=== PATIENT | male | born 1995 | race Caucasian/White ===

== ENCOUNTER → 2018-05-17 11:03 | Outpatient (CLI) | payer OTHER, MEDICAID, SELFPAY ==
--- NOTE | 2018-05-17 11:10 | RAD_ITS ---
STUDY: X-RAY CHEST REASON FOR EXAM: Male, 22 years old. Fever and cough. TECHNIQUE: PA and lateral COMPARISON: 07/25/2014 FINDINGS: Mild peribronchial cuffing. No infiltrate. The lungs are symmetrically and normally inflated. Normal cardiomediastinal silhouette. Scoliosis. RAD/Chest PA and Lateral IMPRESSION: Mild peribronchial cuffing suggesting the presence of viral syndrome/bronchiolitis without focal infiltrate. Electronically Signed: Beck Bahena, at 17:55 EDT Tel , Service support ,
== END ==
PROVIDERS: Family Provider Family Medicine; PCP Family Medicine; Referring Provider Otolaryngology Otolaryngology/Facial Plastic Surgery; Visit Provider Otolaryngology Otolaryngology/Facial Plastic Surgery
DX: R50.9 Fever, unspecified (principal); R05 Cough
CPT/HCPCS: 71046; 87070; 87077; 87186

== ENCOUNTER 2018-05-19 16:13 | Inpatient (IN) | payer OTHER, MEDICAID, SELFPAY ==
[2018-05-19 16:14] VITALS: BP 114/57; PULSE 131; RESP 16; TEMP 36.6; O2SAT 94; BMI 25.0
--- NOTE | 2018-05-19 17:34 | EKG12_ITS ---
Test Reason : FEVER Blood Pressure : / mmHG Vent. Rate : 107 BPM Atrial Rate : 107 BPM P-R Int : 130 ms QRS Dur : 076 ms QT Int : 328 ms P-R-T Axes : 045 076 020 degrees QTc Int : 437 ms Sinus tachycardia Otherwise normal ECG Confirmed by CHRISTEN OLIVIER, TAM ([id number]), desk editor EMILIANO MCHUGH ([id number] on 05/24/2018 3:41:02 PM Referred By: Antonino Maria Confirmed By:TAM VELÁSQUEZ MD
--- NOTE | 2018-05-19 17:36 | ED.VISSUMM ---
- ER Visit Summary Date of Service: 05/19/18 Chief Complaint: Fever History of Present Illness: The patient is a 22 M who presents for 1 week of fever. Patient lives in a senior care, and he has been running a fever of 103 daily, with improvement with Tylenol. Patient has had associated cough and decreased oral intake. He has Down syndrome and is nonverbal thus cannot specify any complaints. History is provided by mother. He has had no vomiting, diarrhea, change in his urination. He does have a rash to his forehead that is new. He is also had a high heart rate for 2 months and is on metoprolol now by his primary care doctor. Patient was seen by Dr. Maria 2 days ago for a routine appointment, and at that time a throat culture was performed to evaluate for any possible strep, since patient cannot indicate if he is having sore throat. It came back today positive for E. coli. Patient had a negative chest x-ray for pneumonia at that time as well. Dr. Maria was concerned since patient is allergic to most oral antibiotics and may need admission for IV antibiotics. Physical Examination: Vital signs: afebrile, normotensive, tachycardic at 131, no hypoxia on room air General: well nourished, Down syndrome facies, in no distress Skin: warm, dry, excoriated papules on the forehead, erythema along the hairline, no vesicles, petechiae or purpura noted on the skin, no pallor HEENT: normocephalic and atraumatic; PERRL, EOMI, dry mucous membranes, moist cough Cardiovascular: Tachycardic rate and rhythm without murmurs, no peripheral edema, 2+ pulses all distal extremities Respiratory: No increased work of breathing, lungs are clear to auscultation bilaterally, no rales, rhonchi or wheezing, exam is limited secondary to patient movement and ability to cooperate Abdominal: Abdomen is soft, nontender with normoactive bowel sounds, no guarding or rebound, no masses, Patrick button in place with no surrounding erythema or exudate, no tenderness MSK: Moves all extremities, no deformities, normal strength Neuro: Awake and alert, at baseline. No facial droop, sensation and motor function intact and symmetric Test Results: Abnormal Lab Results 05/19/18 05/19/18 05/19/18 18:00 18:00 18:00 WBC 4.6 RBC 5.03 Hgb 15.9 Hct 46.0 MCV 91.5 MCH 31.6 MCHC 34.6 RDW 13.5 RDW Differential 44.7 H Plt Count 304 MPV 9.7 Immature Gran % (Auto) 0.400 Neut % (Auto) 58.1 Lymph % (Auto) 25.3 [place] % (Auto) 14.7 H Eos % (Auto) 0.9 Baso % (Auto) 0.6 Absolute Neuts (auto) 2.7 Absolute Lymphs (auto) 1.17 Total Counted Not Reportable PT 14.1 INR 1.1 APTT 31.5 Sodium 141 Potassium 4.2 Chloride 108 H Carbon Dioxide 26.0 Anion Gap 7 BUN 13 Creatinine 0.79 Estim Creat Clear Calc 112.92 Est GFR (MDRD) Af Amer 156 Est GFR (MDRD) Non-Af 129 BUN/Creatinine Ratio 16.4 Glucose 93 Lactic Acid Calcium 8.7 Total Bilirubin 0.30 AST 24 ALT 37 Alkaline Phosphatase 128 H Troponin I < 0.015 Total Protein 8.6 H Albumin 3.3 Globulin 5.3 H Albumin/Globulin Ratio 0.6 L Urine Color Urine Clarity Urine pH Ur Specific [place] Urine Protein Urine Glucose (UA) Urine Ketones Urine Occult Blood Urine Nitrite Urine Bilirubin Urine Urobilinogen Ur Leukocyte Esterase Urine RBC Urine WBC Ur Squamous Epith Cells Urine Bacteria Urine Mucus 05/19/18 05/19/18 18:00 18:40 WBC RBC Hgb Hct MCV MCH MCHC RDW RDW Differential Plt Count MPV Immature Gran % (Auto) Neut % (Auto) Lymph % (Auto) [place] % (Auto) Eos % (Auto) Baso % (Auto) Absolute Neuts (auto) Absolute Lymphs (auto) Total Counted PT INR APTT Sodium Potassium Chloride Carbon Dioxide Anion Gap BUN Creatinine Estim Creat Clear Calc Est GFR (MDRD) Af Amer Est GFR (MDRD) Non-Af BUN/Creatinine Ratio Glucose Lactic Acid 1.0 Calcium Total Bilirubin AST ALT Alkaline Phosphatase Troponin I Total Protein Albumin Globulin Albumin/Globulin Ratio Urine Color Yellow Urine Clarity Clear Urine pH 8.0 Ur Specific [place] 1.010 Urine Protein Negative Urine Glucose (UA) Normal Urine Ketones Negative Urine Occult Blood 10 H Urine Nitrite Negative Urine Bilirubin Negative Urine Urobilinogen Normal Ur Leukocyte Esterase Negative Urine RBC 0-5 SEEN Urine WBC 0-5 SEEN Ur Squamous Epith Cells 0 SEEN Urine Bacteria RARE Urine Mucus 0 SEEN Clinical Impression(s) from Imaging Studies Chest X-Ray 05/19/18 18:20 IMPRESSION: Findings which may be consistent with viral pneumonia or other nonspecific upper airway disease Electronically Signed: Juan Galvan MD at 19:03 EDT , Service support , Medications Given Acetaminophen (Tylenol) 650 mg PO Q6H PRN PRN PRN Reason: ELEVATED TEMP Last Admin: 05/19/18 23:18 Dose: 650 mg Bisacodyl (Dulcolax) 10 mg RECTAL UD [facility] Last Admin: 05/19/18 23:09 Dose: Not Given Enoxaparin Sodium (Lovenox) 40 mg SC DAILY@1000 JOSE LUIS Enteral Nutritional Formula (Jevity 1.5) 237 ml PO BID [facility] Guaifenesin (Mucinex) 600 mg PO BID [facility] Sodium Chloride () 1,000 mls @ 250 mls/hr IV .Q4H [facility] Last Admin: 05/19/18 18:06 Dose: 250 mls/hr Lactobacillus Acidophilus (Acidophilus) 1 tablet GT DAILY [facility] Magnesium Hydroxide (Milk Of Magnesia) 30 ml PO DAILY PRN PRN PRN Reason: Constipation Metoprolol Tartrate (Lopressor (Beta Jose)) 25 mg GT BID [facility] Last Admin: 05/19/18 23:07 Dose: 25 mg Non-Formulary Medication (Lansoprazole) 30 mg GT DAILY [facility] Polyethylene Glycol (Miralax) 8.5 gm GT DAILY [facility] Simethicone (Mylicon) 80 mg GT 4X/DAY PRN PRN PRN Reason: gas pains Sodium Chloride ([place] Nasal [place]) 3 spray NASAL BID [facility] Last Admin: 05/19/18 23:08 Dose: 3 spray Sodium Chloride () 5 - 30 ml IV UD PRN PRN Reason: SALINE FLUSH Trazodone HCl (Desyrel) 150 mg GT QHS [facility] Last Admin: 05/19/18 23:10 Dose: 150 mg Discontinued Medications Meropenem 1 gm/ Sodium (Chloride) 120 mls @ 33 mls/hr IV X1 ONE Stop: 05/20/18 00:23 Last Admin: 05/19/18 21:13 Dose: 33 mls/hr Trazodone HCl (Desyrel) 150 mg GT QHS [facility] Emergency Department Course and Treatment: Patient presents with fevers for the last week, positive throat culture for E. coli and concern for pneumonia. Repeat chest x-ray showed findings concerning for viral pneumonia but no infiltrates concerning for bacterial pneumonia. Patient had no leukocytosis. Labs were unremarkable. Lactate was normal at 1. EKG showed a sinus rhythm without ischemia or ectopy but was tachycardic. Troponin negative. Patient was given IV fluids. Because of the fevers and the history of E. coli in the throat culture and allergies to the appropriate oral medications, patient was started on IV meropenem and will be admitted for further evaluation and management of his E. coli infection of the throat. Patient discussed with Dr. Rocha for admission. Treatment Plan: [] Disposition: [] Impression: Febrile illness, positive E. coli throat culture, viral pneumonia This note was generated with [employer] dictation software. It may contain incorrect words, spelling, and punctuation that were not noted in review of the chart prior to signing ED Disposition - Plan for ED Patient: Disposition: Acute Care Hospital [facility] Chief Complaint: Fever
--- NOTE | 2018-05-19 17:39 | ED.DCSUM_ITS ---
- ER Visit Summary Date of Service: 05/19/18 Chief Complaint: Fever History of Present Illness: The patient is a 22 M who presents for 1 week of fever. Patient lives in a senior care, and he has been running a fever of 103 daily, with improvement with Tylenol. Patient has had associated cough and decreased oral intake. He has Down syndrome and is nonverbal thus cannot specify any complaints. History is provided by mother. He has had no vomiting, diarrhea, change in his urination. He does have a rash to his forehead that is new. He is also had a high heart rate for 2 months and is on metoprolol now by his primary care doctor. Patient was seen by Dr. Maria 2 days ago for a routine appointment, and at that time a throat culture was performed to evaluate for any possible strep, since patient cannot indicate if he is having sore throat. It came back today positive for E. coli. Patient had a negative chest x-ray for pneumonia at that time as well. Dr. Maria was concerned since patient is allergic to most oral antibiotics and may need admission for IV antibiotics. Physical Examination: Vital signs: afebrile, normotensive, tachycardic at 131, no hypoxia on room air General: well nourished, Down syndrome facies, in no distress Skin: warm, dry, excoriated papules on the forehead, erythema along the hairline, no vesicles, petechiae or purpura noted on the skin, no pallor HEENT: normocephalic and atraumatic; PERRL, EOMI, dry mucous membranes, moist cough Cardiovascular: Tachycardic rate and rhythm without murmurs, no peripheral edema, 2+ pulses all distal extremities Respiratory: No increased work of breathing, lungs are clear to auscultation bilaterally, no rales, rhonchi or wheezing, exam is limited secondary to patient movement and ability to cooperate Abdominal: Abdomen is soft, nontender with normoactive bowel sounds, no guarding or rebound, no masses, Patrick button in place with no surrounding erythema or exudate, no tenderness MSK: Moves all extremities, no deformities, normal strength Neuro: Awake and alert, at baseline. No facial droop, sensation and motor function intact and symmetric Test Results: Abnormal Lab Results 05/19/18 05/19/18 05/19/18 18:00 18:00 18:00 WBC 4.6 RBC 5.03 Hgb 15.9 Hct 46.0 MCV 91.5 MCH 31.6 MCHC 34.6 RDW 13.5 RDW Differential 44.7 H Plt Count 304 MPV 9.7 Immature Gran % (Auto) 0.400 Neut % (Auto) 58.1 Lymph % (Auto) 25.3 [place] % (Auto) 14.7 H Eos % (Auto) 0.9 Baso % (Auto) 0.6 Absolute Neuts (auto) 2.7 Absolute Lymphs (auto) 1.17 Total Counted Not Reportable PT 14.1 INR 1.1 APTT 31.5 Sodium 141 Potassium 4.2 Chloride 108 H Carbon Dioxide 26.0 Anion Gap 7 BUN 13 Creatinine 0.79 Estim Creat Clear Calc 112.92 Est GFR (MDRD) Af Amer 156 Est GFR (MDRD) Non-Af 129 BUN/Creatinine Ratio 16.4 Glucose 93 Lactic Acid Calcium 8.7 Total Bilirubin 0.30 AST 24 ALT 37 Alkaline Phosphatase 128 H Troponin I < 0.015 Total Protein 8.6 H Albumin 3.3 Globulin 5.3 H Albumin/Globulin Ratio 0.6 L Urine Color Urine Clarity Urine pH Ur Specific [place] Urine Protein Urine Glucose (UA) Urine Ketones Urine Occult Blood Urine Nitrite Urine Bilirubin Urine Urobilinogen Ur Leukocyte Esterase Urine RBC Urine WBC Ur Squamous Epith Cells Urine Bacteria Urine Mucus 05/19/18 05/19/18 18:00 18:40 WBC RBC Hgb Hct MCV MCH MCHC RDW RDW Differential Plt Count MPV Immature Gran % (Auto) Neut % (Auto) Lymph % (Auto) [place] % (Auto) Eos % (Auto) Baso % (Auto) Absolute Neuts (auto) Absolute Lymphs (auto) Total Counted PT INR APTT Sodium Potassium Chloride Carbon Dioxide Anion Gap BUN Creatinine Estim Creat Clear Calc Est GFR (MDRD) Af Amer Est GFR (MDRD) Non-Af BUN/Creatinine Ratio Glucose Lactic Acid 1.0 Calcium Total Bilirubin AST ALT Alkaline Phosphatase Troponin I Total Protein Albumin Globulin Albumin/Globulin Ratio Urine Color Yellow Urine Clarity Clear Urine pH 8.0 Ur Specific [place] 1.010 Urine Protein Negative Urine Glucose (UA) Normal Urine Ketones Negative Urine Occult Blood 10 H Urine Nitrite Negative Urine Bilirubin Negative Urine Urobilinogen Normal Ur Leukocyte Esterase Negative Urine RBC 0-5 SEEN Urine WBC 0-5 SEEN Ur Squamous Epith Cells 0 SEEN Urine Bacteria RARE Urine Mucus 0 SEEN Clinical Impression(s) from Imaging Studies Chest X-Ray 05/19/18 18:20 IMPRESSION: Findings which may be consistent with viral pneumonia or other nonspecific upper airway disease Electronically Signed: Juan Galvan MD at 19:03 EDT , Service support , Medications Given Acetaminophen (Tylenol) 650 mg PO Q6H PRN PRN PRN Reason: ELEVATED TEMP Last Admin: 05/19/18 23:18 Dose: 650 mg Bisacodyl (Dulcolax) 10 mg RECTAL UD [facility] Last Admin: 05/19/18 23:09 Dose: Not Given Enoxaparin Sodium (Lovenox) 40 mg SC DAILY@1000 JOSE LUIS Enteral Nutritional Formula (Jevity 1.5) 237 ml PO BID [facility] Guaifenesin (Mucinex) 600 mg PO BID [facility] Sodium Chloride () 1,000 mls @ 250 mls/hr IV .Q4H [facility] Last Admin: 05/19/18 18:06 Dose: 250 mls/hr Lactobacillus Acidophilus (Acidophilus) 1 tablet GT DAILY [facility] Magnesium Hydroxide (Milk Of Magnesia) 30 ml PO DAILY PRN PRN PRN Reason: Constipation Metoprolol Tartrate (Lopressor (Beta Jose)) 25 mg GT BID [facility] Last Admin: 05/19/18 23:07 Dose: 25 mg Non-Formulary Medication (Lansoprazole) 30 mg GT DAILY [facility] Polyethylene Glycol (Miralax) 8.5 gm GT DAILY [facility] Simethicone (Mylicon) 80 mg GT 4X/DAY PRN PRN PRN Reason: gas pains Sodium Chloride ([place] Nasal [place]) 3 spray NASAL BID [facility] Last Admin: 05/19/18 23:08 Dose: 3 spray Sodium Chloride () 5 - 30 ml IV UD PRN PRN Reason: SALINE FLUSH Trazodone HCl (Desyrel) 150 mg GT QHS [facility] Last Admin: 05/19/18 23:10 Dose: 150 mg Discontinued Medications Meropenem 1 gm/ Sodium (Chloride) 120 mls @ 33 mls/hr IV X1 ONE Stop: 05/20/18 00:23 Last Admin: 05/19/18 21:13 Dose: 33 mls/hr Trazodone HCl (Desyrel) 150 mg GT QHS [facility] Emergency Department Course and Treatment: Patient presents with fevers for the last week, positive throat culture for E. coli and concern for pneumonia. Repeat chest x-ray showed findings concerning for viral pneumonia but no infiltrates concerning for bacterial pneumonia. Patient had no leukocytosis. Labs were unremarkable. Lactate was normal at 1. EKG showed a sinus rhythm without ischemia or ectopy but was tachycardic. Troponin negative. Patient was given IV fluids. Because of the fevers and the history of E. coli in the throat culture and allergies to the appropriate oral medications, patient was started on IV meropenem and will be admitted for further evaluation and management of his E. coli infection of the throat. Patient discussed with Dr. Rocha for admission. Treatment Plan: [] Disposition: [] Impression: Febrile illness, positive E. coli throat culture, viral pneumonia This note was generated with [employer] dictation software. It may contain incorrect words, spelling, and punctuation that were not noted in review of the chart prior to signing ED Disposition - Plan for ED Patient: Disposition: Acute Care Hospital [facility] Chief Complaint: Fever
[2018-05-19] MEDS: 0.9% Normal Saline 1,000 ML 250 ML IV (18:06)
--- NOTE | 2018-05-19 18:20 | RAD_ITS ---
STUDY: X-RAY CHEST REASON FOR EXAM: Male, 22 years old. Fever TECHNIQUE: PA and lateral COMPARISON: May 17, 2018 FINDINGS: Bilateral hilar interstitial thickening is seen more severe on the left which may be consistent with viral pneumonia. There is no demonstrated pleural abnormality. Normal size heart. Normal mediastinum and edgardo. Normal visualized pulmonary arteries. Normal visualized aortic arch and descending thoracic aorta. Dorsal spine demonstrates mild levoscoliosis. Normal visualized ribs, clavicles, and shoulders. There is no demonstrated abnormality of the visualized soft tissue structures of the upper abdomen. RAD/Chest PA and Lateral IMPRESSION: Findings which may be consistent with viral pneumonia or other nonspecific upper airway disease Electronically Signed: Juan Galvan MD at 19:03 EDT , Service support ,
[2018-05-19 18:23] LABS: Absolute Lymphocyte Count 1.17 X10^3/ul (0.83-4.51); Absolute Neutrophil Count 2.7 X10^3/uL (2.0-7.7); Basophil# 0.03 X10^3/uL; Basophil% 0.6 % (0-1); Eosinophil# 0.04 X10^3/uL; Eosinophils% 0.9 % (0-5); Hemoglobin 15.9 g/dl (13.0-16.5); Lymphocyte # 1.17 X10^3/ul (4.0); Lymphocyte % 25.3 % (19-41); Mean Corp Hgb Conc 34.6 g/gl (32-36); Mean Corpuscular Hgb 31.6 pg (27.0-32.0); Mean Corpuscular Volume 91.5 fL (80-94); Mean Platelet Vol. 9.7 fl (6.2-12.0); Monocyte# 0.68 X10^3/uL; Monocyte% 14.7 % (0-10); Neutrophil # 2.69 X10^3/uL (2.7-7.7); Neutrophil % 58.1 % (47-70); Platelet Count 304 K/mm3 (150-450); RBC Distribution Width CV 13.5 % (11.6-14.6); RBC Distribution Width SD 44.7 fl (35.1-43.9); Red Blood Count 5.03 M/mm3 (4.6-6.2); White Blood Count 4.6 K/mm3 (4.4-11.0)
[2018-05-19 18:32] LABS: POSITIVE COUNT NO; POSITIVE DIFFERENTIAL NO; POSITIVE MORPHOLOGY NO
[2018-05-19 18:34] VITALS: PULSE 120; RESP 20
[2018-05-19 18:39] LABS: ALB/GLOB Ratio 0.6 RATIO (0.9-2.4); AST(SGOT) 24 U/L (15-37); Alanine Aminotransfer ALT/SGPT 37 U/L (16-61); Albumin, Serum 3.3 g/dL (3.2-5.0); Alkaline Phosphatase 128 U/L (45-117); Anion Gap 7 (5-15); BUN 13 mg/dL (7-18); BUN/Creat Ratio 16.4 RATIO (10-20); Calcium,Total 8.7 mg/dL (8.5-10.1); Chloride 108 mmol/L (98-107); Creatinine, Serum 0.79 mg/dL (0.70-1.30); EST Glomerular Filtration Rate 129 mL/min (>60); Est Glom Filt Rate - Afr Amer 156 mL/min (>60); Estimated Creatinine Clearance 112.92 ml/min; Globulin 5.3 g/dL (2.2-4.2); Glucose 93 mg/dL (74-106); Potassium 4.2 mmol/L (3.5-5.1); Protein, Total 8.6 g/dL (6.4-8.2); Sodium Level 141 mmol/L (136-145)
[2018-05-19 18:45] LABS: International Normalized Ratio 1.1; Prothrombin Time (Protime)PT. 14.1 SECONDS (11.7-14.9)
[2018-05-19 18:46] LABS: Partial Thromboplast Time 31.5 Seconds (24.1-36.2)
[2018-05-19 18:46] LABS: Mucous, Urine 0 SEEN /hpf (<or=2+); Squamous Epithelial Cells - UA 0 SEEN /hpf (0-5)
[2018-05-19 19:03] LABS: Color, Urine Yellow (Yellow); Glucose, Dipstick Normal (Normal); Ketone-Dipstick Negative (Negative); Leukocyte Esterase-Dipstick Negative /ul (Negative); Nitrite-Dipstick Negative (Negative); Occult Blood-Urine 10 /ul (Negative); Protein-Dipstick Negative (Negative); Urine Bilirubin Dipstick Negative (Negative); Urine Clarity Clear (Clear); Urine Urobilinogen Normal (Normal)
[2018-05-19 19:17] LABS: Bacteria RARE /hpf (None Seen); Red Blood Cells-Urine 0-5 SEEN /hpf (0-5); White Blood Cells 0-5 SEEN /hpf (0-5)
[2018-05-19 21:17] VITALS: BP 140/99; PULSE 122; RESP 20
--- NOTE | 2018-05-19 21:24 | PCM.HP.STD ---
Problem List (1) Fever Status: Acute (2) Cough Status: Acute History of Present Illness Date of Admission: 05/19/18 Chief Complaint: Fever, cough The patient is a 22 year old M with a history of Down syndrome, and resident in a assisted. He was admitted with a complaint of fever for 1 week. Patient was seen by his ENT doctor Dr. Hooker, who did a throat swab which grew E. coli. Patient's fever had peaked at about 103 Fahrenheit last week. He also had a cough which was nonproductive. He was brought into the ED today by his mother after being referred by Dr. Hooker on account of throat swelling grew E. coli and patient being allergic to penicillins and ceftriaxone. According to mother, he was febrile yesterday with temperature peaking around 101 Fahrenheit but has not been febrile today. He still has a cough which is nonproductive and denies any anorexia, any chills, any abdominal pain, any diarrhea vomiting. Patient is nonverbal and so could not give much of her history. Review of systems is otherwise negative. In the ED, vitals were significant for pulse rate of 122, respiratory rate of 20 and temperature of 97.9. CBC showed no leukocytosis and CMP was remarkable only for elevated total protein of 8.6 and ALP of 128. Chest x-ray showed bilateral hilar interstitial thickening more severe on the left which may be consistent with viral pneumonia. He has been admitted to be managed for pneumonia. [] Past Medical History Past Medical History (Chronic Problems): Chronic Problems Autism (Chronic) Dysphagia (Chronic) Down syndrome (Chronic) nonverbal incontinent Allergies ceftriaxone sodium [From Rocephin] Allergy (Verified 05/19/18 17:17) Rash sulfamethoxazole [From Bactrim] Allergy (Verified 05/19/18 17:17) Rash trimethoprim [From Bactrim] Allergy (Verified 05/19/18 17:17) Rash cinnamon [Cinnamon] Adverse Reaction (Verified 05/19/18 17:17) Diarrhea Home Medications: Ambulatory Orders Medication Instructions Recorded L.acidoph,Paracasei, B.lactis 1 pack GT DAILY 07/19/15 [Probiotic] Lansoprazole [Prevacid] 30 mg GT DAILY 07/19/15 Simethicone 40MG/0.6ML [Mylicon] 80 mg GT Q8H PRN PRN 07/19/15 Polyethylene Glycol 3350 [Miralax] 8.5 gm GT DAILY 06/11/17 Sodium Chloride [Saline Nasal Mist] 3 spray NASAL BID 06/11/17 Bisacodyl 10 mg RC UD PRN 05/19/18 Lactose-Reduced Food/Fiber [Jevity 12 oz GT BID 05/19/18 1.5 Jamarcus Liquid] Metoprolol Tartrate 25 mg GT BID 05/19/18 traZODone [Desyrel] 150 mg GT QHS 05/19/18 Lives: - - In assisted Smoking Status: Never smoker Alcohol: None Drugs: None - *Family History Maternal History Items: No pertinent history Review of Systems Constitutional: Reports: Fever. Denies: Weakness, Fatigue Respiratory: Reports: Cough. Denies: Shortness of Breath, Shortness of breath at rest, Wheezing Gastrointestinal: Denies: Abdominal Pain, Diarrhea, Vomiting Unable to obtain accurate/complete ROS d/t: patient being nonverbal; ROS taken from mother, who doesnt live with him VTE Information - Inpt Only VTE Present on Admission: No VTE Mechan Device Prophylaxis: None VTE Pharm Prophylaxis ordered?: Yes Patient Problems: Active and Suspected Problems Fever (Acute) Cough (Acute) - Physical Exam General: Alert, Cooperative, No apparent distress, - - patient nonverbal and so unable to communicate well HEENT: Atraumatic, PERRLA, EOMI, Normocephalic Oral: Moist Mucosa Neck: Supple, No JVD, Negative Carotid Bruits Lungs: - - diminished breath sounds bibasally, with coarse crackles in both lower lung mondragon. Abdomen: Bowel Sounds Present, Soft, Non Tender, Non-Distended, No Hepato-splenomegaly, - - feeding tube in place Extremities: No clubbing, No cyanosis, No edema, Capillary Refill Less than 3 Seconds Skin: No rashes, No breakdown Musculoskeletal: No Tenderness to Palpation of Joints or Extremities Lymphatic: No Cervical, Supraclavicular, or Inguinal Adenopathy Neurological: Cranial nerves II-XII grossly intact, Motor Exam 5/5 strength throughout, - - macroglossia Psych/Mental Status: Restless Vital Signs Temp Pulse Resp BP Pulse Ox 97.9 F 122 H 20 H 140/99 H 94 05/19/18 16:14 05/19/18 21:17 05/19/18 21:17 05/19/18 21:17 05/19/18 16:14 Oxygen Delivery Method Room Air Weight: 120 lb Body Mass Index (BMI) 25.0 Laboratory Tests Past 24 Hrs 05/19/18 05/19/18 05/19/18 18:00 18:00 18:00 WBC 4.6 RBC 5.03 Hgb 15.9 Hct 46.0 MCV 91.5 MCH 31.6 MCHC 34.6 RDW 13.5 RDW Differential 44.7 H Plt Count 304 MPV 9.7 Immature Gran % (Auto) 0.400 Neut % (Auto) 58.1 Lymph % (Auto) 25.3 [place] % (Auto) 14.7 H Eos % (Auto) 0.9 Baso % (Auto) 0.6 Absolute Neuts (auto) 2.7 Absolute Lymphs (auto) 1.17 Total Counted Not Reportable PT 14.1 INR 1.1 APTT 31.5 Sodium 141 Potassium 4.2 Chloride 108 H Carbon Dioxide 26.0 Anion Gap 7 BUN 13 Creatinine 0.79 Estim Creat Clear Calc 112.92 Est GFR (MDRD) Af Amer 156 Est GFR (MDRD) Non-Af 129 BUN/Creatinine Ratio 16.4 Glucose 93 Lactic Acid Calcium 8.7 Total Bilirubin 0.30 AST 24 ALT 37 Alkaline Phosphatase 128 H Troponin I < 0.015 Total Protein 8.6 H Albumin 3.3 Globulin 5.3 H Albumin/Globulin Ratio 0.6 L Urine Color Urine Clarity Urine pH Ur Specific [place] Urine Protein Urine Glucose (UA) Urine Ketones Urine Occult Blood Urine Nitrite Urine Bilirubin Urine Urobilinogen Ur Leukocyte Esterase Urine RBC Urine WBC Ur Squamous Epith Cells Urine Bacteria Urine Mucus 05/19/18 05/19/18 18:00 18:40 WBC RBC Hgb Hct MCV MCH MCHC RDW RDW Differential Plt Count MPV Immature Gran % (Auto) Neut % (Auto) Lymph % (Auto) [place] % (Auto) Eos % (Auto) Baso % (Auto) Absolute Neuts (auto) Absolute Lymphs (auto) Total Counted PT INR APTT Sodium Potassium Chloride Carbon Dioxide Anion Gap BUN Creatinine Estim Creat Clear Calc Est GFR (MDRD) Af Amer Est GFR (MDRD) Non-Af BUN/Creatinine Ratio Glucose Lactic Acid 1.0 Calcium Total Bilirubin AST ALT Alkaline Phosphatase Troponin I Total Protein Albumin Globulin Albumin/Globulin Ratio Urine Color Yellow Urine Clarity Clear Urine pH 8.0 Ur Specific [place] 1.010 Urine Protein Negative Urine Glucose (UA) Normal Urine Ketones Negative Urine Occult Blood 10 H Urine Nitrite Negative Urine Bilirubin Negative Urine Urobilinogen Normal Ur Leukocyte Esterase Negative Urine RBC 0-5 SEEN Urine WBC 0-5 SEEN Ur Squamous Epith Cells 0 SEEN Urine Bacteria RARE Urine Mucus 0 SEEN Diagnostic Data Chest X-Ray 05/19/18 18:20 IMPRESSION: Findings which may be consistent with viral pneumonia or other nonspecific upper airway disease Electronically Signed: Juan Galvan MD at 19:03 EDT , Service support , Assessment/Plan All Active Problems Fever (Acute) Cough (Acute) Facial cellulitis (Acute) 22 y/o patient with Down's syndrome presenting with a complaint of cough, fever and a throat swab that cultured E. coli 1. Sepsis due to pneumonia SIRS criteria is 2/4 (tachypnea and tachycardia) had fever for one week; peaked at 101F yesterday, but no fever today; patient looks quite stable, and per my review of CXR, there is no clear evidence of pneumonia Nonproductive cough though cough sounded chesty during my review. He is on metoprolol, so the tachycardia is likely due to sinus tachycardia which is longstanding. Chest x-ray shows possible viral pneumonia Admit to [facility] with telemetry Blood cultures and urine culture obtained in the ED respiratory Viral panel throat culture grew E. coli (1+); has allergy to ceftriaxone and penicillins, according to his mother (gets hives) E. coli in culture was resistant to numerous antibiotics received one dose of IV meropenem in ED start IV meropenem, and de-escalate pending culture results IVF NS ~ 100cc/hr x 1 bag tylenol for fever aspiration precautions robitussin cough syrup consider ID consult if patient doesnt improve 2. Down's syndrome: stable. Has PEG tube in place for supplementary feeding. Has Jevity 12oz bid for nutrition supplementation. 3. Hypertension: on metoprolol GT 25mg bid 4. DVT prophylaxis: heparin 5. GI prophylaxis: lansoprazole Code status: full code Code Visit Inpatient E&M: 02897 Init Hosp L3
--- NOTE | 2018-05-19 21:28 | HP.PCM_ITS ---
Problem List (1) Fever Status: Acute (2) Cough Status: Acute History of Present Illness Date of Admission: 05/19/18 Chief Complaint: Fever, cough The patient is a 22 year old M with a history of Down syndrome, and resident in a shelter. He was admitted with a complaint of fever for 1 week. Patient was seen by his ENT doctor Dr. Hooker, who did a throat swab which grew E. coli. Patient's fever had peaked at about 103 Fahrenheit last week. He also had a cough which was nonproductive. He was brought into the ED today by his mother after being referred by Dr. Hooker on account of throat swelling grew E. coli and patient being allergic to penicillins and ceftriaxone. According to mother, he was febrile yesterday with temperature peaking around 101 Fahrenheit but has not been febrile today. He still has a cough which is nonproductive and denies any anorexia, any chills, any abdominal pain, any diarrhea vomiting. Patient is nonverbal and so could not give much of her history. Review of [facility] is otherwise negative. In the ED, vitals were significant for pulse rate of 122, respiratory rate of 20 and temperature of 97.9. CBC showed no leukocytosis and CMP was remarkable only for elevated total protein of 8.6 and ALP of 128. Chest x-ray showed bilateral hilar interstitial thickening more severe on the left which may be consistent with viral pneumonia. He has been admitted to be managed for pneumonia. [] Past Medical History Past Medical History (Chronic Problems): Chronic Problems Autism (Chronic) Dysphagia (Chronic) Down syndrome (Chronic) nonverbal incontinent Allergies ceftriaxone sodium [From Rocephin] Allergy (Verified 05/19/18 17:17) Rash sulfamethoxazole [From Bactrim] Allergy (Verified 05/19/18 17:17) Rash trimethoprim [From Bactrim] Allergy (Verified 05/19/18 17:17) Rash cinnamon [Cinnamon] Adverse Reaction (Verified 05/19/18 17:17) Diarrhea Home Medications: Ambulatory Orders Medication Instructions Recorded L.acidoph,Paracasei, B.lactis 1 pack GT DAILY 07/19/15 [Probiotic] Lansoprazole [Prevacid] 30 mg GT DAILY 07/19/15 Simethicone 40MG/0.6ML [Mylicon] 80 mg GT Q8H PRN PRN 07/19/15 Polyethylene Glycol 3350 [Miralax] 8.5 gm GT DAILY 06/11/17 Sodium Chloride [Saline Nasal Mist] 3 spray NASAL BID 06/11/17 Bisacodyl 10 mg RC UD PRN 05/19/18 Lactose-Reduced Food/Fiber [Jevity 12 oz GT BID 05/19/18 1.5 Jamarcus Liquid] Metoprolol Tartrate 25 mg GT BID 05/19/18 traZODone [Desyrel] 150 mg GT QHS 05/19/18 Lives: - - In shelter Smoking Status: Never smoker Alcohol: None Drugs: None - *Family History Maternal History Items: No pertinent history Review of Systems Constitutional: Reports: Fever. Denies: Weakness, Fatigue Respiratory: Reports: Cough. Denies: Shortness of Breath, Shortness of breath at rest, Wheezing Gastrointestinal: Denies: Abdominal Pain, Diarrhea, Vomiting Unable to obtain accurate/complete ROS d/t: patient being nonverbal; ROS taken from mother, who doesnt live with him VTE Information - Inpt Only VTE Present on Admission: No VTE Mechan Device Prophylaxis: None VTE Pharm Prophylaxis ordered?: Yes Patient Problems: Active and Suspected Problems Fever (Acute) Cough (Acute) - Physical Exam General: Alert, Cooperative, No apparent distress, - - patient nonverbal and so unable to communicate well HEENT: Atraumatic, PERRLA, EOMI, Normocephalic Oral: Moist Mucosa Neck: Supple, No JVD, Negative Carotid Bruits Lungs: - - diminished breath sounds bibasally, with coarse crackles in both lower lung mondragon. Abdomen: Bowel Sounds Present, Soft, Non Tender, Non-Distended, No Hepato- splenomegaly, - - feeding tube in place Extremities: No clubbing, No cyanosis, No edema, Capillary Refill Less than 3 Seconds Skin: No rashes, No breakdown Musculoskeletal: No Tenderness to Palpation of Joints or Extremities Lymphatic: No Cervical, Supraclavicular, or Inguinal Adenopathy Neurological: Cranial nerves II-XII grossly intact, Motor Exam 5/5 strength throughout, - - macroglossia Psych/Mental Status: Restless Vital Signs Temp Pulse Resp BP Pulse Ox 97.9 F 122 H 20 H 140/99 H 94 05/19/18 16:14 05/19/18 21:17 05/19/18 21:17 05/19/18 21:17 05/19/18 16:14 Oxygen Delivery Method Room Air Weight: 120 lb Body Mass Index (BMI) 25.0 Laboratory Tests Past 24 Hrs 05/19/18 05/19/18 05/19/18 18:00 18:00 18:00 WBC 4.6 RBC 5.03 Hgb 15.9 Hct 46.0 MCV 91.5 MCH 31.6 MCHC 34.6 RDW 13.5 RDW Differential 44.7 H Plt Count 304 MPV 9.7 Immature Gran % (Auto) 0.400 Neut % (Auto) 58.1 Lymph % (Auto) 25.3 [place] % (Auto) 14.7 H Eos % (Auto) 0.9 Baso % (Auto) 0.6 Absolute Neuts (auto) 2.7 Absolute Lymphs (auto) 1.17 Total Counted Not Reportable PT 14.1 INR 1.1 APTT 31.5 Sodium 141 Potassium 4.2 Chloride 108 H Carbon Dioxide 26.0 Anion Gap 7 BUN 13 Creatinine 0.79 Estim Creat Clear Calc 112.92 Est GFR (MDRD) Af Amer 156 Est GFR (MDRD) Non-Af 129 BUN/Creatinine Ratio 16.4 Glucose 93 Lactic Acid Calcium 8.7 Total Bilirubin 0.30 AST 24 ALT 37 Alkaline Phosphatase 128 H Troponin I < 0.015 Total Protein 8.6 H Albumin 3.3 Globulin 5.3 H Albumin/Globulin Ratio 0.6 L Urine Color Urine Clarity Urine pH Ur Specific [place] Urine Protein Urine Glucose (UA) Urine Ketones Urine Occult Blood Urine Nitrite Urine Bilirubin Urine Urobilinogen Ur Leukocyte Esterase Urine RBC Urine WBC Ur Squamous Epith Cells Urine Bacteria Urine Mucus 05/19/18 05/19/18 18:00 18:40 WBC RBC Hgb Hct MCV MCH MCHC RDW RDW Differential Plt Count MPV Immature Gran % (Auto) Neut % (Auto) Lymph % (Auto) [place] % (Auto) Eos % (Auto) Baso % (Auto) Absolute Neuts (auto) Absolute Lymphs (auto) Total Counted PT INR APTT Sodium Potassium Chloride Carbon Dioxide Anion Gap BUN Creatinine Estim Creat Clear Calc Est GFR (MDRD) Af Amer Est GFR (MDRD) Non-Af BUN/Creatinine Ratio Glucose Lactic Acid 1.0 Calcium Total Bilirubin AST ALT Alkaline Phosphatase Troponin I Total Protein Albumin Globulin Albumin/Globulin Ratio Urine Color Yellow Urine Clarity Clear Urine pH 8.0 Ur Specific [place] 1.010 Urine Protein Negative Urine Glucose (UA) Normal Urine Ketones Negative Urine Occult Blood 10 H Urine Nitrite Negative Urine Bilirubin Negative Urine Urobilinogen Normal Ur Leukocyte Esterase Negative Urine RBC 0-5 SEEN Urine WBC 0-5 SEEN Ur Squamous Epith Cells 0 SEEN Urine Bacteria RARE Urine Mucus 0 SEEN Diagnostic Data Chest X-Ray 05/19/18 18:20 IMPRESSION: Findings which may be consistent with viral pneumonia or other nonspecific upper airway disease Electronically Signed: Juan Galvan MD at 19:03 EDT , Service support , Assessment/Plan All Active Problems Fever (Acute) Cough (Acute) Facial cellulitis (Acute) 22 y/o patient with Down's syndrome presenting with a complaint of cough, fever and a throat swab that cultured E. coli 1. Sepsis due to pneumonia * SIRS criteria is 2/4 (tachypnea and tachycardia) * had fever for one week; peaked at 101F yesterday, but no fever today; patient looks quite stable, and per my review of CXR, there is no clear evidence of pneumonia * Nonproductive cough though cough sounded chesty during my review. He is on metoprolol, so the tachycardia is likely due to sinus tachycardia which is longstanding. * Chest x-ray shows possible viral pneumonia * Admit to [facility] with telemetry * Blood cultures and urine culture obtained in the ED * respiratory Viral panel * throat culture grew E. coli (1+); has allergy to ceftriaxone and penicillins, according to his mother (gets hives) * E. coli in culture was resistant to numerous antibiotics * received one dose of IV meropenem in ED * start IV meropenem, and de-escalate pending culture results * IVF NS ~ 100cc/hr x 1 bag * tylenol for fever * aspiration precautions * robitussin cough syrup * consider ID consult if patient doesnt improve * 2. Down's syndrome: stable. Has PEG tube in place for supplementary feeding. Has Jevity 12oz bid for nutrition supplementation. 3. Hypertension: on metoprolol GT 25mg bid 4. DVT prophylaxis: heparin 5. GI prophylaxis: lansoprazole Code status: full code Code Visit Inpatient E&M: 65242 Init Hosp L3
[2018-05-19 21:47] VITALS: BMI 24.0; BMI 24.1
[2018-05-19 23:00] VITALS: BP 127/73; PULSE 120; RESP 24; RESP 30; TEMP 38; O2SAT 97
[2018-05-19 23:07] VITALS: BP 127/73; PULSE 120
[2018-05-19] MEDS: Metoprolol Tartrate 25 MG Tablet GT (23:07)
[2018-05-19] MEDS: Sodium Chloride 0.65% 1 SPRAY SPRAY.BTL 3 SPRAY NASAL (23:08)
[2018-05-19] MEDS: Jevity 1.5. 1,000 ML Bottle 237 ML PO (23:10)
[2018-05-19] MEDS: traZODone 50 MG Tablet 150 MG GT (23:10)
[2018-05-19] MEDS: Acetaminophen 325 MG Tablet 650 MG PO (23:18)
[2018-05-20] VITALS (18 sets, daily range): BP systolic 107–142; BP diastolic 56–76; PULSE 79–135; RESP 18–24; TEMP 36.7–38; O2SAT 6–95
[2018-05-20] MEDS: 0.9% Normal Saline 1,000 ML 250 ML IV ×4 (01:14→09:05)
--- NOTE | 2018-05-20 03:23 | NURSING ---
ta temp 97.9
[2018-05-20] MEDS: guaiFENesin 10 ML UDC (200MG/10ML) NG ×4 (05:28→22:57)
--- NOTE | 2018-05-20 05:42 | NURSING ---
pt inc of urine, bath and dewayne care given, oral care done. linens changed. pt still has a harsh nonproductive moist cough, cough med given via peg tube. mom at the bedside.
[2018-05-20 05:44] LABS: Absolute Lymphocyte Count 1.45 X10^3/ul (0.83-4.51); Absolute Neutrophil Count 1.8 X10^3/uL (2.0-7.7); Basophil# 0.02 X10^3/uL; Basophil% 0.5 % (0-1); Eosinophil# 0.06 X10^3/uL; Eosinophils% 1.5 % (0-5); Hematocrit 43.4 % (40-54); Hemoglobin 14.6 g/dl (13.0-16.5); Lymphocyte # 1.45 X10^3/ul (4.0); Lymphocyte % 36.7 % (19-41); Mean Corp Hgb Conc 33.6 g/gl (32-36); Mean Corpuscular Hgb 31.7 pg (27.0-32.0); Mean Corpuscular Volume 94.1 fL (80-94); Mean Platelet Vol. 9.5 fl (6.2-12.0); Monocyte% 15.2 % (0-10); Neutrophil % 45.6 % (47-70); Platelet Count 261 K/mm3 (150-450); RBC Distribution Width CV 13.7 % (11.6-14.6); RBC Distribution Width SD 45.6 fl (35.1-43.9); Red Blood Count 4.61 M/mm3 (4.6-6.2)
[2018-05-20 05:53] LABS: POSITIVE COUNT NO; POSITIVE DIFFERENTIAL NO; POSITIVE MORPHOLOGY NO
[2018-05-20 05:59] LABS: Anion Gap 7 (5-15); BUN 12 mg/dL (7-18); BUN/Creat Ratio 15.9 RATIO (10-20); Calcium,Total 7.8 mg/dL (8.5-10.1); Chloride 113 mmol/L (98-107); Creatinine, Serum 0.75 mg/dL (0.70-1.30); EST Glomerular Filtration Rate 137 mL/min (>60); Est Glom Filt Rate - Afr Amer 165 mL/min (>60); Estimated Creatinine Clearance 114.07 ml/min; Glucose 84 mg/dL (74-106); Potassium 4.1 mmol/L (3.5-5.1); Sodium Level 143 mmol/L (136-145)
--- NOTE | 2018-05-20 07:53 | PCM.PN.HOSP ---
Patient Problems: Active and Suspected Problems Fever (Acute) Cough (Acute) Subjective: Patient is a 22-year-old gentleman with history of Down syndrome currently residing at a skilled nursing brought in with fever and shortness of breath. Chest x-ray obtained on admission demonstrated Findings which may be consistent with viral pneumonia or other nonspecific upper airway disease. Admitted to regular nursing floor for subsequent management Objective: GENERAL: Resting HEENT: Large protruding tongue EYES; Anicteric, Normal Conjunctiva NECK; supple, normal thyroid, no distended JVD. RESPIRATORY: Diminished to auscultation bilaterally, CARDIOVASCULAR: Regular S1 S2, no audible murmurs GI: soft, non-tender, normoactive bowel sounds, : No Renal angle tenderness; EXTREMITIES: No edema, no clubbing, no cyanosis. MUSCULOSKELETAL: No Joint Tenderness; NEURO: Awake; no lateralizing signs. SKIN: No Rash PSYCH; Normal affect Vitals/I&O's: Vital Signs Temp Pulse Resp BP Pulse Ox 98.1 F 106 H 20 H 107/56 L 93 05/20/18 05:00 05/20/18 06:00 05/20/18 05:47 05/20/18 05:00 05/20/18 05:00 Oxygen Delivery Method Room Air Weight: 52.2 kg Body Mass Index (BMI) 24.0 Intake and Output for Last 24 Hours 05/18/18 05/19/18 05/20/18 23:59 23:59 23:59 Intake Total 287 / 287 2843 / 2843 Balance 287 / 287 2843 / 2843 Laboratory Results 05/19/18 18:00: WBC 4.6, RBC 5.03, Hgb 15.9, Hct 46.0, MCV 91.5, MCH 31.6, MCHC 34.6, RDW 13.5, RDW Differential 44.7 H, Plt Count 304, MPV 9.7, Immature Gran % (Auto) 0.400, Neut % (Auto) 58.1, Lymph % (Auto) 25.3, [place] % (Auto) 14.7 H, Eos % (Auto) 0.9, Baso % (Auto) 0.6, Absolute Neuts (auto) 2.7, Absolute Lymphs (auto) 1.17, Total Counted Not Reportable 05/19/18 18:00: PT 14.1, INR 1.1, APTT 31.5 05/19/18 18:00: Sodium 141, Potassium 4.2, Chloride 108 H, Carbon Dioxide 26.0, Anion Gap 7, BUN 13, Creatinine 0.79, Estim Creat Clear Calc 112.92, Est GFR (MDRD) Af Amer 156, Est GFR (MDRD) Non-Af 129, BUN/Creatinine Ratio 16.4, Glucose 93, Calcium 8.7, Total Bilirubin 0.30, AST 24, ALT 37, Alkaline Phosphatase 128 H, Troponin I < 0.015, Total Protein 8.6 H, Albumin 3.3, Globulin 5.3 H, Albumin/Globulin Ratio 0.6 L 05/19/18 18:00: Lactic Acid 1.0 05/19/18 18:40: Urine Color Yellow, Urine Clarity Clear, Urine pH 8.0, Ur Specific [place] 1.010, Urine Protein Negative, Urine Glucose (UA) Normal, Urine Ketones Negative, Urine Occult Blood 10 H, Urine Nitrite Negative, Urine Bilirubin Negative, Urine Urobilinogen Normal, Ur Leukocyte Esterase Negative, Urine RBC 0-5 SEEN, Urine WBC 0-5 SEEN, Ur Squamous Epith Cells 0 SEEN, Urine Bacteria RARE, Urine Mucus 0 SEEN 05/20/18 05:18: WBC 4.0 L, RBC 4.61, Hgb 14.6, Hct 43.4, MCV 94.1 H, MCH 31.7, MCHC 33.6, RDW 13.7, RDW Differential 45.6 H, Plt Count 261, MPV 9.5, Immature Gran % (Auto) 0.500, Neut % (Auto) 45.6 L, Lymph % (Auto) 36.7, [place] % (Auto) 15.2 H, Eos % (Auto) 1.5, Baso % (Auto) 0.5, Absolute Neuts (auto) 1.8 L, Absolute Lymphs (auto) 1.45, Total Counted Not Reportable 05/20/18 05:18: Sodium 143, Potassium 4.1, Chloride 113 H, Carbon Dioxide 23.0, Anion Gap 7, BUN 12, Creatinine 0.75, Estim Creat Clear Calc 114.07, Est GFR (MDRD) Af Amer 165, Est GFR (MDRD) Non-Af 137, BUN/Creatinine Ratio 15.9, Glucose 84, Calcium 7.8 L Current Medications Acetaminophen (Tylenol) 650 mg PO Q6H PRN PRN PRN Reason: ELEVATED TEMP Bisacodyl (Dulcolax) 10 mg RECTAL UD [facility] Last Admin: 05/20/18 06:41 Dose: Not Given Enoxaparin Sodium (Lovenox) 40 mg SC DAILY@1000 [facility] Enteral Nutritional Formula (Jevity 1.5) 237 ml PO BID [facility] Guaifenesin (Mucinex) 600 mg PO BID [facility] Guaifenesin (Robitussin) 10 ml NG Q6H PRN PRN PRN Reason: COUGH Last Admin: 05/20/18 05:28 Dose: 10 ml Sodium Chloride () 1,000 mls @ 250 mls/hr IV .Q4H [facility] Last Admin: 05/20/18 04:45 Dose: 250 mls/hr Meropenem 500 mg/ Sodium (Chloride) 60 mls @ 100 mls/hr IV Q12 [facility] Lactobacillus Acidophilus (Acidophilus) 1 tablet GT DAILY [facility] Lansoprazole (Prevacid) 30 mg GT DAILY [facility] Magnesium Hydroxide (Milk Of Magnesia) 30 ml PO DAILY PRN PRN PRN Reason: Constipation Metoprolol Tartrate (Lopressor (Beta Jose)) 25 mg GT BID [facility] Polyethylene Glycol (Miralax) 8.5 gm GT DAILY [facility] Simethicone (Mylicon) 80 mg GT 4X/DAY PRN PRN PRN Reason: gas pains Sodium Chloride () 5 - 30 ml IV UD PRN PRN Reason: SALINE FLUSH Sodium Chloride ([place] Nasal Crane) 3 spray NASAL BID [facility] Trazodone HCl (Desyrel) 150 mg GT QHS [facility] Medical Necessity - Tobacco Use Smoking Status: Never smoker Assessment/Plan All Active Problems Fever (Acute) Cough (Acute) Facial cellulitis (Acute) Patient is a 22-year-old gentleman with history of Down syndrome currently residing at a skilled nursing brought in with fever and shortness of breath. Chest x-ray obtained on admission demonstrated Findings which may be consistent with viral pneumonia or other nonspecific upper airway disease. Admitted to regular nursing floor for subsequent management 1. Sepsis secondary to pneumonia which is suspected to be viral however with patient presented with high-grade fever he was empirically started on meropenem admitted to regular nursing floor. He was also placed on aerosol treatment, in addition to supplemental oxygen 2. Down syndrome with significant debility 3. History of recurrent aspiration pneumonia patient had a PEG tube placed 4. Hypertension-blood pressure controlled, home medications continued with dose adjustment as needed 5. DVT prophylaxis SC Enoxaparin Code status: full code Active Medications Acetaminophen (Tylenol) 650 mg PO Q6H PRN PRN PRN Reason: ELEVATED TEMP Bisacodyl (Dulcolax) 10 mg RECTAL UD [facility] Last Admin: 05/20/18 06:41 Dose: Not Given Enoxaparin Sodium (Lovenox) 40 mg SC DAILY@1000 [facility] Enteral Nutritional Formula (Jevity 1.5) 237 ml PO BID [facility] Guaifenesin (Mucinex) 600 mg PO BID [facility] Guaifenesin (Robitussin) 10 ml NG Q6H PRN PRN PRN Reason: COUGH Last Admin: 05/20/18 05:28 Dose: 10 ml Sodium Chloride () 1,000 mls @ 250 mls/hr IV .Q4H [facility] Last Admin: 05/20/18 04:45 Dose: 250 mls/hr Meropenem 500 mg/ Sodium (Chloride) 60 mls @ 100 mls/hr IV Q6 [facility] Lactobacillus Acidophilus (Acidophilus) 1 tablet GT DAILY [facility] Lansoprazole (Prevacid) 30 mg GT DAILY [facility] Magnesium Hydroxide (Milk Of Magnesia) 30 ml PO DAILY PRN PRN PRN Reason: Constipation Metoprolol Tartrate (Lopressor (Beta Jose)) 25 mg GT BID [facility] Polyethylene Glycol (Miralax) 8.5 gm GT DAILY [facility] Simethicone (Mylicon) 80 mg GT 4X/DAY PRN PRN PRN Reason: gas pains Sodium Chloride () 5 - 30 ml IV UD PRN PRN Reason: SALINE FLUSH Sodium Chloride ([place] Nasal Crane) 3 spray NASAL BID [facility] Trazodone HCl (Desyrel) 150 mg GT QHS [facility] Clinical Impression(s) from Imaging Studies Chest X-Ray 05/19/18 18:20 IMPRESSION: Findings which may be consistent with viral pneumonia or other nonspecific upper airway disease Electronically Signed: Juan Galvan MD at 19:03 EDT , Service support , Code Visit Inpatient E&M: 73264 [facility] Hosp L3
[2018-05-20] MEDS: Metoprolol Tartrate 25 MG Tablet GT ×2 (09:03→22:54)
[2018-05-20] MEDS: Enoxaparin 40 MG/0.4 ML Syringe SC (09:04)
[2018-05-20] MEDS: Jevity 1.5. 1,000 ML Bottle 237 ML PO ×2 (09:06→22:56)
[2018-05-20] MEDS: Sodium Chloride 0.65% 1 SPRAY SPRAY.BTL 3 SPRAY NASAL ×2 (09:08→22:54)
--- NOTE | 2018-05-20 11:58 | CASEMGMT ---
Social Work Note SW in to speak with pt and pt's family to confirm discharge plans. Pt's mom and pt's nurse at the [facility] present in room. Pt[facility] for [facility] to return there at discharge. Pt's mother Jo states that she will be able to transport pt back to nursing home when medically cleared. Green sheet on chart. Plan: [place] [facility] Aicha Ramirez RADIO MAINTAINER, HOSPICE HOME HEALTH AIDE
[2018-05-20] MEDS: Albuterol 2.5 MG/3 ML VIAL.NEB. INHALATION ×2 (13:16→16:17)
--- NOTE | 2018-05-20 13:29 | CPS ---
Vest therapy not started. Patient just finished with lunch.
--- NOTE | 2018-05-20 13:30 | CPS ---
Patient not tolerating nasal cannula. Blow-by oxygen at 7 lpm provided.
[2018-05-20] MEDS: traZODone 50 MG Tablet 150 MG GT (22:55)
[2018-05-20] MEDS: Acetaminophen 325 MG Tablet 650 MG PO (23:00)
[2018-05-21] VITALS (15 sets, daily range): BP systolic 95–133; BP diastolic 60–86; PULSE 86–127; RESP 16–18; TEMP 36.6–37.9; O2SAT 90–96
[2018-05-21 06:42] LABS: Hematocrit 42.5 % (40-54); Hemoglobin 14.5 g/dl (13.0-16.5); Mean Corp Hgb Conc 34.1 g/gl (32-36); Mean Corpuscular Hgb 31.8 pg (27.0-32.0); Mean Corpuscular Volume 93.2 fL (80-94); Mean Platelet Vol. 9.9 fl (6.2-12.0); Platelet Count 328 K/mm3 (150-450); RBC Distribution Width CV 13.5 % (11.6-14.6); Red Blood Count 4.56 M/mm3 (4.6-6.2); Scan Indicated on CBC? Y/N NO; White Blood Count 5.5 K/mm3 (4.4-11.0)
[2018-05-21 06:54] LABS: Anion Gap 6 (5-15); BUN 13 mg/dL (7-18); BUN/Creat Ratio 16.1 RATIO (10-20); Calcium,Total 8.2 mg/dL (8.5-10.1); Chloride 107 mmol/L (98-107); EST Glomerular Filtration Rate 127 mL/min (>60); Est Glom Filt Rate - Afr Amer 153 mL/min (>60); Estimated Creatinine Clearance 106.94 ml/min; Glucose 77 mg/dL (74-106); Magnesium 2.3 mg/dL (1.6-2.6); Potassium 3.8 mmol/L (3.5-5.1); Sodium Level 141 mmol/L (136-145)
--- NOTE | 2018-05-21 10:40 | PN_ITS ---
Patient Problems: Active and Suspected Problems Fever (Acute) Cough (Acute) Subjective: Patient seen appears comfortable at rest. Had a low-grade fever during the night. Cultures have remained negative to date. Had a discussion with patient's mother who requested for infectious disease consultation due to the fact that patient progress is rather been slow per her assessment Objective: GENERAL: Resting HEENT: Large protruding tongue EYES; Anicteric, Normal Conjunctiva NECK; supple, normal thyroid, no distended JVD. RESPIRATORY: Diminished to auscultation bilaterally, CARDIOVASCULAR: Regular S1 S2, no audible murmurs GI: soft, non-tender, normoactive bowel sounds, : No Renal angle tenderness; EXTREMITIES: No edema, no clubbing, no cyanosis. MUSCULOSKELETAL: No Joint Tenderness; NEURO: Awake; no lateralizing signs. SKIN: No Rash PSYCH; Normal affect Vitals/I&O's: Vital Signs Temp Pulse Resp BP Pulse Ox 98.2 F 103 H 16 133/76 H 93 05/21/18 07:43 05/21/18 06:00 05/21/18 06:00 05/21/18 06:00 05/21/18 06:00 Oxygen Flow Rate (L/min) 6 Oxygen Delivery Method Blow-by Weight: 52.2 kg Body Mass Index (BMI) 24.0 Intake and Output for Last 24 Hours 05/19/18 05/20/18 05/21/18 23:59 23:59 23:59 Intake Total 287 / 287 5402 / 5402 172 / 172 Balance 287 / 287 5402 / 5402 172 / 172 Microbiology Past 72 Hours 05/19/18 18:40 Urine, Clean Catch Urine Culture - Preliminary Culture exhibits no growth. 05/20/18 11:00 Mucosa - Nasopharyngeal Respiratory Panel (PCR) - Final 05/20/18 11:00 Mucosa - Nasopharyngeal Influenza Types A,B Direct FA (LOLY) - Final Laboratory Results 05/21/18 05:15: WBC 5.5, RBC 4.56 L, Hgb 14.5, Hct 42.5, MCV 93.2, MCH 31.8, MCHC 34.1, RDW 13.5, RDW Differential 45.0 H, Plt Count 328, MPV 9.9 05/21/18 05:15: Sodium 141, Potassium 3.8, Chloride 107, Carbon Dioxide 28.0, Anion Gap 6, BUN 13, Creatinine 0.80, Estim Creat Clear Calc 106.94, Est GFR (MDRD) Af Amer 153, Est GFR (MDRD) Non-Af 127, BUN/Creatinine Ratio 16.1, Glucose 77, Calcium 8.2 L, Magnesium 2.3 Current Medications Acetaminophen (Tylenol) 650 mg PO Q6H PRN PRN PRN Reason: ELEVATED TEMP Last Admin: 05/20/18 23:00 Dose: 650 mg Albuterol Sulfate (Ventolin Aerosols) 2.5 mg INHALATION Q2H PRN PRN PRN Reason: SHORTNESS OF BREATH Last Admin: 05/20/18 16:17 Dose: 2.5 mg Bisacodyl (Dulcolax) 10 mg RECTAL UD [facility] Last Admin: 05/21/18 06:30 Dose: Not Given Enoxaparin Sodium (Lovenox) 40 mg SC DAILY@1000 JOSE LUIS Last Admin: 05/20/18 09:04 Dose: 40 mg Enteral Nutritional Formula (Jevity 1.5) 237 ml PO BID [facility] Last Admin: 05/20/18 22:56 Dose: 237 ml Guaifenesin (Robitussin) 10 ml NG Q4H [facility] Last Admin: 05/21/18 06:31 Dose: Not Given Meropenem 500 mg/ Sodium (Chloride) 60 mls @ 100 mls/hr IV Q6 [facility] Last Admin: 05/21/18 06:22 Dose: 100 mls/hr Lactobacillus Acidophilus (Acidophilus) 1 tablet GT DAILY [facility] Last Admin: 05/20/18 09:16 Dose: 1 tablet Lansoprazole (Prevacid) 30 mg GT DAILY [facility] Last Admin: 05/20/18 09:16 Dose: 30 mg Magnesium Hydroxide (Milk Of Magnesia) 30 ml PO DAILY PRN PRN PRN Reason: Constipation Metoprolol Tartrate (Lopressor (Beta Jose)) 25 mg GT BID [facility] Last Admin: 05/20/18 22:54 Dose: 25 mg Polyethylene Glycol (Miralax) 8.5 gm GT DAILY [facility] Last Admin: 05/20/18 09:05 Dose: Not Given Simethicone (Mylicon) 80 mg GT 4X/DAY PRN PRN PRN Reason: gas pains Sodium Chloride () 5 - 30 ml IV UD PRN PRN Reason: SALINE FLUSH Sodium Chloride ([place] Nasal [place]) 3 spray NASAL BID [facility] Last Admin: 05/20/18 22:54 Dose: 3 spray Trazodone HCl (Desyrel) 150 mg GT QHS [facility] Last Admin: 05/20/18 22:55 Dose: 150 mg Medical Necessity - Tobacco Use Smoking Status: Never smoker Assessment/Plan All Active Problems Fever (Acute) Cough (Acute) Facial cellulitis (Acute) Patient is a 22-year-old gentleman with history of Down syndrome currently residing at a residential brought in with fever and shortness of breath. Chest x-ray obtained on admission demonstrated Findings which may be consistent with viral pneumonia or other nonspecific upper airway disease. Admitted to regular nursing floor for subsequent management 1. Sepsis secondary to pneumonia which is suspected to be viral however with patient presented with high-grade fever he was empirically started on meropenem admitted to regular nursing floor. He was also placed on aerosol treatment, in addition to supplemental oxygen consultation was placed infectious disease per family request 2. Down syndrome with significant debility 3. History of recurrent aspiration pneumonia patient had a PEG tube placed 4. Hypertension-blood pressure controlled, home medications continued with dose adjustment as needed 5. DVT prophylaxis SC Enoxaparin Code status: full code Active Medications Acetaminophen (Tylenol) 650 mg PO Q6H PRN PRN PRN Reason: ELEVATED TEMP Last Admin: 05/20/18 23:00 Dose: 650 mg Albuterol Sulfate (Ventolin Aerosols) 2.5 mg INHALATION Q2H PRN PRN PRN Reason: SHORTNESS OF BREATH Last Admin: 05/20/18 16:17 Dose: 2.5 mg Bisacodyl (Dulcolax) 10 mg RECTAL UD [facility] Last Admin: 05/21/18 06:30 Dose: Not Given Enoxaparin Sodium (Lovenox) 40 mg SC DAILY@1000 [facility] Last Admin: 05/20/18 09:04 Dose: 40 mg Enteral Nutritional Formula (Jevity 1.5) 237 ml PO BID [facility] Last Admin: 05/20/18 22:56 Dose: 237 ml Guaifenesin (Robitussin) 10 ml NG Q4H [facility] Last Admin: 05/21/18 06:31 Dose: Not Given Meropenem 500 mg/ Sodium (Chloride) 60 mls @ 100 mls/hr IV Q6 [facility] Last Admin: 05/21/18 06:22 Dose: 100 mls/hr Lactobacillus Acidophilus (Acidophilus) 1 tablet GT DAILY [facility] Last Admin: 05/20/18 09:16 Dose: 1 tablet Lansoprazole (Prevacid) 30 mg GT DAILY [facility] Last Admin: 05/20/18 09:16 Dose: 30 mg Magnesium Hydroxide (Milk Of Magnesia) 30 ml PO DAILY PRN PRN PRN Reason: Constipation Metoprolol Tartrate (Lopressor (Beta Jose)) 25 mg GT BID [facility] Last Admin: 05/20/18 22:54 Dose: 25 mg Polyethylene Glycol (Miralax) 8.5 gm GT DAILY [facility] Last Admin: 05/20/18 09:05 Dose: Not Given Simethicone (Mylicon) 80 mg GT 4X/DAY PRN PRN PRN Reason: gas pains Sodium Chloride () 5 - 30 ml IV UD PRN PRN Reason: SALINE FLUSH Sodium Chloride ([place] Nasal [place]) 3 spray NASAL BID [facility] Last Admin: 05/20/18 22:54 Dose: 3 spray Trazodone HCl (Desyrel) 150 mg GT QHS [facility] Last Admin: 05/20/18 22:55 Dose: 150 mg Code Visit Inpatient E&M: 25046 Subs Hosp L2
[2018-05-21] MEDS: Enoxaparin 40 MG/0.4 ML Syringe SC (11:20)
[2018-05-21] MEDS: Metoprolol Tartrate 25 MG Tablet GT ×2 (11:20→22:18)
[2018-05-21] MEDS: Polyethylene Glycol 3350 17 GM PACKET 8.5 GM GT (11:21)
[2018-05-21] MEDS: guaiFENesin 10 ML UDC (200MG/10ML) NG ×3 (11:21→22:19)
[2018-05-21] MEDS: Jevity 1.5. 1,000 ML Bottle 237 ML PO ×2 (11:21→22:20)
[2018-05-21] MEDS: Sodium Chloride 0.65% 1 SPRAY SPRAY.BTL 3 SPRAY NASAL ×2 (11:22→22:19)
[2018-05-21] MEDS: Acetaminophen 325 MG Tablet 650 MG PO ×2 (11:36→19:16)
--- NOTE | 2018-05-21 14:03 | CON.PCM_ITS ---
Problem List (1) Fever Status: Acute Reason for Consult: fever Consulted by: Dr. Rocha History of Present Illness: The patient is a 22 year old M with Down Syndrome, presented from [facility] with a week of fever, not feeling well, some cough with sputum. He had throat cx sent 05/16 which showed ecoli. Per mother, more tearful and upset. She reports he has taken amox, PCN, and keflex with no issue in the past; developed rash/itching while on bactrim and ceftriaxone in the past. Admitted here, cxs sent, meropenem started. ROS unobtainable due to mental status - Medical History Past Medical History (Chronic Problems): Chronic Problems Autism (Chronic) Dysphagia (Chronic) Down syndrome (Chronic) nonverbal incontinent Allergies/Adverse Reactions: Allergies ceftriaxone sodium [From Rocephin] Allergy (Verified 05/19/18 17:17) Rash sulfamethoxazole [From Bactrim] Allergy (Verified 05/19/18 17:17) Rash trimethoprim [From Bactrim] Allergy (Verified 05/19/18 17:17) Rash cinnamon [Cinnamon] Adverse Reaction (Verified 05/19/18 17:17) Diarrhea tape/bandaids Adverse Reaction (Uncoded 05/19/18 21:53) Rash Home Medications: Ambulatory Orders Medication Instructions Recorded L.acidoph,Paracasei, B.lactis 1 pack GT DAILY 07/19/15 [Probiotic] Lansoprazole [Prevacid] 30 mg GT DAILY 07/19/15 Simethicone 40MG/0.6ML [Mylicon] 80 mg GT Q8H PRN PRN 07/19/15 Polyethylene Glycol 3350 [Miralax] 8.5 gm GT DAILY 06/11/17 Sodium Chloride [Saline Nasal Mist] 3 spray NASAL BID 06/11/17 Bisacodyl 10 mg RC UD PRN 05/19/18 Lactose-Reduced Food/Fiber [Jevity 12 oz GT BID 05/19/18 1.5 Jamarcus Liquid] Metoprolol Tartrate 25 mg GT BID 05/19/18 traZODone [Desyrel] 150 mg GT QHS 05/19/18 Vital Signs Temp Pulse Resp BP Pulse Ox 97.9 F 113 H 18 107/62 90 05/21/18 11:16 05/21/18 11:20 05/21/18 11:16 05/21/18 11:16 05/21/18 13:15 Oxygen Flow Rate (L/min) 5 Oxygen Delivery Method Blow-by Weight: 52.2 kg Body Mass Index (BMI) 24.0 Microbiology Past 72 Hours 05/19/18 18:40 Urine Culture - Preliminary Urine, Clean Catch Culture exhibits no growth. 05/20/18 11:00 Respiratory Panel (PCR) - Final Mucosa - Nasopharyngeal 05/20/18 11:00 Influenza Types A,B Direct FA (LOLY) - Final Mucosa - Nasopharyngeal Laboratory Tests Past 24 Hrs 05/21/18 05/21/18 05:15 05:15 WBC 5.5 RBC 4.56 L Hgb 14.5 Hct 42.5 MCV 93.2 MCH 31.8 MCHC 34.1 RDW 13.5 RDW Differential 45.0 H Plt Count 328 MPV 9.9 Sodium 141 Potassium 3.8 Chloride 107 Carbon Dioxide 28.0 Anion Gap 6 BUN 13 Creatinine 0.80 Estim Creat Clear Calc 106.94 Est GFR (MDRD) Af Amer 153 Est GFR (MDRD) Non-Af 127 BUN/Creatinine Ratio 16.1 Glucose 77 Calcium 8.2 L Magnesium 2.3 - Other Studies Radiology: [] reviewed Other Studies: [] Route of nutrition/ use of supplements: [] Nutritional Intake: [] IV Site: [] Diaz Catheter: [] - Physical Exam General: No apparent distress HEENT: Atraumatic, PERRLA, EOMI Neck: Supple, No Nodes Lungs: Diminished - some basilar rhonchi, L more than R Cardiovascular: Regular rate, Regular Rhythm Abdomen: Soft, Non Tender, Non-Distended Extremities: No edema Skin: No rashes IV Site: Peripheral, without redness Musculoskeletal: No Tenderness to Palpation of Joints or Extremities Neurological: - - Down Syndrome - Assessment/Plan Antibiotics: [] Assessment/Plan: [] Active and Suspected Problems Fever (Acute) Cough (Acute) Fever - due to suspected CAP. Resp viral pcrs neg, ok to stop droplet isolation. Had throat cx with ecoli of unclear significance. His mother reports he has tolerated PCN, amox, and keflex in the past. Had rash/itching while on bactrim and ceftriaxone previously. Will stop meropenem. Start ceftriaxone and monitor closely for reaction. If he shows improvement and tolerates the ceftriaxone, plan will be for him to go back to his home with dario collins. Will follow, thank you, d/w nursing.
[2018-05-21] MEDS: Ceftriaxone 1 GM/50 ML BAG IV (15:29)
--- NOTE | 2018-05-21 17:05 | NURSING ---
Pt received dose of Rocephin. Pt has no signs of reaction- no rash noted. Pt's behavior per his usual.
[2018-05-21] MEDS: traZODone 50 MG Tablet 150 MG GT (22:18)
[2018-05-22] MEDS: guaiFENesin 10 ML UDC (200MG/10ML) NG ×3 (02:30→13:33)
[2018-05-22 02:40] VITALS: BP 128/70; PULSE 103; RESP 18; TEMP 37.2; O2SAT 94
[2018-05-22 03:00] VITALS: PULSE 98
[2018-05-22 06:42] VITALS: TEMP 37.1
[2018-05-22 07:08] LABS: Hematocrit 47.2 % (40-54); Hemoglobin 15.8 g/dl (13.0-16.5); Mean Corp Hgb Conc 33.5 g/gl (32-36); Mean Corpuscular Volume 95.5 fL (80-94); Mean Platelet Vol. 10.4 fl (6.2-12.0); Platelet Count 305 K/mm3 (150-450); RBC Distribution Width CV 13.8 % (11.6-14.6); RBC Distribution Width SD 48.1 fl (35.1-43.9); Red Blood Count 4.94 M/mm3 (4.6-6.2); White Blood Count 8.5 K/mm3 (4.4-11.0)
[2018-05-22 07:12] LABS: Scan Indicated on CBC? Y/N NO
[2018-05-22 07:45] LABS: Anion Gap 7 (5-15); BUN 13 mg/dL (7-18); BUN/Creat Ratio 17.6 RATIO (10-20); Calcium,Total 8.1 mg/dL (8.5-10.1); Chloride 107 mmol/L (98-107); Creatinine, Serum 0.74 mg/dL (0.70-1.30); EST Glomerular Filtration Rate 140 mL/min (>60); Est Glom Filt Rate - Afr Amer 169 mL/min (>60); Estimated Creatinine Clearance 115.61 ml/min; Glucose 97 mg/dL (74-106); Potassium 4.7 mmol/L (3.5-5.1); Sodium Level 134 mmol/L (136-145)
--- NOTE | 2018-05-22 09:43 | DCINST_ITS ---
- Discharge Diagnoses Current Active Problems: Current Active and Chronic Problems Fever (Acute) Cough (Acute) You will use the following diet at home:: Other - via Tube feed Allergies/Adverse Reactions: Allergies ceftriaxone sodium [From Rocephin] Allergy (Verified 05/19/18 17:17) Rash sulfamethoxazole [From Bactrim] Allergy (Verified 05/19/18 17:17) Rash trimethoprim [From Bactrim] Allergy (Verified 05/19/18 17:17) Rash cinnamon [Cinnamon] Adverse Reaction (Verified 05/19/18 17:17) Diarrhea tape/bandaids Adverse Reaction (Uncoded 05/19/18 21:53) Rash Medications to take at Discharge L.acidoph,Paracasei, B.lactis [Probiotic] 1 pack GT DAILY 07/19/15 Lansoprazole [Prevacid] 30 mg GT DAILY 07/19/15 Simethicone 40MG/0.6ML [Mylicon] 80 mg GT Q8H PRN PRN 07/19/15 Polyethylene Glycol 3350 [Miralax] 8.5 gm GT DAILY 06/11/17 Sodium Chloride [Saline Nasal Mist] 3 spray NASAL BID 06/11/17 Bisacodyl 10 mg RC UD PRN 05/19/18 Lactose-Reduced Food/Fiber [Jevity 1.5 Jamarcus Liquid] 12 oz GT BID 05/19/18 Metoprolol Tartrate 25 mg GT BID 05/19/18 traZODone [Desyrel] 150 mg GT QHS 05/19/18 Cefdinir [Omnicef] 250 mg PO Q12H 7 Days #70 ml 05/22/18 The following prescriptions were given: Cefdinir [Omnicef] 250 mg PO Q12H 7 Days #70 ml Primary Care Physician: Adriel Wallis DO [Primary Care Provider] - Please follow up with your Primary Care Physician in: in 5- 7 days Test Results: Test results from this visit will be discussed in further detail at your follow- up appointment, if applicable. Proposed Discharge Date: 05/22/18
--- NOTE | 2018-05-22 09:45 | DS.PCM_ITS ---
Discharge Date and Diagnosis - Problem List Patient Problems: Active and Suspected Problems Aspiration pneumonia (Acute) Fever (Acute) Cough (Acute) Date of Admission: 05/19/18 Date of Discharge: 05/22/18 - Primary Discharge Diagnosis Active and Suspected Problems Aspiration pneumonia (Acute) Fever (Acute) Cough (Acute) - Secondary Discharge Diagnosis Chronic Problems Autism (Chronic) Dysphagia (Chronic) Down syndrome (Chronic) nonverbal incontinent Hospital Course and Treatment Imaging Results: Clinical Impression(s) from Imaging Studies Chest X-Ray 05/19/18 18:20 IMPRESSION: Findings which may be consistent with viral pneumonia or other nonspecific upper airway disease Electronically Signed: Juan Galvan MD at 19:03 EDT , Service support , Operations: None Summary of Care Provided: Patient is a 22-year-old gentleman with history of Down syndrome currently residing at a half-way brought in with fever and shortness of breath. Chest x-ray obtained on admission demonstrated Findings which may be consistent with viral pneumonia or other nonspecific upper airway disease. Admitted to regular nursing floor for subsequent management 1. Sepsis secondary to pneumonia which is suspected to be viral however with patient presented with high-grade fever he was empirically started on meropenem admitted to regular nursing floor. He was also placed on aerosol treatment, in addition to supplemental oxygen consultation was placed infectious disease per family request patient was seen by Dr. Cabrera who recommended starting patient on Rocephin and for patient to be discharged on Omnicef. Prescription was written for Omnicef on discharge. Did discuss patient treatment plan with mom prior to patient being discharged 2. Down syndrome with significant debility 3. History of recurrent aspiration pneumonia patient had a PEG tube placed 4. Hypertension-blood pressure controlled, home medications continued with dose adjustment as needed 5. DVT prophylaxis SC Enoxaparin Code status: full code Patient Problems: Active and Suspected Problems Aspiration pneumonia (Acute) Fever (Acute) Cough (Acute) Objective: GENERAL: Resting HEENT: Large protruding tongue EYES; Anicteric, Normal Conjunctiva NECK; supple, normal thyroid, no distended JVD. RESPIRATORY: Diminished to auscultation bilaterally, CARDIOVASCULAR: Regular S1 S2, no audible murmurs GI: soft, non-tender, normoactive bowel sounds, : No Renal angle tenderness; EXTREMITIES: No edema, no clubbing, no cyanosis. SKIN: No Rash - Physical Exam Vital Signs Temp Pulse Resp BP Pulse Ox 98.8 F 98 18 128/70 H 94 05/22/18 06:42 05/22/18 03:00 05/22/18 02:40 05/22/18 02:40 05/22/18 02:40 Oxygen Flow Rate (L/min) 6 Oxygen Delivery Method Blow-by Weight: 52.2 kg Body Mass Index (BMI) 24.0 Intake and Output for Last 24 Hours 05/20/18 05/21/18 05/22/18 23:59 23:59 23:59 Intake Total 5402 / 5402 1882 / 1882 1540 / 1540 Balance 5402 / 5402 1882 / 1882 1540 / 1540 Microbiology Past 72 Hours 05/19/18 18:40 Urine Culture - Final Urine, Clean Catch Culture exhibits no growth. 05/19/18 17:50 Blood Culture - Preliminary Blood Culture (Wb) - Left Hand No growth in 48 hours. 05/19/18 18:00 Blood Culture - Preliminary Blood Culture (Wb) - Anticubital Left No growth in 48 hours. 05/20/18 11:00 Respiratory Panel (PCR) - Final Mucosa - Nasopharyngeal 05/20/18 11:00 Influenza Types A,B Direct FA (LOLY) - Final Mucosa - Nasopharyngeal Laboratory Tests Past 24 Hrs 05/22/18 05/22/18 06:38 06:38 WBC 8.5 RBC 4.94 Hgb 15.8 Hct 47.2 MCV 95.5 H MCH 32.0 MCHC 33.5 RDW 13.8 RDW Differential 48.1 H Plt Count 305 MPV 10.4 Sodium 134 L Potassium 4.7 Chloride 107 Carbon Dioxide 20.0 L Anion Gap 7 BUN 13 Creatinine 0.74 Estim Creat Clear Calc 115.61 Est GFR (MDRD) Af Amer 169 Est GFR (MDRD) Non-Af 140 BUN/Creatinine Ratio 17.6 Glucose 97 Calcium 8.1 L Discharge Diet: - - VIA TUBE FEED Home Medications: Medications to take at Discharge L.acidoph,Paracasei, B.lactis [Probiotic] 1 pack GT DAILY 07/19/15 Lansoprazole [Prevacid] 30 mg GT DAILY 07/19/15 Simethicone 40MG/0.6ML [Mylicon] 80 mg GT Q8H PRN PRN 07/19/15 Polyethylene Glycol 3350 [Miralax] 8.5 gm GT DAILY 06/11/17 Sodium Chloride [Saline Nasal Mist] 3 spray NASAL BID 06/11/17 Bisacodyl 10 mg RC UD PRN 05/19/18 Lactose-Reduced Food/Fiber [Jevity 1.5 Jamarcus Liquid] 12 oz GT BID 05/19/18 Metoprolol Tartrate 25 mg GT BID 05/19/18 traZODone [Desyrel] 150 mg GT QHS 05/19/18 Cefdinir [Omnicef] 250 mg PO Q12H 7 Days #70 ml 05/22/18 Following Prescrptions Were Given to Patient: Cefdinir [Omnicef] 250 mg PO Q12H 7 Days #70 ml Primary Care Physician: Adriel Wallis DO [Primary Care Provider] - Please follow up with your Primary Care Physician in: in 5- 7 days Disposition: Home Minutes spent on discharge:: 40 Patient Condition:: Stable Medical Necessity - Tobacco Use Smoking Status: Never smoker Meaningful Use Info Meaningful Use Diagnoses (Choose all that apply): None applicable Code Visit Inpatient E&M: 48619 Disch Hosp
[2018-05-22] MEDS: Ceftriaxone 1 GM/50 ML BAG IV (10:37)
--- NOTE | 2018-05-22 10:42 | NURSING ---
This nurse went in to pass meds, pt resting quietly with eyes closed. Mom at bedside commented she was glad he was finally resting good. Per moms request, pts scheduled meds were not given at this time other then his iv atb so pt could continue to rest.
--- NOTE | 2018-05-22 11:03 | NURSING ---
Attempted to call [facility] where pt has a bed reserved to notify them of discharge after lunch, mom will be transporting but the number was a fax number.
[2018-05-22 13:30] VITALS: BP 97/54; PULSE 138; RESP 18; TEMP 37.3; O2SAT 93
[2018-05-22 13:34] VITALS: PULSE 138
[2018-05-22] MEDS: Jevity 1.5. 1,000 ML Bottle 237 ML PO (13:34)
[2018-05-22] MEDS: Metoprolol Tartrate 25 MG Tablet GT (13:34)
[2018-05-22] MEDS: Acetaminophen 325 MG Tablet 650 MG PO (14:25)
--- NOTE | 2018-05-22 14:34 | CPS ---
did not do vest, mom in room, states he has been sleeping peacefully, please do not disturb.
== END 2018-05-22 14:40 | disposition home or self-care (01) | DRG 871 ==
LOC: MS3 05-20 09:31 → ED 05-20 11:07
PROVIDERS: Admitting Provider Student in an Organized Health Care Education/Training Program; Emergency Provider Emergency Medicine; Family Provider Family Medicine; PCP Family Medicine; Visit Provider Internal Medicine
DX: A41.9 Sepsis, unspecified organism (principal); J18.9 Pneumonia, unspecified organism; F84.0 Autistic disorder; Q90.9 Down syndrome, unspecified; Z93.1 Gastrostomy status; I10 Essential (primary) hypertension; R13.10 Dysphagia, unspecified
CPT/HCPCS: 36415; 71046; 80048; 80053; 81001; 83605; 83735; 84484; 85025; 85027; 85610; 85730; 87040; 87086; 87633; 87804; 93005; 94640; 94667; 94668; 97162; 97165; 97802; 97803; 99282; J2185; J7030

== ENCOUNTER → 2018-06-21 12:57 | Outpatient (CLI) | payer OTHER, MEDICAID, SELFPAY ==
--- NOTE | 2018-06-21 13:00 | SP.MBSS_ITS ---
PRIMARY / SECONDARY DIAGNOSIS: dysphagia (R13.10) REFERRING PHYSICIAN: Dr. Adriel Wallis MD CURRENT DIET: mechanical soft textures, nectar thickened liquids; G-tube (Jevity 1.2cal twice daily). DENTITION: natural upper / lower dentition MENTAL STATUS: impaired, non-verbal RESPIRATORY STATUS: O2 via room air PREVIOUS MODIFIED BARIUM SWALLOW STUDY: 05/27/2016 MBS revealed mild to moderate oropharyngeal dysphagia (R13.12) without penetration or aspiration 09/24/2015 MBS revealed mild to moderate oropharyngeal dysphagia (R13.12) without penetration or aspiration 07/25/2014 MBS revealed severe oropharyngeal dysphagia (R13.12) with SILENT aspiration of thin liquids and pudding textures 07/13/2013 MBS ([facility]) revealed moderate oral dysphagia; no further details REASON FOR REFERRAL: Patient is a 22 year old male who resides at a alf referred for a repeat modified barium swallow (MBS) study to objectively re-assess the Patients oropharyngeal swallow function under fluoroscopy secondary to a prolonged history of silent aspiration verified under fluoroscopy requiring alternative means of nutrition via gastrostomy (G-tube) tube (Jevity 1.2cal twice daily). The Patient was accompanied by his mother and sister, report intermittent throat clearing / coughing occurring approximately 10-15 minutes following meal onset with occasional rhinorrhea; report recent admission (05/19/2018) to [facility] due to persistent fever for upwards of 1 week with workup revealing community acquired pneumonia. ADDITIONAL OBJECTIVE ASSESSMENT RESULTS: 05/19/2018 CXR revealed bilateral hilar interstitial thickening is seen more severe on the left which may be consistent with viral pneumonia or other nonspecific upper airway disease 05/17/2018 CXR revealed mild peribronchial cuffing suggesting the presence of viral syndrome / bronchiolitis without focal infiltrate. MEDICAL HISTORY: Autism and Down?s syndrome with associated profound intellectual disability and nonverbal status / incontinence; chronic dysphagia with gastrostomy tube (G-tube) in place, history of pneumonia (last 05/2018), gastroesophageal reflux disease, seasonal allergies, STUDY FINDINGS: Patient participated in a Modified Barium Swallow (MBS) study on 06/21/2018. Dr. Gutierrez was the radiologist present for this evaluation. This study was recorded in the lateral view and images were sent to PACs for storage. The following consistencies were presented to this patient for analysis of oropharyngeal swallow function: thin liquids, nectar thickened liquids, pudding, and a regular textured, Sera [place] cookie. Results of the MBS are as follows: PENETRATION / ASPIRATION SCALE (DOLAN): 1 = does not enter airway 2 = enters airway/above vocal folds/ejected 3 = enters airway/above vocal folds/not ejected 4 = enters airway/contacts vocal folds/ejected 5 = enters airway/contacts vocal folds/not ejected 6 = enters airway/below vocal folds/ejected 7 = enters airway/below vocal folds/not ejected despite effort 8 = enters airway/below vocal folds/no effort VIDEOFLOROSCOPIC SCALE SCORE (DOLAN): Grade I = aspiration of material that has penetrated into the laryngeal vestibule, intact cough reflex Grade II = aspiration < 10 % of the bolus, intact cough reflex Grade III = aspiration of < 10 % of the bolus, reduced cough reflex or aspiration of > 10 % of the bolus, intact cough reflex Grade IV = aspiration of > 10 % of the bolus, reduced cough reflex PENETRATION / ASPIRATION SCALE (SCORE) WITH VIDEOFLOROSCOPIC SCALE SCORE: Thin liquids via restrictive flow cup (sequential swallows): 8 - Grade III Thin liquids via restrictive flow cup (single sip): 1 Thin liquids via restrictive flow cup (single sip): 1 Thin liquids via restrictive flow cup (single sip): 1 [place] thickened liquids via restrictive flow cup (single sip): 1 [place] thickened liquids via restrictive flow cup (single sip): 1 [place] thickened liquids via restrictive flow cup (single sip): 1 Pudding via spoon: 1, 3* Pudding via spoon: 1, 1* Regular textured cookie: 1 [place] thickened liquids via restrictive flow cup (single sip): 1 * denotes piecemeal deglutition IMPRESSION: DIAGNOSIS: moderate oropharyngeal dysphagia (R13.12) ORAL PHASE CHARACTERIZED BY: LABIAL SEAL: escape progressing to mid-chin TONGUE CONTROL DURING BOLUS MANIPULATION: posterior escape of greater than half of bolus BOLUS PREPARATION / MASTICATION: disorganized chewing/mashing with solid pieces of bolus unchewed BOLUS TRANSPORT / LINGUAL MOTION: repetitive/disorganized tongue motion ORAL RESIDUE: residue collection on oral structures PHARYNGEAL PHASE CHARACTERIZED BY: INITIATION OF PHARYNGEAL SWALLOW: bolus head in pyriforms at first hyoid excursion SOFT PALATE ELEVATION: no bolus between soft palate and pharyngeal wall LARYNGEAL ELEVATION: complete superior movement of thyroid cartilage with complete approximation of arytenoids cartilage to epiglottic petiole ANTERIOR HYOID EXCURSION: partial anterior movement EPIGLOTTIC MOVEMENT: complete epiglottic inversion LARYNGEAL VESTIBULE CLOSURE AT HEIGHT OF SWALLOW: incomplete laryngeal vestibule closure with narrow column of air/contrast in laryngeal vestibule PHARYNGEAL STRIPPING WAVE: pharyngeal stripping wave present / diminished PHARYNGOESOPHAGEAL SEGMENT OPENING: partial distension and partial duration; partial obstruction of flow TONGUE BASE RETRACTION: trace column of contrast between tongue base and posterior pharyngeal wall PHARYNGEAL RESIDUE: collection of residue within or on pharyngeal structures ESOPHAGEAL PHASE CHARACTERIZED BY: ESOPHAGEAL BOLUS CLEARANCE IN THE UPRIGHT POSITION: could not view EFFECTS OF TREATMENT STRATEGIES ATTEMPTED: Liquid chaser = moderately effective Reduced bolus size = moderately effective DIET TEXTURE RECOMMENDATIONS: Will recommend a mechanical soft textured, nectar thickened liquid diet with supplementation via G-tube as needed. COMPENSATORY STRATEGIES RECOMMENDED: Supervision with assistance as needed, all liquids via restrictive flow cup, reduced bolus volumes, reduced rate of ingestion, alternate solids and liquids, seated upright at 90 degrees during PO intake, remain upright for 30-60 minutes post meal (GERD precaution) INTERPRETATION OF RESULTS: Patient presents with moderate oropharyngeal dysphagia (R13.12) secondary to the diagnosis of autism and Down?s syndrome. Oral preparatory phase marked by mastication insufficiency, with disorganized breakdown. Oral transitional phase marked by poor lingual manipulation associated with macroglossia and intermittent anterior lingual movement (tongue thrust); posterior spillage at times consisting of 50% of the bolus prior to swallow onset; noted piecemeal deglutition. Pharyngeal phase primarily marked by pharyngeal swallow dyssynchrony resulting in pre-prandial / prandial penetration and subsequent grade III SILENT aspiration of thin liquids without any response to aspiration (atussia). Patient unable to execute treatment strategies; all deficits ameliorated with bolus volume and viscosity adjustments. Patient noted to SILENTLY aspirate with thin liquids, with clinical assessment at bedside relying on identification of classic overt signs and symptoms of aspiration unreliable. RECOMMENDATIONS: Would consider the current results to be indicative of the Patients baseline abilities, as no indicators are present to suggest that the current results would be exacerbated from baseline; would consider the Patient to be at higher risk of aspiration related pulmonary complications moving forward, and particularly as the Patient advances in age. Would strongly discourage advancement past nectar thickened liquids without completion of a repeat modified barium swallow study due to the extent of aspirate identified that was SILENT in nature. Would consider annual vs. semi-annual repeat modified barium swallow study completion to further assess the Patients oropharyngeal swallow function objectively. Would consider implementation of the [place] Free Water Protocol (FFWP) following Patient family and staff education. Recommend frequent oral care following all meals, along with routine dental visits consisting of at least 2 cleanings with a registered dental hygienist to reduce the risk of aspiration related pulmonary complications. Would consider this Patient to be at higher risk for reduced caloric intake and dehydration due to the recommended diet texture restrictions, as increased liquid viscosities may lead to reduced liquid intake and quicker satiety during meals; though this will likely be mitigated by use of the Patients gastrostomy tube. It is important to note that use of alternative means of nutrition will not reduce the Patients risk of aspiration related pulmonary complications. Patient would benefit from continued skilled speech-language intervention targeting continued diet texture management; staff training and implementation of recommended compensatory strategies; staff and family training, implementation, and education regarding implementation of the FFWP (if desired by family); and caregiver training targeting meal preparation / thickened liquid preparation ADDITIONAL COMMENTS/RECOMMENDATIONS: Results and recommendations were discussed with the Patient immediately following MBS completion, with the Patient verbalizing understanding and agreement with all recommendations and education provided. IMAGE COUNT: [id number] G-CODES: SWALLOWING G8996 Current Status: CJ SWALLOWING G8997 Goal Status: CJ SWALLOWING G8998 Discharge Status: ISAMAR Weinberg M.A., [facility] CEO [facility] Speech-Language Pathology Department [email or web address]
--- NOTE | 2018-06-21 13:05 | RAD_ITS ---
STUDY: SWALLOWING STUDY REASON FOR EXAM: Male, 23 years old. Dysphagia. TECHNIQUE: The examination was performed with Speech Pathology in attendance. Under fluoroscopic observation, the patient ingested thin barium, thick barium, barium pudding, and barium coated cracker. FLUOROSCOPY TIME: 1:32 minutes/seconds. 1443 spot images were obtained. RADIOLOGIST INVOLVEMENT: Radiologist was present and providing direct supervision. COMPARISON: None. FINDINGS: The following was observed during swallowing of the various mixtures of barium: Thin Barium: Silent aspiration with ingestion of thin liquids. Thick Barium: There was no evidence of aspiration or laryngeal penetration. Barium Pudding: There was no evidence of aspiration or laryngeal penetration. Barium Coated Cracker: There was no evidence of aspiration or laryngeal penetration. RAD/Swallowing Function w/Video IMPRESSION: Silent aspiration with ingestion of thin liquids. The swallow study findings were discussed with the patient by the speech pathologist at the conclusion of the examination. Please see speech pathology report for more information and recommendations. Electronically Signed: Diallo Gutierrez MD at 13:56 EST Tel [phone], Service support ,
== END ==
PROVIDERS: Family Provider Family Medicine; PCP Family Medicine; Referring Provider Family Medicine; Visit Provider Family Medicine
DX: R13.10 Dysphagia, unspecified (principal)
CPT/HCPCS: 74230; 92611

== ENCOUNTER 2018-08-11 13:52 | Inpatient (IN) | payer OTHER, MEDICAID, SELFPAY ==
[2018-05-19 21:47] VITALS: BMI 24.0
[2018-08-11] VITALS (7 sets, daily range): BP systolic 106–110; BP diastolic 66–68; PULSE 107–140; RESP 18; TEMP 37.1–37.3; O2SAT 98–100; BMI 24.7; BMI 24.8
--- NOTE | 2018-08-11 15:34 | MRI_ITS ---
STUDY: MRI BRAIN WITH AND WITHOUT CONTRAST REASON FOR EXAM: Male, 23 years old. New onset seizure. Down syndrome, autism. TECHNIQUE: Standardized multiplanar fat and water weighted pulse sequences were obtained. 5 ml of Gadavist contrast material was administered intravenously for the contrast portion of the examination. COMPARISON: None. FINDINGS: This study is somewhat limited due to patient motion on all pulse sequences. Normal size of the ventricles and extra-axial spaces for the patient's age. Normal white matter tracts of the supratentorial brain. Normal bilateral basal ganglia. Normal thalami. There is no extra-axial fluid accumulation. Normal flow voids within the major intracranial circulation suggesting patency by spin echo criteria. No enhancing lesion is demonstrated. Normal sella turcica, pituitary gland, infundibular stalk, optic chiasm and hypothalamus. Normal tectal plate and pineal gland. Normal midbrain, patricia and medulla. Normal cerebellum. Normal basal cisterns. Signal abnormality is noted in the mastoid sinuses, greater on the right, consistent with inflammation, likely chronic. Normal bilateral internal auditory canals. No demonstrated orbital abnormality, within the constraints of a routine brain study. Normal visualized paranasal sinuses. Normal calvarium and skull base. Normal visualized soft tissue structures. Normal visualized upper cervical spine. MRI/Brain W/WO Contrast IMPRESSION: Limited by patient motion. Mastoid sinus inflammation, greater on the right. No demonstrated acute abnormality. Electronically Signed: Roxanna Hartmann MD at 21:17 EST Tel , Service support ,
--- NOTE | 2018-08-11 17:43 | HP.PCM_ITS ---
Problem List (1) Seizure Status: Acute (2) HTN (hypertension) Status: Chronic Qualifiers: Hypertension type: essential hypertension Qualified Code(s): I10 - Essential (primary) hypertension (3) Malnutrition Status: Chronic Qualifiers: Malnutrition type: protein-calorie malnutrition Protein-calorie malnutrition severity: moderate Qualified Code(s): E44.0 - Moderate protein- calorie malnutrition (4) Autism Status: Chronic (5) Down syndrome Status: Chronic Comment: nonverbal incontinent (6) Dysphagia Status: Chronic Qualifiers: Dysphagia type: unspecified Qualified Code(s): R13.10 - Dysphagia, unspecified History of Present Illness Date of Admission: 08/11/18 Chief Complaint: Seizure activity, new onset The patient is a 23 y/o M w/ PMHx: Chronic Sinusitis, MRDD w/ Down Syndrome, Autism noted to be nonverbal and incontinent baseline, GERD, Chronic Constipation, Chronic Oropharyngeal Dysphagia with PEG for supplemental feeds initially but transitioned to NPO status ~ 2 weeks prior to current presentation per [facility] physician following aspiration concerns ongoing, HTN who presents to the [facility] on 08/11/18 as direct admission from OSH ED ([facility]) with history of onset tonic clonic seizure at approximately 9-9:15 am at his Assisted lasting maximum 1-2 minutes with noted loss of bowel and bladder as well as tongue edema suggestive of biting his tongue with mother upon her evaluation noting him to not be himself but noted upon ED presentation to be awake and alert. He was noted to arrive at the OSH ED at 9:27 am shortly after the seizure occurred. Patient has had no fever at SNF and was doing well until onset. Work- up in the OSH ED included: VS: T 98.2, HR 115, BP 105/68, RR 18, 98% on RA, CBC: WBC 19, Hgb 15.8, Plts 236 without shift, CMP: Na 137, K 4.4, Chl 100, CO2 27.3, BUN/Cr 14/0.9, glucose 130, GFR > 60, Ca 9.2, unremarkable liver profile, UA: Protein 30, 10 RBC, 100 Leuk, 1-5 WBC, 1+ bacteria (straight cath) w/ pending UCx, Lactic acid: 12.8 (4.5-18 normal), Bld Cx x 2, EKG: Limited secondary to artifact, no acute, CXR: No acute process, CT head without constrast: No evidence acute intracranial abnormalitiy, opacification mastoid air cells. Past Medical History Past Medical History (Chronic Problems): Chronic Problems HTN (hypertension) (Chronic) Malnutrition (Chronic) Autism (Chronic) Dysphagia (Chronic) Down syndrome (Chronic) nonverbal incontinent Allergies ceftriaxone sodium [From Rocephin] Allergy (Verified 05/19/18 17:17) Rash sulfamethoxazole [From Bactrim] Allergy (Verified 05/19/18 17:17) Rash trimethoprim [From Bactrim] Allergy (Verified 05/19/18 17:17) Rash cinnamon [Cinnamon] Adverse Reaction (Verified 05/19/18 17:17) Diarrhea tape/bandaids Adverse Reaction (Uncoded 05/19/18 21:53) Rash Home Medications: Ambulatory Orders Medication Instructions Recorded L.acidoph,Paracasei, B.lactis 1 pack GT DAILY 07/19/15 [Probiotic] Lansoprazole [Prevacid] 30 mg GT DAILY 07/19/15 Simethicone 40MG/0.6ML [Mylicon] 80 mg GT Q8H PRN PRN 07/19/15 Polyethylene Glycol 3350 [Miralax] 8.5 gm GT DAILY 06/11/17 Sodium Chloride [Saline Nasal Mist] 3 spray NASAL BID 06/11/17 Bisacodyl 10 mg RC UD PRN 05/19/18 Metoprolol Tartrate 25 mg GT BID 05/19/18 traZODone [Desyrel] 150 mg GT QHS 05/19/18 Lactose-Reduced Food/Fiber [Jevity 18 oz PO 4X/DAY 08/11/18 1.2 [place] Liquid] Surgical History: - - PEG tube. Psychiatric History: Anxiety Lives: Snf Smoking Status: Never smoker Tobacco Use: Non-smoker Alcohol: None Drugs: None - *Family History Maternal History Items: - - No marked maternal or paternal family history including HTN, DM, CA. Paternal History Items: - - No marked maternal or paternal family history including HTN, DM, CA. Review of Systems Constitutional: Reports: Malaise, Weakness, Fatigue. Denies: Chills, Fever, W eight Change HEENT: Denies: Head Aches, Sinus Congestion, Sinus Drainage Cardiovascular: Denies: Chest Pain, Palpitations Respiratory: Denies: Cough, Shortness of breath at rest, Sputum production Gastrointestinal: Denies: Abdominal Pain, Nausea, Vomiting Genitourinary: Denies: Dysuria Musculoskeletal: Denies: Joint Pain, Joint Tenderness Skin: Denies: Rash, Wounds Neurological: Reports: Confusion, Seizures. Denies: Focal weakness, Numbness, Tingling Psychiatric: Reports: Anxiety. Denies: Depression, Homicidal Ideations, Suicidal Ideations Hematologic/ Lymphatic: Denies: Easy Bruising, Easy Bleeding Unable to obtain accurate/complete ROS d/t: ROS given per family and facility/detention, patient nonverbal VTE Information - Inpt Only VTE Present on Admission: No VTE Mechan Device Prophylaxis: SCD's VTE Pharm Prophylaxis ordered?: Yes Subjective: Seated upright in the bed, mildly fatigued appearing, mild agitation with examination but NAD otherwise. Objective: Physical Examination: General: awake, alert, nonverbal, unable to answer orientation questions, cooperative, seated upright in the PCU bed in no apparent distress. Skin: normal color, turgor, no icterus, cyanosis. HEENT: AT/NC, EOMI, PERRLA, mildly dry MM, no carotid bruits or JVD noted, increased oral secretions noted, mild lateral tongue irritation secondary to suspected biting. Lungs: Diminished BS BL, > bases, moderate effort, mild decrease BL bases, no rales, ronchi or wheezing. Heart: Mildly tachycardic with regular rhythm; no gallop, rub audible. Abdomen: soft, PEG tub in place, NTTP, ND, normal BS, no HSM. Extremities: no cyanosis, clubbing, or edema, contractures present. Neurological: awake, alert, nonverbal, unable to answer orientation questions, cooperative, seated upright in the PCU bed in no apparent distress; cranial nerves II-XII grossly normal but difficult to assess, moving all 4 extremities, strength difficult to assess w/ chronic comorbidities but severely globally dec reased. Psychiatric: affect appears fatigued, no acute evidence of depressive or anxiety feelings. - Physical Exam Body Mass Index (BMI) 24.0 Assessment/Plan All Active Problems Seizure (Acute) Aspiration pneumonia (Acute) Fever (Acute) Cough (Acute) Facial cellulitis (Resolved) The patient is a 23 y/o M w/ PMHx: Chronic Sinusitis, MRDD w/ Down Syndrome, Autism noted to be nonverbal and incontinent baseline, GERD, Chronic Constipation, Chronic Oropharyngeal Dysphagia with PEG for supplemental feeds initially but transitioned to NPO status ~ 2 weeks prior to current presentation per [facility] physician following aspiration concerns ongoing, HTN who presents to the [facility] on 08/11/18 as direct admission from OSH ED ([facility]) with history of onset tonic clonic seizure at approximately 9-9:15 am at his Assisted lasting maximum 1-2 minutes with noted loss of bowel and bladder as well as tongue edema suggestive of biting his tongue with mother upon her evaluation noting him to not be himself but noted upon ED presentation to be awake and alert. (1) New-onset seizure: Seizure witnessed with unclear postictal state, not himself per his mother but alert per OSH ED 15 minutes after seizure activity which was noted to last 1-2 minutes maximum. OSH ED included: VS: T 98.2, HR 115, BP 105/68, RR 18, 98% on RA, CBC: WBC 19, Hgb 15.8, Plts 236 without shift, CMP: Na 137, K 4.4, Chl 100, CO2 27.3, BUN/Cr 14/0.9, glucose 130, GFR > 60, Ca 9.2, unremarkable liver profile, UA: Protein 30, 10 RBC, 100 Leuk, 1-5 WBC, 1+ bacteria (straight cath) w/ pending UCx, Lactic acid: 12.8 (4.5-18 normal), Bld Cx x 2, EKG: Limited secondary to artifact, no acute, CXR: No acute process, CT head without constrast: No evidence acute intracranial abnormalitiy, opacification mastoid air cells. Will admit to PCU, maintain on telemetry in PCU on seizure precautions, obtain EEG, obtain brain MRI, obtain TSH. Will place on Keppra IV pending Neurology consultation as given first time seizure may not necessitate AED. PRN ativan IV for seizure activity. (2) MRDD w/ Down Syndrome, Autism: Patient noted to be nonverbal and incontinent baseline, complicates care. (3) Chronic Constipation: Continue daily miralax regimen, additional PRN bowel regimen if needed. (4) Chronic Oropharyngeal Dysphagia w/ Recent Aspiration Confirmed: Patient with PEG for supplemental feeds initially, transitioned to NPO status ~ 2 weeks prior to current presentation, will continue Jevity 1.5 oz QID pending nutrition evaluation, speech consulted as well, medication per GT. (5) Hypertension: Continue home regimen including metoprolol, PRN hydralazine. (6) Chronic Sinusitis: Follows w/ Dr. Maria, [facility] ED CT head without constrast w/ no evidence acute intracranial abnormalitiy, opacification mastoid air cells. (7) Moderate Protein Calorie Nutrition: Difficulties with intake, self-feed, w eight loss history with illnesses, transitioned to NPO status ~ 2 weeks prior to current presentation, will continue Jevity 1.5 oz QID pending nutrition evaluation. (8) GERD: PPI. (9) DVT Prophylaxis: AMY, lovenox. (10) CODE status: Discussed CODE status at including difference between FULL code, DNR-CCA and DNR-CC status. Following discussions about the differences in these status, requested Full Code status. Advanced Care Planning Face to Face Time: 16 minutes. Code Visit Inpatient E&M: 54363 Init Hosp L3 Procedures: 70309 Advncd Care Plan 30 Min
[2018-08-11] MEDS: levETIRAcetam IV 100 ML 400 MG IV (18:24)
[2018-08-11] MEDS: 0.9% Normal Saline 1,000 ML 100 ML IV (18:25)
[2018-08-11 19:16] LABS: Magnesium 2.3 mg/dL (1.6-2.6); Phosphorus 2.7 mg/dL (2.5-4.9); Thyroid Stim Hormone (TSH) 0.07 uIU/mL (0.358-3.74)
[2018-08-11] MEDS: LORazepam 2 MG/ML Syringe 1 MG IV (19:29)
[2018-08-11] MEDS: traZODone 50 MG Tablet 150 MG GT (21:55)
[2018-08-11] MEDS: Sodium Chloride 0.65% 1 SPRAY SPRAY.BTL 3 SPRAY NASAL (21:55)
[2018-08-11] MEDS: Metoprolol Tartrate 25 MG Tablet GT (22:05)
[2018-08-12] VITALS (7 sets, daily range): BP systolic 111–125; BP diastolic 59–69; PULSE 80–118; RESP 18–20; TEMP 36.6–37.6; O2SAT 95–97
[2018-08-12] MEDS: levETIRAcetam IV 100 ML 400 MG IV ×2 (00:06→10:17)
[2018-08-12] MEDS: Acetaminophen 325 MG Tablet 650 MG PO (02:59)
--- NOTE | 2018-08-12 03:41 | PCM.PN.BLA ---
Progress Note Nurse reported that patient with a history of autism and seizures who had a tonic clonic seizure and bit his tongue and was subsequently admitted now has increased swelling of his tongue. Upon going to patient's room and his mother was at the bedside. Patient noted to have severely swollen tongue. Her mother confirms that indeed the patient's tongue is severely swollen. We will give a one-time dose of Decadron 20 mg x1 now. And schedule for 4mg every 6 hours x 2 doses.
[2018-08-12] MEDS: Jevity 1.5. 1,000 ML Bottle 237 ML GT ×2 (06:08→11:52)
[2018-08-12] MEDS: 0.9% Normal Saline 1,000 ML 100 ML IV (06:27)
[2018-08-12 06:44] LABS: Absolute Lymphocyte Count 0.76 X10^3/ul (0.83-4.51); Basophil# 0.03 X10^3/uL; Basophil% 0.2 % (0-1); Eosinophil# 0.06 X10^3/uL; Eosinophils% 0.4 % (0-5); Hematocrit 45.3 % (40-54); Hemoglobin 15.4 g/dl (13.0-16.5); Lymphocyte # 0.76 X10^3/ul (4.0); Lymphocyte % 4.9 % (19-41); Mean Corpuscular Volume 97.2 fL (80-94); Mean Platelet Vol. 10.6 fl (6.2-12.0); Monocyte# 0.58 X10^3/uL; Monocyte% 3.7 % (0-10); Neutrophil % 90.5 % (47-70); Platelet Count 228 K/mm3 (150-450); RBC Distribution Width CV 13.8 % (11.6-14.6); RBC Distribution Width SD 48.4 fl (35.1-43.9); Red Blood Count 4.66 M/mm3 (4.6-6.2); White Blood Count 15.5 K/mm3 (4.4-11.0)
[2018-08-12 06:47] LABS: POSITIVE COUNT NO; POSITIVE DIFFERENTIAL NO; POSITIVE MORPHOLOGY NO
[2018-08-12 07:10] LABS: Anion Gap 9 (5-15); BUN 9 mg/dL (7-18); BUN/Creat Ratio 10.8 RATIO (10-20); Calcium,Total 9.1 mg/dL (8.5-10.1); Chloride 108 mmol/L (98-107); Creatinine, Serum 0.84 mg/dL (0.70-1.30); EST Glomerular Filtration Rate 121 mL/min (>60); Est Glom Filt Rate - Afr Amer 146 mL/min (>60); Estimated Creatinine Clearance 104.08 ml/min; Glucose 131 mg/dL (74-106); Potassium 4.6 mmol/L (3.5-5.1); Sodium Level 143 mmol/L (136-145)
[2018-08-12] MEDS: Enoxaparin 40 MG/0.4 ML Syringe SC (10:18)
[2018-08-12] MEDS: Polyethylene Glycol 3350 17 GM PACKET 8.5 GM GT (10:18)
[2018-08-12] MEDS: Metoprolol Tartrate 25 MG Tablet GT (10:18)
[2018-08-12] MEDS: Sodium Chloride 0.65% 1 SPRAY SPRAY.BTL 3 SPRAY NASAL (10:19)
--- NOTE | 2018-08-12 11:04 | NS ---
Recommend increase feedings of Jevity 1.5 to 237 mL 5x/day w/ 80mL H2O flush before and after each feeding to provide 1775 calories, 75.5 g protein, and 1700mL total fluid per day. See RD Assessment for further details. Rosetta Granger MS, RDN, LD
--- NOTE | 2018-08-12 14:25 | PCM.CONS.GEN ---
Problem List (1) Seizure Status: Acute Reason for Consult Date of Consultation: 08/12/18 Reason for Consultation: seizure History of Present Illness: The patient is a 23 year old M with PMH HTN, Down's syndrome, Autism, MRDD, s/p PEG admitted with seizures. History could not be obtained from patient, was obtained from mother at bedside. [facility] patient had sudden onset witnessed generalized tonic clonic seizure, with urinary and bowel incontinence, tongue bite and post event patient was very limp before he came back to his baseline, he was started on Keppra 500 mg BID on admission. Per mother patient had staring episodes in the past but denies any witnessed GTCs in the past. Per documentation patient was transferred from OSH where the labs reported were CBC: WBC 19, Hgb 15.8, Plts 236 without shift, CMP: Na 137, K 4.4, Chl 100, CO2 27.3, BUN/Cr 14/0.9, glucose 130, GFR > 60, Ca 9.2, unremarkable liver profile, UA: Protein 30, 10 RBC, 100 Leuk, 1-5 WBC, 1+ bacteria (straight cath) w/ pending UCx, Lactic acid: 12.8 (4.5-18 normal), Bld Cx x 2, EKG: Limited secondary to artifact, no acute, CXR: No acute process, CT head without contrast: No evidence acute intracranial abnormality, opacification mastoid air cells. [] Past Medical History Past Medical History (Chronic Problems): Chronic Problems HTN (hypertension) (Chronic) Malnutrition (Chronic) Autism (Chronic) Dysphagia (Chronic) Down syndrome (Chronic) nonverbal incontinent Allergies ceftriaxone sodium [From Rocephin] Allergy (Verified 05/19/18 17:17) Rash sulfamethoxazole [From Bactrim] Allergy (Verified 05/19/18 17:17) Rash trimethoprim [From Bactrim] Allergy (Verified 05/19/18 17:17) Rash cinnamon [Cinnamon] Adverse Reaction (Verified 05/19/18 17:17) Diarrhea tape/bandaids Adverse Reaction (Uncoded 05/19/18 21:53) Rash Home Medications: Ambulatory Orders Medication Instructions Recorded L.acidoph,Paracasei, B.lactis 1 pack GT DAILY 07/19/15 [Probiotic] Lansoprazole [Prevacid] 30 mg GT DAILY 07/19/15 Simethicone 40MG/0.6ML [Mylicon] 80 mg GT Q8H PRN PRN 07/19/15 Polyethylene Glycol 3350 [Miralax] 8.5 gm GT DAILY 06/11/17 Sodium Chloride [Saline Nasal Mist] 3 spray NASAL BID 06/11/17 Bisacodyl 10 mg RC UD PRN 05/19/18 Metoprolol Tartrate 25 mg GT BID 05/19/18 traZODone [Desyrel] 150 mg GT QHS 05/19/18 Lactose-Reduced Food/Fiber [Jevity 18 oz PO 4X/DAY 08/11/18 1.2 Jamarcus Liquid] Surgical History: - - PEG tube. Psychiatric History: Anxiety Lives: [facility] Smoking Status: Never smoker Tobacco Use: Non-smoker Alcohol: None Drugs: None - *Family History Paternal History Items: - - No marked maternal or paternal family history including HTN, DM, CA. Maternal History Items: - - No marked maternal or paternal family history including HTN, DM, CA. Review of Systems Constitutional: Reports: - - could not be obtained - Physical Exam General: - - awake HEENT: Normocephalic Neck: Supple Lungs: Normal air movement Cardiovascular: Normal S1, Normal S2 Abdomen: - - S/P PEG Extremities: No cyanosis Neurological: - - patient has MRDD and Downs syndrome, is non verbal at baseline, does not follow any VC, moves all 4 extremities, no NR, sensory/cerebellar and gait could not be assessed Vital Signs Temp Pulse Resp BP Pulse Ox 98 F 114 H 18 111/59 L 97 08/12/18 10:44 08/12/18 10:44 08/12/18 10:44 08/12/18 10:44 08/12/18 10:44 Oxygen Delivery Method Room Air Weight: 53.8 kg Body Mass Index (BMI) 24.7 Intake and Output for Last 24 Hours 08/10/18 08/11/18 08/12/18 23:59 23:59 23:59 Intake Total 2222 / 2222 Balance 2222 / 2222 Laboratory Tests Past 24 Hrs 08/11/18 08/12/18 08/12/18 18:25 06:10 06:10 WBC 15.5 H RBC 4.66 Hgb 15.4 Hct 45.3 MCV 97.2 H MCH 33.0 H MCHC 34.0 RDW 13.8 RDW Differential 48.4 H Plt Count 228 MPV 10.6 Immature Gran % (Auto) 0.300 Neut % (Auto) 90.5 H Lymph % (Auto) 4.9 L [place] % (Auto) 3.7 Eos % (Auto) 0.4 Baso % (Auto) 0.2 Absolute Neuts (auto) 14.0 H Absolute Lymphs (auto) 0.76 L Total Counted Not Reportable Sodium 143 Potassium 4.6 Chloride 108 H Carbon Dioxide 26.0 Anion Gap 9 BUN 9 Creatinine 0.84 Estim Creat Clear Calc 104.08 Est GFR (MDRD) Af Amer 146 Est GFR (MDRD) Non-Af 121 BUN/Creatinine Ratio 10.8 Glucose 131 H Calcium 9.1 Phosphorus 2.7 Magnesium 2.3 TSH 0.07 L Assessment/Plan All Active Problems Seizure (Acute) Aspiration pneumonia (Acute) Fever (Acute) Cough (Acute) Facial cellulitis (Resolved) The patient is a 23 year old M with PMH HTN, Down's syndrome, Autism, MRDD, s/p PEG admitted with seizures. History could not be obtained from patient, was obtained from mother at bedside. [facility]) patient had sudden onset witnessed generalized tonic clonic seizure, with urinary and bowel incontinence, tongue bite and post event patient was very limp before he came back to his baseline, he was started on Keppra 500 mg BID on admission. Per mother patient had staring episodes in the past but denies any witnessed GTCs in the past. Per documentation patient was transferred from OSH where the labs reported were CBC: WBC 19, Hgb 15.8, Plts 236 without shift, CMP: Na 137, K 4.4, Chl 100, CO2 27.3, BUN/Cr 14/0.9, glucose 130, GFR > 60, Ca 9.2, unremarkable liver profile, UA: Protein 30, 10 RBC, 100 Leuk, 1-5 WBC, 1+ bacteria (straight cath) w/ pending UCx, Lactic acid: 12.8 (4.5-18 normal), Bld Cx x 2, EKG: Limited secondary to artifact, no acute, CXR: No acute process, CT head without contrast: No evidence acute intracranial abnormality, opacification mastoid air cells. Impression Seizures Plan -MRI brain w/w/o contrast reported nothing acute -Await EEG -ON keppra 500 mg BID. Can change to Keppra liquid 100 mg/ml, 5 ml via PEG tube BID. Per mother she would prefer liquid formulation -Valium 5 mg ME PRN for seizures > 5 minutes -Labs reviewed from this admission. -Seizure prophylaxis -Patient does not drive -PT/OT and ST -GI/DVT prophylaxis -Fall precautions -Further medical management per hospitalist team -Follow up with Neurology in 4-6 weeks -Please call with questions if any -Thank you for allowing us to participate in patient's care and management Code Visit Inpatient E&M: [id number] Init Hosp L3
--- NOTE | 2018-08-12 14:46 | CASEMGMT ---
CHRISTIAN spoke with patient's dad. The plan is for him to return to the [facility] at discharge. He will transport patient. Estefania TILLMAN
--- NOTE | 2018-08-12 15:32 | DCINST_ITS ---
You will use the following diet at home:: Other - NPO. Continue tube feed. Call your doctor if you observe: - - Repeat seizure activity. Allergies/Adverse Reactions: Allergies ceftriaxone sodium [From Rocephin] Allergy (Verified 05/19/18 17:17) Rash sulfamethoxazole [From Bactrim] Allergy (Verified 05/19/18 17:17) Rash trimethoprim [From Bactrim] Allergy (Verified 05/19/18 17:17) Rash cinnamon [Cinnamon] Adverse Reaction (Verified 05/19/18 17:17) Diarrhea tape/bandaids Adverse Reaction (Uncoded 05/19/18 21:53) Rash Medications to take at Discharge L.acidoph,Paracasei, B.lactis [Probiotic] 1 pack GT DAILY 07/19/15 Lansoprazole [Prevacid] 30 mg GT DAILY 07/19/15 Simethicone 40MG/0.6ML [Mylicon] 80 mg GT Q8H PRN PRN 07/19/15 Polyethylene Glycol 3350 [Miralax] 8.5 gm GT DAILY 06/11/17 Sodium Chloride [Saline Nasal Mist] 3 spray NASAL BID 06/11/17 Bisacodyl 10 mg RC UD PRN 05/19/18 Metoprolol Tartrate 25 mg GT BID 05/19/18 traZODone [Desyrel] 150 mg GT QHS 05/19/18 Lactose-Reduced Food/Fiber [Jevity 1.2 Jamarcus Liquid] 18 oz PO 4X/DAY 08/11/18 Levetiracetam [Keppra] 500 mg GT BID 30 Days #300 ml 08/12/18 Prednisone [Prednisone Intensol] 40 mg GT DAILY 5 Days #40 ml 08/12/18 The following prescriptions were given: Prednisone [Prednisone Intensol] 40 mg GT DAILY 5 Days #40 ml Levetiracetam [Keppra] 500 mg GT BID 30 Days #300 ml Primary Care Physician: Adriel Wallis DO [Primary Care Provider] - Please follow up with your Primary Care Physician in: 1 Week Test Results: Test results from this visit will be discussed in further detail at your follow- up appointment, if applicable. Please Follow Up With: Mamie Schmid MD When: 4-6 Weeks Proposed Discharge Date: 08/12/18
--- NOTE | 2018-08-12 15:32 | PCM.DC.SUM ---
Discharge Date and Diagnosis Date of Admission: 08/11/18 Date of Discharge: 08/12/18 - Primary Discharge Diagnosis 1. New onset seizures 2. Tongue swelling secondary to trauma as a result of #1 3. Moderate protein calorie malnutrition - Secondary Discharge Diagnosis Chronic Problems HTN (hypertension) (Chronic) Malnutrition (Chronic) Autism (Chronic) Dysphagia (Chronic) Down syndrome (Chronic) nonverbal incontinent Hospital Course and Treatment Imaging Results: Diagnostic Data Brain MRI 08/11/18 15:34 IMPRESSION: Limited by patient motion. Mastoid sinus inflammation, greater on the right. No demonstrated acute abnormality. Electronically Signed: Roxanna Hartmann MD at 21:17 EST Tel , Service support , Dr. Schmid- Neurology Operations: None Procedures: None Summary of Care Provided: The patient is a 23 year old M admitted 08/11/18 due to new onset seizure activity. He has a past medical history of chronic sinusitis, MRDD with Down syndrome, autism, GERD, chronic constipation, chronic oropharyngeal dysphagia with PEG tube placement/n.p.o. status. Patient had witnessed seizure with loss of bowel and bladder as well as tongue biting. Patient was placed on IV Keppra. Ativan 2 mg solution GT PRN for seizure >5min. MRI of brain unremarkable with exception of sinusitis. EEG reviewed by neurology, no evidence of seizure activity. Neurology evaluated patient. We will continue Keppra 500 mg twice daily through PEG tube. No further seizure activity during admission. Follow-up with neurology in 4-6 weeks. Patient noted to have tongue swelling secondary to biting tongue during seizure. Airway patent. Patient received IV Decadron during admission. Discharged on oral prednisone solution 40 mg daily for 5 days. Keep tongue moist. Follow-up with primary care physician in 1 week. [facility]. General: awake, alert, non-verbal HEENT: EOMI, PERRLA, tongue swelling and irritation, improving. Lungs: Diminished, clear to auscultation Heart: Regular rhythm, intermittent mild tachycardia, no murmur Abdomen: Soft, nondistended, nontender, PEG tube in place Extremities: No cyanosis, no edema, contractures present Skin: Intact, no wounds or rashes noted. Neurological: Neuro grossly intact Psychiatric: Normal affect Patient seen and examined prior to discharge. Physical assessment as noted above. Patient is stable for discharge with follow up recommendations as noted above. This patient was seen by LOU Escobar under the supervision of Dr. Badillo. - Physical Exam Vital Signs Temp Pulse Resp BP Pulse Ox 98 F 114 H 18 111/59 L 97 08/12/18 10:44 08/12/18 10:44 08/12/18 10:44 08/12/18 10:44 08/12/18 10:44 Oxygen Delivery Method Room Air Weight: 118 lb 9.739 oz Body Mass Index (BMI) 24.7 Intake and Output for Last 24 Hours 08/10/18 08/11/18 08/12/18 23:59 23:59 23:59 Intake Total 2222 Balance 2222 Laboratory Tests Past 24 Hrs 08/11/18 08/12/18 08/12/18 18:25 06:10 06:10 WBC 15.5 H RBC 4.66 Hgb 15.4 Hct 45.3 MCV 97.2 H MCH 33.0 H MCHC 34.0 RDW 13.8 RDW Differential 48.4 H Plt Count 228 MPV 10.6 Immature Gran % (Auto) 0.300 Neut % (Auto) 90.5 H Lymph % (Auto) 4.9 L [place] % (Auto) 3.7 Eos % (Auto) 0.4 Baso % (Auto) 0.2 Absolute Neuts (auto) 14.0 H Absolute Lymphs (auto) 0.76 L Total Counted Not Reportable Sodium 143 Potassium 4.6 Chloride 108 H Carbon Dioxide 26.0 Anion Gap 9 BUN 9 Creatinine 0.84 Estim Creat Clear Calc 104.08 Est GFR (MDRD) Af Amer 146 Est GFR (MDRD) Non-Af 121 BUN/Creatinine Ratio 10.8 Glucose 131 H Calcium 9.1 Phosphorus 2.7 Magnesium 2.3 TSH 0.07 L Discharge Diet: - - Tube feed. NPO. Call your doctor if you observe: - - Repeat seizure activity. Home Medications: Medications to take at Discharge L.acidoph,Paracasei, B.lactis [Probiotic] 1 pack GT DAILY 07/19/15 Lansoprazole [Prevacid] 30 mg GT DAILY 07/19/15 Simethicone 40MG/0.6ML [Mylicon] 80 mg GT Q8H PRN PRN 07/19/15 Polyethylene Glycol 3350 [Miralax] 8.5 gm GT DAILY 06/11/17 Sodium Chloride [Saline Nasal Mist] 3 spray NASAL BID 06/11/17 Bisacodyl 10 mg RC UD PRN 05/19/18 Metoprolol Tartrate 25 mg GT BID 05/19/18 traZODone [Desyrel] 150 mg GT QHS 05/19/18 Lactose-Reduced Food/Fiber [Jevity 1.2 Jamarcus Liquid] 18 oz PO 4X/DAY 08/11/18 Levetiracetam [Keppra] 500 mg GT BID 30 Days #300 ml 08/12/18 Lorazepam Intensol [Ativan Intensol] 1 mg GT PRN PRN #1 bottle 08/12/18 Prednisone [Prednisone Intensol] 40 mg GT DAILY 5 Days #40 ml 08/12/18 Following Prescrptions Were Given to Patient: Lorazepam Intensol [Ativan Intensol] 1 mg GT PRN PRN #1 bottle PRN Reason: Seizure Prednisone [Prednisone Intensol] 40 mg GT DAILY 5 Days #40 ml Levetiracetam [Keppra] 500 mg GT BID 30 Days #300 ml Primary Care Physician: Adriel Wallis DO [Primary Care Provider] - Please follow up with your Primary Care Physician in: 1 Week Please Follow Up With: Mamie Schmid MD When: 4-6 Weeks Disposition: Home Minutes spent on discharge:: 35 Patient Condition:: Stable Medical Necessity - Tobacco Use Smoking Status: Never smoker Tobacco Use: Non-smoker Meaningful Use Info Meaningful Use Diagnoses (Choose all that apply): None applicable
--- NOTE | 2018-08-12 15:41 | EEG ---
- Electroencephalogram Date of service 08/12/2018 History EEG is being done in this 23 yr M to rule out seizures. Patient with Down's syndrome and MRDD EEG Description: This is an 18 channel EEG with 10-20 lead placement system. Bipolar montages, Referential and Circumferential montages were reviewed. Photic stimulation was performed but Hyperventilation was not performed. The posterior dominant rhythm about 8 HZ. Photo stimulation did not elicit normal driving response or any abnormal photoparoxysmal response, Hyperventilation was not performed. Sleep was not identified. There is no abnormal background slowing noted. There was no epileptiform discharges or electrographic seizures noted during this recording. Occipital lead artefact noted bilaterally during the record EEG Interpretation This is a normal awake EEG. There is no epileptiform discharges or electrographic seizures noted during the record.
[2018-08-12 16:18] LABS: AST(SGOT) 11 U/L (15-37); Alanine Aminotransfer ALT/SGPT 24 U/L (16-61); Albumin, Serum 3.1 g/dL (3.2-5.0); Alkaline Phosphatase 120 U/L (45-117); Globulin 4.9 g/dL (2.2-4.2)
== END 2018-08-12 15:31 | disposition home or self-care (01) | DRG 101 ==
PROVIDERS: Psychiatry & Neurology Neurology; Admitting Provider Family Medicine; Family Provider Family Medicine; PCP Family Medicine; Referring Provider Family Medicine; Visit Provider Internal Medicine
DX: G40.909 Epilepsy, unspecified, not intractable, without status epilepticus (principal); F84.0 Autistic disorder; E44.0 Moderate protein-calorie malnutrition; Q90.9 Down syndrome, unspecified; R32 Unspecified urinary incontinence; Z93.1 Gastrostomy status; J32.9 Chronic sinusitis, unspecified; I10 Essential (primary) hypertension; Z79.899 Other long term (current) drug therapy; R13.12 Dysphagia, oropharyngeal phase; K21.9 Gastro-esophageal reflux disease without esophagitis; Z68.24 Body mass index [BMI] 24.0-24.9, adult; K59.09 Other constipation; S01.552A Open bite of oral cavity, initial encounter; X58.XXXA Exposure to other specified factors, initial encounter
CPT/HCPCS: 36415; 70553; 80048; 80076; 82140; 83735; 84100; 84443; 85025; 97802; A9585; J7030; A4216

== ENCOUNTER 2018-08-15 12:48 | Inpatient (IN) | payer OTHER, MEDICAID, SELFPAY ==
[2018-08-11 17:47] VITALS: BMI 24.7
[2018-08-15] VITALS (30 sets, daily range): BP systolic 86–162; BP diastolic 45–99; PULSE 75–136; RESP 12–24; TEMP 36.6–38.6; O2SAT 75–100; BMI 24.0; BMI 24.6
--- NOTE | 2018-08-15 13:02 | ED.VISSUMM ---
- ER Visit Summary Date of Service: 08/15/18 Chief Complaint: [] Abscess involving chin and face History of Present Illness: The patient is a 23 M [] history of MRDD, MRSA, seizure disorder discharged from [facility] after seizure disorder therapy, per the mother he developed a pimple over his chin but now has progressed to be a fluctuant draining area that is causing redness to the chin and facial edema he has been on antibiotics for 24 hours, he had no improvement, he presented to [facility] in the near [facility] he was febrile and tachycardic they recommended admission I&D etc. but because the patient receives all of his care at [facility] including care by subspecialist ENT, subspecialist infectious disease primary care etc. she asked that he be sent to hospital via private vehicle, per the mother's health status a little bit otherwise been unremarkable Physical Examination: [] He is currently afebrile he has a heart rate of 110 he has an obvious infection involving the chin there is a draining lesion there that is causing redness to the chin and surrounding edema to the face and lower lip region, his tongue is large and is protruding from his mouth and that is baseline the floor of the tongue is soft no signs of airway compromise or Jorge A angina, the neck is very supple the submental and mandibular areas are very soft except for the focal area around the chin that is fluctuant and draining yellow fluid, the neck is supple the lungs sound clear the abdomen soft nontender the heart tones are unremarkable he is awake moving all of his extremities and basically acting baseline per the mother mental status kent she assures me there is no signs of airway compromise he is breathing the way he normally does, he is not directable, he cannot cooperate with his management In the degree of facial swelling holding his chin up to his face I have explained to the family that I believe he require I&D as facial cellulitis could cause significant morbidity mortality sepsis etc. and that would require IV sedation we discussed the risk benefits of sedation provided consent and after answering their questions they agreed, and we will proceed with the above Test Results: [] Emergency Department Course and Treatment: [] Given all the above I explained her he will require sedation I&D IV antibiotics and admission she agrees with all the above, we discussed that we would be giving him ketamine, that she indicate she believed he had had before not any difficulty Start on IV antibiotics IV fluids, he was started on the sedation protocol with high flow oxygen and cardiac monitoring pulse ox continuous etc., he was given ketamine proximately 1 mg/kg total dose 60 mg infused slowly IV, once that took effect we were able to I&D the chin laceration productive of quite a bit of thick yellow fluid, sterilely managed then dressing, he began to drop his O2 sats we began to easily bagged him back into the range sat of 90% or above, however he continued to drop his sats when we would stop bagging him, we suction his mouth continue to support his airway by bagging him, I became concerned that he would have a protracted reaction sedative effect of the ketamine requiring intubation discussed this with the mother, we prepared him for intubation continue to support his oxygenation and ventilation by bagging him appropriately, we were able to visualize the cords however he continued to cough and we could not pass the ET tube through the cords at that point time we again continue to support his ventilation and oxygenation by bagging him, he was given 20 mg of etomidate and then intubated with a #6-1/2 ET tube MAC blade with really no difficulty, he was easily bagged once ET tube was placed to and we were able to maintain his pulse ox of 98%, ET tube was suctioned with almost nothing returned, post intubation chest x-ray shows normal tube placement with no infiltrates or other abnormalities, post intubation ABG pending Spoke with the hospitalist service they are aware of it is noted with the patient, the indicate that the patient can receive Zosyn on reevaluation he is resting comfortably in the bed undergoing sedation protocol vital signs pulse ox stable will arrange for admission Treatment Plan: [] Disposition: [] Admit stable Impression: [] Facial abscess involving the chin with edema to the lower face mouth area, status post I&D of facial abscess, intubation required to support airway, history of mental retardation, history of seizure disorder, history of MRSA This note was generated with [employer] dictation software. It may contain incorrect words, spelling, and punctuation that were not noted in review of the chart prior to signing ED Disposition - Plan for ED Patient: Chief Complaint: Abscess
[2018-08-15 13:30] LABS: Anion Gap 7 (5-15); BUN 12 mg/dL (7-18); BUN/Creat Ratio 15.3 RATIO (10-20); Calcium,Total 8.6 mg/dL (8.5-10.1); Chloride 102 mmol/L (98-107); Creatinine, Serum 0.78 mg/dL (0.70-1.30); EST Glomerular Filtration Rate 130 mL/min (>60); Est Glom Filt Rate - Afr Amer 158 mL/min (>60); Estimated Creatinine Clearance 108.67 ml/min; Glucose 120 mg/dL (74-106); Potassium 4.6 mmol/L (3.5-5.1); Sodium Level 138 mmol/L (136-145)
[2018-08-15] MEDS: Ondansetron 4 MG/2 ML Vial IV (13:43)
[2018-08-15] MEDS: 0.9% Normal Saline 1,000 ML 1000 ML IV (13:44)
[2018-08-15] MEDS: Morphine 4 MG/ML Syringe IV (13:44)
[2018-08-15 13:47] LABS: Lactic Acid 1.9 mmol/L (0.4-2.0)
[2018-08-15 13:58] LABS: Absolute Lymphocyte Count 0.95 X10^3/ul (0.83-4.51); Absolute Neutrophil Count 13.6 X10^3/uL (2.0-7.7); Basophil# 0.02 X10^3/uL; Basophil% 0.1 % (0-1); Eosinophil# 0.03 X10^3/uL; Eosinophils% 0.2 % (0-5); Hematocrit 47.2 % (40-54); Hemoglobin 15.8 g/dl (13.0-16.5); Lymphocyte # 0.95 X10^3/ul (4.0); Lymphocyte % 5.8 % (19-41); Mean Corp Hgb Conc 33.5 g/gl (32-36); Mean Corpuscular Hgb 32.6 pg (27.0-32.0); Mean Corpuscular Volume 97.3 fL (80-94); Mean Platelet Vol. 10.9 fl (6.2-12.0); Monocyte# 1.74 X10^3/uL; Monocyte% 10.6 % (0-10); Neutrophil # 13.57 X10^3/uL (2.7-7.7); Neutrophil % 83.1 % (47-70); Platelet Count 265 K/mm3 (150-450); RBC Distribution Width CV 13.7 % (11.6-14.6); RBC Distribution Width SD 48.8 fl (35.1-43.9); Red Blood Count 4.85 M/mm3 (4.6-6.2); White Blood Count 16.3 K/mm3 (4.4-11.0)
[2018-08-15 13:59] LABS: Differential Indicated SCAN CRITERIA MET; POSITIVE COUNT NO; POSITIVE DIFFERENTIAL YES; POSITIVE MORPHOLOGY YES
[2018-08-15] MEDS: Etomidate 20 MG/10 ML Vial IV (14:51)
--- NOTE | 2018-08-15 14:58 | NURSING ---
[facility] TEAM CALLED
[2018-08-15] MEDS: Midazolam 2 MG/2 ML Syringe IV (15:00)
--- NOTE | 2018-08-15 15:05 | EKG12_ITS ---
Test Reason : Blood Pressure : / mmHG Vent. Rate : 113 BPM Atrial Rate : 113 BPM P-R Int : 122 ms QRS Dur : 072 ms QT Int : 320 ms P-R-T Axes : 033 050 005 degrees QTc Int : 438 ms Sinus tachycardia Otherwise normal ECG Confirmed by CHIRSTEN OLIVIER, TAM ([id number]), graphic editor EMILIANO MCHUGH ([id number]) on 08/17/2018 9:14:45 AM Referred By: Natty Dodd Confirmed By:TAM VELÁSQUEZ MD
--- NOTE | 2018-08-15 15:06 | CM.ED ---
Social Work Note Notified by ED staff that pt's family needed support. Introduced self and role at [facility]. Pt's mother and father are outside of pt's room tearful. Pt was brought in for an abscess on his chin and during the course of his stay began to struggle with breathing. ED team was successful in intubating pt who is now on a vent. RNCarmita, and Dr. Nicholson, updated the family as soon as treatment of pt was complete. Family denies further needs at this time, and made aware that this publicity writer is available if needs arise. Yajaira Polk, COMPUTER CLERK, BEATRICE
--- NOTE | 2018-08-15 15:07 | RAD_ITS ---
STUDY: X-RAY CHEST REASON FOR EXAM: Male, 23 years old. Chin abscess, swelling along the jaw, intubated TECHNIQUE: AP COMPARISON: 05/19/2018 FINDINGS: Endotracheal tube is present with the tip at the level of the clavicular heads. Ill-defined opacity just above the right hilum is new since the prior study. There is no demonstrated pleural abnormality. Normal size heart. Normal mediastinum and edgardo. Normal visualized pulmonary arteries. Normal visualized aortic arch and descending thoracic aorta. Normal visualized thoracic spine. Normal visualized ribs, clavicles, and shoulders. There is no demonstrated abnormality of the visualized soft tissue structures of the upper abdomen. RAD/Chest 1 View (Portable) IMPRESSION: 1. Satisfactory position of endotracheal tube. 2. Possible early infiltrate in the right upper lobe. Electronically Signed: Mejia Willingham MD at 15:29 EST , Service support ,
--- NOTE | 2018-08-15 15:15 | NURSING ---
DR HINOJOSA FOR DR VALDES
--- NOTE | 2018-08-15 15:24 | NURSING ---
ICU FACIAL ABSCESS, MRSA, INTUBATION WHITE
--- NOTE | 2018-08-15 15:33 | NURSING ---
ICU 1
--- NOTE | 2018-08-15 15:40 | PCM.HP.STD ---
Problem List (1) Cellulitis Status: Acute Qualifiers: Site of cellulitis: face Qualified Code(s): L03.211 - Cellulitis of face (2) Abscess Status: Acute (3) Sepsis Status: Acute Qualifiers: Sepsis type: sepsis due to unspecified organism Qualified Code(s): A41.9 - Sepsis, unspecified organism (4) Respiratory failure Status: Acute Qualifiers: Chronicity: acute Respiratory failure complication: hypoxia Qualified Code(s): J96.01 - Acute respiratory failure with hypoxia (5) Seizure Status: Acute (6) HTN (hypertension) Status: Chronic Qualifiers: Hypertension type: essential hypertension Qualified Code(s): I10 - Essential (primary) hypertension (7) Malnutrition Status: Chronic Qualifiers: Malnutrition type: protein-calorie malnutrition Protein-calorie malnutrition severity: moderate Qualified Code(s): E44.0 - Moderate protein-calorie malnutrition (8) Autism Status: Chronic (9) Dysphagia Status: Chronic Qualifiers: Dysphagia type: oropharyngeal phase Qualified Code(s): R13.12 - Dysphagia, oropharyngeal phase (10) Down syndrome Status: Chronic Comment: nonverbal incontinent History of Present Illness Date of Admission: 08/15/18 Chief Complaint: Facial celluitis, edema, abscess The patient is a 23 y/o M w/ PMHx: Chronic Sinusitis, MRDD w/ Down Syndrome, Autism noted to be nonverbal and incontinent baseline, GERD, Chronic Constipation, Chronic Oropharyngeal Dysphagia with PEG for supplemental feeds initially but transitioned to NPO status secondary to recent [facility] following aspiration concerns ongoing, HTN, recent admission 08/12/17 secondary to seizure activity discharged on keppra regimen per GT with unremarkable EEG and MRI Brain who now re-presents to the [facility] ED on 08/15/17 with history of pimple noted on his chin the day day of discharge which enlarged over the next several days and despite warm compresses and patient mother attempted squeezing of visit continued enlargement, redness, edema to the region with onset of fevers for the last 48 hours with PCP evaluation the day prior with initiation of doxycycline not much improvement. Work-up in the ED included T 97.9, heart rate 126, BP 131/74, respiratory rate 20, initially 98% on room air however given sedation for I&D and following required Ambu bag again with eventual intubation for airway safety, currently on 100% mechanically ventilated, CBC with WBC 16.3, hemoglobin 15.8, platelet 265 with left shift, BMP unremarkable aside glucose 120, lactic acid 1.9, chest x-ray with satisfactory position of ET tube, questionable early infiltrate right upper lobe. 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 Additionally administered IV vancomycin. No blood cultures obtained prior to IV antibiotic therapy given in the ED. I&D performed and wound culture sent per ED, added MRSA PCR wound. Past Medical History Past Medical History (Chronic Problems): Chronic Problems HTN (hypertension) (Chronic) Malnutrition (Chronic) Autism (Chronic) Dysphagia (Chronic) Down syndrome (Chronic) nonverbal incontinent Allergies ceftriaxone sodium [From Rocephin] Allergy (Verified 05/19/18 17:17) Rash sulfamethoxazole [From Bactrim] Allergy (Verified 05/19/18 17:17) Rash trimethoprim [From Bactrim] Allergy (Verified 05/19/18 17:17) Rash cinnamon [Cinnamon] Adverse Reaction (Verified 05/19/18 17:17) Diarrhea tape/bandaids Adverse Reaction (Uncoded 05/19/18 21:53) Rash Home Medications: Ambulatory Orders Medication Instructions Recorded L.acidoph,Paracasei, B.lactis 1 pack GT DAILY 07/19/15 [Probiotic] Lansoprazole [Prevacid] 30 mg GT DAILY 07/19/15 Simethicone 40MG/0.6ML [Mylicon] 80 mg GT Q8H PRN PRN 07/19/15 Polyethylene Glycol 3350 [Miralax] 8.5 gm GT DAILY 06/11/17 Sodium Chloride [Saline Nasal Mist] 3 spray NASAL BID 06/11/17 Bisacodyl 10 mg RC UD PRN 05/19/18 Metoprolol Tartrate 25 mg GT BID 05/19/18 traZODone [Desyrel] 150 mg GT QHS 05/19/18 Lactose-Reduced Food/Fiber [Jevity 18 oz GT 4X/DAY 08/11/18 1.2 Jamarcus Liquid] Levetiracetam [Keppra] 500 mg GT BID 30 Days #300 ml 08/12/18 Lorazepam Intensol [Ativan 1 mg GT PRN PRN #1 bottle 08/12/18 Intensol] Doxycycline 100 mg PO BID 08/15/18 Surgical History: - - PEG tube. Psychiatric History: Anxiety Lives: Penitentiary - Patient lives in a retirement. Smoking Status: Never smoker Tobacco Use: Non-smoker Alcohol: None Drugs: None - *Family History Paternal History Items: - - No marked maternal or paternal family history including HTN, DM, CA. Maternal History Items: - - No marked maternal or paternal family history including HTN, DM, CA. Review of Systems Constitutional: Reports: Chills, Fever, Malaise, Weakness, Fatigue HEENT: Reports: - - Facial swelling, edema, redness to the chin with pimple.. Denies: Head Aches, Sinus Congestion, Sinus Drainage Cardiovascular: Denies: Chest Pain, Palpitations Respiratory: Denies: Cough, Shortness of breath at rest, Sputum production Gastrointestinal: Denies: Abdominal Pain, Nausea, Vomiting Genitourinary: Denies: Dysuria Musculoskeletal: Denies: Joint Pain, Joint Tenderness Skin: Reports: Skin Changes, Wounds. Denies: Rash Neurological: Reports: Difficulty swallowing, Focal weakness, - - Nonverbal.. Denies: Numbness, Tingling Psychiatric: Reports: Anxiety, Depression. Denies: Homicidal Ideations, Suicidal Ideations Hematologic/ Lymphatic: Denies: Easy Bruising, Easy Bleeding Unable to obtain accurate/complete ROS d/t: Patient ROS obtained from mother as patient is nonverbal. VTE Information - Inpt Only VTE Present on Admission: No VTE Mechan Device Prophylaxis: SCD's VTE Pharm Prophylaxis ordered?: Yes Patient Problems: Active and Suspected Problems Cellulitis (Acute) Abscess (Acute) Sepsis (Acute) Respiratory failure (Acute) Subjective: Seated upright in the ED bed, intubated, sedated. Objective: Physical Examination: General: Debated, sedated, not oriented, not following commands, baseline nonverbal, seated upright in the ED bed, no acute distress currently. Skin: normal color, turgor, no icterus, cyanosis except notable edema to the facial region in the chin and bilateral lower cheeks, erythema extending over the chin region, status post I&D with some purulent discharge noted, induration present, warm to touch. HEENT: AT/NC except noted chin erythema, edema, status post I&D in the ED, EOM able to be assessed, PERRLA, dry MM, abated, no carotid bruits or JVD noted, see skin. Lungs: Symmetric rise, intubated, sedated, no rales, ronchi or wheezing. Heart: Mildly tachycardic with regular rhythm; no gallop, rub audible. Abdomen: soft, thin habitus, GT in place, NTTP, ND, normal BS, no HSM. Extremities: no cyanosis, clubbing, or edema. Neurological: Debated, sedated, not oriented, not following commands, baseline nonverbal, seated upright in the ED bed, no acute distress currently; cognitive function not baseline intact; pupils equally reactive to light and accomodation; cranial nerves unable to be assessed; sedated, intubated, strength difficult to assess given sedation. Psychiatric: affect appears flat, no acute evidence of depressive or anxiety feelings. - Physical Exam Vital Signs Temp Pulse Resp BP Pulse Ox 97.9 F 126 H 12 111/99 H 100 08/15/18 12:50 08/15/18 15:10 08/15/18 15:10 08/15/18 15:10 08/15/18 15:10 Oxygen Flow Rate (L/min) [1 ( 15 Initial Baseline)] Oxygen Delivery Method [2] Ambu-Bag Oxygen Delivery Method [1 ( Non-Rebreather Initial Baseline)] Oxygen Delivery Method Mechanical Ventilator Weight: 115 lb Body Mass Index (BMI) 24.0 Laboratory Tests Past 24 Hrs 08/15/18 08/15/18 08/15/18 13:10 13:10 13:10 WBC 16.3 H RBC 4.85 Hgb 15.8 Hct 47.2 MCV 97.3 H MCH 32.6 H MCHC 33.5 RDW 13.7 RDW Differential 48.8 H Plt Count 265 MPV 10.9 Immature Gran % (Auto) 0.200 Neut % (Auto) 83.1 H Lymph % (Auto) 5.8 L Norton % (Auto) 10.6 H Eos % (Auto) 0.2 Baso % (Auto) 0.1 Absolute Neuts (auto) 13.6 H Absolute Lymphs (auto) 0.95 Total Counted Not Reportable Diff Path Review May foll Sodium 138 Potassium 4.6 Chloride 102 Carbon Dioxide 29.0 Anion Gap 7 BUN 12 Creatinine 0.78 Estim Creat Clear Calc 108.67 Est GFR (MDRD) Af Amer 158 Est GFR (MDRD) Non-Af 130 BUN/Creatinine Ratio 15.3 Glucose 120 H Lactic Acid 1.9 Calcium 8.6 Assessment/Plan All Active Problems Seizure (Acute) Cellulitis (Acute) Abscess (Acute) Sepsis (Acute) Respiratory failure (Acute) Aspiration pneumonia (Acute) Fever (Acute) Cough (Acute) Facial cellulitis (Resolved) The patient is a 23 y/o M w/ PMHx: Chronic Sinusitis, MRDD w/ Down Syndrome, Autism noted to be nonverbal and incontinent baseline, GERD, Chronic Constipation, Chronic Oropharyngeal Dysphagia with PEG for supplemental feeds initially but transitioned to NPO status secondary to recent [facility] following aspiration concerns ongoing, HTN, recent admission 08/12/17 secondary to seizure activity discharged on keppra regimen per GT with unremarkable EEG and MRI Brain who now re-presents to the [facility] ED on 08/15/17 with history of pimple noted on his chin the day day of discharge which enlarged over the next several days and despite warm compresses and patient mother attempted squeezing of visit continued enlargement, redness, edema to the region with onset of fevers for the last 48 hours with PCP evaluation the day prior with initiation of doxycycline not much improvement. (1) Acute Respiratory Failure secondary to Sedation, Possible RUL Aspiration PNA: Sedated for I+D in the ED, poor airway protection following, intubated, difficult given chronically swollen tongue with his underlying MRDD, down syndrome, will admit to the ICU, maintain intubated, sedated status pending ENT evaluation, ICU consulted, repeat CXR in AM, ABG PRN, continue propofol and fentanyl sedation, CXR w/ ? RUL infiltrate, history of aspiration, PEG only, maintain HOB, PRN albuterol, currently on zosyn and vanc for #2 also. (2) Acute Sepsis secondary to Acute Facial Chin Cellulitis and Abscess, History MRSA: Will maintain on IV vanc and zosyn, pending ED Wound Cx s/p I+D, will obtain Wound MRSA PCR, plan repeat CBC in AM, monitor erythema outline with VS checks, wound RN consulted, ENT consulted per patient family request in addition to ID. MRSA history. (3) Recent New-onset seizure: Recent admission for witness seizure, work-up with unremarkable EEG and MRI brain, continue on keppra regimen, planned outpatient neurology follow-up. (4) Chronic Constipation: Continue daily miralax regimen, additional PRN bowel regimen if needed. (5) Chronic Oropharyngeal Dysphagia w/ Recent Aspiration Confirmed: Patient with PEG for supplemental feeds initially, transitioned to NPO status, continue Jevity per home regimen, requested nutrition evaluation, medication per GT. (6) Hypertension: Continue home regimen including metoprolol, PRN hydralazine. (7) MRDD w/ Down Syndrome, Autism: Patient noted to be nonverbal and incontinent baseline, complicates care. (8) Moderate Protein Calorie Nutrition: Difficulties with intake, self-feed, weight loss history with illnesses, transitioned to NPO status recently, continue Jevity feeds only, pending nutrition evaluation. (9) GERD: PPI. (10) DVT Prophylaxis: SCDs, lovenox. (11) CODE status: Full code status. Code Visit Inpatient E&M: 98879 Init Hosp L3
[2018-08-15 15:51] LABS: Allen Test POS; Base Excess -1 mmol/L (-2 to +2); Bicarbonate 24.6 mmol/L (22-26); Blood Gas Specimen Type ART; FI02 100; Mode A-C; O2 Delivery Device Vent; PEEP 5; PO2 306 mmHG (75-100); RR 14; SITE R Radial; SO2 100 % (95-99); Time Given 1535; Total Carbon Dioxide 26 mmol/L; Vt 350; pCO2 43.7 mmHg (35-45); pH 7.36 (7.35-7.45)
--- NOTE | 2018-08-15 15:59 | ED.RN ---
AT 1434 MODERATE SEDATION WAS INITIATED TO FACILITATE INCISION AND DRAINAGE OF ABSCESS ON CHIN. PT WAS GIVEN 60MG OF KETAMINE IV BY DR VALDES, FAMILY MEMBERS BEDSIDE. SHORTLY AFTER THE ABSCESS WAS DRAINED PT'S SPO2 BEGAN DROPPING WELL RESPIRATIONS. PT VENTILATING WITH BVM WAS INITIATED. PT'S SPO2 CONTINUED TO DROP WITH 100% O2 AND BVM. ANOTHER NURSE ENTERED THE ROOM AND BEGAN ASSISTING AND CALLED RESPIRATORY. UPON ARRIVAL OF RESPIRATORY THERAPISTS BAGGING THE PT WAS ASSUMED BY THEM. WITH PT'S SPO2 NOT MAINTAINING ABOVE 90% THE DECISION TO INTUBATE WAS MADE. 1446: DR VALDES HAD FIRST ATTEMPT OF INTUBATING PT AND UNSUCCESSFUL AT THIS TIME. DR CHANEY TO ROOM TO ATTEMPT. 1447: DR CHANEY ATTEMPTING TO INTUBATED AND UNSUCCESSFUL AT THIS TIME. PT'S SP02 QUICKLY DROPPED INTO UPPER 60'S WHILE ATTEMPTING. BVM VENTILATIONS WERE INITIATED AND PT'S SPO2 WAS BROUGHT BACK UP TO MID 90'S PRIOR TO ANOTHER ATTEMPT. 1449: ORAL AIRWAY WAS INSERTED TO HELP ASSIST WITH BVM VENTILATIONS, PT'S SP02 94% PT IS ONLY SLIGHTLY RESPONSIVE TO NOXIOUS STIMULI OF INTUBATION AND ORAL AIRWAY. 1451: 20MG OF ETOMIDATE IV GIVEN. 3RD ATTEMPT BY DR CHANEY UNSUCCESSFUL. 1452: BVM VENTILATIONS CONTINUE PT'S SP02 IS AT 85%. DR. CHANEY AND DR VALDES REMAIN BEDSIDE. AIRWAY TEAM CALLED. 1453: DR CHANEY STARTED 4TH ATTEMPT TO INTUBATE, DR CHANEY REPORTS THAT PT'S VOCAL CHORDS SPASM AND THAT THE PT'S CHORDS ARE ANTERIOR AND DEEP. REPORTS HAVING DIFFICULTY DUE TO PT'S LARGE TONGUE. 1445: DR CHANEY CONTINUES TO ATTEMPT INTUBATION AFTER SWITCHING BLADES AND BAGGING PT BETWEEN VISUALIZING PT'S VOCAL CHORDS. 1457: DR CHANEY SUCCESSFUL WITH INTUBATION 6.5 ET TUBE INSERTED, 22CM AT THE LIP, GOOD COLOR CHANGE, BILATERAL BREATH SOUNDS. 1500: 2MG OF VERSED GIVEN BY Vicki CASE RN, VIA IV FOR AGITATION. 1501: BIALTERAL SOFT WRIST RESTRAINTS APPLIED. DR VALDES MADE AWARE
--- NOTE | 2018-08-15 17:02 | PCM.CONS.B ---
- Consult Date of Consult: 08/15/[address] Antonino Maria: The patient, Carmen Leong is a 23-year-old white male well known to me over a long period of time. He has Down syndrome and has been seen for ENT concerns over many years including difficulties with respiratory infections, adenoidal disease subsequently undergoing adenoidectomy, and some difficulties with his ears. More recently he has had some sinonasal problems with a variety of bacterial etiologies that required infectious disease specialty consultation. During 2018 he had difficulty with skin infection with MRSA. Recently he was admitted to the hospital having had a seizure and apparently bit his tongue. It was not clear as to whether he had any fever prior to that seizure event. No underlying issue was encountered, and he was subsequently discharged on August 12. He was on steroid treatment to reduce swelling of the tongue. During this interval between August 12 and today he apparently developed complications of a small skin pustule on the chin. This may represent a MRSA pimple. Nonetheless infection seemed to spread from that area up into the cutaneous tissues of the face with some element of cellulitis. He was brought back to the hospital and seen in the emergency room. It was elected to sedate him in order to do an incision and drainage of the pustule and there were difficulties during the sedation that required intubation. Although this was considered difficult due to his large tongue, partly due to Downs, and partly due to the recent biting of the tongue, the intubation was uneventful. ENT consult was requested primarily from the family as I have been involved in his care over a long period of time and have dealt with his many infections. Additional history from mother again was negative for any fever prior to this recent seizure on August 11. Thus the current pustule on the chin and erythema surrounding it is all of an acute nature of the past couple of days. Limited examination was undertaken in the ER post intubation. However I was able to palpate the oral cavity fairly, well including the floor of mouth, and it is doubtful that there is any infectious issue within the floor of the mouth that might give rise to more swelling of the tongue and/or any airway difficulties. This seems entirely consistent with a cutaneous infection that had spread to a greater area of the skin of the chin and lower face region. He currently is on Zosyn and vancomycin pending the results of the appropriate cultures taken. Thus I totally concur with the plan initiated by Dr. Dodd and have nothing further to offer at the moment. However I will follow until we begin to see resolution of the process to be sure that no intervention from me is required. Antonino Maria MD
[2018-08-15] MEDS: fentaNYL drip 100 ML 2.5 MCG IV (17:30)
[2018-08-15] MEDS: Propofol 10MG/Ml 1,000 MG/100 ML Bottle 3.13 MG CONT INF (17:30)
[2018-08-15 17:42] LABS: T4 Free Direct 1.02 ng/dL (0.76-1.46)
--- NOTE | 2018-08-15 17:51 | PCM.RX.CS ---
Consult Pharmacy has been consulted to manage selected antiobiotic: Vancomycin Type of Consult: New start Suspected Infection: Skin/Soft tissue Prior Doses of Antibiotics Received/Current Regimen: VANCOMYCIN 1250MG IV X1 08/15/18 @1536 Labs: Sodium 138 mmol/L (136-145) 08/15/18 13:10 Potassium 4.6 mmol/L (3.5-5.1) 08/15/18 13:10 Chloride 102 mmol/L (98-107) 08/15/18 13:10 Carbon Dioxide 29.0 mmol/L (21.0-32.0) 08/15/18 13:10 Anion Gap 7 (5-15) 08/15/18 13:10 BUN 12 mg/dL (7-18) 08/15/18 13:10 Creatinine 0.78 mg/dL (0.70-1.30) 08/15/18 13:10 Est GFR (MDRD) Af Amer 158 mL/min (>60) 08/15/18 13:10 Est GFR (MDRD) Non-Af 130 mL/min (>60) 08/15/18 13:10 BUN/Creatinine Ratio 15.3 RATIO (10-20) 08/15/18 13:10 Glucose 120 mg/dL (74-106) H 08/15/18 13:10 Weight used for dosin kg Estimated Creatinine Clearance: 97ML/MIN Goal Trough: 10-15 mcg/mL Pharmacy Plan for Drug Dosing: PLAN/RECOMMENDATIONS 1. Vancomycin 750mg IV Q12hrs to start 08/16/18 @0300 2. Trough scheduled for 08/17/18 @0230, prior to the 4th total dose 3. Pharmacy Service will continue to monitor and adjust dosing as required.
[2018-08-15] MEDS: 0.9% Normal Saline 1,000 ML 100 ML IV (18:04)
[2018-08-15 19:40] LABS: Lactic Acid 1.1 mmol/L (0.4-2.0)
--- NOTE | 2018-08-15 19:44 | PCM.PN.BLA ---
Progress Note Was informed that patient is having significantly tongue swelling. Patient was recently admitted and was started on Decadron because of tongue swelling from biting tongue during a seizure activity. Will resume Decadron 4mg IV every 6 hours. Currently patient is intubated.
[2018-08-15] MEDS: Acetaminophen 650 MG/20 ML UDC GT (20:35)
[2018-08-15 21:17] LABS: M R Staph aureus DNA By PCR POSITIVE (Negative); Probe Check PASS; Staph aureus DNA By PCR POSITIVE (Negative)
[2018-08-15] MEDS: Chlorhexidine 15 ML PO (21:42)
[2018-08-15] MEDS: Jevity 1.5. 1,000 ML Bottle 540 ML GT (21:49)
[2018-08-15] MEDS: levETIRAcetam Oral Solution 500 MG/5 ML GT (22:29)
[2018-08-15] MEDS: Sodium Chloride 0.65% 1 SPRAY SPRAY.BTL 3 SPRAY NASAL (22:41)
--- NOTE | 2018-08-15 23:25 | PN_ITS ---
Progress Note Patient's nurse reported that patient's blood pressure was below 90; patient has heart rate in the 90s and patient has a fever of 100.7. Patient is being treated with broad-spectrum antibiotics for facial cellulitis status post drainage of abscess. At this point patient has septic shock. Thirty mls per kilogram bolus( 1600 MLS )of normal saline ordered. His lactic acid is normal. Blood cultures are pending. Patient is intubated and he is on the ventilator. Nurse to repeat blood pressure 1 hour after bolus. If his systolic blood pressu re is still below 90 will start patient on pressors.
--- NOTE | 2018-08-15 23:55 | PCM.PN.BLA ---
Progress Note With receiving IV normal saline bolus patient blood pressure became 98/60. Since patient responded to IV fluids patient is not in septic shock. He was seen and examined. HEENT: Patient with dressing dry and intact on her chin status post I&D of abscess. Respiratory rate 14; lungs were clear to auscultate. Sounds: S1, S2 present. Neuro patient is intubated and sedated. With gag reflex. Sepsis from cellulitis Patient is not in septic shock. Continue broad spectrum antibiotics of vancomycin and Zosyn Blood cultures are pending. Culture from wound abscess is pending.
[2018-08-16] VITALS (36 sets, daily range): BP systolic 92–156; BP diastolic 41–83; PULSE 60–103; RESP 11–18; TEMP 36.4–37.3; O2SAT 95–100
[2018-08-16 00:57] LABS: Bedside Glucose 211 mg/dL (70-110)
[2018-08-16 04:27] LABS: Hematocrit 38.8 % (40-54); Hemoglobin 12.7 g/dl (13.0-16.5); Mean Corp Hgb Conc 32.7 g/gl (32-36); Mean Corpuscular Hgb 31.7 pg (27.0-32.0); Mean Corpuscular Volume 96.8 fL (80-94); Mean Platelet Vol. 10.2 fl (6.2-12.0); Platelet Count 217 K/mm3 (150-450); RBC Distribution Width CV 13.6 % (11.6-14.6); RBC Distribution Width SD 48.2 fl (35.1-43.9); Red Blood Count 4.01 M/mm3 (4.6-6.2); White Blood Count 13.2 K/mm3 (4.4-11.0)
[2018-08-16 04:30] LABS: Scan Indicated on CBC? Y/N NO
[2018-08-16 04:37] LABS: Anion Gap 9 (5-15); BUN 13 mg/dL (7-18); BUN/Creat Ratio 17.6 RATIO (10-20); Calcium,Total 7.8 mg/dL (8.5-10.1); Chloride 109 mmol/L (98-107); Creatinine, Serum 0.74 mg/dL (0.70-1.30); EST Glomerular Filtration Rate 140 mL/min (>60); Est Glom Filt Rate - Afr Amer 169 mL/min (>60); Estimated Creatinine Clearance 121.44 ml/min; Glucose 197 mg/dL (74-106); Potassium 4.4 mmol/L (3.5-5.1); Sodium Level 143 mmol/L (136-145)
[2018-08-16] MEDS: Piperacil/Tazobactam 3.375 GM/50 ML ML IV (05:11)
--- NOTE | 2018-08-16 05:30 | RAD_ITS ---
STUDY: X-RAY CHEST REASON FOR EXAM: Male, 23 years old. Shortness of breath. TECHNIQUE: Single AP portable view of the chest. COMPARISON: Comparison is made with prior examination dated August 15, 2018. FINDINGS: An endotracheal tube is in situ. The tip is at 2.6 cm proximal to the rosa. EKG electrodes are seen. There now is evidence of a focal infiltrate in the posterior medial segment of the left lower lobe. Improved aeration of the left suprahilar infiltrate. There is no demonstrated pleural abnormality. Normal size heart. Normal mediastinum and edgardo. Normal visualized pulmonary arteries. Normal visualized aortic arch and descending thoracic aorta. Normal visualized thoracic spine. Normal visualized ribs, clavicles, and shoulders. There is no demonstrated abnormality of the visualized soft tissue structures of the upper abdomen. RAD/Chest 1 View (Portable) IMPRESSION: New infiltrate in the posterior medial segment of the left lower lobe. Electronically Signed: Diallo Gutierrez MD at 9:24 EST Tel [phone], Service support ,
--- NOTE | 2018-08-16 05:35 | CPS ---
unable to get NIF, pt nonverbal and doesn't follow commands, doing well on CPAP 5/5 breathing trial
--- NOTE | 2018-08-16 05:50 | CPS ---
pt went apneic on breathing trial within 25 minutes, switched back to AC VC settings of 14 350 +5 35%
[2018-08-16] MEDS: 0.9% NaCl Peripheral Flush Adult/Peds IV (06:55)
[2018-08-16 07:05] LABS: Bedside Glucose 222 mg/dL (70-110)
--- NOTE | 2018-08-16 08:33 | PCM.PN.HOSP ---
Patient Problems: Active and Suspected Problems Cellulitis (Acute) Abscess (Acute) Sepsis (Acute) Respiratory failure (Acute) Subjective: Patient seen and examined. He was admitted and managed for facial cellulitis status post I&D. He was subsequently intubated for airway protection. Patient was started on IV Decadron on account of severe tongue swelling. Patient remains intubated. He opens his eyes spontaneously when called but was unable to answer questions. Unable to do review of systems on account of patient being intubated. According to nurse, patient is having gradual hyperglycemia on account of IV Decadron. Labs and vitals reviewed. Vitals/I&O's: Vital Signs Temp Pulse Resp BP Pulse Ox 97.9 F 71 14 111/62 97 08/16/18 08:00 08/16/18 08:00 08/16/18 08:00 08/16/18 08:00 08/16/18 08:00 Oxygen Flow Rate (L/min) [1 ( 15 Initial Baseline)] Oxygen Delivery Method [2] Ambu-Bag Oxygen Delivery Method [1 ( Non-Rebreather Initial Baseline)] Oxygen Delivery Method Mechanical Ventilator Weight: 125 lb 14.143 oz Body Mass Index (BMI) 24.6 Intake and Output for Last 24 Hours 08/14/18 08/15/18 08/16/18 23:59 23:59 23:59 Intake Total 1846 / 1846 1573 / 1573 Output Total 150 / 150 850 / 850 Balance 1696 / 1696 723 / 723 General: Alert, - - intubated HEENT: Atraumatic, PERRLA, - - severe swelling of tongue. large, fluctuant, mildly tender, nonerythematous swelling under his chin, with dressing over site of I&D Oral: Moist Mucosa Neck: Supple, No JVD, Negative Carotid Bruits Lungs: Clear to auscultation, Normal air movement Cardiovascular: Regular rate, Regular Rhythm, Normal S1, Normal S2, No murmurs Abdomen: Bowel Sounds Present, Soft, Non Tender, Non-Distended, No Hepato-splenomegaly Extremities: No clubbing, No cyanosis, No edema, Capillary Refill Less than 3 Seconds Skin: No rashes Musculoskeletal: No Tenderness to Palpation of Joints or Extremities Lymphatic: No Cervical, Supraclavicular, or Inguinal Adenopathy Neurological: Cranial nerves II-XII grossly intact, Motor Exam 5/5 strength throughout, - - moves all limbs spontaneously. intubated. Psych/Mental Status: Normal Affect Laboratory Results 08/15/18 13:10: WBC 16.3 H, RBC 4.85, Hgb 15.8, Hct 47.2, MCV 97.3 H, MCH 32.6 H, MCHC 33.5, RDW 13.7, RDW Differential 48.8 H, Plt Count 265, MPV 10.9, Immature Gran % (Auto) 0.200, Neut % (Auto) 83.1 H, Lymph % (Auto) 5.8 L, [place] % (Auto) 10.6 H, Eos % (Auto) 0.2, Baso % (Auto) 0.1, Absolute Neuts (auto) 13.6 H, Absolute Lymphs (auto) 0.95, Total Counted Not Reportable, Diff Path Review December08/15/18 13:10: Sodium 138, Potassium 4.6, Chloride 102, Carbon Dioxide 29.0, Anion Gap 7, BUN 12, Creatinine 0.78, Estim Creat Clear Calc 108.67, Est GFR (MDRD) Af Amer 158, Est GFR (MDRD) Non-Af 130, BUN/Creatinine Ratio 15.3, Glucose 120 H, Calcium 8.6 08/15/18 13:10: Lactic Acid 1.9 08/15/18 13:10: Free T4 1.02 08/15/18 14:40: S.aureus Protein A PCR POSITIVE H, MRSA (PCR) POSITIVE H 08/15/18 15:43: Specimen Type ART, Sample Site R Radial, pH 7.36, Bicarbonate Actual 24.6, POC Total CO2 26, Base Excess -1, O2 Saturation 100 H, O2 % 100, ABG pCO2 43.7, ABG pO2 306 H*, Adam Test POS, Respiration Rate 14, O2 Delivery Device Vent, Minute Volume 7.00, Vent Mode A-C, Tidal Volume 350, POC PEEP 5, Blood Gas Notified Whom ED , Blood Gas Notified Time 1535 08/15/18 18:45: Lactic Acid 1.1 08/16/18 00:37: POC Glucose 211 H 08/16/18 04:10: WBC 13.2 H, RBC 4.01 L, Hgb 12.7 L, Hct 38.8 L, MCV 96.8 H, MCH 31.7, MCHC 32.7, RDW 13.6, RDW Differential 48.2 H, Plt Count 217, MPV 10.2 08/16/18 04:10: Sodium 143, Potassium 4.4, Chloride 109 H, Carbon Dioxide 25.0, Anion Gap 9, BUN 13, Creatinine 0.74, Estim Creat Clear Calc 121.44, Est GFR (MDRD) Af Amer 169, Est GFR (MDRD) Non-Af 140, BUN/Creatinine Ratio 17.6, Glucose 197 H, Calcium 7.8 L 08/16/18 06:53: POC Glucose 222 H Current Medications Acetaminophen (Tylenol Liquid) 650 mg GT Q4H PRN PRN PRN Reason: fever, pain Last Admin: 08/15/18 20:35 Dose: 650 mg Albuterol Sulfate (Ventolin Aerosols) 2.5 mg INHALATION Q2H PRN PRN PRN Reason: dyspnea, wheezing Bisacodyl (Dulcolax) 10 mg RECTAL DAILY PRN PRN PRN Reason: constipation Chlorhexidine Gluconate () 15 ml PO BID [facility] Last Admin: 08/15/18 21:42 Dose: 15 ml Dexamethasone Sodium Phosphate (Decadron) 4 mg IV Q6 [facility] Last Admin: 08/16/18 06:55 Dose: 4 mg Dextrose (D50w Syringe) 0 gm IV X1 PRN; Protocol PRN Reason: Hypoglycemia Enoxaparin Sodium (Lovenox) 40 mg SC DAILY@1000 [facility] Enteral Nutritional Formula (Jevity 1.5) 540 ml GT 4X/DAY [facility] Last Admin: 08/15/18 21:49 Dose: 540 ml Glucagon () 1 mg IM .X1 PRN PRN Reason: Hypoglycemia Hydralazine HCl (Apresoline Iv) 10 mg IV Q4H PRN PRN PRN Reason: SBP > 160 Sodium Chloride () 1,000 mls @ 100 mls/hr IV .Q10H [facility] Last Admin: 08/16/18 05:12 Dose: Not Given Fentanyl () 100 mls @ 2.5 mls/hr IV .Q40H [facility] Last Admin: 08/15/18 17:30 Dose: 2.5 mls/hr Piperacillin Sod/Tazobactam Sod (Zosyn) 3.375 gm in 50 mls @ 12.5 mls/hr IV Q8 [facility] Last Admin: 08/16/18 05:11 Dose: 12.5 mls/hr Propofol (Diprivan) 1,000 mg in 100 mls @ 3.13 mls/hr CONT INF .Q12H [facility] Last Admin: 08/16/18 05:13 Dose: Not Given Vancomycin IV Pharmacy to Dose (1 ea/ Sodium Chloride) 500 mls @ 250 mls/hr IV PRN PRN; Protocol PRN Reason: Rx to Dose Vancomycin HCl 750 mg/ Sodium (Chloride) 265 mls @ 250 mls/hr IV Q12H [facility] Last Admin: 08/16/18 03:02 Dose: 250 mls/hr Sodium Chloride () 250 mls @ 15 mls/hr IV .[id number] PRN PRN Reason: SALINE FLUSH Insulin Human Lispro (Humalog Kwikpen (Bkc)) 0 unit SC Q6 [facility]; Protocol Lansoprazole (Prevacid) 30 mg GT DAILY [facility] Levetiracetam (Keppra Oral Solution) 500 mg GT BID [facility] Last Admin: 08/15/18 22:29 Dose: 500 mg Magnesium Hydroxide (Milk Of Magnesia) 30 ml PO DAILY PRN PRN PRN Reason: Constipation Metoprolol Tartrate (Lopressor (Beta Jose)) 25 mg GT BID [facility] Last Admin: 08/15/18 21:46 Dose: Not Given Morphine Sulfate () 1 - 2 mg IV Q4H PRN PRN PRN Reason: PAIN Ondansetron HCl (Zofran) 4 mg IV Q8H PRN PRN PRN Reason: NAUSEA/VOMITING Polyethylene Glycol (Miralax) 8.5 gm GT DAILY [facility] Simethicone (Mylicon) 80 mg GT Q8H PRN PRN PRN Reason: gas pains Sodium Chloride ([place] Nasal [place]) 3 spray NASAL BID [facility] Last Admin: 08/15/18 22:41 Dose: 3 spray Sodium Chloride () 5 - 15 ml IV UD PRN PRN Reason: SALINE FLUSH Last Admin: 08/16/18 06:55 Dose: 10 ml Medical Necessity - Tobacco Use Smoking Status: Never smoker Tobacco Use: Non-smoker Assessment/Plan All Active Problems Seizure (Acute) Cellulitis (Acute) Abscess (Acute) Sepsis (Acute) Respiratory failure (Acute) Aspiration pneumonia (Acute) Fever (Acute) Cough (Acute) Facial cellulitis (Resolved) Septic shock (Ruled-out) 1. Sepsis due to acute facial cellulitis and abscess s/p I&D has a history of MRSA temperature has settled white cell count trended down to 13.2 blood cultures and wound culture pending on IV vancomycin and IV zosyn ENT on board 2. 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 Seizure disorder was recently diagnosed with seizure disorder EEG and MRI were unremarkable on [facility] 4. Hypertension: was hypotensive on admission, which resolved with IVF administration. On metoprolol and PRN hydralazine 5. Chronic oropharyngeal dysphagia history of recurrent aspirations. has PEG tube in place for supplemental feeds currently NPO o/a of being intubated on Jevity feeds nutrition consulted 6. Severe macroglossia tongue very swollen. On IV decadrone 7. 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 8. GERD: on PPI DVT prophylaxis: lovenox Code Visit Inpatient E&M: [id number] [facility] Hosp L3
[2018-08-16] MEDS: 0.9% Normal Saline 1,000 ML 100 ML IV (08:43)
--- NOTE | 2018-08-16 08:46 | PN_ITS ---
Patient Problems: Active and Suspected Problems Cellulitis (Acute) Abscess (Acute) Sepsis (Acute) Respiratory failure (Acute) Subjective: Patient seen and examined. He was admitted and managed for facial cellulitis status post I&D. He was subsequently intubated for airway protection. Patient was started on IV Decadron on account of severe tongue swelling. Patient remains intubated. He opens his eyes spontaneously when called but was unable to answer questions. Unable to do review of systems on account of patient being intubated. According to nurse, patient is having gradual hyperglycemia on account of IV Decadron. Labs and vitals reviewed. Vitals/I&O's: Vital Signs Temp Pulse Resp BP Pulse Ox 97.9 F 71 14 111/62 97 08/16/18 08:00 08/16/18 08:00 08/16/18 08:00 08/16/18 08:00 08/16/18 08:00 Oxygen Flow Rate (L/min) [1 ( 15 Initial Baseline)] Oxygen Delivery Method [2] Ambu-Bag Oxygen Delivery Method [1 ( Non-Rebreather Initial Baseline)] Oxygen Delivery Method Mechanical Ventilator Weight: 125 lb 14.143 oz Body Mass Index (BMI) 24.6 Intake and Output for Last 24 Hours 08/14/18 08/15/18 08/16/18 23:59 23:59 23:59 Intake Total 1846 / 1846 1573 / 1573 Output Total 150 / 150 850 / 850 Balance 1696 / 1696 723 / 723 General: Alert, - - intubated HEENT: Atraumatic, PERRLA, - - severe swelling of tongue. large, fluctuant, mildly tender, nonerythematous swelling under his chin, with dressing over site of I&D Oral: Moist Mucosa Neck: Supple, No JVD, Negative Carotid Bruits Lungs: Clear to auscultation, Normal air movement Cardiovascular: Regular rate, Regular Rhythm, Normal S1, Normal S2, No murmurs Abdomen: Bowel Sounds Present, Soft, Non Tender, Non-Distended, No Hepato- splenomegaly Extremities: No clubbing, No cyanosis, No edema, Capillary Refill Less than 3 Seconds Skin: No rashes Musculoskeletal: No Tenderness to Palpation of Joints or Extremities Lymphatic: No Cervical, Supraclavicular, or Inguinal Adenopathy Neurological: Cranial nerves II-XII grossly intact, Motor Exam 5/5 strength throughout, - - moves all limbs spontaneously. intubated. Psych/Mental Status: Normal Affect Laboratory Results 08/15/18 13:10: WBC 16.3 H, RBC 4.85, Hgb 15.8, Hct 47.2, MCV 97.3 H, MCH 32.6 H , MCHC 33.5, RDW 13.7, RDW Differential 48.8 H, Plt Count 265, MPV 10.9, Immature Gran % (Auto) 0.200, Neut % (Auto) 83.1 H, Lymph % (Auto) 5.8 L, [place] % (Auto) 10.6 H, Eos % (Auto) 0.2, Baso % (Auto) 0.1, Absolute Neuts (auto) 13.6 H , Absolute Lymphs (auto) 0.95, Total Counted Not Reportable, Diff Path Review December08/15/18 13:10: Sodium 138, Potassium 4.6, Chloride 102, Carbon Dioxide 29.0, Anion Gap 7, BUN 12, Creatinine 0.78, Estim Creat Clear Calc 108.67, Est GFR (MDRD) Af Amer 158, Est GFR (MDRD) Non-Af 130, BUN/Creatinine Ratio 15.3, Glucose 120 H, Calcium 8.6 08/15/18 13:10: Lactic Acid 1.9 08/15/18 13:10: Free T4 1.02 08/15/18 14:40: S.aureus Protein A PCR POSITIVE H, MRSA (PCR) POSITIVE H 08/15/18 15:43: Specimen Type ART, Sample Site R Radial, pH 7.36, Bicarbonate Actual 24.6, POC Total CO2 26, Base Excess -1, O2 Saturation 100 H, O2 % 100, ABG pCO2 43.7, ABG pO2 306 H*, Adam Test POS, Respiration Rate 14, O2 Delivery Device Vent, Minute Volume 7.00, Vent Mode A-C, Tidal Volume 350, POC PEEP 5, Blood Gas Notified Whom ED , Blood Gas Notified Time 1535 08/15/18 18:45: Lactic Acid 1.1 08/16/18 00:37: POC Glucose 211 H 08/16/18 04:10: WBC 13.2 H, RBC 4.01 L, Hgb 12.7 L, Hct 38.8 L, MCV 96.8 H, MCH 31.7, MCHC 32.7, RDW 13.6, RDW Differential 48.2 H, Plt Count 217, MPV 10.2 08/16/18 04:10: Sodium 143, Potassium 4.4, Chloride 109 H, Carbon Dioxide 25.0, Anion Gap 9, BUN 13, Creatinine 0.74, Estim Creat Clear Calc 121.44, Est GFR (MDRD) Af Amer 169, Est GFR (MDRD) Non-Af 140, BUN/Creatinine Ratio 17.6, Glucose 197 H, Calcium 7.8 L 08/16/18 06:53: POC Glucose 222 H Current Medications Acetaminophen (Tylenol Liquid) 650 mg GT Q4H PRN PRN PRN Reason: fever, pain Last Admin: 08/15/18 20:35 Dose: 650 mg Albuterol Sulfate (Ventolin Aerosols) 2.5 mg INHALATION Q2H PRN PRN PRN Reason: dyspnea, wheezing Bisacodyl (Dulcolax) 10 mg RECTAL DAILY PRN PRN PRN Reason: constipation Chlorhexidine Gluconate () 15 ml PO BID [facility] Last Admin: 08/15/18 21:42 Dose: 15 ml Dexamethasone Sodium Phosphate (Decadron) 4 mg IV Q6 [facility] Last Admin: 08/16/18 06:55 Dose: 4 mg Dextrose (D50w Syringe) 0 gm IV X1 PRN; Protocol PRN Reason: Hypoglycemia Enoxaparin Sodium (Lovenox) 40 mg SC DAILY@1000 [facility] Enteral Nutritional Formula (Jevity 1.5) 540 ml GT 4X/DAY [facility] Last Admin: 08/15/18 21:49 Dose: 540 ml Glucagon () 1 mg IM .X1 PRN PRN Reason: Hypoglycemia Hydralazine HCl (Apresoline Iv) 10 mg IV Q4H PRN PRN PRN Reason: SBP > 160 Sodium Chloride () 1,000 mls @ 100 mls/hr IV .Q10H [facility] Last Admin: 08/16/18 05:12 Dose: Not Given Fentanyl () 100 mls @ 2.5 mls/hr IV .Q40H [facility] Last Admin: 08/15/18 17:30 Dose: 2.5 mls/hr Piperacillin Sod/Tazobactam Sod (Zosyn) 3.375 gm in 50 mls @ 12.5 mls/hr IV Q8 [facility] Last Admin: 08/16/18 05:11 Dose: 12.5 mls/hr Propofol (Diprivan) 1,000 mg in 100 mls @ 3.13 mls/hr CONT INF .Q12H [facility] Last Admin: 08/16/18 05:13 Dose: Not Given Vancomycin IV Pharmacy to Dose (1 ea/ Sodium Chloride) 500 mls @ 250 mls/hr IV PRN PRN; Protocol PRN Reason: Rx to Dose Vancomycin HCl 750 mg/ Sodium (Chloride) 265 mls @ 250 mls/hr IV Q12H [facility] Last Admin: 08/16/18 03:02 Dose: 250 mls/hr Sodium Chloride () 250 mls @ 15 mls/hr IV .[id number] PRN PRN Reason: SALINE FLUSH Insulin Human Lispro (Humalog Kwikpen (Bkc)) 0 unit SC Q6 [facility]; Protocol Lansoprazole (Prevacid) 30 mg GT DAILY [facility] Levetiracetam (Keppra Oral Solution) 500 mg GT BID [facility] Last Admin: 08/15/18 22:29 Dose: 500 mg Magnesium Hydroxide (Milk Of Magnesia) 30 ml PO DAILY PRN PRN PRN Reason: Constipation Metoprolol Tartrate (Lopressor (Beta Jose)) 25 mg GT BID [facility] Last Admin: 08/15/18 21:46 Dose: Not Given Morphine Sulfate () 1 - 2 mg IV Q4H PRN PRN PRN Reason: PAIN Ondansetron HCl (Zofran) 4 mg IV Q8H PRN PRN PRN Reason: NAUSEA/VOMITING Polyethylene Glycol (Miralax) 8.5 gm GT DAILY [facility] Simethicone (Mylicon) 80 mg GT Q8H PRN PRN PRN Reason: gas pains Sodium Chloride ([place] Nasal [place]) 3 spray NASAL BID [facility] Last Admin: 08/15/18 22:41 Dose: 3 spray Sodium Chloride () 5 - 15 ml IV UD PRN PRN Reason: SALINE FLUSH Last Admin: 08/16/18 06:55 Dose: 10 ml Medical Necessity - Tobacco Use Smoking Status: Never smoker Tobacco Use: Non-smoker Assessment/Plan All Active Problems Seizure (Acute) Cellulitis (Acute) Abscess (Acute) Sepsis (Acute) Respiratory failure (Acute) Aspiration pneumonia (Acute) Fever (Acute) Cough (Acute) Facial cellulitis (Resolved) Septic shock (Ruled-out) 1. Sepsis due to acute facial cellulitis and abscess * s/p I&D * has a history of MRSA * temperature has settled * white cell count trended down to 13.2 * blood cultures and wound culture pending * on IV vancomycin and IV zosyn * ENT on board * 2. 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 Seizure disorder * was recently diagnosed with seizure disorder * EEG and MRI were unremarkable * on [facility] * 4. Hypertension: was hypotensive on admission, which resolved with IVF administration. On metoprolol and PRN hydralazine 5. Chronic oropharyngeal dysphagia * history of recurrent aspirations. * has PEG tube in place for supplemental feeds * currently NPO o/a of being intubated * on Jevity feeds * nutrition consulted * 6. Severe macroglossia * tongue very swollen. On IV decadrone * 7. 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 8. GERD: on PPI DVT prophylaxis: lovenox * Code Visit Inpatient E&M: 93601 [facility] Hosp L3
--- NOTE | 2018-08-16 08:48 | PCM.CON.CC ---
Problem List (1) Seizure Status: Acute (2) HTN (hypertension) Status: Chronic Qualifiers: Hypertension type: essential hypertension Qualified Code(s): I10 - Essential (primary) hypertension (3) Cellulitis Status: Acute Qualifiers: Site of cellulitis: face Qualified Code(s): L03.211 - Cellulitis of face (4) Abscess Status: Acute (5) Sepsis Status: Acute Qualifiers: Sepsis type: sepsis due to unspecified organism Qualified Code(s): A41.9 - Sepsis, unspecified organism (6) Respiratory failure Status: Acute Qualifiers: Chronicity: acute Respiratory failure complication: hypoxia Qualified Code(s): J96.01 - Acute respiratory failure with hypoxia (7) Facial cellulitis Status: Resolved (8) Autism Status: Chronic (9) Dysphagia Status: Chronic Qualifiers: Dysphagia type: oropharyngeal phase Qualified Code(s): R13.12 - Dysphagia, oropharyngeal phase (10) Down syndrome Status: Chronic Comment: nonverbal incontinent Reason for Consult Date of Consultation: 08/16/18 Reason for Consultation: Respiratory failure History of Present Illness: The patient is a 23 year old M, with past medical history and nonverbal baseline, who presented to [facility] on 08/15/2018 secondary to a pimple on his chin which had enlarged over the next several days. Mother had tried to drain, but was unsuccessful. Patient started to have edema and fevers over the last 48 hours despite the use of doxycycline. Patient was sedated for I&D in the ED, but had poor airway protection so was intubated. Patient does have a history of MRSA in the past. Patient reportedly had a recent admission for a witnessed seizure and was initiated on Keppra therapy. Patient is unremarkable EEG and MRI at that time an outpatient neurology follow-up was recommended. Patient does feed via G-tube at baseline. Patient was transferred to the intensive care unit for further monitoring. Patient has been seen by ENT, but no interventions are planned at this time. Since being in the intensive care unit, patient has been able to be taken off of propofol therapy. Patient did have a significant fever, respiratory status has been stable. Patient currently intubated with a 6.5 endotracheal tube and has broad-spectrum antibiotics. Patient did have a spontaneous breathing trial this morning, but after 30 minutes had episodes of apnea. Patient's tongue remains significantly enlarged, so mechanical ventilation was continued. Patient also remains on Decadron therapy. Patient intubated and sedated at my evaluation, so review of systems cannot be obtained. Past Medical History Past Medical History (Chronic Problems): Chronic Problems HTN (hypertension) (Chronic) Malnutrition (Chronic) Autism (Chronic) Dysphagia (Chronic) Down syndrome (Chronic) nonverbal incontinent Allergies ceftriaxone sodium [From Rocephin] Allergy (Verified 05/19/18 17:17) Rash sulfamethoxazole [From Bactrim] Allergy (Verified 05/19/18 17:17) Rash trimethoprim [From Bactrim] Allergy (Verified 05/19/18 17:17) Rash cinnamon [Cinnamon] Adverse Reaction (Verified 05/19/18 17:17) Diarrhea tape/bandaids Adverse Reaction (Uncoded 05/19/18 21:53) Rash Home Medications: Ambulatory Orders Medication Instructions Recorded L.acidoph,Paracasei, B.lactis 1 pack GT DAILY 07/19/15 [Probiotic] Lansoprazole [Prevacid] 30 mg GT DAILY 07/19/15 Simethicone 40MG/0.6ML [Mylicon] 80 mg GT Q8H PRN PRN 07/19/15 Polyethylene Glycol 3350 [Miralax] 8.5 gm GT DAILY 06/11/17 Sodium Chloride [Saline Nasal Mist] 3 spray NASAL BID 06/11/17 Bisacodyl 10 mg RC UD PRN 05/19/18 Metoprolol Tartrate 25 mg GT BID 05/19/18 traZODone [Desyrel] 150 mg GT QHS 05/19/18 Lactose-Reduced Food/Fiber [Jevity 18 oz GT 4X/DAY 08/11/18 1.2 Jamarcus Liquid] Levetiracetam [Keppra] 500 mg GT BID 30 Days #300 ml 08/12/18 Lorazepam Intensol [Ativan 1 mg GT PRN PRN #1 bottle 08/12/18 Intensol] Doxycycline 100 mg PO BID 08/15/18 Surgical History: - - PEG tube. Psychiatric History: Anxiety Lives: Half-Way - Patient lives in a jail. Smoking Status: Never smoker Tobacco Use: Non-smoker Alcohol: None Drugs: None - *Family History Paternal History Items: - - No marked maternal or paternal family history including HTN, DM, CA. Maternal History Items: - - No marked maternal or paternal family history including HTN, DM, CA. Review of Systems Comment: See HPI Patient Problems: Active and Suspected Problems Cellulitis (Acute) Abscess (Acute) Sepsis (Acute) Respiratory failure (Acute) Objective: Chest x-ray was personally reviewed and shows endotracheal tube in appropriate position. No infiltrate is appreciated. - Physical Exam General: Alert, No apparent distress, - - Good vent synchrony. Down's facies noted. HEENT: Atraumatic, PERRLA, EOMI, Normocephalic, - - No scleral icterus or injection noted. Oral: Dry Mucosa, - - Protuberant tongue with obstruction of all airway structures. Unable to visualize the hard palate. Protuberant of approximately 4 cm Neck: Supple, No JVD, No Nodes, Trachea Midline Lungs: Clear to auscultation, Normal air movement, No rhonchi, No wheeze, No rales Cardiovascular: Regular rate, Regular Rhythm, Normal S1, Normal S2, No murmurs, No rub noted, No Gallop Abdomen: Bowel Sounds Present, Soft, Non Tender, Non-Distended, - - Patrick button clean, dry and intact. Extremities: No clubbing, No cyanosis, Capillary Refill Less than 3 Seconds, Edema Skin: - - Erythema appears to be resolved on the chin Musculoskeletal: No Tenderness to Palpation of Joints or Extremities Lymphatic: No Cervical, Supraclavicular, or Inguinal Adenopathy Neurological: - - Tracks appropriately. Pupils react appropriately. Positive cough and gag reflexes. Psych/Mental Status: Flat Affect Vital Signs Temp Pulse Resp BP Pulse Ox 36.6 C 71 14 111/62 97 08/16/18 08:00 08/16/18 08:00 08/16/18 08:00 08/16/18 08:00 08/16/18 08:00 Oxygen Flow Rate (L/min) [1 ( 15 Initial Baseline)] Oxygen Delivery Method [2] Ambu-Bag Oxygen Delivery Method [1 ( Non-Rebreather Initial Baseline)] Oxygen Delivery Method Mechanical Ventilator Weight: 57.1 kg Body Mass Index (BMI) 24.6 Intake and Output for Last 24 Hours 08/14/18 08/15/18 08/16/18 23:59 23:59 23:59 Intake Total 1846 / 1846 1573 / 1573 Output Total 150 / 150 850 / 850 Balance 1696 / 1696 723 / 723 Laboratory Tests Past 24 Hrs 08/15/18 08/15/18 08/15/18 13:10 13:10 13:10 WBC 16.3 H RBC 4.85 Hgb 15.8 Hct 47.2 MCV 97.3 H MCH 32.6 H MCHC 33.5 RDW 13.7 RDW Differential 48.8 H Plt Count 265 MPV 10.9 Immature Gran % (Auto) 0.200 Neut % (Auto) 83.1 H Lymph % (Auto) 5.8 L [place] % (Auto) 10.6 H Eos % (Auto) 0.2 Baso % (Auto) 0.1 Absolute Neuts (auto) 13.6 H Absolute Lymphs (auto) 0.95 Total Counted Not Reportable Diff Path Review May foll Specimen Type Sample Site pH Bicarbonate Actual POC Total CO2 Base Excess O2 Saturation O2 % ABG pCO2 ABG pO2 Adam Test Respiration Rate O2 Delivery Device Minute Volume Vent Mode Tidal Volume POC PEEP Blood Gas Notified Whom Blood Gas Notified Time Sodium 138 Potassium 4.6 Chloride 102 Carbon Dioxide 29.0 Anion Gap 7 BUN 12 Creatinine 0.78 Estim Creat Clear Calc 108.67 Est GFR (MDRD) Af Amer 158 Est GFR (MDRD) Non-Af 130 BUN/Creatinine Ratio 15.3 Glucose 120 H Lactic Acid 1.9 Calcium 8.6 Free T4 S.aureus Protein A PCR MRSA (PCR) 08/15/18 08/15/18 08/15/18 13:10 14:40 15:43 WBC RBC Hgb Hct MCV MCH MCHC RDW RDW Differential Plt Count MPV Immature Gran % (Auto) Neut % (Auto) Lymph % (Auto) [place] % (Auto) Eos % (Auto) Baso % (Auto) Absolute Neuts (auto) Absolute Lymphs (auto) Total Counted Diff Path Review Specimen Type ART Sample Site R Radial pH 7.36 Bicarbonate Actual 24.6 POC Total CO2 26 Base Excess -1 O2 Saturation 100 H O2 % 100 ABG pCO2 43.7 ABG pO2 306 H* Adam Test POS Respiration Rate 14 O2 Delivery Device Vent Minute Volume 7.00 Vent Mode A-C Tidal Volume 350 POC PEEP 5 Blood Gas Notified Whom ED MD Blood Gas Notified Time 1535 Sodium Potassium Chloride Carbon Dioxide Anion Gap BUN Creatinine Estim Creat Clear Calc Est GFR (MDRD) Af Amer Est GFR (MDRD) Non-Af BUN/Creatinine Ratio Glucose Lactic Acid Calcium Free T4 1.02 S.aureus Protein A PCR POSITIVE H MRSA (PCR) POSITIVE H 08/15/18 08/16/18 08/16/18 18:45 04:10 04:10 WBC 13.2 H RBC 4.01 L Hgb 12.7 L Hct 38.8 L MCV 96.8 H MCH 31.7 MCHC 32.7 RDW 13.6 RDW Differential 48.2 H Plt Count 217 MPV 10.2 Immature Gran % (Auto) Neut % (Auto) Lymph % (Auto) [place] % (Auto) Eos % (Auto) Baso % (Auto) Absolute Neuts (auto) Absolute Lymphs (auto) Total Counted Diff Path Review Specimen Type Sample Site pH Bicarbonate Actual POC Total CO2 Base Excess O2 Saturation O2 % ABG pCO2 ABG pO2 Adam Test Respiration Rate O2 Delivery Device Minute Volume Vent Mode Tidal Volume POC PEEP Blood Gas Notified Whom Blood Gas Notified Time Sodium 143 Potassium 4.4 Chloride 109 H Carbon Dioxide 25.0 Anion Gap 9 BUN 13 Creatinine 0.74 Estim Creat Clear Calc 121.44 Est GFR (MDRD) Af Amer 169 Est GFR (MDRD) Non-Af 140 BUN/Creatinine Ratio 17.6 Glucose 197 H Lactic Acid 1.1 Calcium 7.8 L Free T4 S.aureus Protein A PCR MRSA (PCR) POC Glucose 08/16/18 08/16/18 06:53 00:37 POC Glucose 222 H 211 H Clinical Impression(s) from Imaging Studies Chest X-Ray 08/15/18 15:07 IMPRESSION: 1. Satisfactory position of endotracheal tube. 2. Possible early infiltrate in the right upper lobe. Electronically Signed: Mejia Willingham MD at 15:29 EST , Service support , Assessment/Plan Active and Suspected Problems Cellulitis (Acute) Abscess (Acute) Sepsis (Acute) Respiratory failure (Acute) RECOMMENDATIONS: 1. Continue empiric antibiotics and steroids 2. Monitor tongue clinically 3. Consider CT of the neck for abscess evaluation 4. Wean oxygen as tolerated 5. Spontaneous breathing trial per protocol IMPRESSIONS: 1. Acute respiratory failure secondary to tongue swelling Concern for right upper lobe infiltrate appears to be gone at this time. Patient may have had an element of atelectasis. Respiratory failure mostly secondary to tongue swelling. Patient is on appropriate antibiotics and steroids at this time. Will need to correct for hyperglycemia. Continue with spontaneous breathing and awakening trials per protocol. 2. Severe sepsis secondary to chin MRSA cellulitis Patient appears to be tolerating cellulitis well. Still has significant extrusion of the tongue, but leukocytosis appears to be improved. Anticipate continuing empiric antibiotics for at least 48 hours. If not improving, CT of the neck may be necessary to evaluate for abscess. 3. Recent new onset seizure Patient has not overly interactive, but does not appear to have seizure activity at this time. Patient is on Keppra therapy. We will continue to monitor clinically. Ativan can be given if necessary. Patient is not requiring much propofol if any at this time. 4. Chronic constipation/oral pharyngeal dysphasia status post PEG/hypertension/MRDD/autism Complicates care, management, recovery and prognosis. Tube feeds per dietitian recommendation. Okay to continue with baseline regimen from my perspective TIME: 35 minutes critical care time spent addressing patient's acute respiratory failure, severe sepsis, review of all data and collaboration with care team (6:30 AM to 8 AM) Code Visit [id number]: [id number] Critical care first hour
--- NOTE | 2018-08-16 09:05 | NURSING ---
wound photo: chin
--- NOTE | 2018-08-16 09:17 | PHA.PHARE_ITS ---
Addendum entered and electronically signed by Davis Hawley 08/16/18 09:21: D/W Dr Abdi. Took verbal order to dose as patient tolerated previously and not follow nomogram. Ok per verbal order to check trough prior to 1100 dose on 08/17. Original Note: Consult Pharmacy has been consulted to manage selected antiobiotic: Vancomycin Type of Consult: Follow-up Suspected Infection: Other Labs: Sodium 143 mmol/L (136-145) 08/16/18 04:10 Potassium 4.4 mmol/L (3.5-5.1) 08/16/18 04:10 Chloride 109 mmol/L (98-107) H 08/16/18 04:10 Carbon Dioxide 25.0 mmol/L (21.0-32.0) 08/16/18 04:10 Anion Gap 9 (5-15) 08/16/18 04:10 BUN 13 mg/dL (7-18) 08/16/18 04:10 Creatinine 0.74 mg/dL (0.70-1.30) 08/16/18 04:10 Est GFR (MDRD) Af Amer 169 mL/min (>60) 08/16/18 04:10 Est GFR (MDRD) Non-Af 140 mL/min (>60) 08/16/18 04:10 BUN/Creatinine Ratio 17.6 RATIO (10-20) 08/16/18 04:10 Glucose 197 mg/dL (74-106) H 08/16/18 04:10 Weight used for dosin kg Goal Trough: 10-15 mcg/mL Pharmacy Plan for Drug Dosing: Pharmacy Service will continue to monitor and adjust dosing as required. Follow-Up Labs: Trough Vancomycin - 08/17 @ 1030
[2018-08-16] MEDS: Metoprolol Tartrate 25 MG Tablet GT ×2 (09:58→21:32)
[2018-08-16] MEDS: levETIRAcetam Oral Solution 500 MG/5 ML GT ×2 (09:58→21:27)
[2018-08-16] MEDS: Enoxaparin 40 MG/0.4 ML Syringe SC (09:59)
[2018-08-16] MEDS: Polyethylene Glycol 3350 17 GM PACKET 8.5 GM GT (09:59)
[2018-08-16] MEDS: Sodium Chloride 0.65% 1 SPRAY SPRAY.BTL 3 SPRAY NASAL ×2 (09:59→21:28)
[2018-08-16] MEDS: Chlorhexidine 15 ML PO ×2 (10:00→21:29)
[2018-08-16] MEDS: Famotidine 20 MG Tablet GT ×2 (10:00→21:28)
[2018-08-16 11:52] LABS: Pathologist Review Reviewed
--- NOTE | 2018-08-16 13:03 | CON.PCM_ITS ---
Problem List (1) Facial cellulitis Status: Resolved Reason for Consult: mrsa Consulted by: Dr. Rocha History of Present Illness: The patient is a 23 year old M with Down Syndrome and h/o MRSA skin infection who presented to ED with several days of progressive swelling/redness/pain on chin. Had associated fever and chills. Family had tried ointment on it without improvement. In ED, did I&D with some sedation, had tongue swelling and respi ratory failure, required intubation. Admitted to icu on vanc/zosyn. Still on vent. Chin still with inflammation. History obtained from father at bedside. Full ROS performed and neg except as noted above. - Medical History Past Medical History (Chronic Problems): Chronic Problems HTN (hypertension) (Chronic) Malnutrition (Chronic) Autism (Chronic) Dysphagia (Chronic) Down syndrome (Chronic) nonverbal incontinent Allergies/Adverse Reactions: Allergies ceftriaxone sodium [From Rocephin] Allergy (Verified 05/19/18 17:17) Rash sulfamethoxazole [From Bactrim] Allergy (Verified 05/19/18 17:17) Rash trimethoprim [From Bactrim] Allergy (Verified 05/19/18 17:17) Rash cinnamon [Cinnamon] Adverse Reaction (Verified 05/19/18 17:17) Diarrhea tape/bandaids Adverse Reaction (Uncoded 05/19/18 21:53) Rash Home Medications: Ambulatory Orders Medication Instructions Recorded L.acidoph,Paracasei, B.lactis 1 pack GT DAILY 07/19/15 [Probiotic] Lansoprazole [Prevacid] 30 mg GT DAILY 07/19/15 Simethicone 40MG/0.6ML [Mylicon] 80 mg GT Q8H PRN PRN 07/19/15 Polyethylene Glycol 3350 [Miralax] 8.5 gm GT DAILY 06/11/17 Sodium Chloride [Saline Nasal Mist] 3 spray NASAL BID 06/11/17 Bisacodyl 10 mg RC UD PRN 05/19/18 Metoprolol Tartrate 25 mg GT BID 05/19/18 traZODone [Desyrel] 150 mg GT QHS 05/19/18 Lactose-Reduced Food/Fiber [Jevity 18 oz GT 4X/DAY 08/11/18 1.2 Jamarcus Liquid] Levetiracetam [Keppra] 500 mg GT BID 30 Days #300 ml 08/12/18 Lorazepam Intensol [Ativan 1 mg GT PRN PRN #1 bottle 08/12/18 Intensol] Doxycycline 100 mg PO BID 08/15/18 - Social History Tobacco Use: non-smoker Vital Signs Temp Pulse Resp BP Pulse Ox 98.6 F 82 15 123/60 H 98 08/16/18 12:00 08/16/18 12:00 08/16/18 12:00 08/16/18 12:00 08/16/18 12:00 Oxygen Flow Rate (L/min) [1 ( 15 Initial Baseline)] Oxygen Delivery Method [2] Ambu-Bag Oxygen Delivery Method [1 ( Non-Rebreather Initial Baseline)] Oxygen Delivery Method Mechanical Ventilator Weight: 57.1 kg Body Mass Index (BMI) 24.6 Microbiology Past 72 Hours 08/15/18 14:40 Gram Stain - Final Wound - Face Wound Culture - Preliminary Staphylococcus species 08/16/18 01:35 Gram Stain - Final Sputum, Induced/[place] Laboratory Tests Past 24 Hrs 08/15/18 08/15/18 08/15/18 13:10 13:10 13:10 WBC 16.3 H RBC 4.85 Hgb 15.8 Hct 47.2 MCV 97.3 H MCH 32.6 H MCHC 33.5 RDW 13.7 RDW Differential 48.8 H Plt Count 265 MPV 10.9 Immature Gran % (Auto) 0.200 Neut % (Auto) 83.1 H Lymph % (Auto) 5.8 L [place] % (Auto) 10.6 H Eos % (Auto) 0.2 Baso % (Auto) 0.1 Absolute Neuts (auto) 13.6 H Absolute Lymphs (auto) 0.95 Total Counted Not Reportable Diff Path Review Reviewed Specimen Type Sample Site pH Bicarbonate Actual POC Total CO2 Base Excess O2 Saturation O2 % ABG pCO2 ABG pO2 Adam Test Respiration Rate O2 Delivery Device Minute Volume Vent Mode Tidal Volume POC PEEP Blood Gas Notified Whom Blood Gas Notified Time Sodium 138 Potassium 4.6 Chloride 102 Carbon Dioxide 29.0 Anion Gap 7 BUN 12 Creatinine 0.78 Estim Creat Clear Calc 108.67 Est GFR (MDRD) Af Amer 158 Est GFR (MDRD) Non-Af 130 BUN/Creatinine Ratio 15.3 Glucose 120 H Lactic Acid 1.9 Calcium 8.6 Free T4 S.aureus Protein A PCR MRSA (PCR) 08/15/18 08/15/18 08/15/18 13:10 14:40 15:43 WBC RBC Hgb Hct MCV MCH MCHC RDW RDW Differential Plt Count MPV Immature Gran % (Auto) Neut % (Auto) Lymph % (Auto) [place] % (Auto) Eos % (Auto) Baso % (Auto) Absolute Neuts (auto) Absolute Lymphs (auto) Total Counted Diff Path Review Specimen Type ART Sample Site R Radial pH 7.36 Bicarbonate Actual 24.6 POC Total CO2 26 Base Excess -1 O2 Saturation 100 H O2 % 100 ABG pCO2 43.7 ABG pO2 306 H* Adam Test POS Respiration Rate 14 O2 Delivery Device Vent Minute Volume 7.00 Vent Mode A-C Tidal Volume 350 POC PEEP 5 Blood Gas Notified Whom ED MD Blood Gas Notified Time 1535 Sodium Potassium Chloride Carbon Dioxide Anion Gap BUN Creatinine Estim Creat Clear Calc Est GFR (MDRD) Af Amer Est GFR (MDRD) Non-Af BUN/Creatinine Ratio Glucose Lactic Acid Calcium Free T4 1.02 S.aureus Protein A PCR POSITIVE H MRSA (PCR) POSITIVE H 08/15/18 08/16/18 08/16/18 18:45 04:10 04:10 WBC 13.2 H RBC 4.01 L Hgb 12.7 L Hct 38.8 L MCV 96.8 H MCH 31.7 MCHC 32.7 RDW 13.6 RDW Differential 48.2 H Plt Count 217 MPV 10.2 Immature Gran % (Auto) Neut % (Auto) Lymph % (Auto) [place] % (Auto) Eos % (Auto) Baso % (Auto) Absolute Neuts (auto) Absolute Lymphs (auto) Total Counted Diff Path Review Specimen Type Sample Site pH Bicarbonate Actual POC Total CO2 Base Excess O2 Saturation O2 % ABG pCO2 ABG pO2 Adam Test Respiration Rate O2 Delivery Device Minute Volume Vent Mode Tidal Volume POC PEEP Blood Gas Notified Whom Blood Gas Notified Time Sodium 143 Potassium 4.4 Chloride 109 H Carbon Dioxide 25.0 Anion Gap 9 BUN 13 Creatinine 0.74 Estim Creat Clear Calc 121.44 Est GFR (MDRD) Af Amer 169 Est GFR (MDRD) Non-Af 140 BUN/Creatinine Ratio 17.6 Glucose 197 H Lactic Acid 1.1 Calcium 7.8 L Free T4 S.aureus Protein A PCR MRSA (PCR) - Other Studies Radiology: [] reviewed Other Studies: [] Route of nutrition/ use of supplements: [] Nutritional Intake: [] IV Site: [] Diaz Catheter: [] - Physical Exam General: - - eyes open HEENT: Atraumatic, PERRLA, EOMI, - - ETT in place Neck: Supple, No Nodes Lungs: Clear to auscultation, Normal air movement, - - mech vent sounds Cardiovascular: Regular rate, Regular Rhythm Abdomen: Soft, Non Tender, Non-Distended, - - PEG in place Extremities: No edema Skin: - - chin abscess s/p I&D with induration and redness Musculoskeletal: No Tenderness to Palpation of Joints or Extremities - Assessment/Plan Antibiotics: [] Assessment/Plan: [] Active and Suspected Problems Cellulitis (Acute) Abscess (Acute) Sepsis (Acute) Respiratory failure (Acute) MRSA chin abscess - stop zosyn, continue vanc. Low suspicion for pneumonia this time. Remains on vent. May need further I&D if chin does not show improvement. Will follow, thank you.
[2018-08-16] MEDS: Insulin Lispro 100 UNIT/ML INSULN.PEN SC ×2 (13:15→17:59)
[2018-08-16 13:20] LABS: Bedside Glucose 167 mg/dL (70-110)
--- NOTE | 2018-08-16 14:49 | PCM.PN.BLA ---
Progress Note ENT progress note: The patient remains intubated to secure the airway as there is still prominent tongue swelling. He is more alert this afternoon and his father is at the bedside. We note much less facial swelling and certainly less erythema lateral to the site of the actual anterior chin furuncle or abscess. The laboratory preliminary report reveals staphylococcal aureus. Infectious disease strategy planning consultant has stopped the Zosyn but the vancomycin remains. At this point the antibacterial therapy appears to be improving his status. I do believe the tongue swelling is primarily the result of the bite trauma that occurred during the previous seizure. I will continue to follow daily to be sure no further surgical drainage is required. Antonino Maria MD
--- NOTE | 2018-08-16 14:54 | PN_ITS ---
Progress Note ENT progress note: The patient remains intubated to secure the airway as there is still prominent tongue swelling. He is more alert this afternoon and his father is at the bedside. We note much less facial swelling and certainly less erythema lateral to the site of the actual anterior chin furuncle or abscess. The laboratory preliminary report reveals staphylococcal aureus. Infectious disease account consultant has stopped the Zosyn but the vancomycin remains. At this point the antibacterial therapy appears to be improving his status. I do believe the tongue swelling is primarily the result of the bite trauma that occurred during the previous seizure. I will continue to follow daily to be sure no further surgical drainage is required. Antonino Maria MD
[2018-08-16] MEDS: Jevity 1.5. 1,000 ML Bottle 237 ML GT ×3 (15:01→20:41)
[2018-08-17] VITALS (44 sets, daily range): BP systolic 100–123; BP diastolic 56–76; PULSE 54–109; RESP 10–22; TEMP 36.4–37.2; O2SAT 94–100
[2018-08-17] MEDS: Insulin Lispro 100 UNIT/ML INSULN.PEN SC ×2 (00:19→12:02)
[2018-08-17 00:50] LABS: Bedside Glucose 177 mg/dL (70-110)
[2018-08-17 00:50] LABS: Bedside Glucose 164 mg/dL (70-110)
[2018-08-17] MEDS: CHLORHEXIDINE GLUC 2% CLOTH 1 EACH TOWELETTE TOPICAL (05:07)
[2018-08-17 05:37] LABS: Absolute Lymphocyte Count 1.04 X10^3/ul (0.83-4.51); Absolute Neutrophil Count 12.9 X10^3/uL (2.0-7.7); Hematocrit 38.8 % (40-54); Hemoglobin 12.9 g/dl (13.0-16.5); Lymphocyte # 1.04 X10^3/ul (4.0); Mean Corp Hgb Conc 33.2 g/gl (32-36); Mean Corpuscular Hgb 32.3 pg (27.0-32.0); Mean Corpuscular Volume 97.2 fL (80-94); Mean Platelet Vol. 10.8 fl (6.2-12.0); Monocyte# 0.81 X10^3/uL; Monocyte% 5.5 % (0-10); Neutrophil # 12.87 X10^3/uL (2.7-7.7); Neutrophil % 87.2 % (47-70); Platelet Count 243 K/mm3 (150-450); RBC Distribution Width CV 13.3 % (11.6-14.6); RBC Distribution Width SD 47.7 fl (35.1-43.9); Red Blood Count 3.99 M/mm3 (4.6-6.2); White Blood Count 14.8 K/mm3 (4.4-11.0)
[2018-08-17 05:39] LABS: POSITIVE COUNT NO; POSITIVE DIFFERENTIAL NO; POSITIVE MORPHOLOGY NO
[2018-08-17 05:49] LABS: Anion Gap 9 (5-15); BUN 13 mg/dL (7-18); BUN/Creat Ratio 21.6 RATIO (10-20); Calcium,Total 8.4 mg/dL (8.5-10.1); Chloride 104 mmol/L (98-107); EST Glomerular Filtration Rate 177 mL/min (>60); Est Glom Filt Rate - Afr Amer 214 mL/min (>60); Estimated Creatinine Clearance 147.33 ml/min; Glucose 146 mg/dL (74-106); Potassium 4.2 mmol/L (3.5-5.1); Sodium Level 139 mmol/L (136-145)
[2018-08-17 05:57] LABS: Bedside Glucose 136 mg/dL (70-110)
[2018-08-17] MEDS: fentaNYL drip 100 ML 2.5 MCG IV (06:53)
--- NOTE | 2018-08-17 06:57 | PN_ITS ---
Subjective: Patient did okay overnight. No acute issues were reported. Nursing does report continued drainage from the chin wound. Some sliding scale insulin has been required. Patient continues to require minimal ventilation and sedation. General: Alert, Cooperative, No apparent distress, - - Downs appearance HEENT: Atraumatic, PERRLA, EOMI, Normocephalic, - - No scleral icterus or injection noted. Oral: No Gingival or Mucosal Lesions/ Ulcerations, Dry Mucosa, - - Tongue is much improved from previous, but still protruding Neck: Supple, No JVD, No Nodes, Trachea Midline, - - Unable to palpate fluctuance Lungs: Clear to auscultation, Normal air movement, No rhonchi, No wheeze, No rales, - - Symmetric expansion. No dullness to percussion. Cardiovascular: Regular rate, Regular Rhythm, Normal S1, Normal S2, No murmurs, No rub noted, No Gallop Abdomen: Bowel Sounds Present, Soft, Non Tender, Non-Distended Extremities: No clubbing, No cyanosis, No edema, Capillary Refill Less than 3 Seconds Skin: - - Drainage noted from chin wound. However no erythema or fluctuance is noted. Musculoskeletal: No Tenderness to Palpation of Joints or Extremities, No Muscle Wasting Lymphatic: No Cervical, Supraclavicular, or Inguinal Adenopathy Neurological: Cranial nerves II-XII grossly intact, Neuro grossly intact Psych/Mental Status: Flat Affect Vital Signs Temp Pulse Resp BP Pulse Ox 36.4 C L 75 17 116/74 97 08/17/18 06:00 08/17/18 06:40 08/17/18 06:40 08/17/18 06:00 08/17/18 06:40 Oxygen Flow Rate (L/min) [1 ( 15 Initial Baseline)] Oxygen Delivery Method [2] Ambu-Bag Oxygen Delivery Method [1 ( Non-Rebreather Initial Baseline)] Oxygen Delivery Method Mechanical Ventilator Weight: 54.4 kg Body Mass Index (BMI) 24.6 Intake and Output for Last 24 Hours 08/15/18 08/16/18 08/17/18 23:59 23:59 23:59 Intake Total 1846 / 1846 4921 / 4921 1545 / 1545 Output Total 150 / 150 3100 / 3100 1450 / 1450 Balance 1696 / 1696 1821 / 1821 95 / 95 Labs (Last 48 Hours) 08/15/18 08/15/18 08/15/18 13:10 13:10 13:10 WBC 16.3 H RBC 4.85 Hgb 15.8 Hct 47.2 MCV 97.3 H MCH 32.6 H MCHC 33.5 RDW 13.7 RDW Differential 48.8 H Plt Count 265 MPV 10.9 Immature Gran % (Auto) 0.200 Neut % (Auto) 83.1 H Lymph % (Auto) 5.8 L [place] % (Auto) 10.6 H Eos % (Auto) 0.2 Baso % (Auto) 0.1 Absolute Neuts (auto) 13.6 H Absolute Lymphs (auto) 0.95 Total Counted Not Reportable Diff Path Review Reviewed Specimen Type Sample Site pH Bicarbonate Actual POC Total CO2 Base Excess O2 Saturation O2 % ABG pCO2 ABG pO2 Adam Test Respiration Rate O2 Delivery Device Minute Volume Vent Mode Tidal Volume POC PEEP Blood Gas Notified Whom Blood Gas Notified Time Sodium 138 Potassium 4.6 Chloride 102 Carbon Dioxide 29.0 Anion Gap 7 BUN 12 Creatinine 0.78 Estim Creat Clear Calc 108.67 Est GFR (MDRD) Af Amer 158 Est GFR (MDRD) Non-Af 130 BUN/Creatinine Ratio 15.3 Glucose 120 H Lactic Acid 1.9 Calcium 8.6 Free T4 S.aureus Protein A PCR MRSA (PCR) POC Glucose 08/15/18 08/15/18 08/15/18 13:10 14:40 15:43 WBC RBC Hgb Hct MCV MCH MCHC RDW RDW Differential Plt Count MPV Immature Gran % (Auto) Neut % (Auto) Lymph % (Auto) [place] % (Auto) Eos % (Auto) Baso % (Auto) Absolute Neuts (auto) Absolute Lymphs (auto) Total Counted Diff Path Review Specimen Type ART Sample Site R Radial pH 7.36 Bicarbonate Actual 24.6 POC Total CO2 26 Base Excess -1 O2 Saturation 100 H O2 % 100 ABG pCO2 43.7 ABG pO2 306 H* Adam Test POS Respiration Rate 14 O2 Delivery Device Vent Minute Volume 7.00 Vent Mode A-C Tidal Volume 350 POC PEEP 5 Blood Gas Notified Whom ED Blood Gas Notified Time 1535 Sodium Potassium Chloride Carbon Dioxide Anion Gap BUN Creatinine Estim Creat Clear Calc Est GFR (MDRD) Af Amer Est GFR (MDRD) Non-Af BUN/Creatinine Ratio Glucose Lactic Acid Calcium Free T4 1.02 S.aureus Protein A PCR POSITIVE H MRSA (PCR) POSITIVE H POC Glucose 08/15/18 08/16/18 08/16/18 18:45 00:37 04:10 WBC 13.2 H RBC 4.01 L Hgb 12.7 L Hct 38.8 L MCV 96.8 H MCH 31.7 MCHC 32.7 RDW 13.6 RDW Differential 48.2 H Plt Count 217 MPV 10.2 Immature Gran % (Auto) Neut % (Auto) Lymph % (Auto) [place] % (Auto) Eos % (Auto) Baso % (Auto) Absolute Neuts (auto) Absolute Lymphs (auto) Total Counted Diff Path Review Specimen Type Sample Site pH Bicarbonate Actual POC Total CO2 Base Excess O2 Saturation O2 % ABG pCO2 ABG pO2 Adam Test Respiration Rate O2 Delivery Device Minute Volume Vent Mode Tidal Volume POC PEEP Blood Gas Notified Whom Blood Gas Notified Time Sodium Potassium Chloride Carbon Dioxide Anion Gap BUN Creatinine Estim Creat Clear Calc Est GFR (MDRD) Af Amer Est GFR (MDRD) Non-Af BUN/Creatinine Ratio Glucose Lactic Acid 1.1 Calcium Free T4 S.aureus Protein A PCR MRSA (PCR) POC Glucose 211 H 08/16/18 08/16/18 08/16/18 04:10 06:53 13:13 WBC RBC Hgb Hct MCV MCH MCHC RDW RDW Differential Plt Count MPV Immature Gran % (Auto) Neut % (Auto) Lymph % (Auto) [place] % (Auto) Eos % (Auto) Baso % (Auto) Absolute Neuts (auto) Absolute Lymphs (auto) Total Counted Diff Path Review Specimen Type Sample Site pH Bicarbonate Actual POC Total CO2 Base Excess O2 Saturation O2 % ABG pCO2 ABG pO2 Adam Test Respiration Rate O2 Delivery Device Minute Volume Vent Mode Tidal Volume POC PEEP Blood Gas Notified Whom Blood Gas Notified Time Sodium 143 Potassium 4.4 Chloride 109 H Carbon Dioxide 25.0 Anion Gap 9 BUN 13 Creatinine 0.74 Estim Creat Clear Calc 121.44 Est GFR (MDRD) Af Amer 169 Est GFR (MDRD) Non-Af 140 BUN/Creatinine Ratio 17.6 Glucose 197 H Lactic Acid Calcium 7.8 L Free T4 S.aureus Protein A PCR MRSA (PCR) POC Glucose 222 H 167 H 08/16/18 08/17/18 08/17/18 17:57 00:10 05:20 WBC 14.8 H RBC 3.99 L Hgb 12.9 L Hct 38.8 L MCV 97.2 H MCH 32.3 H MCHC 33.2 RDW 13.3 RDW Differential 47.7 H Plt Count 243 MPV 10.8 Immature Gran % (Auto) 0.300 Neut % (Auto) 87.2 H Lymph % (Auto) 7.0 L [place] % (Auto) 5.5 Eos % (Auto) 0.0 Baso % (Auto) 0.0 Absolute Neuts (auto) 12.9 H Absolute Lymphs (auto) 1.04 Total Counted Not Reportable Diff Path Review Specimen Type Sample Site pH Bicarbonate Actual POC Total CO2 Base Excess O2 Saturation O2 % ABG pCO2 ABG pO2 Adam Test Respiration Rate O2 Delivery Device Minute Volume Vent Mode Tidal Volume POC PEEP Blood Gas Notified Whom Blood Gas Notified Time Sodium Potassium Chloride Carbon Dioxide Anion Gap BUN Creatinine Estim Creat Clear Calc Est GFR (MDRD) Af Amer Est GFR (MDRD) Non-Af BUN/Creatinine Ratio Glucose Lactic Acid Calcium Free T4 S.aureus Protein A PCR MRSA (PCR) POC Glucose 164 H 177 H 08/17/18 08/17/18 05:20 05:48 WBC RBC Hgb Hct MCV MCH MCHC RDW RDW Differential Plt Count MPV Immature Gran % (Auto) Neut % (Auto) Lymph % (Auto) [place] % (Auto) Eos % (Auto) Baso % (Auto) Absolute Neuts (auto) Absolute Lymphs (auto) Total Counted Diff Path Review Specimen Type Sample Site pH Bicarbonate Actual POC Total CO2 Base Excess O2 Saturation O2 % ABG pCO2 ABG pO2 Adam Test Respiration Rate O2 Delivery Device Minute Volume Vent Mode Tidal Volume POC PEEP Blood Gas Notified Whom Blood Gas Notified Time Sodium 139 Potassium 4.2 Chloride 104 Carbon Dioxide 26.0 Anion Gap 9 BUN 13 Creatinine 0.60 L Estim Creat Clear Calc 147.33 Est GFR (MDRD) Af Amer 214 Est GFR (MDRD) Non-Af 177 BUN/Creatinine Ratio 21.6 H Glucose 146 H Lactic Acid Calcium 8.4 L Free T4 S.aureus Protein A PCR MRSA (PCR) POC Glucose 136 H Microbiology 08/15/18 14:40 Wound - Face Gram Stain - Final 08/15/18 14:40 Wound - Face Wound Culture - Preliminary Staphylococcus species 08/16/18 01:35 Sputum, Induced/Lukens Gram Stain - Final Clinical Impression(s) from Imaging Studies Chest X-Ray 08/16/18 05:30 IMPRESSION: New infiltrate in the posterior medial segment of the left lower lobe. Electronically Signed: Diallo Gutierrez MD at 9:24 EST Tel [phone], Service support , Medical Necessity - Tobacco Use Smoking Status: Never smoker Tobacco Use: Non-smoker Assessment/Plan All Active Problems Seizure (Acute) Cellulitis (Acute) Abscess (Acute) Sepsis (Acute) Respiratory failure (Acute) Aspiration pneumonia (Acute) Fever (Acute) Cough (Acute) Facial cellulitis (Resolved) Septic shock (Ruled-out) RECOMMENDATIONS: 1. Continue empiric antibiotics and steroids 2. Monitor tongue clinically 3. Consider CT of the neck for abscess evaluation if fails to improve 4. Wean oxygen as tolerated 5. Spontaneous breathing trial per protocol IMPRESSIONS: 1. Acute respiratory failure secondary to tongue swelling Radiology continues to report possible pneumonia, but my review shows no real infiltrate. Patient is not having significant secretions. Patient has had improvement in tongue swelling, but still obstructs the airway making palate not visible. Unable to palpate fluctuance. Anticipate another 24-48 hours until able to pass spontaneous breathing trial. 2. Severe sepsis secondary to chin MRSA cellulitis Patient appears to be tolerating cellulitis well. Still has significant extrusion of the tongue, but leukocytosis appears to be stable. Patient does have staph growing from the wound. Infectious disease is following. If not improving, CT of the neck may be necessary to evaluate for abscess. 3. Recent new onset seizure Patient has not overly interactive, but does not appear to have seizure activity at this time. Patient is on Keppra therapy. We will continue to monitor clinically. Ativan can be given if necessary. Patient is not requiring much propofol, if any, at this time. 4. Chronic constipation/oral pharyngeal dysphasia status post PEG/hypertension/MRDD/autism Complicates care, management, recovery and prognosis. Tube feeds per dietitian recommendation. Okay to continue with baseline regimen from my perspective TIME: 32 minutes critical care time spent addressing patient's acute respiratory failure, severe sepsis, review of all data and collaboration with care team (5:50 AM to 6:30 AM) Code Visit 9xxxx: [id number] Critical care first hour
--- NOTE | 2018-08-17 08:23 | NURSING ---
CAM assessment may be inaccurate d/t intellectual delay
--- NOTE | 2018-08-17 08:46 | PCM.PN.HOSP ---
Patient Problems: Active and Suspected Problems Cellulitis (Acute) Abscess (Acute) Sepsis (Acute) Respiratory failure (Acute) Subjective: Patient seen and examined. He had an uneventful night. He had increased drainage from the chin abscess. He had no fever or chills from review of chart. Labs and vitals reviewed. Patient remains intubated and sedated as he failed his spontaneous breathing trial this morning. Labs and vitals reviewed. To do review of systems as patient remains intubated and sedated Vitals/I&O's: Vital Signs Temp Pulse Resp BP Pulse Ox 97.8 F 79 13 108/76 100 08/17/18 08:00 08/17/18 08:00 08/17/18 08:00 08/17/18 08:00 08/17/18 08:00 Oxygen Flow Rate (L/min) [1 ( 15 Initial Baseline)] Oxygen Delivery Method [2] Ambu-Bag Oxygen Delivery Method [1 ( Non-Rebreather Initial Baseline)] Oxygen Delivery Method Mechanical Ventilator Weight: 119 lb 14.903 oz Body Mass Index (BMI) 24.6 Intake and Output for Last 24 Hours 08/15/18 08/16/18 08/17/18 23:59 23:59 23:59 Intake Total 1846 / 1846 4921 / 4921 1545 / 1545 Output Total 150 / 150 3100 / 3100 1450 / 1450 Balance 1696 / 1696 1821 / 1821 95 / 95 General: Alert, moving all limbs spontaneously - - intubated HEENT: Atraumatic, PERRLA, - -severe macroglossia. large, fluctuant, mildly tender, nonerythematous swelling under his chin, with dressing over site of I&D Oral: Moist Mucosa Neck: Supple, No JVD, Negative Carotid Bruits Lungs: Clear to auscultation, Normal air movement Cardiovascular: Regular rate, Regular Rhythm, Normal S1, Normal S2, No murmurs Abdomen: Bowel Sounds Present, Soft, Non Tender, Non-Distended, No Hepato-splenomegaly Extremities: No clubbing, No cyanosis, No edema, Capillary Refill Less than 3 Seconds Skin: No rashes Musculoskeletal: No Tenderness to Palpation of Joints or Extremities Lymphatic: No Cervical, Supraclavicular, or Inguinal Adenopathy Neurological: Cranial nerves II-XII grossly intact, Motor Exam 5/5 strength throughout, - - moves all limbs spontaneously. intubated. i Psych/Mental Status: intubated, sedated. RASS score is 0 Laboratory Results Microbiology Past 72 Hours 08/16/18 01:35 Sputum, Induced/Lukens Gram Stain - Final 08/16/18 01:35 Sputum, Induced/Lukens Respiratory Culture - Preliminary Gram negative jolene 08/15/18 14:40 Wound - Face Gram Stain - Final 08/15/18 14:40 Wound - Face Wound Culture - Final Meth. resistant Staph. aureus Laboratory Results 08/15/18 13:10: Diff Path Review Reviewed 08/16/18 13:13: POC Glucose 167 H 08/16/18 17:57: POC Glucose 164 H 08/17/18 00:10: POC Glucose 177 H 08/17/18 05:20: WBC 14.8 H, RBC 3.99 L, Hgb 12.9 L, Hct 38.8 L, MCV 97.2 H, MCH 32.3 H, MCHC 33.2, RDW 13.3, RDW Differential 47.7 H, Plt Count 243, MPV 10.8, Immature Gran % (Auto) 0.300, Neut % (Auto) 87.2 H, Lymph % (Auto) 7.0 L, [place] % (Auto) 5.5, Eos % (Auto) 0.0, Baso % (Auto) 0.0, Absolute Neuts (auto) 12.9 H, Absolute Lymphs (auto) 1.04, Total Counted Not Reportable 08/17/18 05:20: Sodium 139, Potassium 4.2, Chloride 104, Carbon Dioxide 26.0, Anion Gap 9, BUN 13, Creatinine 0.60 L, Estim Creat Clear Calc 147.33, Est GFR (MDRD) Af Amer 214, Est GFR (MDRD) Non-Af 177, BUN/Creatinine Ratio 21.6 H, Glucose 146 H, Calcium 8.4 L 08/17/18 05:48: POC Glucose 136 H Current Medications Acetaminophen (Tylenol Liquid) 650 mg GT Q4H PRN PRN PRN Reason: fever, pain Last Admin: 08/15/18 20:35 Dose: 650 mg Albuterol Sulfate (Ventolin Aerosols) 2.5 mg INHALATION Q2H PRN PRN PRN Reason: dyspnea, wheezing Bisacodyl (Dulcolax) 10 mg RECTAL DAILY PRN PRN PRN Reason: constipation Chlorhexidine Gluconate () 15 ml PO BID [facility] Last Admin: 08/16/18 21:29 Dose: 15 ml Chlorhexidine Gluconate () 1 each TOPICAL DAILY [facility] Last Admin: 08/17/18 05:07 Dose: 1 each Dexamethasone Sodium Phosphate (Decadron) 4 mg IV Q6 [facility] Last Admin: 08/17/18 05:03 Dose: 4 mg Dextrose (D50w Syringe) 0 gm IV X1 PRN; Protocol PRN Reason: Hypoglycemia Enoxaparin Sodium (Lovenox) 40 mg SC DAILY@1000 [facility] Last Admin: 08/16/18 09:59 Dose: 40 mg Enteral Nutritional Formula (Jevity 1.5) 237 ml GT 08,11,14,17,20 [facility] Last Admin: 08/16/18 20:41 Dose: 237 ml Famotidine (Pepcid) 20 mg GT BID [facility] Last Admin: 08/16/18 21:28 Dose: 20 mg Glucagon () 1 mg IM .X1 PRN PRN Reason: Hypoglycemia Hydralazine HCl (Apresoline Iv) 10 mg IV Q4H PRN PRN PRN Reason: SBP > 160 Fentanyl () 100 mls @ 2.5 mls/hr IV .Q40H [facility] Last Admin: 08/17/18 06:53 Dose: 2.5 mls/hr Propofol (Diprivan) 1,000 mg in 100 mls @ 3.13 mls/hr CONT INF .Q12H [facility] Last Admin: 08/17/18 05:02 Dose: Not Given Vancomycin IV Pharmacy to Dose (1 ea/ Sodium Chloride) 500 mls @ 250 mls/hr IV PRN PRN; Protocol PRN Reason: Rx to Dose Sodium Chloride () 250 mls @ 15 mls/hr IV .[id number] PRN PRN Reason: SALINE FLUSH Vancomycin HCl 750 mg/ Sodium (Chloride) 265 mls @ 250 mls/hr IV Q8H [facility] Last Admin: 08/17/18 03:55 Dose: 250 mls/hr Insulin Human Lispro (Humalog Kwikpen (Bkc)) 0 unit SC Q6 [facility]; Protocol Last Admin: 08/17/18 06:37 Dose: Not Given Levetiracetam (Keppra Oral Solution) 500 mg GT BID [facility] Last Admin: 08/16/18 21:27 Dose: 500 mg Magnesium Hydroxide (Milk Of Magnesia) 30 ml PO DAILY PRN PRN PRN Reason: Constipation Metoprolol Tartrate (Lopressor (Beta Jose)) 25 mg GT BID [facility] Last Admin: 08/16/18 21:32 Dose: 25 mg Ondansetron HCl (Zofran) 4 mg IV Q8H PRN PRN PRN Reason: NAUSEA/VOMITING Polyethylene Glycol (Miralax) 8.5 gm GT DAILY [facility] Last Admin: 08/16/18 09:59 Dose: 8.5 gm Simethicone (Mylicon) 80 mg GT Q8H PRN PRN PRN Reason: gas pains Sodium Chloride (Jerome Nasal [place]) 3 spray NASAL BID [facility] Last Admin: 08/16/18 21:28 Dose: 3 spray Sodium Chloride () 5 - 15 ml IV UD PRN PRN Reason: SALINE FLUSH Last Admin: 08/16/18 06:55 Dose: 10 ml Medical Necessity - Tobacco Use Smoking Status: Never smoker Tobacco Use: Non-smoker Assessment/Plan All Active Problems Seizure (Acute) Cellulitis (Acute) Abscess (Acute) Sepsis (Acute) Respiratory failure (Acute) Aspiration pneumonia (Acute) Fever (Acute) Cough (Acute) Facial cellulitis (Resolved) Septic shock (Ruled-out) 1. Sepsis due to acute facial cellulitis and abscess s/p I&D wound cultured MRSA wbc today is 14.8 IV zosyn stopped per ID; now on IV vancomycin only ENT on board ID on board 2. 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 Seizure disorder was recently diagnosed with seizure disorder EEG and MRI were unremarkable on Keppra 4. Hypertension: controlled. Had hypotension on admission, which resolved with IVF administration. On metoprolol and prn hydralazine. 5. Chronic oropharyngeal dysphagia history of recurrent aspirations. has PEG tube in place for supplemental feeds currently NPO on Jevity feeds nutrition consulted 6. Severe macroglossia tongue still very swollen. On IV decadrone 7. 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 8. GERD: on PPI DVT prophylaxis: lovenox Code Visit Inpatient E&M: 67390 Subs Hosp L3
--- NOTE | 2018-08-17 08:51 | PN_ITS ---
Patient Problems: Active and Suspected Problems Cellulitis (Acute) Abscess (Acute) Sepsis (Acute) Respiratory failure (Acute) Subjective: Patient seen and examined. He had an uneventful night. He had increased drainage from the chin abscess. He had no fever or chills from review of chart. Labs and vitals reviewed. Patient remains intubated and sedated as he failed his spontaneous breathing trial this morning. Labs and vitals reviewed. To do review of systems as patient remains intubated and sedated Vitals/I&O's: Vital Signs Temp Pulse Resp BP Pulse Ox 97.8 F 79 13 108/76 100 08/17/18 08:00 08/17/18 08:00 08/17/18 08:00 08/17/18 08:00 08/17/18 08:00 Oxygen Flow Rate (L/min) [1 ( 15 Initial Baseline)] Oxygen Delivery Method [2] Ambu-Bag Oxygen Delivery Method [1 ( Non-Rebreather Initial Baseline)] Oxygen Delivery Method Mechanical Ventilator Weight: 119 lb 14.903 oz Body Mass Index (BMI) 24.6 Intake and Output for Last 24 Hours 08/15/18 08/16/18 08/17/18 23:59 23:59 23:59 Intake Total 1846 / 1846 4921 / 4921 1545 / 1545 Output Total 150 / 150 3100 / 3100 1450 / 1450 Balance 1696 / 1696 1821 / 1821 95 / 95 General: Alert, moving all limbs spontaneously - - intubated HEENT: Atraumatic, PERRLA, - -severe macroglossia. large, fluctuant, mildly tender, nonerythematous swelling under his chin, with dressing over site of I&D Oral: Moist Mucosa Neck: Supple, No JVD, Negative Carotid Bruits Lungs: Clear to auscultation, Normal air movement Cardiovascular: Regular rate, Regular Rhythm, Normal S1, Normal S2, No murmurs Abdomen: Bowel Sounds Present, Soft, Non Tender, Non-Distended, No Hepato- splenomegaly Extremities: No clubbing, No cyanosis, No edema, Capillary Refill Less than 3 Seconds Skin: No rashes Musculoskeletal: No Tenderness to Palpation of Joints or Extremities Lymphatic: No Cervical, Supraclavicular, or Inguinal Adenopathy Neurological: Cranial nerves II-XII grossly intact, Motor Exam 5/5 strength throughout, - - moves all limbs spontaneously. intubated. i Psych/Mental Status: intubated, sedated. RASS score is 0 Laboratory Results Microbiology Past 72 Hours 08/16/18 01:35 Sputum, Induced/Lukens Gram Stain - Final 08/16/18 01:35 Sputum, Induced/Lukens Respiratory Culture - Preliminary Gram negative jolene 08/15/18 14:40 Wound - Face Gram Stain - Final 08/15/18 14:40 Wound - Face Wound Culture - Final Meth. resistant Staph. aureus Laboratory Results 08/15/18 13:10: Diff Path Review Reviewed 08/16/18 13:13: POC Glucose 167 H 08/16/18 17:57: POC Glucose 164 H 08/17/18 00:10: POC Glucose 177 H 08/17/18 05:20: WBC 14.8 H, RBC 3.99 L, Hgb 12.9 L, Hct 38.8 L, MCV 97.2 H, MCH 32.3 H, MCHC 33.2, RDW 13.3, RDW Differential 47.7 H, Plt Count 243, MPV 10.8, Immature Gran % (Auto) 0.300, Neut % (Auto) 87.2 H, Lymph % (Auto) 7.0 L, [place] % (Auto) 5.5, Eos % (Auto) 0.0, Baso % (Auto) 0.0, Absolute Neuts (auto) 12.9 H, Absolute Lymphs (auto) 1.04, Total Counted Not Reportable 08/17/18 05:20: Sodium 139, Potassium 4.2, Chloride 104, Carbon Dioxide 26.0, Anion Gap 9, BUN 13, Creatinine 0.60 L, Estim Creat Clear Calc 147.33, Est GFR (MDRD) Af Amer 214, Est GFR (MDRD) Non-Af 177, BUN/Creatinine Ratio 21.6 H, Glucose 146 H, Calcium 8.4 L 08/17/18 05:48: POC Glucose 136 H Current Medications Acetaminophen (Tylenol Liquid) 650 mg GT Q4H PRN PRN PRN Reason: fever, pain Last Admin: 08/15/18 20:35 Dose: 650 mg Albuterol Sulfate (Ventolin Aerosols) 2.5 mg INHALATION Q2H PRN PRN PRN Reason: dyspnea, wheezing Bisacodyl (Dulcolax) 10 mg RECTAL DAILY PRN PRN PRN Reason: constipation Chlorhexidine Gluconate () 15 ml PO BID [facility] Last Admin: 08/16/18 21:29 Dose: 15 ml Chlorhexidine Gluconate () 1 each TOPICAL DAILY [facility] Last Admin: 08/17/18 05:07 Dose: 1 each Dexamethasone Sodium Phosphate (Decadron) 4 mg IV Q6 [facility] Last Admin: 08/17/18 05:03 Dose: 4 mg Dextrose (D50w Syringe) 0 gm IV X1 PRN; Protocol PRN Reason: Hypoglycemia Enoxaparin Sodium (Lovenox) 40 mg SC DAILY@1000 [facility] Last Admin: 08/16/18 09:59 Dose: 40 mg Enteral Nutritional Formula (Jevity 1.5) 237 ml GT 08,11,14,17,20 [facility] Last Admin: 08/16/18 20:41 Dose: 237 ml Famotidine (Pepcid) 20 mg GT BID [facility] Last Admin: 08/16/18 21:28 Dose: 20 mg Glucagon () 1 mg IM .X1 PRN PRN Reason: Hypoglycemia Hydralazine HCl (Apresoline Iv) 10 mg IV Q4H PRN PRN PRN Reason: SBP > 160 Fentanyl () 100 mls @ 2.5 mls/hr IV .Q40H [facility] Last Admin: 08/17/18 06:53 Dose: 2.5 mls/hr Propofol (Diprivan) 1,000 mg in 100 mls @ 3.13 mls/hr CONT INF .Q12H [facility] Last Admin: 08/17/18 05:02 Dose: Not Given Vancomycin IV Pharmacy to Dose (1 ea/ Sodium Chloride) 500 mls @ 250 mls/hr IV PRN PRN; Protocol PRN Reason: Rx to Dose Sodium Chloride () 250 mls @ 15 mls/hr IV .[id number] PRN PRN Reason: SALINE FLUSH Vancomycin HCl 750 mg/ Sodium (Chloride) 265 mls @ 250 mls/hr IV Q8H [facility] Last Admin: 08/17/18 03:55 Dose: 250 mls/hr Insulin Human Lispro (Humalog Kwikpen (Bkc)) 0 unit SC Q6 [facility]; Protocol Last Admin: 08/17/18 06:37 Dose: Not Given Levetiracetam (Keppra Oral Solution) 500 mg GT BID [facility] Last Admin: 08/16/18 21:27 Dose: 500 mg Magnesium Hydroxide (Milk Of Magnesia) 30 ml PO DAILY PRN PRN PRN Reason: Constipation Metoprolol Tartrate (Lopressor (Beta Jose)) 25 mg GT BID [facility] Last Admin: 08/16/18 21:32 Dose: 25 mg Ondansetron HCl (Zofran) 4 mg IV Q8H PRN PRN PRN Reason: NAUSEA/VOMITING Polyethylene Glycol (Miralax) 8.5 gm GT DAILY [facility] Last Admin: 08/16/18 09:59 Dose: 8.5 gm Simethicone (Mylicon) 80 mg GT Q8H PRN PRN PRN Reason: gas pains Sodium Chloride ([place]) 3 spray NASAL BID [facility] Last Admin: 08/16/18 21:28 Dose: 3 spray Sodium Chloride () 5 - 15 ml IV UD PRN PRN Reason: SALINE FLUSH Last Admin: 08/16/18 06:55 Dose: 10 ml Medical Necessity - Tobacco Use Smoking Status: Never smoker Tobacco Use: Non-smoker Assessment/Plan All Active Problems Seizure (Acute) Cellulitis (Acute) Abscess (Acute) Sepsis (Acute) Respiratory failure (Acute) Aspiration pneumonia (Acute) Fever (Acute) Cough (Acute) Facial cellulitis (Resolved) Septic shock (Ruled-out) 1. Sepsis due to acute facial cellulitis and abscess * s/p I&D * wound cultured MRSA * wbc today is 14.8 * IV zosyn stopped per ID; now on IV vancomycin only * ENT on board * ID on board * 2. Acute respiratory failure likely due to sedation * dilcia remains intubated and sedated after he failed spontaneous breathing trial this morning * on IV vancomycin * pediatrician active practice on board * on breathing treatments * 3. Seizure disorder * was recently diagnosed with seizure disorder * EEG and MRI were unremarkable * on Keppra * 4. Hypertension: * controlled. * Had hypotension on admission, which resolved with IVF administration. On metoprolol and prn hydralazine. 5. Chronic oropharyngeal dysphagia * history of recurrent aspirations. * has PEG tube in place for supplemental feeds * currently NPO * on Jevity feeds * nutrition consulted * 6. Severe macroglossia * tongue still very swollen. On IV decadrone * 7. 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 8. GERD: on PPI DVT prophylaxis: lovenox * Code Visit Inpatient E&M: 63169 Subs Hosp L3
[2018-08-17] MEDS: Enoxaparin 40 MG/0.4 ML Syringe SC (09:47)
[2018-08-17] MEDS: levETIRAcetam Oral Solution 500 MG/5 ML GT ×2 (09:47→21:04)
[2018-08-17] MEDS: Jevity 1.5. 1,000 ML Bottle 237 ML GT ×3 (09:48→12:02)
[2018-08-17] MEDS: Chlorhexidine 15 ML PO ×2 (09:48→21:04)
[2018-08-17] MEDS: Metoprolol Tartrate 25 MG Tablet GT (09:49)
[2018-08-17] MEDS: Famotidine 20 MG Tablet GT ×2 (09:50→21:03)
[2018-08-17] MEDS: Sodium Chloride 0.65% 1 SPRAY SPRAY.BTL 3 SPRAY NASAL ×2 (09:50→21:03)
[2018-08-17] MEDS: Polyethylene Glycol 3350 17 GM PACKET 8.5 GM GT (09:50)
--- NOTE | 2018-08-17 10:17 | CASEMGMT ---
SW spoke with patient's mom. SW asked her if there would be any reason the [facility] would not [facility] able to [facility] patient back. She said no, and they should be able to take him back no matter what. SW asked if he cannot walk will they still be able to take him and she said yes. SW will follow and assist with d/c planning. Estefania BARRON MSW
--- NOTE | 2018-08-17 10:46 | PN.ID_ITS ---
Patient Problems: Active and Suspected Problems Cellulitis (Acute) Abscess (Acute) Sepsis (Acute) Respiratory failure (Acute) Subjective: Tongue and chin less swollen, no fever, no secretions per nursing. - Physical Exam General: No apparent distress Lungs: Clear to auscultation, Normal air movement Cardiovascular: Regular rate, Regular Rhythm Abdomen: Soft, Non Tender, Non-Distended Skin: - - chin inflammation improved, no drainage able to be expressed Vital Signs Temp Pulse Resp BP Pulse Ox 97.9 F 59 L 14 116/75 100 08/17/18 10:00 08/17/18 10:00 08/17/18 10:00 08/17/18 10:00 08/17/18 10:00 Oxygen Flow Rate (L/min) [1 ( 15 Initial Baseline)] Oxygen Delivery Method [2] Ambu-Bag Oxygen Delivery Method [1 ( Non-Rebreather Initial Baseline)] Oxygen Delivery Method Mechanical Ventilator Weight: 54.4 kg Body Mass Index (BMI) 24.6 Intake and Output for Last 24 Hours 08/15/18 08/16/18 08/17/18 23:59 23:59 23:59 Intake Total 1846 / 1846 4921 / 4921 1575 / 1575 Output Total 150 / 150 3100 / 3100 1450 / 1450 Balance 1696 / 1696 1821 / 1821 125 / 125 Microbiology Past 72 Hours 08/16/18 01:35 Gram Stain - Final Sputum, Induced/Lukens Respiratory Culture - Preliminary Gram negative jolene 08/15/18 14:40 Gram Stain - Final Wound - Face Wound Culture - Final Meth. resistant Staph. aureus Laboratory Tests Past 24 Hrs 08/15/18 08/17/18 08/17/18 13:10 05:20 05:20 WBC 14.8 H RBC 3.99 L Hgb 12.9 L Hct 38.8 L MCV 97.2 H MCH 32.3 H MCHC 33.2 RDW 13.3 RDW Differential 47.7 H Plt Count 243 MPV 10.8 Immature Gran % (Auto) 0.300 Neut % (Auto) 87.2 H Lymph % (Auto) 7.0 L [place] % (Auto) 5.5 Eos % (Auto) 0.0 Baso % (Auto) 0.0 Absolute Neuts (auto) 12.9 H Absolute Lymphs (auto) 1.04 Total Counted Not Reportable Diff Path Review Reviewed Sodium 139 Potassium 4.2 Chloride 104 Carbon Dioxide 26.0 Anion Gap 9 BUN 13 Creatinine 0.60 L Estim Creat Clear Calc 147.33 Est GFR (MDRD) Af Amer 214 Est GFR (MDRD) Non-Af 177 BUN/Creatinine Ratio 21.6 H Glucose 146 H Calcium 8.4 L POC Glucose 08/17/18 08/17/18 08/16/18 05:48 00:10 17:57 POC Glucose 136 H 177 H 164 H 08/16/18 13:13 POC Glucose 167 H Medical Necessity - Tobacco Use Smoking Status: Never smoker Tobacco Use: Non-smoker Route of nutrition/ use of supplements: [] Nutritional Intake: [] IV Site: [] Diaz Catheter: [] - Assessment/Plan Antibiotics: [] Assessment/Plan: [] Active and Suspected Problems Cellulitis (Acute) Abscess (Acute) Sepsis (Acute) Respiratory failure (Acute) MRSA chin abscess - continue vanc. Low suspicion for pneumonia this time. Remains on vent. May need further I&D if chin does not continue to show improvement. Will follow, d/w Dr. Abdi and nursing
[2018-08-17 11:52] LABS: Vancomycin, Trough Level 9.8 ug/mL (5.0-15.0)
[2018-08-17] MEDS: 0.9% NaCl Peripheral Flush Adult/Peds IV ×3 (12:02→17:50)
[2018-08-17 12:15] LABS: Bedside Glucose 219 mg/dL (70-110)
--- NOTE | 2018-08-17 12:49 | PCM.RX.CS ---
Consult Pharmacy has been consulted to manage selected antiobiotic: Vancomycin Type of Consult: Follow-up Suspected Infection: Skin/Soft tissue Labs: Sodium 139 mmol/L (136-145) 08/17/18 05:20 Potassium 4.2 mmol/L (3.5-5.1) 08/17/18 05:20 Chloride 104 mmol/L (98-107) 08/17/18 05:20 Carbon Dioxide 26.0 mmol/L (21.0-32.0) 08/17/18 05:20 Anion Gap 9 (5-15) 08/17/18 05:20 BUN 13 mg/dL (7-18) 08/17/18 05:20 Creatinine 0.60 mg/dL (0.70-1.30) L 08/17/18 05:20 Est GFR (MDRD) Af Amer 214 mL/min (>60) 08/17/18 05:20 Est GFR (MDRD) Non-Af 177 mL/min (>60) 08/17/18 05:20 BUN/Creatinine Ratio 21.6 RATIO (10-20) H 08/17/18 05:20 Glucose 146 mg/dL (74-106) H 08/17/18 05:20 Vancomycin Trough 9.8 ug/mL (5.0-15.0) 08/17/18 11:10 Microbiology: Microbiology 08/16/18 01:35 Sputum, Induced/Lukens Gram Stain - Final 08/16/18 01:35 Sputum, Induced/Lukens Respiratory Culture - Preliminary Gram negative jolene 08/15/18 14:40 Wound - Face Gram Stain - Final 08/15/18 14:40 Wound - Face Wound Culture - Final Meth. resistant Staph. aureus Weight used for dosin kg Goal Trough: 10-15 mcg/mL Pharmacy Plan for Drug Dosing: Vancomycin trough slightly below goal at 7h. Recommend to increase to 1000mg IV q8h and recheck per nomogram. Pharmacy Service will continue to monitor and adjust dosing as required. Follow-Up Labs: Trough Vancomycin - 08/18 @ 0324
[2018-08-17] MEDS: Ondansetron 4 MG/2 ML Vial IV (14:50)
[2018-08-17] MEDS: Vancomycin IV 1,000 MG/200 ML BAG 200 MG IV (17:50)
[2018-08-17 17:51] LABS: Bedside Glucose 134 mg/dL (70-110)
[2018-08-18] VITALS (33 sets, daily range): BP systolic 85–126; BP diastolic 49–88; PULSE 48–120; RESP 7–22; TEMP 36.3–36.9; O2SAT 94–100
[2018-08-18 00:38] LABS: Bedside Glucose 126 mg/dL (70-110)
[2018-08-18] MEDS: Vancomycin IV 1,000 MG/200 ML BAG 200 MG IV ×2 (02:01→09:47)
[2018-08-18 04:54] LABS: Absolute Lymphocyte Count 1.45 X10^3/ul (0.83-4.51); Absolute Neutrophil Count 7.1 X10^3/uL (2.0-7.7); Basophil# 0.01 X10^3/uL; Basophil% 0.1 % (0-1); Hematocrit 41.1 % (40-54); Hemoglobin 13.6 g/dl (13.0-16.5); Lymphocyte # 1.45 X10^3/ul (4.0); Lymphocyte % 15.4 % (19-41); Mean Corp Hgb Conc 33.1 g/gl (32-36); Mean Corpuscular Hgb 32.1 pg (27.0-32.0); Mean Corpuscular Volume 96.9 fL (80-94); Mean Platelet Vol. 10.7 fl (6.2-12.0); Monocyte# 0.76 X10^3/uL; Monocyte% 8.1 % (0-10); Neutrophil # 7.14 X10^3/uL (2.7-7.7); Neutrophil % 76.1 % (47-70); Platelet Count 297 K/mm3 (150-450); RBC Distribution Width CV 13.4 % (11.6-14.6); RBC Distribution Width SD 47.2 fl (35.1-43.9); Red Blood Count 4.24 M/mm3 (4.6-6.2); White Blood Count 9.4 K/mm3 (4.4-11.0)
[2018-08-18 04:57] LABS: POSITIVE COUNT NO; POSITIVE DIFFERENTIAL NO; POSITIVE MORPHOLOGY NO
[2018-08-18 05:00] LABS: Anion Gap 12 (5-15); BUN 18 mg/dL (7-18); BUN/Creat Ratio 24.1 RATIO (10-20); Calcium,Total 8.7 mg/dL (8.5-10.1); Chloride 102 mmol/L (98-107); Creatinine, Serum 0.75 mg/dL (0.70-1.30); EST Glomerular Filtration Rate 138 mL/min (>60); Est Glom Filt Rate - Afr Amer 167 mL/min (>60); Estimated Creatinine Clearance 117.87 ml/min; Glucose 112 mg/dL (74-106); Potassium 4.2 mmol/L (3.5-5.1); Sodium Level 139 mmol/L (136-145)
--- NOTE | 2018-08-18 05:05 | CPS ---
patient went apneic several times, triggering the vents back up setting. Patient placed back on ac vc 14 350 25% peep 5.
--- NOTE | 2018-08-18 05:07 | CPS ---
patient went apneic several times, triggering the vents back up setting. Patient placed back on ac vc 14 350 25% peep 5.
[2018-08-18] MEDS: CHLORHEXIDINE GLUC 2% CLOTH 1 EACH TOWELETTE TOPICAL (06:31)
[2018-08-18 06:40] LABS: Bedside Glucose 109 mg/dL (70-110)
--- NOTE | 2018-08-18 06:46 | PCM.PN.INT ---
Subjective: Patient did okay overnight. Patient reportedly had emesis of tube feeds. Minimal secretions/tube feeds were removed from the endotracheal tube. Patient did not have any respiratory distress reported. Nursing did report that the chin is no longer draining. General: Alert, Cooperative, No apparent distress, - - Good vent synchrony. Balance bases. HEENT: Atraumatic, PERRLA, EOMI, Normocephalic, - - No scleral icterus or injection noted Oral: No Gingival or Mucosal Lesions/ Ulcerations, Dry Mucosa, - - Tongue appears to be protruding more today compared to previous. Chin incision has granulation tissue and surrounding erythema Neck: Supple, No JVD, No Nodes, Trachea Midline Lungs: Clear to auscultation, Normal air movement, No rhonchi, No wheeze, No rales, - - Symmetric expansion. No dullness to percussion. Cardiovascular: Regular rate, Regular Rhythm, Normal S1, Normal S2, No murmurs, No rub noted, No Gallop Abdomen: Bowel Sounds Present, Soft, Non Tender, Non-Distended Extremities: No clubbing, No cyanosis, Capillary Refill Less than 3 Seconds, Edema - Trace Skin: - - Erythema with slight fluctuance at the chin Musculoskeletal: No Tenderness to Palpation of Joints or Extremities Lymphatic: Cervical Adenopathy Neurological: Cranial nerves II-XII grossly intact, Neuro grossly intact Psych/Mental Status: Appropriate, Flat Affect Vital Signs Temp Pulse Resp BP Pulse Ox 36.4 C L 59 L 15 124/80 H 97 08/18/18 06:00 08/18/18 06:00 08/18/18 06:00 08/18/18 06:00 08/18/18 06:00 Oxygen Flow Rate (L/min) [1 ( 15 Initial Baseline)] Oxygen Delivery Method [2] Ambu-Bag Oxygen Delivery Method [1 ( Non-Rebreather Initial Baseline)] Oxygen Delivery Method Mechanical Ventilator Weight: 55.1 kg Body Mass Index (BMI) 24.6 Intake and Output for Last 24 Hours 08/16/18 08/17/18 08/18/18 23:59 23:59 23:59 Intake Total 4921 / 4921 2201.4 / 2201.4 574 / 574 Output Total 3100 / 3100 2800 / 2800 700 / 700 Balance 1821 / 1821 -598.6 / -598.6 -126 / -126 Labs (Last 48 Hours) 08/15/18 08/16/18 08/16/18 13:10 06:53 13:13 WBC RBC Hgb Hct MCV MCH MCHC RDW RDW Differential Plt Count MPV Immature Gran % (Auto) Neut % (Auto) Lymph % (Auto) [place] % (Auto) Eos % (Auto) Baso % (Auto) Absolute Neuts (auto) Absolute Lymphs (auto) Total Counted Diff Path Review Reviewed Sodium Potassium Chloride Carbon Dioxide Anion Gap BUN Creatinine Estim Creat Clear Calc Est GFR (MDRD) Af Amer Est GFR (MDRD) Non-Af BUN/Creatinine Ratio Glucose Calcium Vancomycin Trough POC Glucose 222 H 167 H 08/16/18 08/17/18 08/17/18 17:57 00:10 05:20 WBC 14.8 H RBC 3.99 L Hgb 12.9 L Hct 38.8 L MCV 97.2 H MCH 32.3 H MCHC 33.2 RDW 13.3 RDW Differential 47.7 H Plt Count 243 MPV 10.8 Immature Gran % (Auto) 0.300 Neut % (Auto) 87.2 H Lymph % (Auto) 7.0 L [place] % (Auto) 5.5 Eos % (Auto) 0.0 Baso % (Auto) 0.0 Absolute Neuts (auto) 12.9 H Absolute Lymphs (auto) 1.04 Total Counted Not Reportable Diff Path Review Sodium Potassium Chloride Carbon Dioxide Anion Gap BUN Creatinine Estim Creat Clear Calc Est GFR (MDRD) Af Amer Est GFR (MDRD) Non-Af BUN/Creatinine Ratio Glucose Calcium Vancomycin Trough POC Glucose 164 H 177 H 08/17/18 08/17/18 08/17/18 05:20 05:48 11:10 WBC RBC Hgb Hct MCV MCH MCHC RDW RDW Differential Plt Count MPV Immature Gran % (Auto) Neut % (Auto) Lymph % (Auto) [place] % (Auto) Eos % (Auto) Baso % (Auto) Absolute Neuts (auto) Absolute Lymphs (auto) Total Counted Diff Path Review Sodium 139 Potassium 4.2 Chloride 104 Carbon Dioxide 26.0 Anion Gap 9 BUN 13 Creatinine 0.60 L Estim Creat Clear Calc 147.33 Est GFR (MDRD) Af Amer 214 Est GFR (MDRD) Non-Af 177 BUN/Creatinine Ratio 21.6 H Glucose 146 H Calcium 8.4 L Vancomycin Trough 9.8 POC Glucose 136 H 08/17/18 08/17/18 08/18/18 11:59 17:40 00:19 WBC RBC Hgb Hct MCV MCH MCHC RDW RDW Differential Plt Count MPV Immature Gran % (Auto) Neut % (Auto) Lymph % (Auto) [place] % (Auto) Eos % (Auto) Baso % (Auto) Absolute Neuts (auto) Absolute Lymphs (auto) Total Counted Diff Path Review Sodium Potassium Chloride Carbon Dioxide Anion Gap BUN Creatinine Estim Creat Clear Calc Est GFR (MDRD) Af Amer Est GFR (MDRD) Non-Af BUN/Creatinine Ratio Glucose Calcium Vancomycin Trough POC Glucose 219 H 134 H 126 H 08/18/18 08/18/18 08/18/18 04:20 04:20 06:27 WBC 9.4 RBC 4.24 L Hgb 13.6 Hct 41.1 MCV 96.9 H MCH 32.1 H MCHC 33.1 RDW 13.4 RDW Differential 47.2 H Plt Count 297 MPV 10.7 Immature Gran % (Auto) 0.300 Neut % (Auto) 76.1 H Lymph % (Auto) 15.4 L [place] % (Auto) 8.1 Eos % (Auto) 0.0 Baso % (Auto) 0.1 Absolute Neuts (auto) 7.1 Absolute Lymphs (auto) 1.45 Total Counted Not Reportable Diff Path Review Sodium 139 Potassium 4.2 Chloride 102 Carbon Dioxide 25.0 Anion Gap 12 BUN 18 Creatinine 0.75 Estim Creat Clear Calc 117.87 Est GFR (MDRD) Af Amer 167 Est GFR (MDRD) Non-Af 138 BUN/Creatinine Ratio 24.1 H Glucose 112 H Calcium 8.7 Vancomycin Trough POC Glucose 109 Microbiology 08/16/18 01:35 Sputum, Induced/Lukens Gram Stain - Final 08/16/18 01:35 Sputum, Induced/Lukens Respiratory Culture - Preliminary Gram negative jolene 08/15/18 14:40 Wound - Face Gram Stain - Final 08/15/18 14:40 Wound - Face Wound Culture - Final Meth. resistant Staph. aureus Medical Necessity - Tobacco Use Smoking Status: Never smoker Tobacco Use: Non-smoker Assessment/Plan All Active Problems Seizure (Acute) Cellulitis (Acute) Abscess (Acute) Sepsis (Acute) Respiratory failure (Acute) Aspiration pneumonia (Acute) Fever (Acute) Cough (Acute) Facial cellulitis (Resolved) Septic shock (Ruled-out) RECOMMENDATIONS: 1. Continue antibiotics and steroids 2. Monitor tongue clinically 3. Will obtain CT of the neck for abscess evaluation 4. Wean oxygen as tolerated 5. Spontaneous breathing trial per protocol IMPRESSIONS: 1. Acute respiratory failure secondary to tongue swelling Patient did have a potential aspiration events yesterday, but has no leukocytosis or significant secretions reported. Patient's tongue appears to be more swollen today. Patient does have granulation tissue over the drainage incision with surrounding erythema. Will obtain a CT scan of the neck with contrast for evaluation of possible abscess. ENT is currently following. Will attempt leak test, but given the swelling, doubt patient will be able to be extubated today. Steroids are likely at full effect at this point. 2. Severe sepsis secondary to chin MRSA cellulitis Patient appears to be tolerating cellulitis well. Still has significant extrusion of the tongue, but leukocytosis appears to be stable. Patient does have MRSA growing from the wound. Infectious disease is following. Will obtain CT of the neck to evaluate for abscess. 3. Recent new onset seizure Patient has not overly interactive, but does not appear to have seizure activity at this time. No seizure activity has been noted during hospitalization. Patient is on Keppra therapy. We will continue to monitor clinically. Ativan can be given if necessary. Patient is not requiring much propofol, if any, at this time. 4. Chronic constipation/oral pharyngeal dysphasia status post PEG/hypertension/MRDD/autism Complicates care, management, recovery and prognosis. Tube feeds per dietitian recommendation. Okay to continue with baseline regimen from my perspective TIME: 31 minutes critical care time spent addressing patient's acute respiratory failure, severe sepsis, review of all data and collaboration with care team (5:55 AM to 6:45 AM) Code Visit 9xxxx: [id number] Critical care first hour
--- NOTE | 2018-08-18 06:48 | CT_ITS ---
STUDY: CT SOFT TISSUE NECK WITH CONTRAST REASON FOR EXAM: Male, 23 years old. Facial cellulitis and abscess. Respiratory failure. RADIATION DOSAGE (If Supplied By Facility): CTDIvol = ( 13.72 ) mGy, DLP = ( 466.08 ) mGycm TECHNIQUE: The patient was scanned in a multi-detector CT scanner. High resolution transaxial imaging was performed following intravenous administration of 100mL ml of Isovue 300 contrast material. Sagittal and coronal images were reconstructed. Individualized dose optimization techniques were used for this CT. COMPARISON: None. FINDINGS: An endotracheal tube is in situ. Mild degree of the 15th of the skin and subcutaneous tissues overlying the facial region. The airway is patent. Normal bilateral parotid glands. Normal bilateral echocardiography tech spaces. Normal bilateral parapharyngeal spaces. Normal bilateral carotid spaces. Normal bilateral sublingual and submandibular glands and spaces. Normal visualized nasopharynx. Normal retropharyngeal space. Normal perivertebral space. Normal visualized bilateral faucial tonsils. There is evidence of a microglossia worse in the posterior left side of the tongue. The visualized cervical lymph nodes (levels I-) are within normal size limits, and maintain normal morphology. There is no demonstrated solid or cystic mass lesion. There is no abnormal contrast enhancement. Normal epiglottis, bilateral vallecula and hypopharynx. The pre-epiglottic and paraglottic adipose spaces are normal. Normal visualized bilateral piriform sinuses, aryepiglottic folds, vocal cords, and arytenoid-cricoid articulations. Normal subglottic trachea. Normal bilateral lobes of the thyroid gland. Normal visualized pulmonary apices. Normal visualized paranasal sinuses. Normal visualized cervical spine. CT/Soft Tissue Neck WITH Contrast IMPRESSION: Macroglossia. Electronically Signed: Diallo Gutierrez MD at 8:26 EST Tel [phone], Service support ,
--- NOTE | 2018-08-18 08:59 | PCM.PN.HOSP ---
Patient Problems: Active and Suspected Problems Cellulitis (Acute) Abscess (Acute) Sepsis (Acute) Respiratory failure (Acute) Subjective: Patient seen and examined. Swelling of his tongue has improved significantly. He is undergoing spontaneous breathing trial this morning to see if he can be extubated today. Per nurse, drainage from abscess has tapered off. Labs and vitals reviewed. Vitals/I&O's: Vital Signs Temp Pulse Resp BP Pulse Ox 98.4 F 93 20 H 126/76 H 96 08/18/18 08:00 08/18/18 08:00 08/18/18 08:00 08/18/18 08:00 08/18/18 08:00 Oxygen Flow Rate (L/min) [1 ( 15 Initial Baseline)] Oxygen Delivery Method [2] Ambu-Bag Oxygen Delivery Method [1 ( Non-Rebreather Initial Baseline)] Oxygen Delivery Method CPAP Weight: 121 lb 7.595 oz Body Mass Index (BMI) 24.6 Intake and Output for Last 24 Hours 08/16/18 08/17/18 08/18/18 23:59 23:59 23:59 Intake Total 4921 / 4921 2201.4 / 2201.4 574 / 574 Output Total 3100 / 3100 2800 / 2800 700 / 700 Balance 1821 / 1821 -598.6 / -598.6 -126 / -126 General: Alert, moving all limbs spontaneously - - intubated HEENT: Atraumatic, PERRLA, - -macroglossia has improved significantly. Abscess under his chin has improved. No visitble drainage Oral: Moist Mucosa Neck: Supple, No JVD, Negative Carotid Bruits Lungs: Clear to auscultation, Normal air movement Cardiovascular: Regular rate, Regular Rhythm, Normal S1, Normal S2, No murmurs Abdomen: Bowel Sounds Present, Soft, Non Tender, Non-Distended, No Hepato-splenomegaly Extremities: No clubbing, No cyanosis, No edema, Capillary Refill Less than 3 Seconds Skin: No rashes Musculoskeletal: No Tenderness to Palpation of Joints or Extremities Lymphatic: No Cervical, Supraclavicular, or Inguinal Adenopathy Neurological: Cranial nerves II-XII grossly intact, Motor Exam 5/5 strength throughout, - - moves all limbs spontaneously. intubated. Psych/Mental Status: intubated. RASS score is 0 Microbiology Past 72 Hours 08/16/18 01:35 Sputum, Induced/Lukens Gram Stain - Final 08/16/18 01:35 Sputum, Induced/Lukens Respiratory Culture - Preliminary Gram negative jolene Mixed [place] 08/15/18 14:40 Wound - Face Gram Stain - Final 08/15/18 14:40 Wound - Face Wound Culture - Final Meth. resistant Staph. aureus Laboratory Results 08/17/18 11:10: Vancomycin Trough 9.8 08/17/18 11:59: POC Glucose 219 H 08/17/18 17:40: POC Glucose 134 H 08/18/18 00:19: POC Glucose 126 H 08/18/18 04:20: WBC 9.4, RBC 4.24 L, Hgb 13.6, Hct 41.1, MCV 96.9 H, MCH 32.1 H, MCHC 33.1, RDW 13.4, RDW Differential 47.2 H, Plt Count 297, MPV 10.7, Immature Gran % (Auto) 0.300, Neut % (Auto) 76.1 H, Lymph % (Auto) 15.4 L, [place] % (Auto) 8.1, Eos % (Auto) 0.0, Baso % (Auto) 0.1, Absolute Neuts (auto) 7.1, Absolute Lymphs (auto) 1.45, Total Counted Not Reportable 08/18/18 04:20: Sodium 139, Potassium 4.2, Chloride 102, Carbon Dioxide 25.0, Anion Gap 12, BUN 18, Creatinine 0.75, Estim Creat Clear Calc 117.87, Est GFR (MDRD) Af Amer 167, Est GFR (MDRD) Non-Af 138, BUN/Creatinine Ratio 24.1 H, Glucose 112 H, Calcium 8.7 08/18/18 06:27: POC Glucose 109 Diagnostic Data Chest X-Ray 08/16/18 05:30 IMPRESSION: New infiltrate in the posterior medial segment of the left lower lobe. Electronically Signed: Diallo Gutierrez MD at 9:24 EST Tel [phone], Service support , Soft Tissue Neck CT 08/18/18 06:48 IMPRESSION: Macroglossia. Electronically Signed: Diallo Gutierrez MD at 8:26 EST Tel [phone], Service support , Current Medications Acetaminophen (Tylenol Liquid) 650 mg GT Q4H PRN PRN PRN Reason: fever, pain Last Admin: 08/15/18 20:35 Dose: 650 mg Albuterol Sulfate (Ventolin Aerosols) 2.5 mg INHALATION Q2H PRN PRN PRN Reason: dyspnea, wheezing Bisacodyl (Dulcolax) 10 mg RECTAL DAILY PRN PRN PRN Reason: constipation Chlorhexidine Gluconate () 15 ml PO BID [facility] Last Admin: 08/17/18 21:04 Dose: 15 ml Chlorhexidine Gluconate () 1 each TOPICAL DAILY [facility] Last Admin: 08/18/18 06:31 Dose: 1 each Dexamethasone Sodium Phosphate (Decadron) 4 mg IV Q6 [facility] Last Admin: 08/18/18 06:30 Dose: 4 mg Dextrose (D50w Syringe) 0 gm IV X1 PRN; Protocol PRN Reason: Hypoglycemia Enoxaparin Sodium (Lovenox) 40 mg SC DAILY@1000 [facility] Last Admin: 08/17/18 09:47 Dose: 40 mg Enteral Nutritional Formula (Jevity 1.5) 237 ml GT 08,11,14,17,20 [facility] Last Admin: 08/18/18 08:19 Dose: Not Given Famotidine (Pepcid) 20 mg GT BID [facility] Last Admin: 08/17/18 21:03 Dose: 20 mg Glucagon () 1 mg IM .X1 PRN PRN Reason: Hypoglycemia Hydralazine HCl (Apresoline Iv) 10 mg IV Q4H PRN PRN PRN Reason: SBP > 160 Fentanyl () 100 mls @ 2.5 mls/hr IV .Q40H [facility] Last Admin: 08/17/18 06:53 Dose: 2.5 mls/hr Propofol (Diprivan) 1,000 mg in 100 mls @ 3.13 mls/hr CONT INF .Q12H [facility] Last Admin: 08/18/18 05:49 Dose: Not Given Vancomycin IV Pharmacy to Dose (1 ea/ Sodium Chloride) 500 mls @ 250 mls/hr IV PRN PRN; Protocol PRN Reason: Rx to Dose Sodium Chloride () 250 mls @ 15 mls/hr IV .[id number] PRN PRN Reason: SALINE FLUSH Vancomycin HCl (Vancomycin) 1,000 mg in 200 mls @ 200 mls/hr IV Q8H [facility] Last Admin: 08/18/18 02:01 Dose: 200 mls/hr Insulin Human Lispro (Humalog Kwikpen (Bkc)) 0 unit SC Q6 [facility]; Protocol Last Admin: 08/18/18 06:30 Dose: Not Given Levetiracetam (Keppra Oral Solution) 500 mg GT BID [facility] Last Admin: 08/17/18 21:04 Dose: 500 mg Magnesium Hydroxide (Milk Of Magnesia) 30 ml PO DAILY PRN PRN PRN Reason: Constipation Metoprolol Tartrate (Lopressor (Beta Jose)) 25 mg GT BID [facility] Last Admin: 08/17/18 21:03 Dose: Not Given Ondansetron HCl (Zofran) 4 mg IV Q8H PRN PRN PRN Reason: NAUSEA/VOMITING Last Admin: 08/17/18 14:50 Dose: 4 mg Polyethylene Glycol (Miralax) 8.5 gm GT DAILY [facility] Last Admin: 08/17/18 09:50 Dose: 8.5 gm Simethicone (Mylicon) 80 mg GT Q8H PRN PRN PRN Reason: gas pains Sodium Chloride ([place] Nasal [place]) 3 spray NASAL BID [facility] Last Admin: 08/17/18 21:03 Dose: 3 spray Sodium Chloride () 5 - 15 ml IV UD PRN PRN Reason: SALINE FLUSH Last Admin: 08/17/18 17:50 Dose: 10 ml Medical Necessity - Tobacco Use Smoking Status: Never smoker Tobacco Use: Non-smoker Assessment/Plan All Active Problems Seizure (Acute) Cellulitis (Acute) Abscess (Acute) Sepsis (Acute) Respiratory failure (Acute) Aspiration pneumonia (Acute) Fever (Acute) Cough (Acute) Facial cellulitis (Resolved) Septic shock (Ruled-out) 1. Sepsis due to acute facial cellulitis and abscess s/p I&D wound cultured MRSA wbc has trended down to 9.8 on IV vancomycin ENT on board ID on board 2. 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 Seizure disorder on Keppra 4. Hypertension: controlled. On metoprolol and prn hydralazine. 5. Chronic oropharyngeal dysphagia history of recurrent aspirations. has PEG tube in place for supplemental feeds currently NPO on Jevity feeds nutrition on board. consulted 6. Severe macroglossia tongue swelling has improved. on IV decadron. soft tissue neck CT showed macroglossia 7. 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 8. GERD: on PPI DVT prophylaxis: shruthinox Code Visit Inpatient E&M: 34155 Subs Hosp L3
--- NOTE | 2018-08-18 09:04 | PN_ITS ---
Patient Problems: Active and Suspected Problems Cellulitis (Acute) Abscess (Acute) Sepsis (Acute) Respiratory failure (Acute) Subjective: Patient seen and examined. Swelling of his tongue has improved significantly. He is undergoing spontaneous breathing trial this morning to see if he can be extubated today. Per nurse, drainage from abscess has tapered off. Labs and vitals reviewed. Vitals/I&O's: Vital Signs Temp Pulse Resp BP Pulse Ox 98.4 F 93 20 H 126/76 H 96 08/18/18 08:00 08/18/18 08:00 08/18/18 08:00 08/18/18 08:00 08/18/18 08:00 Oxygen Flow Rate (L/min) [1 ( 15 Initial Baseline)] Oxygen Delivery Method [2] Ambu-Bag Oxygen Delivery Method [1 ( Non-Rebreather Initial Baseline)] Oxygen Delivery Method CPAP Weight: 121 lb 7.595 oz Body Mass Index (BMI) 24.6 Intake and Output for Last 24 Hours 08/16/18 08/17/18 08/18/18 23:59 23:59 23:59 Intake Total 4921 / 4921 2201.4 / 2201.4 574 / 574 Output Total 3100 / 3100 2800 / 2800 700 / 700 Balance 1821 / 1821 -598.6 / -598.6 -126 / -126 General: Alert, moving all limbs spontaneously - - intubated HEENT: Atraumatic, PERRLA, - -macroglossia has improved significantly. Abscess under his chin has improved. No visitble drainage Oral: Moist Mucosa Neck: Supple, No JVD, Negative Carotid Bruits Lungs: Clear to auscultation, Normal air movement Cardiovascular: Regular rate, Regular Rhythm, Normal S1, Normal S2, No murmurs Abdomen: Bowel Sounds Present, Soft, Non Tender, Non-Distended, No Hepato- splenomegaly Extremities: No clubbing, No cyanosis, No edema, Capillary Refill Less than 3 Seconds Skin: No rashes Musculoskeletal: No Tenderness to Palpation of Joints or Extremities Lymphatic: No Cervical, Supraclavicular, or Inguinal Adenopathy Neurological: Cranial nerves II-XII grossly intact, Motor Exam 5/5 strength throughout, - - moves all limbs spontaneously. intubated. Psych/Mental Status: intubated. RASS score is 0 Microbiology Past 72 Hours 08/16/18 01:35 Sputum, Induced/Lukens Gram Stain - Final 08/16/18 01:35 Sputum, Induced/Lukens Respiratory Culture - Preliminary Gram negative jolene Mixed [place] 08/15/18 14:40 Wound - Face Gram Stain - Final 08/15/18 14:40 Wound - Face Wound Culture - Final Meth. resistant Staph. aureus Laboratory Results 08/17/18 11:10: Vancomycin Trough 9.8 08/17/18 11:59: POC Glucose 219 H 08/17/18 17:40: POC Glucose 134 H 08/18/18 00:19: POC Glucose 126 H 08/18/18 04:20: WBC 9.4, RBC 4.24 L, Hgb 13.6, Hct 41.1, MCV 96.9 H, MCH 32.1 H, MCHC 33.1, RDW 13.4, RDW Differential 47.2 H, Plt Count 297, MPV 10.7, Immature Gran % (Auto) 0.300, Neut % (Auto) 76.1 H, Lymph % (Auto) 15.4 L, [place] % (Auto) 8.1, Eos % (Auto) 0.0, Baso % (Auto) 0.1, Absolute Neuts (auto) 7.1, Absolute Lymphs (auto) 1.45, Total Counted Not Reportable 08/18/18 04:20: Sodium 139, Potassium 4.2, Chloride 102, Carbon Dioxide 25.0, Anion Gap 12, BUN 18, Creatinine 0.75, Estim Creat Clear Calc 117.87, Est GFR (MDRD) Af Amer 167, Est GFR (MDRD) Non-Af 138, BUN/Creatinine Ratio 24.1 H, Glucose 112 H, Calcium 8.7 08/18/18 06:27: POC Glucose 109 Diagnostic Data Chest X-Ray 08/16/18 05:30 IMPRESSION: New infiltrate in the posterior medial segment of the left lower lobe. Electronically Signed: Diallo Gutierrez MD at 9:24 EST Tel [phone], Service support , Soft Tissue Neck CT 08/18/18 06:48 IMPRESSION: Macroglossia. Electronically Signed: Diallo Gutierrez MD at 8:26 EST Tel [phone], Service support , Current Medications Acetaminophen (Tylenol Liquid) 650 mg GT Q4H PRN PRN PRN Reason: fever, pain Last Admin: 08/15/18 20:35 Dose: 650 mg Albuterol Sulfate (Ventolin Aerosols) 2.5 mg INHALATION Q2H PRN PRN PRN Reason: dyspnea, wheezing Bisacodyl (Dulcolax) 10 mg RECTAL DAILY PRN PRN PRN Reason: constipation Chlorhexidine Gluconate () 15 ml PO BID [facility] Last Admin: 08/17/18 21:04 Dose: 15 ml Chlorhexidine Gluconate () 1 each TOPICAL DAILY [facility] Last Admin: 08/18/18 06:31 Dose: 1 each Dexamethasone Sodium Phosphate (Decadron) 4 mg IV Q6 [facility] Last Admin: 08/18/18 06:30 Dose: 4 mg Dextrose (D50w Syringe) 0 gm IV X1 PRN; Protocol PRN Reason: Hypoglycemia Enoxaparin Sodium (Lovenox) 40 mg SC DAILY@1000 [facility] Last Admin: 08/17/18 09:47 Dose: 40 mg Enteral Nutritional Formula (Jevity 1.5) 237 ml GT 08,11,14,17,20 [facility] Last Admin: 08/18/18 08:19 Dose: Not Given Famotidine (Pepcid) 20 mg GT BID [facility] Last Admin: 08/17/18 21:03 Dose: 20 mg Glucagon () 1 mg IM .X1 PRN PRN Reason: Hypoglycemia Hydralazine HCl (Apresoline Iv) 10 mg IV Q4H PRN PRN PRN Reason: SBP > 160 Fentanyl () 100 mls @ 2.5 mls/hr IV .Q40H [facility] Last Admin: 08/17/18 06:53 Dose: 2.5 mls/hr Propofol (Diprivan) 1,000 mg in 100 mls @ 3.13 mls/hr CONT INF .Q12H [facility] Last Admin: 08/18/18 05:49 Dose: Not Given Vancomycin IV Pharmacy to Dose (1 ea/ Sodium Chloride) 500 mls @ 250 mls/hr IV PRN PRN; Protocol PRN Reason: Rx to Dose Sodium Chloride () 250 mls @ 15 mls/hr IV .[id number] PRN PRN Reason: SALINE FLUSH Vancomycin HCl (Vancomycin) 1,000 mg in 200 mls @ 200 mls/hr IV Q8H [facility] Last Admin: 08/18/18 02:01 Dose: 200 mls/hr Insulin Human Lispro (Humalog Kwikpen (Bkc)) 0 unit SC Q6 [facility]; Protocol Last Admin: 08/18/18 06:30 Dose: Not Given Levetiracetam (Keppra Oral Solution) 500 mg GT BID [facility] Last Admin: 08/17/18 21:04 Dose: 500 mg Magnesium Hydroxide (Milk Of Magnesia) 30 ml PO DAILY PRN PRN PRN Reason: Constipation Metoprolol Tartrate (Lopressor (Beta Jose)) 25 mg GT BID [facility] Last Admin: 08/17/18 21:03 Dose: Not Given Ondansetron HCl (Zofran) 4 mg IV Q8H PRN PRN PRN Reason: NAUSEA/VOMITING Last Admin: 08/17/18 14:50 Dose: 4 mg Polyethylene Glycol (Miralax) 8.5 gm GT DAILY [facility] Last Admin: 08/17/18 09:50 Dose: 8.5 gm Simethicone (Mylicon) 80 mg GT Q8H PRN PRN PRN Reason: gas pains Sodium Chloride ([place] Nasal [place]) 3 spray NASAL BID [facility] Last Admin: 08/17/18 21:03 Dose: 3 spray Sodium Chloride () 5 - 15 ml IV UD PRN PRN Reason: SALINE FLUSH Last Admin: 08/17/18 17:50 Dose: 10 ml Medical Necessity - Tobacco Use Smoking Status: Never smoker Tobacco Use: Non-smoker Assessment/Plan All Active Problems Seizure (Acute) Cellulitis (Acute) Abscess (Acute) Sepsis (Acute) Respiratory failure (Acute) Aspiration pneumonia (Acute) Fever (Acute) Cough (Acute) Facial cellulitis (Resolved) Septic shock (Ruled-out) 1. Sepsis due to acute facial cellulitis and abscess * s/p I&D * wound cultured MRSA * wbc has trended down to 9.8 * on IV vancomycin * ENT on board * ID on board * 2. 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 Seizure disorder * on Keppra * 4. Hypertension: * controlled. * On metoprolol and prn hydralazine. 5. Chronic oropharyngeal dysphagia * history of recurrent aspirations. * has PEG tube in place for supplemental feeds * currently NPO * on Jevity feeds * nutrition on board. consulted * 6. Severe macroglossia * tongue swelling has improved. * on IV decadron. * soft tissue neck CT showed macroglossia * 7. 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 8. GERD: on PPI DVT prophylaxis: lovenox * Code Visit Inpatient E&M: 68283 Subs Hosp L3
[2018-08-18] MEDS: levETIRAcetam Oral Solution 500 MG/5 ML GT ×2 (09:46→21:04)
[2018-08-18] MEDS: Metoprolol Tartrate 25 MG Tablet GT (09:47)
[2018-08-18] MEDS: Enoxaparin 40 MG/0.4 ML Syringe SC (09:47)
[2018-08-18] MEDS: Polyethylene Glycol 3350 17 GM PACKET 8.5 GM GT (09:47)
[2018-08-18] MEDS: 0.9% NaCl Peripheral Flush Adult/Peds IV ×2 (09:48→12:00)
[2018-08-18] MEDS: Famotidine 20 MG Tablet GT ×2 (09:48→21:03)
[2018-08-18] MEDS: Sodium Chloride 0.65% 1 SPRAY SPRAY.BTL 3 SPRAY NASAL ×2 (09:48→21:05)
--- NOTE | 2018-08-18 10:01 | CASEMGMT ---
SW participated in ICU rounds, pt's father present. SW spoke w/pt and pt's father at the bedside. Pt's father again confirmed that pt will be able to return to the [facility] at discharge. SW inquired if he would like SW to call the [facility] to check in and make sure. Pt's father states that it will not be necessary. He states there is a nurse at the [facility], and she came to see pt yesterday, so she knows what is going on. SW let pt's father know if he needs any assist, SW is available. Pt's father states understanding. Pt's father states that at discharge, family will take pt back to the [facility]. HERMELINDO Martinez, FIRE PREVENTION SPECIALIST
[2018-08-18] MEDS: Jevity 1.5. 1,000 ML Bottle 237 ML GT ×4 (12:00→20:50)
[2018-08-18] MEDS: BACITRACIN 15 GM Tube 1 APPLIC TOPICAL ×2 (12:03→21:03)
--- NOTE | 2018-08-18 12:36 | PCM.PN.ID ---
Patient Problems: Active and Suspected Problems Cellulitis (Acute) Abscess (Acute) Sepsis (Acute) Respiratory failure (Acute) Subjective: Extubated, doing better, no fever, breathing well, chin improved. - Physical Exam General: No apparent distress Lungs: Clear to auscultation, Normal air movement Cardiovascular: Regular rate, Regular Rhythm Abdomen: Soft, Non Tender, Non-Distended Skin: Ulcer/ Wound - chin much improved inflammation Vital Signs Temp Pulse Resp BP Pulse Ox 98.3 F 78 14 106/55 L 98 08/18/18 12:00 08/18/18 12:00 08/18/18 12:00 08/18/18 12:00 08/18/18 12:00 Oxygen Flow Rate (L/min) [1 ( 15 Initial Baseline)] Oxygen Delivery Method [2] Ambu-Bag Oxygen Delivery Method [1 ( Non-Rebreather Initial Baseline)] Oxygen Delivery Method Room Air Weight: 55.1 kg Body Mass Index (BMI) 24.6 Intake and Output for Last 24 Hours 08/16/18 08/17/18 08/18/18 23:59 23:59 23:59 Intake Total 4921 / 4921 2201.4 / 2201.4 1215 / 1215 Output Total 3100 / 3100 2800 / 2800 2250 / 2250 Balance 1821 / 1821 -598.6 / -598.6 -1035 / -1035 Microbiology Past 72 Hours 08/15/18 18:45 Blood Culture - Preliminary Blood Culture (Wb) - Line Draw No growth in 48 hours. 08/15/18 18:55 Blood Culture - Preliminary Blood Culture (Wb) - Right Hand No growth in 48 hours. 08/16/18 01:35 Gram Stain - Final Sputum, Induced/Lukens Respiratory Culture - Preliminary Gram negative jolene Mixed [place] 08/15/18 14:40 Gram Stain - Final Wound - Face Wound Culture - Final Meth. resistant Staph. aureus Laboratory Tests Past 24 Hrs 08/18/18 08/18/18 04:20 04:20 WBC 9.4 RBC 4.24 L Hgb 13.6 Hct 41.1 MCV 96.9 H MCH 32.1 H MCHC 33.1 RDW 13.4 RDW Differential 47.2 H Plt Count 297 MPV 10.7 Immature Gran % (Auto) 0.300 Neut % (Auto) 76.1 H Lymph % (Auto) 15.4 L [place] % (Auto) 8.1 Eos % (Auto) 0.0 Baso % (Auto) 0.1 Absolute Neuts (auto) 7.1 Absolute Lymphs (auto) 1.45 Total Counted Not Reportable Sodium 139 Potassium 4.2 Chloride 102 Carbon Dioxide 25.0 Anion Gap 12 BUN 18 Creatinine 0.75 Estim Creat Clear Calc 117.87 Est GFR (MDRD) Af Amer 167 Est GFR (MDRD) Non-Af 138 BUN/Creatinine Ratio 24.1 H Glucose 112 H Calcium 8.7 POC Glucose 08/18/18 08/18/18 08/17/18 06:27 00:19 17:40 POC Glucose 109 126 H 134 H Medical Necessity - Tobacco Use Smoking Status: Never smoker Tobacco Use: Non-smoker Route of nutrition/ use of supplements: [] Nutritional Intake: [] IV Site: [] Diaz Catheter: [] - Assessment/Plan Antibiotics: [] Assessment/Plan: [] Active and Suspected Problems Cellulitis (Acute) Abscess (Acute) Sepsis (Acute) Respiratory failure (Acute) MRSA chin abscess - On vanc. Low suspicion for pneumonia this time. Now extubated, chin much improved. Will change vanc to linezolid via Jalbumube. Plan on stop date 08/25/18. Will follow
[2018-08-18] MEDS: Linezolid 600 MG Tablet GT ×2 (14:41→21:03)
[2018-08-18 17:01] LABS: Bedside Glucose 94 mg/dL (70-110)
[2018-08-18] MEDS: Insulin Lispro 100 UNIT/ML INSULN.PEN SC ×2 (17:34→23:29)
[2018-08-18 18:01] LABS: Bedside Glucose 163 mg/dL (70-110)
[2018-08-18] MEDS: QUEtiapine 25 MG Tablet GT (21:03)
[2018-08-18 23:40] LABS: Bedside Glucose 162 mg/dL (70-110)
[2018-08-19] VITALS (13 sets, daily range): BP systolic 91–122; BP diastolic 56–81; PULSE 59–94; RESP 11–17; TEMP 36.6–36.9; O2SAT 94–100
[2018-08-19 05:09] LABS: Absolute Lymphocyte Count 1.05 X10^3/ul (0.83-4.51); Absolute Neutrophil Count 5.5 X10^3/uL (2.0-7.7); Hematocrit 45.1 % (40-54); Hemoglobin 15.2 g/dl (13.0-16.5); Lymphocyte # 1.05 X10^3/ul (4.0); Lymphocyte % 14.8 % (19-41); Mean Corp Hgb Conc 33.7 g/gl (32-36); Mean Corpuscular Hgb 32.2 pg (27.0-32.0); Mean Corpuscular Volume 95.6 fL (80-94); Monocyte# 0.46 X10^3/uL; Monocyte% 6.5 % (0-10); Neutrophil % 77.6 % (47-70); Platelet Count 383 K/mm3 (150-450); RBC Distribution Width CV 13.2 % (11.6-14.6); RBC Distribution Width SD 45.8 fl (35.1-43.9); Red Blood Count 4.72 M/mm3 (4.6-6.2); White Blood Count 7.1 K/mm3 (4.4-11.0)
[2018-08-19] MEDS: BACITRACIN 15 GM Tube 1 APPLIC TOPICAL ×2 (05:13→13:00)
[2018-08-19 05:14] LABS: Anion Gap 12 (5-15); BUN 21 mg/dL (7-18); BUN/Creat Ratio 26.1 RATIO (10-20); Calcium,Total 8.9 mg/dL (8.5-10.1); Chloride 104 mmol/L (98-107); Creatinine, Serum 0.81 mg/dL (0.70-1.30); EST Glomerular Filtration Rate 126 mL/min (>60); Est Glom Filt Rate - Afr Amer 153 mL/min (>60); Estimated Creatinine Clearance 105.12 ml/min; Glucose 120 mg/dL (74-106); Sodium Level 141 mmol/L (136-145)
[2018-08-19] MEDS: CHLORHEXIDINE GLUC 2% CLOTH 1 EACH TOWELETTE TOPICAL (05:14)
[2018-08-19 05:21] LABS: Bedside Glucose 111 mg/dL (70-110)
[2018-08-19 05:50] LABS: POSITIVE COUNT NO; POSITIVE DIFFERENTIAL NO; POSITIVE MORPHOLOGY NO
[2018-08-19] MEDS: Bisacodyl 10 MG Suppository RECTAL (06:55)
--- NOTE | 2018-08-19 06:56 | PCM.PN.INT ---
Subjective: Patient successfully extubated yesterday. Patient did well throughout the evening. Patient is nonverbal, but has appeared comfortable per nursing. No stridor or dyspnea has been reported. No emesis has been reported. General: Alert, Oriented x3, No apparent distress, - - Downs appearance. Appears to be at baseline mental status, actively scanning the room. HEENT: Atraumatic, PERRLA, EOMI, Normocephalic Oral: Moist Mucosa, No Gingival or Mucosal Lesions/ Ulcerations, - - Intermittent tongue protrusion, but pharynx visible Neck: Supple, No JVD, No Nodes, Trachea Midline Lungs: Clear to auscultation, Normal air movement, No rhonchi, No wheeze, No rales Cardiovascular: Regular rate, Regular Rhythm, Normal S1, Normal S2, No murmurs, No rub noted, No Gallop Abdomen: Bowel Sounds Present, Soft, Non Tender, Non-Distended, - - Patrick button clean, dry and intact Extremities: No clubbing, No cyanosis, No edema, Capillary Refill Less than 3 Seconds Skin: - - Erythema at the chin appears to be improved Musculoskeletal: No Tenderness to Palpation of Joints or Extremities Lymphatic: No Cervical, Supraclavicular, or Inguinal Adenopathy Neurological: Cranial nerves II-XII grossly intact, Neuro grossly intact Psych/Mental Status: Flat Affect Vital Signs Temp Pulse Resp BP Pulse Ox 36.7 C 64 14 122/71 H 97 08/19/18 06:00 08/19/18 06:00 08/19/18 06:00 08/19/18 06:00 08/19/18 06:00 Oxygen Flow Rate (L/min) [1 ( 15 Initial Baseline)] Oxygen Delivery Method [2] Ambu-Bag Oxygen Delivery Method [1 ( Non-Rebreather Initial Baseline)] Oxygen Delivery Method Room Air Weight: 52.4 kg Body Mass Index (BMI) 24.6 Intake and Output for Last 24 Hours 08/17/18 08/18/18 08/19/18 23:59 23:59 23:59 Intake Total 2201.4 / 2201.4 2136 / 2136 397 / 397 Output Total 2800 / 2800 3200 / 3200 875 / 875 Balance -598.6 / -598.6 -1064 / -1064 -478 / -478 Labs (Last 48 Hours) 08/17/18 08/17/18 08/17/18 11:10 11:59 17:40 WBC RBC Hgb Hct MCV MCH MCHC RDW RDW Differential Plt Count MPV Immature Gran % (Auto) Neut % (Auto) Lymph % (Auto) Smith % (Auto) Eos % (Auto) Baso % (Auto) Absolute Neuts (auto) Absolute Lymphs (auto) Total Counted Sodium Potassium Chloride Carbon Dioxide Anion Gap BUN Creatinine Estim Creat Clear Calc Est GFR (MDRD) Af Amer Est GFR (MDRD) Non-Af BUN/Creatinine Ratio Glucose Calcium Vancomycin Trough 9.8 POC Glucose 219 H 134 H 08/18/18 08/18/18 08/18/18 00:19 04:20 04:20 WBC 9.4 RBC 4.24 L Hgb 13.6 Hct 41.1 MCV 96.9 H MCH 32.1 H MCHC 33.1 RDW 13.4 RDW Differential 47.2 H Plt Count 297 MPV 10.7 Immature Gran % (Auto) 0.300 Neut % (Auto) 76.1 H Lymph % (Auto) 15.4 L Smith % (Auto) 8.1 Eos % (Auto) 0.0 Baso % (Auto) 0.1 Absolute Neuts (auto) 7.1 Absolute Lymphs (auto) 1.45 Total Counted Not Reportable Sodium 139 Potassium 4.2 Chloride 102 Carbon Dioxide 25.0 Anion Gap 12 BUN 18 Creatinine 0.75 Estim Creat Clear Calc 117.87 Est GFR (MDRD) Af Amer 167 Est GFR (MDRD) Non-Af 138 BUN/Creatinine Ratio 24.1 H Glucose 112 H Calcium 8.7 Vancomycin Trough POC Glucose 126 H 08/18/18 08/18/18 08/18/18 06:27 11:58 17:32 WBC RBC Hgb Hct MCV MCH MCHC RDW RDW Differential Plt Count MPV Immature Gran % (Auto) Neut % (Auto) Lymph % (Auto) Smith % (Auto) Eos % (Auto) Baso % (Auto) Absolute Neuts (auto) Absolute Lymphs (auto) Total Counted Sodium Potassium Chloride Carbon Dioxide Anion Gap BUN Creatinine Estim Creat Clear Calc Est GFR (MDRD) Af Amer Est GFR (MDRD) Non-Af BUN/Creatinine Ratio Glucose Calcium Vancomycin Trough POC Glucose 109 94 163 H 08/18/18 08/19/18 08/19/18 23:27 04:40 04:40 WBC 7.1 RBC 4.72 Hgb 15.2 Hct 45.1 MCV 95.6 H MCH 32.2 H MCHC 33.7 RDW 13.2 RDW Differential 45.8 H Plt Count 383 MPV 11.0 Immature Gran % (Auto) 1.100 H Neut % (Auto) 77.6 H Lymph % (Auto) 14.8 L Smith % (Auto) 6.5 Eos % (Auto) 0.0 Baso % (Auto) 0.0 Absolute Neuts (auto) 5.5 Absolute Lymphs (auto) 1.05 Total Counted Not Reportable Sodium 141 Potassium 4.0 Chloride 104 Carbon Dioxide 25.0 Anion Gap 12 BUN 21 H Creatinine 0.81 Estim Creat Clear Calc 105.12 Est GFR (MDRD) Af Amer 153 Est GFR (MDRD) Non-Af 126 BUN/Creatinine Ratio 26.1 H Glucose 120 H Calcium 8.9 Vancomycin Trough POC Glucose 162 H 08/19/18 05:11 WBC RBC Hgb Hct MCV MCH MCHC RDW RDW Differential Plt Count MPV Immature Gran % (Auto) Neut % (Auto) Lymph % (Auto) Smith % (Auto) Eos % (Auto) Baso % (Auto) Absolute Neuts (auto) Absolute Lymphs (auto) Total Counted Sodium Potassium Chloride Carbon Dioxide Anion Gap BUN Creatinine Estim Creat Clear Calc Est GFR (MDRD) Af Amer Est GFR (MDRD) Non-Af BUN/Creatinine Ratio Glucose Calcium Vancomycin Trough POC Glucose 111 H Microbiology 08/15/18 18:45 Blood Culture (Wb) - Line Draw Blood Culture - Preliminary No growth in 48 hours. 08/15/18 18:55 Blood Culture (Wb) - Right Hand Blood Culture - Preliminary No growth in 48 hours. 08/16/18 01:35 Sputum, Induced/Lukens Gram Stain - Final 08/16/18 01:35 Sputum, Induced/Lukens Respiratory Culture - Preliminary Gram negative jolene Mixed Kaykay 08/15/18 14:40 Wound - Face Gram Stain - Final 08/15/18 14:40 Wound - Face Wound Culture - Final Meth. resistant Staph. aureus Clinical Impression(s) from Imaging Studies Soft Tissue Neck CT 08/18/18 06:48 IMPRESSION: Macroglossia. Electronically Signed: Diallo Gutierrez MD at 8:26 EST Tel [phone], Service support , Medical Necessity - Tobacco Use Smoking Status: Never smoker Tobacco Use: Non-smoker Assessment/Plan All Active Problems Seizure (Acute) Cellulitis (Acute) Abscess (Acute) Sepsis (Acute) Respiratory failure (Acute) Aspiration pneumonia (Acute) Fever (Acute) Cough (Acute) Facial cellulitis (Resolved) Septic shock (Ruled-out) RECOMMENDATIONS: 1. Okay to discontinue steroids from my perspective 2. Antibiotics per ID 3. Potential discharge versus transfer from the intensive care unit later today IMPRESSIONS: 1. Acute respiratory failure secondary to tongue swelling Patient extubated yesterday and has been doing well on room air. Tongue appears to be slightly large, but not outside of the range anticipated in patients with Down syndrome. Pharynx is fully visible at this time. 2. Severe sepsis secondary to chin MRSA cellulitis Patient appears to be tolerating cellulitis well. Infectious disease is following. Defer antibiotic course to infectious disease. 3. Recent new onset seizure Patient has not overly interactive, but does not appear to have seizure activity at this time. No seizure activity has been noted during hospitalization. Patient is on Keppra therapy. We will continue to monitor clinically. Ativan can be given if necessary. Patient is not requiring much propofol, if any, at this time. 4. Chronic constipation/oral pharyngeal dysphasia status post PEG/hypertension/MRDD/autism Complicates care, management, recovery and prognosis. Tube feeds per dietitian recommendation. Okay to continue with baseline regimen from my perspective Code Visit Inpatient E&M: 73719 Subs Hosp L2
[2018-08-19] MEDS: Metoprolol Tartrate 25 MG Tablet GT (09:21)
[2018-08-19] MEDS: Linezolid 600 MG Tablet GT (09:21)
[2018-08-19] MEDS: Jevity 1.5. 1,000 ML Bottle 237 ML GT ×2 (09:21→13:00)
[2018-08-19] MEDS: Famotidine 20 MG Tablet GT (09:21)
[2018-08-19] MEDS: levETIRAcetam Oral Solution 500 MG/5 ML GT (09:21)
[2018-08-19] MEDS: Polyethylene Glycol 3350 17 GM PACKET 8.5 GM GT (09:22)
[2018-08-19] MEDS: Enoxaparin 40 MG/0.4 ML Syringe SC (09:22)
[2018-08-19] MEDS: Sodium Chloride 0.65% 1 SPRAY SPRAY.BTL 3 SPRAY NASAL (09:23)
--- NOTE | 2018-08-19 09:50 | CASEMGMT ---
RN CM Note: pt to dc today on Zyvox. Call to preferred pharmacy ([facility] in [place]). [employer] will need prior authorization. Information given via phone, but form also needs to be completed. (Given to Dr. Rocha to sign and will fax back). Per medicaid rep- they have 24 hours to approve prior auth, but may be sooner. Nurse aware. Call to [facility] in [place] to ascertain pt was on Doxy 100 mg BID since 08/14/18- failed outpt treatment. Claudette STOVERN RN ACM
--- NOTE | 2018-08-19 09:59 | DCINST_ITS ---
- Discharge Diagnoses Current Active Problems: Current Active and Chronic Problems Cellulitis (Acute) Abscess (Acute) Sepsis (Acute) Respiratory failure (Acute) You will use the following diet at home:: Other - Jevity tube feeds via PEG tube Your liquids should be the consistency of: Regular/Thin Discharge Activity: Return to Normal Activity Weight Bearing Status: Weight bearing as tolerated Call your doctor if you observe: Shortness of breath Instructions: Abscess Drainage, Discharge Instructions for Cellulitis, ED Cellulitis Facial Allergies/Adverse Reactions: Allergies ceftriaxone sodium [From Rocephin] Allergy (Verified 05/19/18 17:17) Rash sulfamethoxazole [From Bactrim] Allergy (Verified 05/19/18 17:17) Rash trimethoprim [From Bactrim] Allergy (Verified 05/19/18 17:17) Rash cinnamon [Cinnamon] Adverse Reaction (Verified 05/19/18 17:17) Diarrhea tape/bandaids Adverse Reaction (Uncoded 05/19/18 21:53) Rash Medications to take at Discharge L.acidoph,Paracasei, B.lactis [Probiotic] 1 pack GT DAILY 07/19/15 Lansoprazole [Prevacid] 30 mg GT DAILY 07/19/15 Simethicone 40MG/0.6ML [Mylicon] 80 mg GT Q8H PRN PRN 07/19/15 Polyethylene Glycol 3350 [Miralax] 8.5 gm GT DAILY 06/11/17 Sodium Chloride [Saline Nasal Mist] 3 spray NASAL BID 06/11/17 Bisacodyl 10 mg RC UD PRN 05/19/18 Metoprolol Tartrate 25 mg GT BID 05/19/18 traZODone [Desyrel] 150 mg GT QHS 05/19/18 Lactose-Reduced Food/Fiber [Jevity 1.2 Jamarcus Liquid] 18 oz GT 4X/DAY 08/11/18 Levetiracetam [Keppra] 500 mg GT BID 30 Days #300 ml 08/12/18 Lorazepam Intensol [Ativan Intensol] 1 mg GT PRN PRN #1 bottle 08/12/18 Linezolid [Zyvox] 600 mg GT BID #14 tablet 08/19/18 The following prescriptions were given: Linezolid [Zyvox] 600 mg GT BID #14 tablet Primary Care Physician: Kadi,Adriel, DO [Primary Care Provider] - Please follow up with your Primary Care Physician in: one week Test Results: Test results from this visit will be discussed in further detail at your follow- up appointment, if applicable. Please Follow Up With: Saeid Cabrera MD When: 1-2 weeks Proposed Discharge Date: 08/19/18
--- NOTE | 2018-08-19 09:59 | DS.PCM_ITS ---
Discharge Date and Diagnosis - Problem List Patient Problems: Active and Suspected Problems Cellulitis (Acute) Abscess (Acute) Sepsis (Acute) Respiratory failure (Acute) Date of Admission: 08/15/18 Date of Discharge: 08/19/18 - Primary Discharge Diagnosis Active and Suspected Problems Cellulitis (Acute) Abscess (Acute) Sepsis (Acute) Respiratory failure (Acute) - Secondary Discharge Diagnosis Chronic Problems HTN (hypertension) (Chronic) Malnutrition (Chronic) Autism (Chronic) Dysphagia (Chronic) Down syndrome (Chronic) nonverbal incontinent Hospital Course and Treatment Imaging Results: Diagnostic Data Chest X-Ray 08/16/18 05:30 IMPRESSION: New infiltrate in the posterior medial segment of the left lower lobe. Electronically Signed: Diallo Gutierrez MD at 9:24 EST Tel [phone], Service support , Soft Tissue Neck CT 08/18/18 06:48 IMPRESSION: Macroglossia. Electronically Signed: Diallo Gutierrez MD at 8:26 EST Tel [phone], Service support , Consultations 08/15/18 16:52 Consult: Onc/Wound/business banking sales assistant Routine Comment: manager appointment- Dr Early Infectious disease- Dr Cabrera Operations: None Procedures: None Summary of Care Provided: The patient is a 23 year old M with past medical history which includes MRDD with Down syndrome and autism, recently diagnosed seizure disorder, GERD, chronic oropharyngeal dysphagia with PEG tube in place and hypertension. He was admitted with a complaint of large and swelling. He had noted a pimple under his chin which his mother tried to squeeze and also apply warm compresses. Swelling progressively increased and became red and edematous. He was also noted to have a fever. His PCP evaluated the patient the day prior to presentation and started him on doxycycline but symptoms did not improve so he was brought to the ED. In the ED, he was sedated for incision and drainage of the chin abscess. However after the I&D he required increased bagging and was eventually intubated for airway safety. Chest x-ray done showed questionable infiltrate of the right upper lobe. He was admitted and managed for sepsis due to facial cellulitis of the chin and also acute hypoxic respiratory failure from sedation and severe macroglossia. He was started on IV vancomycin and Zosyn. He was admitted to the ICU. Wound culture MRSA and so zosyn was stopped and he was continued on vancomycin. Patient initially failed spontaneous breathing trial and his macroglossia seem to have enlarged. He was therefore started on IV Decadron. He had a CT of the soft tissue of the neck which only showed severe macroglossia showed a patent airway. He was successfully extubated on 08/18/2018. Fever and leukocytosis resolved. He was transitioned to p.o. linezolid and was discharged home on 08/19/2018 with a prescription for p.o. linezolid with a stop date of 08/25/2018. ID and manager appointment were consulted during this admission. Patient seen and examined prior to discharge. He was alert and moving all limbs spontaneously. Unable to do review of systems as patient is nonverbal. Labs and vitals reviewed. Home medications reviewed and reconciled. o/e: Vital Signs Height 4 ft 11 in Weight: 115 lb 8.356 oz Weight in Pounds 115.5 lbs Pulse Ox 100 Temperature 98 F Pulse Rate [2] 136 Pulse Rate [1 (Initial 117 Baseline)] Pulse Rate 81 Respiratory Rate [2] 19 Respiratory Rate [1 (Initial 17 Baseline)] Respiratory Rate 17 Blood Pressure [BP] 91/63 Blood Pressure [2] 162/91 Blood Pressure [1 (Initial 120/66 Baseline)] Blood Pressure 117/76 Blood Pressure Position [BP] Semi-Fowlers Blood Pressure Position Semi-Fowlers [] General: Alert, moving all limbs spontaneously HEENT: Atraumatic, PERRLA, - -macroglossia has improved significantly. Abscess under his chin has improved. No visible drainage Oral: Moist Mucosa Neck: Supple, No JVD, Negative Carotid Bruits Lungs: Clear to auscultation, Normal air movement Cardiovascular: Regular rate, Regular Rhythm, Normal S1, Normal S2, No murmurs Abdomen: Bowel Sounds Present, Soft, Non Tender, Non-Distended, No Hepato- splenomegaly Extremities: No clubbing, No cyanosis, No edema, Capillary Refill Less than 3 Seconds Skin: No rashes Musculoskeletal: No Tenderness to Palpation of Joints or Extremities Lymphatic: No Cervical, Supraclavicular, or Inguinal Adenopathy Neurological: Cranial nerves II-XII grossly intact, Motor Exam 5/5 strength throughout, - - moves all limbs spontaneously. Psych/Mental Status: alert. He is to follow up with his PCP and infectious disease specialist Patient Problems: Active and Suspected Problems Cellulitis (Acute) Abscess (Acute) Sepsis (Acute) Respiratory failure (Acute) - Physical Exam Vital Signs Temp Pulse Resp BP Pulse Ox 98.2 F 82 15 105/81 H 98 08/19/18 08:00 08/19/18 09:21 08/19/18 08:00 08/19/18 08:00 08/19/18 08:00 Oxygen Flow Rate (L/min) [1 ( 15 Initial Baseline)] Oxygen Delivery Method [2] Ambu-Bag Oxygen Delivery Method [1 ( Non-Rebreather Initial Baseline)] Oxygen Delivery Method Room Air Weight: 115 lb 8.356 oz Body Mass Index (BMI) 24.6 Intake and Output for Last 24 Hours 08/17/18 08/18/18 08/19/18 23:59 23:59 23:59 Intake Total 2201.4 / 2201.4 2136 / 2136 714 / 714 Output Total 2800 / 2800 3200 / 3200 875 / 875 Balance -598.6 / -598.6 -1064 / -1064 -161 / -161 Microbiology Past 72 Hours 08/16/18 01:35 Gram Stain - Final Sputum, Induced/Lukens Respiratory Culture - Preliminary Proteus mirabilis Staphylococcus species 08/15/18 18:45 Blood Culture - Preliminary Blood Culture (Wb) - Line Draw No growth in 48 hours. 08/15/18 18:55 Blood Culture - Preliminary Blood Culture (Wb) - Right Hand No growth in 48 hours. 08/15/18 14:40 Gram Stain - Final Wound - Face Wound Culture - Final Meth. resistant Staph. aureus Laboratory Tests Past 24 Hrs 08/19/18 08/19/18 04:40 04:40 WBC 7.1 RBC 4.72 Hgb 15.2 Hct 45.1 MCV 95.6 H MCH 32.2 H MCHC 33.7 RDW 13.2 RDW Differential 45.8 H Plt Count 383 MPV 11.0 Immature Gran % (Auto) 1.100 H Neut % (Auto) 77.6 H Lymph % (Auto) 14.8 L Stone % (Auto) 6.5 Eos % (Auto) 0.0 Baso % (Auto) 0.0 Absolute Neuts (auto) 5.5 Absolute Lymphs (auto) 1.05 Total Counted Not Reportable Sodium 141 Potassium 4.0 Chloride 104 Carbon Dioxide 25.0 Anion Gap 12 BUN 21 H Creatinine 0.81 Estim Creat Clear Calc 105.12 Est GFR (MDRD) Af Amer 153 Est GFR (MDRD) Non-Af 126 BUN/Creatinine Ratio 26.1 H Glucose 120 H Calcium 8.9 POC Glucose 08/19/18 08/18/18 08/18/18 05:11 23:27 17:32 POC Glucose 111 H 162 H 163 H 08/18/18 11:58 POC Glucose 94 Discharge Diet: - - Jevity via PEG tube Discharge Activity: Return to Normal Activity Weight Bearing Status: Weight bearing as tolerated Call your doctor if you observe: Shortness of breath Home Medications: Medications to take at Discharge L.acidoph,Paracasei, B.lactis [Probiotic] 1 pack GT DAILY 07/19/15 Lansoprazole [Prevacid] 30 mg GT DAILY 07/19/15 Simethicone 40MG/0.6ML [Mylicon] 80 mg GT Q8H PRN PRN 07/19/15 Polyethylene Glycol 3350 [Miralax] 8.5 gm GT DAILY 06/11/17 Sodium Chloride [Saline Nasal Mist] 3 spray NASAL BID 06/11/17 Bisacodyl 10 mg RC UD PRN 05/19/18 Metoprolol Tartrate 25 mg GT BID 05/19/18 traZODone [Desyrel] 150 mg GT QHS 05/19/18 Lactose-Reduced Food/Fiber [Jevity 1.2 Jamarcus Liquid] 18 oz GT 4X/DAY 08/11/18 Levetiracetam [Keppra] 500 mg GT BID 30 Days #300 ml 08/12/18 Lorazepam Intensol [Ativan Intensol] 1 mg GT PRN PRN #1 bottle 08/12/18 Linezolid [Zyvox] 600 mg GT BID #14 tablet 08/19/18 Following Prescrptions Were Given to Patient: Linezolid [Zyvox] 600 mg GT BID #14 tablet Primary Care Physician: Adriel Wallis DO [Primary Care Provider] - Please follow up with your Primary Care Physician in: one week Please Follow Up With: Saeid Cabrera MD When: 1-2 weeks Patient Instructions: Abscess Drainage, Discharge Instructions for Cellulitis, ED Cellulitis Facial Disposition: longterm Minutes spent on discharge:: 40 Patient Condition:: Stable Medical Necessity - Tobacco Use Smoking Status: Never smoker Tobacco Use: Non-smoker Meaningful Use Info Meaningful Use Diagnoses (Choose all that apply): None applicable Code Visit Inpatient E&M: 86381 Disch Hosp
--- NOTE | 2018-08-19 10:16 | CASEMGMT ---
SW spoke w/pt's mother in the room. SW asked for the number to the RN at the residential so SW can check in, as pt is ready to return today. Pt's mother inquired as to what SW needs to speak w/RN about in regard to pt. SW explained wanted to let her know pt is returning, and get a fax number to send the discharge instructions. Pt's mother then called the nurse herself while SW in room, let her know pt is returning today and asked if they are ready for him to ready. It seems the RN indicated they are. Pt's mother did get the fax number, , and the nurse's name is Nia Álvarez. 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 SW spoke w/physician about this and return to work form completed. SW faxed discharge instructions along w/return to work form to the residential, gave the original to pt's mother. No further needs, pt's mother taking pt back to residential today. HERMELINDO Martinez, LINUX ADMIN ENGINEER
--- NOTE | 2018-08-19 10:41 | NURSING ---
report called to Mirtha NESS at [facility] 7752
--- NOTE | 2018-08-19 10:43 | PN.ID_ITS ---
Patient Problems: Active and Suspected Problems Cellulitis (Acute) Abscess (Acute) Sepsis (Acute) Respiratory failure (Acute) Subjective: Much improved, d/c home today, no fever - Physical Exam General: No apparent distress Lungs: Clear to auscultation, Normal air movement Cardiovascular: Regular rate, Regular Rhythm Abdomen: Soft, Non Tender, Non-Distended Skin: Ulcer/ Wound - chin much improved Vital Signs Temp Pulse Resp BP Pulse Ox 98.2 F 82 15 105/81 H 98 08/19/18 08:00 08/19/18 09:21 08/19/18 08:00 08/19/18 08:00 08/19/18 08:00 Oxygen Flow Rate (L/min) [1 ( 15 Initial Baseline)] Oxygen Delivery Method [2] Ambu-Bag Oxygen Delivery Method [1 ( Non-Rebreather Initial Baseline)] Oxygen Delivery Method Room Air Weight: 52.4 kg Body Mass Index (BMI) 24.6 Intake and Output for Last 24 Hours 08/17/18 08/18/18 08/19/18 23:59 23:59 23:59 Intake Total 2201.4 / 2201.4 2136 / 2136 714 / 714 Output Total 2800 / 2800 3200 / 3200 875 / 875 Balance -598.6 / -598.6 -1064 / -1064 -161 / -161 Microbiology Past 72 Hours 08/16/18 01:35 Gram Stain - Final Sputum, Induced/Lukens Respiratory Culture - Preliminary Proteus mirabilis Staphylococcus species 08/15/18 18:45 Blood Culture - Preliminary Blood Culture (Wb) - Line Draw No growth in 48 hours. 08/15/18 18:55 Blood Culture - Preliminary Blood Culture (Wb) - Right Hand No growth in 48 hours. 08/15/18 14:40 Gram Stain - Final Wound - Face Wound Culture - Final Meth. resistant Staph. aureus Laboratory Tests Past 24 Hrs 08/19/18 08/19/18 04:40 04:40 WBC 7.1 RBC 4.72 Hgb 15.2 Hct 45.1 MCV 95.6 H MCH 32.2 H MCHC 33.7 RDW 13.2 RDW Differential 45.8 H Plt Count 383 MPV 11.0 Immature Gran % (Auto) 1.100 H Neut % (Auto) 77.6 H Lymph % (Auto) 14.8 L [place] % (Auto) 6.5 Eos % (Auto) 0.0 Baso % (Auto) 0.0 Absolute Neuts (auto) 5.5 Absolute Lymphs (auto) 1.05 Total Counted Not Reportable Sodium 141 Potassium 4.0 Chloride 104 Carbon Dioxide 25.0 Anion Gap 12 BUN 21 H Creatinine 0.81 Estim Creat Clear Calc 105.12 Est GFR (MDRD) Af Amer 153 Est GFR (MDRD) Non-Af 126 BUN/Creatinine Ratio 26.1 H Glucose 120 H Calcium 8.9 POC Glucose 08/19/18 08/18/18 08/18/18 05:11 23:27 17:32 POC Glucose 111 H 162 H 163 H 08/18/18 11:58 POC Glucose 94 Medical Necessity - Tobacco Use Smoking Status: Never smoker Tobacco Use: Non-smoker Route of nutrition/ use of supplements: [] Nutritional Intake: [] IV Site: [] Diaz Catheter: [] - Assessment/Plan Antibiotics: [] Assessment/Plan: [] Active and Suspected Problems Cellulitis (Acute) Abscess (Acute) Sepsis (Acute) Respiratory failure (Acute) MRSA chin abscess - Now extubated, chin much improved. Continue linezolid via [place] Plan on stop date 08/25/18. Will follow, ok for d/c home
--- NOTE | 2018-08-19 14:45 | CASEMGMT ---
CAR CM Note: Called to Pt's pharmacy. Prior authorization has not been approved yet. Claudette DOUGLASS RN ACM
--- NOTE | 2018-08-20 08:45 | CASEMGMT ---
RN CM Note. called to medicaid pharmacy. Per Mayi, rep, more information is required. Further documentation for MRSA, doses of Linezolid given in hospital and Vancomycin given prior to Linezolid was faxed. Awaiting response. [facility] pharmacy: [facility]
--- NOTE | 2018-08-20 13:39 | CASEMGMT ---
CAR MOORE Note: Call to [facility]. Per Yajaira, claim is being processed. RN OSCAR asked if expedited review could be done as pt has returned home and this medication is needed. CAR MOORE was instructed to call back in an hour. Claudette DOUGLASS RN ACM
--- NOTE | 2018-08-20 14:39 | CASEMGMT ---
CAR MOORE Note: Zyvox was approved through Medicaid. Call to [facility] in [place] to notify. Staff told CAR MOORE that it was not available and would need ordered. CAR MOORE requested she look to see where it was available- stated @ [facility] in [facility]. -call to pt's mother to notify of above. Mother will contact nurse @ [facility] to let her know about prescription. Claudette DOUGLASS RN ACM
== END 2018-08-19 16:35 | disposition home or self-care (01) | DRG 871 ==
LOC: ED 13:57 → ICU 16:19
PROVIDERS: Internal Medicine Critical Care Medicine; Admitting Provider Family Medicine; Emergency Provider Emergency Medicine; Family Provider Family Medicine; PCP Family Medicine; Referring Provider Family Medicine; Visit Provider Student in an Organized Health Care Education/Training Program
DX: A41.9 Sepsis, unspecified organism (principal); J96.01 Acute respiratory failure with hypoxia; L02.01 Cutaneous abscess of face; L03.211 Cellulitis of face; F84.0 Autistic disorder; E44.0 Moderate protein-calorie malnutrition; B95.62 Methicillin resistant Staphylococcus aureus infection as the cause of diseases classified elsewhere; Q90.9 Down syndrome, unspecified; R13.12 Dysphagia, oropharyngeal phase; R32 Unspecified urinary incontinence; K14.8 Other diseases of tongue; G40.909 Epilepsy, unspecified, not intractable, without status epilepticus; R65.20 Severe sepsis without septic shock; K21.9 Gastro-esophageal reflux disease without esophagitis; Z93.1 Gastrostomy status; F79 Unspecified intellectual disabilities; K59.09 Other constipation; Z68.24 Body mass index [BMI] 24.0-24.9, adult; T88.59XA Other complications of anesthesia, initial encounter; T41.1X5A Adverse effect of intravenous anesthetics, initial encounter
CPT/HCPCS: 31500; 31720; 36600; 70491; 71045; 80048; 80202; 82803; 82962; 83605; 84439; 85025; 85027; 87040; 87070; 87077; 87186; 87205; 87640; 93005; 94002; 94003; 94660; 97162; 97165; 97530; 97802; 97803; 99152; 99285; J7030; J7050; Q9967; A4216; J2405

== ENCOUNTER → 2018-12-09 15:16 | Outpatient (CLI) | payer OTHER, MEDICAID, SELFPAY ==
[2018-08-15 17:47] VITALS: BMI 24.6
== END ==
PROVIDERS: Family Provider Family Medicine; PCP Family Medicine; Visit Provider Family Medicine
DX: J34.89 Other specified disorders of nose and nasal sinuses (principal)
CPT/HCPCS: 87070; 87077; 87186; 87205

== ENCOUNTER → 2019-04-22 15:53 | Outpatient (CLI) | payer OTHER, MEDICAID, SELFPAY ==
[2018-08-15 17:47] VITALS: BMI 24.6
== END ==
PROVIDERS: Family Provider Family Medicine; PCP Family Medicine; Referring Provider Otolaryngology Otolaryngology/Facial Plastic Surgery; Visit Provider Otolaryngology Otolaryngology/Facial Plastic Surgery
DX: J32.9 Chronic sinusitis, unspecified (principal); Z86.14 Personal history of Methicillin resistant Staphylococcus aureus infection
CPT/HCPCS: 87070; 87077; 87186; 87205

== ENCOUNTER 2019-06-06 16:44 | Outpatient (RCR) | payer OTHER, MEDICAID, SELFPAY ==
[2018-08-15 17:47] VITALS: BMI 24.6
== END 2019-06-09 23:59 ==
LOC: NS 16:44
PROVIDERS: Family Provider Family Medicine; PCP Family Medicine; Visit Provider Family Medicine
DX: Z71.3 Dietary counseling and surveillance (principal); Z93.1 Gastrostomy status; Q90.9 Down syndrome, unspecified; F84.0 Autistic disorder
CPT/HCPCS: 97802

== ENCOUNTER 2019-07-25 16:35 | Outpatient (RCR) | payer OTHER, MEDICAID, SELFPAY ==
[2018-08-15 17:47] VITALS: BMI 24.6
== END 2019-07-25 23:59 | disposition home or self-care (01) ==
LOC: NS 16:35
PROVIDERS: Family Provider Family Medicine; PCP Family Medicine; Visit Provider Family Medicine
DX: Z71.3 Dietary counseling and surveillance (principal); Z93.1 Gastrostomy status; Q90.9 Down syndrome, unspecified; F84.0 Autistic disorder
CPT/HCPCS: 97803

== ENCOUNTER 2020-02-04 10:05 | Inpatient (IN) | payer OTHER, MEDICAID, SELFPAY ==
[2018-08-15 17:47] VITALS: BMI 24.6
[2020-02-04] VITALS (19 sets, daily range): BP systolic 76–152; BP diastolic 47–115; PULSE 107–140; RESP 14–21; TEMP 36.6–37.7; O2SAT 95–99; BMI 21.1; BMI 22.6; BMI 22.7
--- NOTE | 2020-02-04 10:14 | ED.RN ---
father with pt, pt from [facility]. father does not have any idea about pt's sx.
--- NOTE | 2020-02-04 10:28 | EKG12_ITS ---
Test Reason : Blood Pressure : / mmHG Vent. Rate : 112 BPM Atrial Rate : 112 BPM P-R Int : 136 ms QRS Dur : 082 ms QT Int : 312 ms P-R-T Axes : 038 060 036 degrees QTc Int : 425 ms Sinus tachycardia Confirmed by SRAVANTHI OLIVIER, SHANTE ([id number]), science editor SENIA WAYNE ([id number]) on 02/15/2020 10:21:02 AM Referred By: AMANDEEP/ABI Confirmed By:SHANTE FISHMAN MD
--- NOTE | 2020-02-04 10:28 | RAD_ITS ---
STUDY: X-RAY CHEST REASON FOR EXAM: Male, 24 years old. COUGH TECHNIQUE: Frontal view COMPARISON: August 16, 2018. FINDINGS: The lungs are expanded. Right lower lobe infiltrate is noted. Normal size heart. Normal mediastinum and edgardo. Normal visualized pulmonary arteries. Normal visualized aortic arch and descending thoracic aorta. Normal visualized thoracic spine. Normal visualized ribs, clavicles, and shoulders. There is no demonstrated abnormality of the visualized soft tissue structures of the upper abdomen. RAD/Chest 1 View (Portable) IMPRESSION: Right lower lobe infiltrate. Electronically Signed: Dante Dover DO at 11:45 EDT Tel [phone], Service support ,
--- NOTE | 2020-02-04 10:38 | ED.DCSUM_ITS ---
History of Present Illness Informant: Patient, Family, SNF Limited by: - - patient has down syndrome and is autistic Onset: Today Context: Gradual Onset Timing: Continuous Quality: fever Current Severity: Severe Maximum Severity: Severe Worsened by: nothing Relieved by: nothing Associated Symptoms: cough Narrative: 24-year-old male with a history of Down syndrome and autism presents from a alf with a fever that started this morning. Fever was 101.3 ?F. He was given Tylenol. Temperature is 99.3 ?F orally on arrival. Unable to obtain history from the patient his father is provided the most history. He had a negative coronavirus test last week. There is been no cases of coronavirus at the alf. Patient overall is been doing well until fever developed today. No recent illnesses or hospitalizations. The rest of the history is limited. Prior similar symptoms: Yes Recent Illness/Hospitalization: No <Allan Mo - Last Filed: 02/04/20 13:29> <Lauren Barajas - Last Filed: 02/04/20 23:45> Chief Complaint: Fever Past Medical History Prior records reviewed: Yes Past Medical History: - - Autism and Down syndrome Surgical History: no surgical history, - - PEG tube. [facility] - - [facility] Smoking Status: Never smoker Alcohol: None Drugs: None - Family History Paternal Family History: Reports: - - No marked maternal or paternal family history including HTN, DM, CA. Maternal Family History: Reports: - - No marked maternal or paternal family history including HTN, DM, CA. <Allan Mo - Last Filed: 02/04/20 13:29> <Lauren Barajas - Last Filed: 02/04/20 23:45> - Allergies and Home Meds Allergies/Adverse Reactions: Allergies ceftriaxone sodium [From Rocephin] Allergy (Verified 02/04/20 10:06) Rash sulfamethoxazole [From Bactrim] Allergy (Verified 02/04/20 10:06) Rash trimethoprim [From Bactrim] Allergy (Verified 02/04/20 10:06) Rash cinnamon [Cinnamon] Adverse Reaction (Verified 02/04/20 10:06) Diarrhea tape/bandaids Adverse Reaction (Uncoded 02/04/20 10:06) Rash Review of Systems ROS: Unable to Obtain - Secondary to autism and Down syndrome <Allan Mo - Last Filed: 02/04/20 13:29> Physical Exam Vital Signs/Narrative: Vital Signs Temp Pulse Resp BP Pulse Ox 02/04/20 10:07 99.2 F H 133 H 19 H 85/51 L 96 Inital Vital Signs reviewed: Yes General: Well nourished, Well developed, No Acute Distress Head: Normocephalic, Atraumatic Eyes: Perrl, EOMI ENT: Moist mucous membranes, No rhinorrhea Neck: Supple, Nontender Cardiovascular: Regular rhythm, No murmurs, Tachycardia Respiratory: No distress, CTA bilaterally, Chest nontender Abdomen: Soft, Nontender, Nondistended, Normal bowel sounds Back: Nontender, Normal Inspection Extremities: Nontender, No edema Skin: Normal color, No rash Neurological: Alert - Patient is alert to himself, there are no acute focal neurological deficits noted Psychological: Normal affect, Normal Mood <Allan Mo - Last Filed: 02/04/20 13:29> Diagnostic/Tx/Re-eval Chest X-Ray - ED: 2 View, Read by ED Physician, Read by Radiologist, Right Infiltrate - Rhythm Strip Rhythm Strip: Sinus Tach Rate: 111 Ectopy: None - Medical Decision Making On arrival patient was hypotensive and tachycardic with reported fever. Sepsis work-up was pursued. He was given Toradol for his fever and the appropriate IV fluid bolus based off of his weight. He had been given Tylenol earlier this morning. Patient's laboratory work-up was remarkable for a white blood cell count of 15. His lactate is elevated at 2.3. Chest x-ray shows a right lower lobe pneumonia. Urinalysis unremarkable. Patient meets criteria for severe sepsis. Due to his antibiotic allergies he was treated for healthcare associated pneumonia with vancomycin and Levaquin. Repeat blood pressure is 100/57. Heart rate is improved from 140 bpm to 110 bpm. He remains on room air. He is clinically stable. I spoke with the hospitalist Dr. Herrera, will admit for further treatment and evaluation. <Allan Mo - Last Filed: 02/04/20 13:29> - Medical Decision Making I have personally performed a face to face assessment and have reviewed the MEDICAL RECORDS FIELD TECHNICIAN/PA note. My anderson findings include: 24 year old male presents from alf with febrile illness. Vitals improved with IV fluids. Chest xray shows right sided infiltrate. Discussed with hospitalist for admission for severe sepsis. <Lauren Barajas - Last Filed: 02/04/20 23:45> ED Disposition <Allan Mo - Last Filed: 02/04/20 13:29> <Lauren Barajas - Last Filed: 02/04/20 23:45> - Plan for ED Patient: Disposition: Acute Care Hospital [facility] Diagnosis: Severe sepsis, HCAP (healthcare-associated pneumonia), Autism, Down syndrome
[2020-02-04] MEDS: 0.9% Normal Saline 1,000 ML 999 ML IV ×2 (12:23→13:19)
[2020-02-04 12:27] LABS: Bacteria 0 SEEN /hpf (None Seen); Mucous, Urine 0 SEEN /hpf (<or=2+); Red Blood Cells-Urine 0 SEEN /hpf (0-5); Squamous Epithelial Cells - UA 0 SEEN /hpf (0-5)
[2020-02-04 12:31] LABS: Color, Urine Yellow (Yellow); Glucose, Dipstick Normal (Normal); Ketone-Dipstick Negative (Negative); Leukocyte Esterase-Dipstick Negative /ul (Negative); Nitrite-Dipstick Negative (Negative); Occult Blood-Urine Negative /ul (Negative); Protein-Dipstick Negative (Negative); Specific Gravity, Urine 1.015 (1.002-1.030); Urine Bilirubin Dipstick Negative (Negative); Urine Clarity Clear (Clear); Urine Urobilinogen Normal (Normal)
[2020-02-04 12:33] LABS: Absolute Lymphocyte Count 0.58 X10^3/uL (0.83-4.51); Absolute Neutrophil Count 13.4 X10^3/uL (2.0-7.7); Basophil# 0.07 X10^3/uL; Basophil% 0.5 % (0-1); Eosinophil# 0.05 X10^3/uL; Eosinophils% 0.3 % (0-5); Hematocrit 44.7 % (40-54); Lymphocyte # 0.58 X10^3/ul (4.0); Lymphocyte % 3.8 % (19-41); Mean Corp Hgb Conc 33.6 g/dL (32-36); Mean Corpuscular Hgb 33.7 pg (27.0-32.0); Mean Corpuscular Volume 100.4 fL (80-94); Mean Platelet Vol. 10.6 fl (6.2-12.0); Monocyte# 1.12 X10^3/uL; Monocyte% 7.3 % (0-10); NRBC Flagged by Analyzer 0 % (0-5); Neutrophil # 13.38 X10^3/uL (2.7-7.7); Neutrophil % 87.4 % (47-70); POSITIVE DIFFERENTIAL YES; POSITIVE MORPHOLOGY YES; Platelet Count 175 K/mm3 (150-450); RBC Distribution Width CV 12.5 % (11.6-14.6); RBC Distribution Width SD 46.2 fl (35.1-43.9); Red Blood Count 4.45 M/mm3 (4.6-6.2); White Blood Count 15.3 K/mm3 (4.4-11.0)
[2020-02-04 12:37] LABS: White Blood Cells 0-5 SEEN /hpf (0-5)
[2020-02-04 12:39] LABS: Differential Indicated SCAN CRITERIA MET
[2020-02-04 12:41] LABS: International Normalized Ratio 1.3; Partial Thromboplast Time 29.5 Seconds (24.1-36.2); Prothrombin Time (Protime)PT. 15.3 SECONDS (11.7-14.9)
[2020-02-04 12:46] LABS: ALB/GLOB Ratio 0.7 RATIO (0.9-2.4); AST(SGOT) 17 U/L (15-37); Alanine Aminotransfer ALT/SGPT 30 U/L (16-61); Albumin, Serum 3.2 g/dL (3.2-5.0); Alkaline Phosphatase 99 U/L (45-117); Anion Gap 7 (5-15); BUN 18 mg/dL (7-18); Calcium,Total 8.4 mg/dL (8.5-10.1); Chloride 106 mmol/L (98-107); EST Glomerular Filtration Rate 97 mL/min (>60); Est Glom Filt Rate - Afr Amer 118 mL/min (>60); Estimated Creatinine Clearance 79.11 ml/min; Globulin 4.3 g/dL (2.2-4.2); Glucose 150 mg/dL (74-106); Potassium 3.8 mmol/L (3.5-5.1); Protein, Total 7.5 g/dL (6.4-8.2); Sodium Level 139 mmol/L (136-145)
[2020-02-04 12:50] LABS: Lactic Acid 2.2 mmol/L (0.4-1.9)
[2020-02-04 13:03] LABS: Differential Comment SCANNED
[2020-02-04] MEDS: levoFLOXacin IV 750 MG/150 ML BAG 100 MG IV (13:10)
--- NOTE | 2020-02-04 15:04 | PCM.HP.STD ---
Problem List (1) Severe sepsis Status: Acute (2) Seizure Status: Chronic (3) HTN (hypertension) Status: Chronic Qualifiers: Hypertension type: essential hypertension Qualified Code(s): I10 - Essential (primary) hypertension (4) Malnutrition Status: Chronic Qualifiers: Malnutrition type: protein-calorie malnutrition Protein-calorie malnutrition severity: moderate Qualified Code(s): E44.0 - Moderate protein-calorie malnutrition (5) Cellulitis Status: Acute Qualifiers: Site of cellulitis: face Qualified Code(s): L03.211 - Cellulitis of face (6) Facial cellulitis Status: Inactive (7) Autism Status: Chronic (8) Dysphagia Status: Chronic Qualifiers: Dysphagia type: oropharyngeal phase Qualified Code(s): R13.12 - Dysphagia, oropharyngeal phase (9) Down syndrome Status: Chronic Comment: nonverbal incontinent (10) Aspiration pneumonia Status: Acute History of Present Illness Date of Admission: 02/04/20 Chief Complaint: Fever with cough The patient is a 24 year old M with history of Down syndrome, nonverbal/noncommunicative, [facility] was [facility] to ER from [facility] for high fever 102.6 Fahrenheit with cough for couple weeks and sputum. As per father, he was not short of shortness of breath but his heart rate was also high. When I saw the patient, patient not tachypneic, pulse ox 96% on room air and does not seem objectively short of breath. Blood pressure was low 85/51 which improved 100/57, heart rate 100/min. Chest x-ray independently reviewed and it is rotated but shows right lower lobe infiltrate. Patient is on tube feed. Was tested COVID PCR negative about a week ago in [facility].. Other chronic features small size body, protruding tongue there are features of Down syndrome. EKG sinus tachycardia 112 bpm, QTC 425 ms. Patient was started on vancomycin and Levaquin in ED and on second liter of IV fluid normal saline bolus. Past Medical History Past Medical History (Chronic Problems): Chronic Problems Seizure (Chronic) HTN (hypertension) (Chronic) Malnutrition (Chronic) Autism (Chronic) Dysphagia (Chronic) Down syndrome (Chronic) nonverbal incontinent Allergies ceftriaxone sodium [From Rocephin] Allergy (Verified 02/04/20 10:06) Rash sulfamethoxazole [From Bactrim] Allergy (Verified 02/04/20 10:06) Rash trimethoprim [From Bactrim] Allergy (Verified 02/04/20 10:06) Rash cinnamon [Cinnamon] Adverse Reaction (Verified 02/04/20 10:06) Diarrhea tape/bandaids Adverse Reaction (Uncoded 02/04/20 10:06) Rash Home Medications: Ambulatory Orders Medication Instructions Recorded L.acidoph,Paracasei, B.lactis 1 pack GT DAILY 07/19/15 [Probiotic] Lansoprazole [Prevacid] 30 mg GT DAILY 07/19/15 Simethicone 40MG/0.6ML [Mylicon] 80 mg GT Q8H PRN PRN 07/19/15 Polyethylene Glycol 3350 [Miralax] 8.5 gm GT DAILY 06/11/17 Sodium Chloride [Saline Nasal Mist] 3 spray NASAL BID 06/11/17 Bisacodyl 10 mg RC UD PRN 05/19/18 Metoprolol Tartrate 12.5 mg GT BID 05/19/18 traZODone [Desyrel] 150 mg GT QHS 05/19/18 Lactose-Reduced Food/Fiber [Jevity 18 oz GT 4X/DAY 08/11/18 1.2 Jamarcus Liquid] Lorazepam Intensol [Ativan 1 mg GT PRN PRN #1 bottle 08/12/18 Intensol] levETIRAcetam oral solution 500 mg GT BID 02/04/20 [Keppra Solution] Surgical History: no surgical history, - - PEG tube. Psychiatric History: Anxiety Lives: - - [facility] Smoking Status: Never smoker Alcohol: None Drugs: None - *Family History Paternal History Items: - - No marked maternal or paternal family history including HTN, DM, CA. Maternal History Items: - - No marked maternal or paternal family history including HTN, DM, CA. Review of Systems Unable to obtain accurate/complete ROS d/t: Patient is Down syndrome/MRDD; noncommunicative/nonverbal VTE Information - Inpt Only VTE Present on Admission: No VTE Mechan Device Prophylaxis: None VTE Pharm Prophylaxis ordered?: Yes Patient Problems: Active and Suspected Problems Severe sepsis (Acute) Aspiration pneumonia (Acute) - Physical Exam Vitals/I&O's: Vital Signs Temp Pulse Resp BP Pulse Ox 97.8 F 110 H 18 100/57 L 95 02/04/20 13:55 02/04/20 13:55 02/04/20 13:55 02/04/20 13:55 02/04/20 13:55 Oxygen Delivery Method Room Air Weight: 108 lb 3.951 oz Body Mass Index (BMI) 21.1 Intake and Output for Last 24 Hours 02/02/20 02/03/20 02/04/20 23:59 23:59 23:59 Intake Total 1000 / 1000 Balance 1000 / 1000 General: Alert, Cooperative, - - Seems on baseline mental status HEENT: Atraumatic, PERRLA, EOMI, Normocephalic Oral: - - Protruding tongue. Neck: Supple, No JVD, Negative Carotid Bruits Lungs: No rhonchi, No wheeze, No rales, Diminished - Air entry diminished on bilateral lung bases. Cardiovascular: Regular Rhythm, Normal S1, Normal S2, No murmurs, Tachycardic Abdomen: Bowel Sounds Present, Soft, Non Tender, Non-Distended Extremities: No edema, Capillary Refill Less than 3 Seconds Skin: No rashes, No breakdown Musculoskeletal: No Tenderness to Palpation of Joints or Extremities Neurological: Cranial nerves II-XII grossly intact, - - Noncommunicative, nonverbal. MRDD. Small head size and circumference. Psych/Mental Status: Normal Affect, Appropriate Laboratory Results 02/04/20 11:15: COVID-19 (CRALY) Pending 02/04/20 11:15: COVID-19 (CARLY) Pending 02/04/20 12:10: WBC 15.3 H, RBC 4.45 L, Hgb 15.0, Hct 44.7, MCV 100.4 H, MCH 33.7 H, MCHC 33.6, RDW Std Deviation 46.2 H, RDW Coeff of Asher 12.5, Plt Count 175, MPV 10.6, Immature Gran % (Auto) 0.700, Neut % (Auto) 87.4 H, Lymph % (Auto) 3.8 L, Elmore % (Auto) 7.3, Eos % (Auto) 0.3, Baso % (Auto) 0.5, Absolute Neuts (auto) 13.4 H, Absolute Lymphs (auto) 0.58 L, Nucleated RBC % 0, Differential Comment SCANNED 02/04/20 12:10: PT 15.3 H, INR 1.3, APTT 29.5 02/04/20 12:10: Sodium 139, Potassium 3.8, Chloride 106, Carbon Dioxide 26.0, Anion Gap 7, BUN 18, Creatinine 1.00, Estim Creat Clear Calc 79.11, Est GFR (MDRD) Af Amer 118, Est GFR (MDRD) Non-Af 97, BUN/Creatinine Ratio 18.0, Glucose 150 H, Calcium 8.4 L, Total Bilirubin 0.30, AST 17, ALT 30, Alkaline Phosphatase 99, Total Protein 7.5, Albumin 3.2, Globulin 4.3 H, Albumin/Globulin Ratio 0.7 L 02/04/20 12:10: Lactic Acid 2.2 H* 02/04/20 12:19: Urine Color Yellow, Urine Clarity Clear, Urine pH 8.0, Ur Specific Ucon 1.015, Urine Protein Negative, Urine Glucose (UA) Normal, Urine Ketones Negative, Urine Occult Blood Negative, Urine Nitrite Negative, Urine Bilirubin Negative, Urine Urobilinogen Normal, Ur Leukocyte Esterase Negative, Urine RBC 0 SEEN, Urine WBC 0-5 SEEN, Ur Squamous Epith Cells 0 SEEN, Urine Bacteria 0 SEEN, Urine Mucus 0 SEEN Current Medications Sodium Chloride () 250 mls @ 15 mls/hr IV .[id number] PRN PRN Reason: Saline Flush Sodium Chloride () 250 mls @ 15 mls/hr IV .[id number] PRN PRN Reason: Additional IVPB Infusion Sodium Chloride () 10 - 40 ml IV UD PRN PRN Reason: SALINE FLUSH Assessment/Plan All Active Problems Severe sepsis (Acute) Aspiration pneumonia (Acute) Cellulitis (Acute) The patient is a 24 year old M with history of Down syndrome, nonverbal/noncommunicative, [facility] was [facility] to ER from [facility] for high fever 102.6 Fahrenheit with cough for couple weeks and sputum. Chest x-ray independently reviewed and it is rotated but shows right lower lobe infiltrate. Patient is on tube feed. Was tested COVID PCR negative about a week ago in [facility].. 1. Severe sepsis (tachycardia, leukocytosis, lactic acidosis 2.2) secondary to aspiration pneumonia/healthcare setting pneumonia: Patient is being admitted in ICU. IV fluid normal saline 30 mils per KG bolus and then 100 mils per hour. Started on IV vancomycin, Levaquin and Flagyl. Pneumonia work-up ordered including COVID-19 PCR. Urinary antigens, respiratory panel and blood culture and sputum culture ordered. SARS-2 serology ordered. Apparatus Lineman consult. Inflammatory markers including d-dimer, procalcitonin, CPK, CRP, fibrinogen ordered. Apparatus Lineman and ID consult requested. 2. Down syndrome/MRDD/oropharyngeal dysphagia/autism: Hold patient tube feed. Medications can be given through the tube feed. 3. Moderate protein calorie malnutrition: Patient BMI is 22.7. Body weight 52 kg 4. Hypertension, seizure disorder: Home medication reconciliation done. 5. DVT prophylaxis: Lovenox 30 mg subcu twice daily. Discontinue if platelet count drops less than 50,000 or hemoglobin less than 8 g% Total time of the visit including total time spent in counseling or coordination of care, (more than 50% of the total time, spent in obtaining medical information from nurses and other ancillary care providers), discussion with father regarding history, exam findings and plan of management, review of labs and imaging is 45 minutes Living will/advanced directive/end of life care: Discussed with the patient's father. patient does not have living will or advanced directive. After discussion of procedures involved with full code, DNR CC arrest and DNR CC, the patient's father opted for full code but he wants to avoid intubation until the last resort. He is good with artificial life support including intubation, tube feed, ventilator and/chest compression, central venous catheter, vasopressor and DC shock if needed Full code. Total time spent in [id number] encounter in discussion of advanced directive 16 minutes. Inpatient E&M: [id number] Init Hosp L3
--- NOTE | 2020-02-04 15:34 | PCM.RX.CS ---
Consult Pharmacy has been consulted to manage selected antiobiotic: Vancomycin Type of Consult: New start Labs: Sodium 139 mmol/L (136-145) 02/04/20 12:10 Potassium 3.8 mmol/L (3.5-5.1) 02/04/20 12:10 Chloride 106 mmol/L (98-107) 02/04/20 12:10 Carbon Dioxide 26.0 mmol/L (21.0-32.0) 02/04/20 12:10 Anion Gap 7 (5-15) 02/04/20 12:10 BUN 18 mg/dL (7-18) 02/04/20 12:10 Creatinine 1.00 mg/dL (0.70-1.30) 02/04/20 12:10 Est GFR (MDRD) Af Amer 118 mL/min (>60) 02/04/20 12:10 Est GFR (MDRD) Non-Af 97 mL/min (>60) 02/04/20 12:10 BUN/Creatinine Ratio 18.0 RATIO (10-20) 02/04/20 12:10 Glucose 150 mg/dL (74-106) H 02/04/20 12:10 Microbiology: 52kg Weight used for dosin kg Estimated Creatinine Clearance: 80 Goal Trough: 15-20 mcg/mL Pharmacy Plan for Drug Dosing: Initial vanc dose sub-optimal. 1000mg IV q12h now per policy, shorten time to next dose by approx 25% to make up for initial dose being too low. Trough prior to 4th dose. Pharmacy Service will continue to monitor and adjust dosing as required. Follow-Up Labs: Trough Vancomycin - 02/05 @ 1030
--- NOTE | 2020-02-04 15:37 | NURSING ---
pt is MRDD and autistic mother or father will be at bedside for his care.
[2020-02-04 15:56] LABS: Fibrinogen 533 mg/dl (203-444)
[2020-02-04 15:58] LABS: Magnesium 2.3 mg/dL (1.6-2.6)
[2020-02-04 16:11] LABS: D-Dimer Quantitative (DVT/PE) 0.94 FEU/ug/m (0.27-0.49)
[2020-02-04 16:12] LABS: CPK Total, Creatine Kinase 52 U/L (39-308)
[2020-02-04 16:25] LABS: Reflex Lactate? Y
[2020-02-04 16:48] LABS: BNP,B-Type NATRIURETIC PEPTIDE 24.7 pg/mL (0-100)
[2020-02-04] MEDS: Lactated Ringers 1,000 ML 100 ML IV (17:42)
[2020-02-04] MEDS: metroNIDAZOLE 500 MG/100 ML BAG 100 MG IV ×2 (17:42→21:40)
[2020-02-04 18:26] LABS: M R Staph aureus DNA By PCR Negative (Negative); Probe Check PASS; Specimen Processing Control PASS
[2020-02-04 18:31] LABS: Bedside Glucose 97 mg/dL (70-110)
[2020-02-04] MEDS: Ipratropium/Albuterol Sulfate 3 ML AMPUL.NEB INHALATION (20:05)
[2020-02-04] MEDS: Enoxaparin 30 MG/0.3 ML Syringe SC (21:40)
[2020-02-04] MEDS: Sodium Chloride 0.65% 1 SPRAY SPRAY.BTL 3 SPRAY NASAL (21:40)
[2020-02-04] MEDS: traZODone 100 MG Tablet GT (22:45)
[2020-02-04] MEDS: levETIRAcetam Oral Solution 500 MG/5 ML GT (22:45)
[2020-02-04] MEDS: Vancomycin IV 1,000 MG/200 ML BAG 200 MG IV (23:55)
[2020-02-05] VITALS (37 sets, daily range): BP systolic 65–111; BP diastolic 41–86; PULSE 81–129; RESP 12–27; TEMP 36.6–37.7; O2SAT 92–100; BMI 22.4
[2020-02-05 01:06] LABS: Bedside Glucose 100 mg/dL (70-110)
[2020-02-05] MEDS: Ipratropium/Albuterol Sulfate 3 ML AMPUL.NEB INHALATION ×4 (01:12→19:23)
[2020-02-05] MEDS: metroNIDAZOLE 500 MG/100 ML BAG 100 MG IV (05:22)
[2020-02-05 06:26] LABS: Bedside Glucose 82 mg/dL (70-110)
[2020-02-05 06:44] LABS: Absolute Lymphocyte Count 1.06 X10^3/uL (0.83-4.51); Absolute Neutrophil Count 12.1 X10^3/uL (2.0-7.7); Basophil# 0.09 X10^3/uL; Basophil% 0.6 % (0-1); Eosinophil# 0.06 X10^3/uL; Eosinophils% 0.4 % (0-5); Hematocrit 41.8 % (40-54); Hemoglobin 14.1 g/dL (13.0-16.5); Lymphocyte # 1.06 X10^3/ul (4.0); Lymphocyte % 7.3 % (19-41); Mean Corp Hgb Conc 33.7 g/dL (32-36); Mean Corpuscular Volume 100.7 fL (80-94); Mean Platelet Vol. 10.3 fl (6.2-12.0); Monocyte# 1.05 X10^3/uL; Monocyte% 7.3 % (0-10); NRBC Flagged by Analyzer 0 % (0-5); Neutrophil # 12.14 X10^3/uL (2.7-7.7); Neutrophil % 84.1 % (47-70); Platelet Count 150 K/mm3 (150-450); RBC Distribution Width CV 12.5 % (11.6-14.6); RBC Distribution Width SD 46.9 fl (35.1-43.9); Red Blood Count 4.15 M/mm3 (4.6-6.2); White Blood Count 14.5 K/mm3 (4.4-11.0)
[2020-02-05 07:10] LABS: Anion Gap 6 (5-15); BUN 9 mg/dL (7-18); BUN/Creat Ratio 12.3 RATIO (10-20); Calcium,Total 8.5 mg/dL (8.5-10.1); Chloride 108 mmol/L (98-107); Creatinine, Serum 0.73 mg/dL (0.70-1.30); EST Glomerular Filtration Rate 139 mL/min (>60); Est Glom Filt Rate - Afr Amer 168 mL/min (>60); Estimated Creatinine Clearance 110.35 ml/min; Glucose 97 mg/dL (74-106); Potassium 3.6 mmol/L (3.5-5.1); Sodium Level 140 mmol/L (136-145)
[2020-02-05 07:38] LABS: Procalcitonin 1.19 ng/mL (0.00-0.09)
--- NOTE | 2020-02-05 08:00 | PCM.PN.HOSP ---
Patient Problems: Active and Suspected Problems Severe sepsis (Acute) Aspiration pneumonia (Suspected) Reason for Visit: Severe sepsis with pneumonia Objective: Patient had no high-grade fever but sinus tachycardia. T-max 100 Fahrenheit. Blood pressure, map more than 65. Had transient hypotension about midnight but patient recovered; did not require vasopressor. On physical exam General: Alert, Cooperative, Seems on baseline mental status/MRDD HEENT: Atraumatic, PERRLA, EOMI, Normocephalic Oral: Protruding tongue. Neck: Supple, No JVD, Negative Carotid Bruits Lungs: No rhonchi, No wheeze, No rales, Air entry diminished on bilateral lung bases. Cardiovascular: Regular Rhythm, Normal S1, Normal S2, No murmurs, Tachycardic Abdomen: Bowel Sounds Present, Soft, Non Tender, Non-Distended Extremities: No edema, Capillary Refill Less than 3 Seconds Skin: No rashes, No breakdown Musculoskeletal: No Tenderness to Palpation of Joints or Extremities Neurological: Noncommunicative, nonverbal. MRDD. Features of Down syndrome with small head size, low-set ears and head circumference. Psych/Mental Status: Normal Affect, Appropriate Vitals/I&O's: Vital Signs Temp Pulse Resp BP Pulse Ox 97.8 F 106 H 17 111/86 H 100 02/05/20 05:27 02/05/20 07:37 02/05/20 06:00 02/05/20 06:00 02/05/20 06:00 Oxygen Delivery Method Room Air Weight: 114 lb 10.246 oz Body Mass Index (BMI) 22.6 Intake and Output for Last 24 Hours 02/03/20 02/04/20 02/05/20 23:59 23:59 23:59 Intake Total 3156.67 / 3156.67 620 / 620 Output Total 0 / 0 0 / 0 Balance 3156.67 / 3156.67 620 / 620 Microbiology Past 72 Hours 02/04/20 17:20 Mucosa - Nasopharyngeal Respiratory Panel (PCR) - Final 02/04/20 12:19 Urine Catheter - Catheter Legionella Antigen - Final 02/04/20 12:19 Urine Catheter - Catheter Streptococcus pneumoniae Antigen (M - Final Laboratory Results 02/04/20 11:15: COVID-19 (CARLY) Pending 02/04/20 11:15: COVID-19 (CARLY) Pending 02/04/20 12:10: WBC 15.3 H, RBC 4.45 L, Hgb 15.0, Hct 44.7, MCV 100.4 H, MCH 33.7 H, MCHC 33.6, RDW Std Deviation 46.2 H, RDW Coeff of Asher 12.5, Plt Count 175, MPV 10.6, Immature Gran % (Auto) 0.700, Neut % (Auto) 87.4 H, Lymph % (Auto) 3.8 L, [place] % (Auto) 7.3, Eos % (Auto) 0.3, Baso % (Auto) 0.5, Absolute Neuts (auto) 13.4 H, Absolute Lymphs (auto) 0.58 L, Nucleated RBC % 0, Differential Comment SCANNED 02/04/20 12:10: PT 15.3 H, INR 1.3, APTT 29.5 02/04/20 12:10: Sodium 139, Potassium 3.8, Chloride 106, Carbon Dioxide 26.0, Anion Gap 7, BUN 18, Creatinine 1.00, Estim Creat Clear Calc 79.11, Est GFR (MDRD) Af Amer 118, Est GFR (MDRD) Non-Af 97, BUN/Creatinine Ratio 18.0, Glucose 150 H, Calcium 8.4 L, Total Bilirubin 0.30, AST 17, ALT 30, Alkaline Phosphatase 99, Total Protein 7.5, Albumin 3.2, Globulin 4.3 H, Albumin/Globulin Ratio 0.7 L 02/04/20 12:10: Lactic Acid 2.2 H* 02/04/20 12:10: Magnesium 2.3, C-React Prot Ext Range 148.00 H 02/04/20 12:10: B-Natriuretic Peptide 24.7 02/04/20 12:10: Total Creatine Kinase 52, Troponin I < 0.015 02/04/20 12:10: Fibrinogen 533 H, D-Dimer Quant (PE/DVT) 0.94 H* 02/04/20 12:19: Urine Color Yellow, Urine Clarity Clear, Urine pH 8.0, Ur Specific [place] 1.015, Urine Protein Negative, Urine Glucose (UA) Normal, Urine Ketones Negative, Urine Occult Blood Negative, Urine Nitrite Negative, Urine Bilirubin Negative, Urine Urobilinogen Normal, Ur Leukocyte Esterase Negative, Urine RBC 0 SEEN, Urine WBC 0-5 SEEN, Ur Squamous Epith Cells 0 SEEN, Urine Bacteria 0 SEEN, Urine Mucus 0 SEEN 02/04/20 15:40: MRSA (PCR) Negative 02/04/20 16:17: Procalcitonin Cancelled, SARS Serology Cancelled 02/04/20 16:17: Procalcitonin 1.19 H 02/04/20 16:17: SARS Serology Pending 02/04/20 17:30: Lactic Acid 3.0 H* 02/04/20 18:02: POC Glucose 97 02/05/20 00:04: POC Glucose 100 02/05/20 05:25: POC Glucose 82 02/05/20 06:35: WBC 14.5 H, RBC 4.15 L, Hgb 14.1, Hct 41.8, MCV 100.7 H, MCH 34.0 H, MCHC 33.7, RDW Std Deviation 46.9 H, RDW Coeff of Asher 12.5, Plt Count 150, MPV 10.3, Immature Gran % (Auto) 0.300, Neut % (Auto) 84.1 H, Lymph % (Auto) 7.3 L, [place] % (Auto) 7.3, Eos % (Auto) 0.4, Baso % (Auto) 0.6, Absolute Neuts (auto) 12.1 H, Absolute Lymphs (auto) 1.06, Nucleated RBC % 0 02/05/20 06:35: Sodium 140, Potassium 3.6, Chloride 108 H, Carbon Dioxide 26.0, Anion Gap 6, BUN 9, Creatinine 0.73, Estim Creat Clear Calc 110.35, Est GFR (MDRD) Af Amer 168, Est GFR (MDRD) Non-Af 139, BUN/Creatinine Ratio 12.3, Glucose 97, Calcium 8.5, TSH 3.50 Current Medications Acetaminophen (Tylenol) 650 mg RECTAL Q4H PRN PRN PRN Reason: Pain Score 1-10/Temp > 100.7 F Albuterol Sulfate (Ventolin Aerosols) 2.5 mg INHALATION Q2H PRN PRN PRN Reason: SOB/Wheezing Albuterol/Ipratropium (Duoneb) 3 ml INHALATION Q6H.RT JOSE LUIS Last Admin: 02/05/20 06:53 Dose: 3 ml Documented by: Bisacodyl (Dulcolax) 10 mg RECTAL DAILY PRN PRN PRN Reason: Constipation Dextrose (D50w Syringe) 0 gm IV X1 PRN; Protocol PRN Reason: Hypoglycemia Enoxaparin Sodium (Lovenox) 30 mg SC BID [facility] Last Admin: 02/04/20 21:40 Dose: 30 mg Documented by: Glucagon () 1 mg IM .X1 PRN PRN Reason: Hypoglycemia Sodium Chloride () 250 mls @ 15 mls/hr IV .[id number] PRN PRN Reason: Saline Flush Sodium Chloride () 250 mls @ 15 mls/hr IV .[id number] PRN PRN Reason: Additional IVPB Infusion Lactated Ringer's () 1,000 mls @ 100 mls/hr IV .Q10H [facility] Last Infusion: 02/05/20 05:22 Dose: 0 mls/hr Documented by: Vancomycin IV Pharmacy to Dose (1 ea/ Sodium Chloride) 500 mls @ 250 mls/hr IV PRN PRN; Protocol Metronidazole (Flagyl) 500 mg in 100 mls @ 100 mls/hr IV Q8 [facility] Last Admin: 02/05/20 05:22 Dose: 100 mls/hr Documented by: Levofloxacin (Levaquin Iv) 500 mg in 100 mls @ 100 mls/hr IV Q24 JOSE LUIS Vancomycin HCl (Vancomycin) 1,000 mg in 200 mls @ 200 mls/hr IV Q12H [facility] Last Infusion: 02/05/20 01:10 Dose: Infused Documented by: Norepinephrine Bitartrate 8 mg (/ Sodium Chloride) 250 mls @ 9.375 mls/hr CONT INF .[id number] [facility]; Protocol Last Admin: 02/05/20 07:31 Dose: Not Given Documented by: Insulin Human Lispro (Humalog Kwikpen (Bkc)) 0 unit SC Q6 [facility]; Protocol Last Admin: 02/05/20 05:26 Dose: Not Given Documented by: Lansoprazole (Lansoprazole) 30 mg NG DAILY [facility] Levetiracetam (Keppra Oral Solution) 500 mg GT BID [facility] Last Admin: 02/04/20 22:45 Dose: 500 mg Documented by: Lorazepam (Ativan Intensol) 1 mg GT PRN PRN PRN Reason: Seizure Morphine Sulfate () 2 mg IV Q3H PRN PRN PRN Reason: Pain Score 4-10/10 Polyethylene Glycol (Miralax) 8.5 gm GT DAILY [facility] Prochlorperazine Edisylate (Compazine Iv) 5 mg IV Q4H PRN PRN PRN Reason: Breakthrough Nausea/Vomiting Simethicone (Mylicon) 80 mg GT Q8H PRN PRN PRN Reason: gas pains Sodium Chloride () 10 - 40 ml IV UD PRN PRN Reason: SALINE FLUSH Sodium Chloride ([place] Nasal [place]) 3 spray NASAL BID [facility] Last Admin: 02/04/20 21:40 Dose: 1 applicatio Documented by: Trazodone HCl (Desyrel) 100 mg GT QHS [facility] Last Admin: 02/04/20 22:45 Dose: 100 mg Documented by: STROKE Vital Signs/Narrative: Vital Signs Temp Pulse Resp BP Pulse Ox 02/05/20 07:37 106 H 02/05/20 06:00 118 H 17 111/86 H 100 02/05/20 05:27 97.8 F 102 H 12 97/60 97 Medical Necessity - Tobacco Use Smoking Status: Never smoker Assessment/Plan All Active Problems Severe sepsis (Acute) Cellulitis (Acute) The patient is a 24 year old M with history of Down syndrome, nonverbal/noncommunicative, [facility] resident was sent to ER from sn[facility] for high fever 102.6 Fahrenheit with cough for couple weeks and sputum. Chest x-ray independently reviewed and it is rotated but shows right lower lobe infiltrate. Patient is on tube feed. Was tested COVID PCR negative about a week ago in snf.. 1. Severe sepsis (tachycardia, leukocytosis, lactic acidosis 2.2) secondary to aspiration pneumonia/healthcare setting pneumonia: Patient is being admitted in ICU. IV fluid normal saline 30 mils per KG bolus and then 100 mils per hour. Started on IV vancomycin, Levaquin and Flagyl. Pneumonia work-up ordered including COVID-19 PCR. Urinary antigens, respiratory panel and blood culture and sputum culture ordered. SARS-2 serology ordered. 02/04: Preliminary urine culture shows beta Streptococcus less than 1000 colonies. Urinary antigens are negative. Respiratory panel negative. Blood culture x2 are pending. CRP elevated. BNP, total CK are normal. D-dimer 0.94. Procalcitonin elevated 1.19 but not more than 2 which is more likely due to progression to septic shock. Discussed with apron trimmer. Blood pressure 100/76. 2. Down syndrome/MRDD/oropharyngeal dysphagia/autism: Hold patient tube feed. Medications can be given through the tube. 3. Moderate protein calorie malnutrition: Patient BMI is 22.7. Body weight 52 kg. Seen by security dispatcher. 4. Hypertension, seizure disorder: Home medication reconciliation done. 5. DVT prophylaxis: Lovenox 30 mg subcu twice daily. Discontinue if platelet count drops less than 50,000 or hemoglobin less than 8 g% Total time of the visit including total time spent in counseling or coordination of care, (more than 50% of the total time, spent in obtaining medical information from nurses and other ancillary care providers), discussion with father regarding history, exam findings and plan of management, review of labs and imaging is 30 minutes Living will/advanced directive/end of life care: Discussed with the patient's father. patient does not have living will or advanced directive. After discussion of procedures involved with full code, DNR CC arrest and DNR CC, the patient's father opted for full code but he wants to avoid intubation until the last resort. He is good with artificial life support including intubation, tube feed, ventilator and/chest compression, central venous catheter, vasopressor and DC shock if needed Full code. Inpatient E&M: [id number] [facility] L3
[2020-02-05] MEDS: Enoxaparin 30 MG/0.3 ML Syringe SC ×2 (08:01→22:00)
[2020-02-05] MEDS: levETIRAcetam Oral Solution 500 MG/5 ML GT ×2 (08:03→22:00)
[2020-02-05] MEDS: Lactated Ringers 1,000 ML 100 ML IV ×2 (08:04→22:05)
[2020-02-05] MEDS: levoFLOXacin IV 500 MG/100 ML BAG 100 MG IV (08:05)
[2020-02-05] MEDS: Lansoprazole 15 MG Capsule.DR 30 MG NG (08:07)
[2020-02-05] MEDS: Polyethylene Glycol 3350 17 GM PACKET 8.5 GM GT (08:07)
[2020-02-05] MEDS: Sodium Chloride 0.65% 1 SPRAY SPRAY.BTL 3 SPRAY NASAL ×2 (08:16→22:20)
--- NOTE | 2020-02-05 10:11 | CON.PCM_ITS ---
Problem List (1) Severe sepsis Status: Acute (2) Aspiration pneumonia Status: Suspected Qualifiers: Aspiration pneumonia type: unspecified Laterality: right Lung location: lower lobe of lung Qualified Code(s): J69.0 - Pneumonitis due to inhalation of food and vomit (3) Seizure Status: Chronic (4) HTN (hypertension) Status: Chronic Qualifiers: Hypertension type: essential hypertension Qualified Code(s): I10 - Essential (primary) hypertension (5) Autism Status: Chronic (6) Dysphagia Status: Chronic Qualifiers: Dysphagia type: oropharyngeal phase Qualified Code(s): R13.12 - Dysphagia, oropharyngeal phase (7) Down syndrome Status: Chronic Comment: nonverbal incontinent Reason for Consult Date of Consultation: 02/05/20 Reason for Consultation: Severe sepsis History of Present Illness: The patient is a 24 year old M with past medical history listed below, who presented was [facility] on 02/04/2020 from a [facility] secondary to fever. Patient was reportedly given Tylenol prior to presentation. Patient reportedly had been tested a week prior and had a negative coronavirus test and there is been no cases of COVID-19 in the [facility]. Patient reportedly was at his baseline until developing fever. Patient had not had any recent illnesses or hospitalizations. History was significantly limited. Did discuss with the mother at the bedside and she stated there was no report of any emesis or bowel issues prior to presentation. In the ER, patient was noted to be hypotensive and tachycardic. Patient was given a 30 cc/kg fluid bolus and Tylenol. Lactate was elevated at 2.3 and chest x-ray had shown a right lower lobe pneumonia. Patient's heart rate did improve following the blood pressure improvement with fluid bolus. Patient has remained on room air. On arrival to the intensive care unit, patient's blood pressure was marginal. Patient was again given a fluid bolus with improvement and Levophed did not have to be initiated. Patient's parents have been at the bedside during his hospitalization. On my discussion with the mother this morning, she feels that he is somewhat improved compared to before. Patient is not able to provide any review of systems. Patient's parents do not care for him at baseline, but do report that they are in conversation with the [facility] frequently. Unable to obtain a full review of systems. Past Medical History Past Medical History (Chronic Problems): Chronic Problems Seizure (Chronic) HTN (hypertension) (Chronic) Malnutrition (Chronic) Autism (Chronic) Dysphagia (Chronic) Down syndrome (Chronic) nonverbal incontinent Allergies ceftriaxone sodium [From Rocephin] Allergy (Verified 02/04/20 10:06) Rash sulfamethoxazole [From Bactrim] Allergy (Verified 02/04/20 10:06) Rash trimethoprim [From Bactrim] Allergy (Verified 02/04/20 10:06) Rash cinnamon [Cinnamon] Adverse Reaction (Verified 02/04/20 10:06) Diarrhea tape/bandaids Adverse Reaction (Uncoded 02/04/20 10:06) Rash Home Medications: Ambulatory Orders Medication Instructions Recorded L.acidoph,Paracasei, B.lactis 1 pack GT DAILY 07/19/15 [Probiotic] Lansoprazole [Prevacid] 30 mg GT DAILY 07/19/15 Simethicone 40MG/0.6ML [Mylicon] 80 mg GT Q8H PRN PRN 07/19/15 Polyethylene Glycol 3350 [Miralax] 8.5 gm GT DAILY 06/11/17 Sodium Chloride [Saline Nasal Mist] 3 spray NASAL BID 06/11/17 Bisacodyl 10 mg RC UD PRN 05/19/18 Metoprolol Tartrate 12.5 mg GT BID 05/19/18 traZODone [Desyrel] 150 mg GT QHS 05/19/18 Lactose-Reduced Food/Fiber [Jevity 18 oz GT 4X/DAY 08/11/18 1.2 Jamarcus Liquid] Lorazepam Intensol [Ativan 1 mg GT PRN PRN #1 bottle 08/12/18 Intensol] levETIRAcetam oral solution 500 mg GT BID 02/04/20 [Keppra Solution] Surgical History: no surgical history, - - PEG tube. Psychiatric History: Anxiety Lives: - - half-way Smoking Status: Never smoker Alcohol: None Drugs: None - *Family History Paternal History Items: - - No marked maternal or paternal family history including HTN, DM, CA. Maternal History Items: - - No marked maternal or paternal family history including HTN, DM, CA. Review of Systems Unable to obtain accurate/complete ROS d/t: Patient baseline status Patient Problems: Active and Suspected Problems Severe sepsis (Acute) Aspiration pneumonia (Suspected) Objective: Chest x-ray was personally reviewed and shows a significant right lower lobe infiltrate. - Physical Exam Vitals/I&O's: Vital Signs Temp Pulse Resp BP Pulse Ox 37.6 C H 98 19 H 91/41 L 98 02/05/20 07:59 02/05/20 09:00 02/05/20 09:00 02/05/20 09:00 02/05/20 07:59 Oxygen Delivery Method Room Air Weight: 52 kg Body Mass Index (BMI) 22.6 Intake and Output for Last 24 Hours 02/03/20 02/04/20 02/05/20 23:59 23:59 23:59 Intake Total 3156.67 / 3156.67 820 / 820 Output Total 0 / 0 0 / 0 Balance 3156.67 / 3156.67 820 / 820 General: Alert, Confused, Disoriented, Non-Cooperative, - - Down's features. Macroglossia noted. HEENT: PERRLA, EOMI, - - Microcephaly appreciated. Oral: Moist Mucosa, No Gingival or Mucosal Lesions/ Ulcerations Neck: Supple, No JVD, No Nodes, Trachea Midline Lungs: No wheeze, No rales, Rhonchi - Right base, - - Symmetric expansion Cardiovascular: Normal S1, Normal S2, No murmurs, No rub noted, No Gallop, Tachycardic Abdomen: Bowel Sounds Present, Soft, Non Tender, Non-Distended, - - Patrick button is clean, dry and intact Extremities: No cyanosis, No edema Skin: No rashes, No breakdown Musculoskeletal: No Tenderness to Palpation of Joints or Extremities Lymphatic: No Cervical, Supraclavicular, or Inguinal Adenopathy Neurological: - - Spontaneous movement of all extremities. Sensation appears to be intact. No facial droop appreciated. Psych/Mental Status: Anxious, Restless Microbiology Past 72 Hours 02/04/20 12:19 Urine Catheter - Catheter Urine Culture - Preliminary Beta streptococcus 02/04/20 17:20 Mucosa - Nasopharyngeal Respiratory Panel (PCR) - Final 02/04/20 12:19 Urine Catheter - Catheter Legionella Antigen - Final 02/04/20 12:19 Urine Catheter - Catheter Streptococcus pneumoniae Antigen (M - Final Laboratory Results 02/04/20 11:15: COVID-19 (CARLY) Pending 02/04/20 11:15: COVID-19 (CARLY) Pending 02/04/20 12:10: WBC 15.3 H, RBC 4.45 L, Hgb 15.0, Hct 44.7, MCV 100.4 H, MCH 33.7 H, MCHC 33.6, RDW Std Deviation 46.2 H, RDW Coeff of Asher 12.5, Plt Count 175, MPV 10.6, Immature Gran % (Auto) 0.700, Neut % (Auto) 87.4 H, Lymph % (Auto) 3.8 L, [place] % (Auto) 7.3, Eos % (Auto) 0.3, Baso % (Auto) 0.5, Absolute Neuts (auto) 13.4 H, Absolute Lymphs (auto) 0.58 L, Nucleated RBC % 0, Differential Comment SCANNED 02/04/20 12:10: PT 15.3 H, INR 1.3, APTT 29.5 02/04/20 12:10: Sodium 139, Potassium 3.8, Chloride 106, Carbon Dioxide 26.0, Anion Gap 7, BUN 18, Creatinine 1.00, Estim Creat Clear Calc 79.11, Est GFR (MDRD) Af Amer 118, Est GFR (MDRD) Non-Af 97, BUN/Creatinine Ratio 18.0, Glucose 150 H, Calcium 8.4 L, Total Bilirubin 0.30, AST 17, ALT 30, Alkaline Phosphatase 99, Total Protein 7.5, Albumin 3.2, Globulin 4.3 H, Albumin/Globulin Ratio 0.7 L 02/04/20 12:10: Lactic Acid 2.2 H* 02/04/20 12:10: Magnesium 2.3, C-React Prot Ext Range 148.00 H 02/04/20 12:10: B-Natriuretic Peptide 24.7 02/04/20 12:10: Total Creatine Kinase 52, Troponin I < 0.015 02/04/20 12:10: Fibrinogen 533 H, D-Dimer Quant (PE/DVT) 0.94 H* 02/04/20 12:19: Urine Color Yellow, Urine Clarity Clear, Urine pH 8.0, Ur Specific [place] 1.015, Urine Protein Negative, Urine Glucose (UA) Normal, Urine Ketones Negative, Urine Occult Blood Negative, Urine Nitrite Negative, Urine Bilirubin Negative, Urine Urobilinogen Normal, Ur Leukocyte Esterase Negative, Urine RBC 0 SEEN, Urine WBC 0-5 SEEN, Ur Squamous Epith Cells 0 SEEN, Urine Bacteria 0 SEEN, Urine Mucus 0 SEEN 02/04/20 15:40: MRSA (PCR) Negative 02/04/20 16:17: Procalcitonin Cancelled, SARS Serology Cancelled 02/04/20 16:17: Procalcitonin 1.19 H 02/04/20 16:17: SARS Serology Pending 02/04/20 17:30: Lactic Acid 3.0 H* 02/04/20 18:02: POC Glucose 97 02/05/20 00:04: POC Glucose 100 02/05/20 05:25: POC Glucose 82 02/05/20 06:35: WBC 14.5 H, RBC 4.15 L, Hgb 14.1, Hct 41.8, MCV 100.7 H, MCH 34. 0 H, MCHC 33.7, RDW Std Deviation 46.9 H, RDW Coeff of Asher 12.5, Plt Count 150, MPV 10.3, Immature Gran % (Auto) 0.300, Neut % (Auto) 84.1 H, Lymph % (Auto) 7.3 L, [place] % (Auto) 7.3, Eos % (Auto) 0.4, Baso % (Auto) 0.6, Absolute Neuts (auto) 12.1 H, Absolute Lymphs (auto) 1.06, Nucleated RBC % 0 02/05/20 06:35: Sodium 140, Potassium 3.6, Chloride 108 H, Carbon Dioxide 26.0, Anion Gap 6, BUN 9, Creatinine 0.73, Estim Creat Clear Calc 110.35, Est GFR (MDRD) Af Amer 168, Est GFR (MDRD) Non-Af 139, BUN/Creatinine Ratio 12.3, Glucose 97, Calcium 8.5, TSH 3.50 Current Medications Acetaminophen (Tylenol) 650 mg RECTAL Q4H PRN PRN PRN Reason: Pain Score 1-10/Temp > 100.7 F Albuterol Sulfate (Ventolin Aerosols) 2.5 mg INHALATION Q2H PRN PRN PRN Reason: SOB/Wheezing Albuterol/Ipratropium (Duoneb) 3 ml INHALATION Q6H.RT JOSE LUIS Last Admin: 02/05/20 06:53 Dose: 3 ml Documented by: Bisacodyl (Dulcolax) 10 mg RECTAL DAILY PRN PRN PRN Reason: Constipation Dextrose (D50w Syringe) 0 gm IV X1 PRN; Protocol PRN Reason: Hypoglycemia Enoxaparin Sodium (Lovenox) 30 mg SC BID [facility] Last Admin: 02/05/20 08:01 Dose: 30 mg Documented by: Glucagon () 1 mg IM .X1 PRN PRN Reason: Hypoglycemia Sodium Chloride () 250 mls @ 15 mls/hr IV .[id number] PRN PRN Reason: Saline Flush Sodium Chloride () 250 mls @ 15 mls/hr IV .[id number] PRN PRN Reason: Additional IVPB Infusion Lactated Ringer's () 1,000 mls @ 100 mls/hr IV .Q10H [facility] Last Admin: 02/05/20 08:04 Dose: 100 mls/hr Documented by: Levofloxacin (Levaquin Iv) 500 mg in 100 mls @ 100 mls/hr IV Q24 [facility] Last Infusion: 02/05/20 09:48 Dose: Infused Documented by: Lactated Ringer's () 1,000 mls @ 999 mls/hr IV .Q1H1M [facility] Stop: 02/05/20 11:15 Insulin Human Lispro (Humalog Kwikpen (Bkc)) 0 unit SC Q6 [facility]; Protocol Last Admin: 02/05/20 05:26 Dose: Not Given Documented by: Lansoprazole (Lansoprazole) 30 mg NG DAILY [facility] Last Admin: 02/05/20 08:07 Dose: 30 mg Documented by: Levetiracetam (Keppra Oral Solution) 500 mg GT BID [facility] Last Admin: 02/05/20 08:03 Dose: 500 mg Documented by: Lorazepam (Ativan) 1 mg IV Q4H PRN PRN PRN Reason: SEIZURES Polyethylene Glycol (Miralax) 8.5 gm GT DAILY [facility] Last Admin: 02/05/20 08:07 Dose: 8.5 gm Documented by: Prochlorperazine Edisylate (Compazine Iv) 5 mg IV Q4H PRN PRN PRN Reason: Breakthrough Nausea/Vomiting Simethicone (Mylicon) 80 mg GT Q8H PRN PRN PRN Reason: gas pains Sodium Chloride () 10 - 40 ml IV UD PRN PRN Reason: SALINE FLUSH Sodium Chloride ([place] Nasal [place]) 3 spray NASAL BID [facility] Last Admin: 02/05/20 08:16 Dose: 3 applicatio Documented by: Trazodone HCl (Desyrel) 100 mg GT QHS [facility] Last Admin: 02/04/20 22:45 Dose: 100 mg Documented by: Clinical Impression(s) from Imaging Studies Chest X-Ray 02/04/20 10:28 IMPRESSION: Right lower lobe infiltrate. Electronically Signed: Dante Dover DO at 11:45 EDT Tel [phone], Service support , Assessment/Plan Active and Suspected Problems Severe sepsis (Acute) Aspiration pneumonia (Suspected) RECOMMENDATIONS: 1. Continue antibiotics 2. Fluid boluses as necessary for hypotension 3. Symptomatic therapy for fever 4. Discontinue COVID precautions once testing is negative IMPRESSIONS: 1. Severe sepsis secondary to possible aspiration versus healthcare associated pneumonia Patient has received multiple boluses, but appears to be responding at this time. Patient is currently on IV vancomycin and Levaquin. Right lower lobe pneumonia is suggestive of an aspiration event, but no emesis or p.o. intake has been reported. Low clinical suspicion for COVID-19, but test is currently pending. Cannot exclude the need for a need of pressor therapy, but will discontinue Levophed until necessary. 2. Down syndrome/MRDD/dysphasia/autism/moderate protein calorie maln utrition/hypertension/seizure disorder Complicates care, management, recovery and prognosis. Family is requesting full CODE STATUS. Patient should be continued on baseline seizure medications. Dietitian will see for tube feed recommendations. Hold hypertensive medications. Family at the bedside to help with agitation issues. Family understands and accepts risk for COVID while being in the hospital. Inpatient E&M: [id number] [facility] L3
--- NOTE | 2020-02-05 10:18 | PCM.NTREPORT ---
Nutrition Therapy Report - History Nutrition Services has been consulted to:: Manage enteral nutrition Current diet / nutrition support order:: NPO-PEG, NO FEEDING PER ORDERS - Anthropometric Measurements Height:: 5 ft Weight:: 52 kg Body Mass Index (BMI):: 22.4 - Relevant Labs Relevant Labs:: WBC 14.5 K/mm3 (4.4-11.0) H 02/05/20 06:35 RBC 4.15 M/mm3 (4.6-6.2) L 02/05/20 06:35 MCV 100.7 fL (80-94) H 02/05/20 06:35 MCH 34.0 pg (27.0-32.0) H 02/05/20 06:35 RDW Std Deviation 46.9 fl (35.1-43.9) H 02/05/20 06:35 Neut % (Auto) 84.1 % (47-70) H 02/05/20 06:35 Lymph % (Auto) 7.3 % (19-41) L 02/05/20 06:35 Absolute Neuts (auto) 12.1 X10^3/uL (2.0-7.7) H 02/05/20 06:35 Absolute Lymphs (auto) 0.58 X10^3/uL (0.83-4.51) L 02/04/20 12:10 PT 15.3 SECONDS (11.7-14.9) H 02/04/20 12:10 Fibrinogen 533 mg/dl (203-444) H 02/04/20 12:10 D-Dimer Quant (PE/DVT) 0.94 FEU/ug/m (0.27-0.49) H* 02/04/20 12:10 Chloride 108 mmol/L (98-107) H 02/05/20 06:35 Glucose 150 mg/dL (74-106) H 02/04/20 12:10 Lactic Acid 3.0 mmol/L (0.4-1.9) H* 02/04/20 17:30 Calcium 8.4 mg/dL (8.5-10.1) L 02/04/20 12:10 C-React Prot Ext Range 148.00 mg/L (0.0-3.0) H 02/04/20 12:10 Globulin 4.3 g/dL (2.2-4.2) H 02/04/20 12:10 Albumin/Globulin Ratio 0.7 RATIO (0.9-2.4) L 02/04/20 12:10 Procalcitonin 1.19 ng/mL (0.00-0.09) H 02/04/20 16:17 - Assessment Food / Nutrition-Related History:: Discussed in ICU rounds. Pt from [facility]. Per Dr. Javier bhardwaj pts PEG tube feed at this time. Pt in COVID precautions at this time- per RN Zakia pts father in room; RDN called pt room w/ no answer. Per pt hard chart pt recieves Jevity 1.2 via arlen button 320 ml 4x/day w/ 60 ml flush before each feed and 150 ml flush after each feed providing 1536 calories, 71 g protein, 1873 ml total fluid per day. CBW 114.6#; wt hx per EMR UBW 114-119#, 08/19/18 115.5#- wt stable. No N/V/D/C per RN note. - Nutrition Diagnosis Evidence of Malnutrition Exists:: No - Nutrition Intervention Nutrition Prescription:: Estimated nutrient needs: 8717-3300 calories, 65-75 grams protein - Food / Nutrient Delivery Interventions Summary of nutrition intervention:: TF via PEG on hold at this time. Rec intiation of TF as pt medically able. Nutrition support ordered as / adjusted to:: Rec Jevity 1.5 270 ml bolus feed 4x/day w/ 100 ml flush before and after each feed to provide 1620 calories, 69 g protein, and 1621 ml total fluid per day. TF estimated to meet 100% of pts nutritional needs. If continuous feeding appropriate rec Jevity 1.5 via PEG at goal rate of 45 ml/hr w/ 145 ml flush every 4 hours to provide 1620 calories, 69 g protein, and 1691 ml total fluid per day. Would intiate at 20 ml/hr and increase by 20ml every 8 hours until goal rate achieved. - MNT Monitoring Further MNT monitoring and evaluation required?: Yes MNT Follow-up in:: 3-5 days
[2020-02-05] MEDS: Lactated Ringers 1,000 ML 999 ML IV (10:27)
[2020-02-05 11:15] LABS: Bedside Glucose 90 mg/dL (70-110)
[2020-02-05 17:36] LABS: Bedside Glucose 74 mg/dL (70-110)
[2020-02-05 23:31] LABS: Bedside Glucose 82 mg/dL (70-110)
[2020-02-06] VITALS (32 sets, daily range): BP systolic 82–138; BP diastolic 46–116; PULSE 77–112; RESP 12–27; TEMP 36.7–37.4; O2SAT 90–99
[2020-02-06] MEDS: Ipratropium/Albuterol Sulfate 3 ML AMPUL.NEB INHALATION ×4 (00:08→19:36)
--- NOTE | 2020-02-06 06:17 | PCM.PN.INT ---
Subjective: The patient was seen and examined at the bedside this morning. Events from the last 24 hours have been reviewed. The patient is currently afebrile, hemodynamically stable and maintaining appropriate oxygen saturations on room air. Nursing staff did report transient episodes of tenuous hemodynamics overnight. The patient is currently documented to be overall net +6 L for the hospital admission. The patient does not have the vasopressor requirement. Objective: The patient's most recent lab work, culture data and imaging studies have all been personally reviewed. Respiratory viral panel was negative. Strep and urine Legionella antigens were negative. Blood and urine cultures are pending. Coronavirus PCR was negative. Coronavirus serology was nonreactive. General: Alert, Confused, Disoriented HEENT: Atraumatic, Normocephalic Oral: Moist Mucosa Neck: Supple, No Nodes, Trachea Midline Lungs: Diminished, Rhonchi Cardiovascular: Regular rate, Regular Rhythm Abdomen: Bowel Sounds Present, Soft, Non Tender, - - +G tube Extremities: No clubbing, No cyanosis, No edema Skin: No breakdown Musculoskeletal: No Muscle Wasting Lymphatic: No Cervical, Supraclavicular, or Inguinal Adenopathy Neurological: - - Baseline neurological status. Moves extremities spontaneously. Vital Signs Temp Pulse Resp BP Pulse Ox 98.4 F 91 23 H 102/63 99 02/06/20 06:00 02/06/20 06:00 02/06/20 06:00 02/06/20 06:00 02/06/20 06:00 Oxygen Delivery Method Room Air Weight: 108 lb 11.006 oz Body Mass Index (BMI) 22.4 Intake and Output for Last 24 Hours 02/04/20 02/05/20 02/06/20 23:59 23:59 23:59 Intake Total 3156.67 / 3156.67 2820 / 2820 0 / 0 Output Total 0 / 0 0 / 0 0 / 0 Balance 3156.67 / 3156.67 2820 / 2820 0 / 0 Labs (Last 48 Hours) 02/04/20 02/04/20 02/04/20 11:15 11:15 12:10 WBC 15.3 H RBC 4.45 L Hgb 15.0 Hct 44.7 MCV 100.4 H MCH 33.7 H MCHC 33.6 RDW Std Deviation 46.2 H RDW Coeff of Asher 12.5 Plt Count 175 MPV 10.6 Immature Gran % (Auto) 0.700 Neut % (Auto) 87.4 H Lymph % (Auto) 3.8 L [place] % (Auto) 7.3 Eos % (Auto) 0.3 Baso % (Auto) 0.5 Absolute Neuts (auto) 13.4 H Absolute Lymphs (auto) 0.58 L Nucleated RBC % 0 Differential Comment SCANNED PT INR APTT Fibrinogen D-Dimer Quant (PE/DVT) Sodium Potassium Chloride Carbon Dioxide Anion Gap BUN Creatinine Estim Creat Clear Calc Est GFR (MDRD) Af Amer Est GFR (MDRD) Non-Af BUN/Creatinine Ratio Glucose Lactic Acid Calcium Magnesium Total Bilirubin AST ALT Alkaline Phosphatase Total Creatine Kinase Troponin I C-React Prot Ext Range B-Natriuretic Peptide Total Protein Albumin Globulin Albumin/Globulin Ratio Procalcitonin TSH Urine Color Urine Clarity Urine pH Ur Specific [place] Urine Protein Urine Glucose (UA) Urine Ketones Urine Occult Blood Urine Nitrite Urine Bilirubin Urine Urobilinogen Ur Leukocyte Esterase Urine RBC Urine WBC Ur Squamous Epith Cells Urine Bacteria Urine Mucus COVID-19 (CARLY) Not Detected Not Reportable SARS Serology MRSA (PCR) POC Glucose 02/04/20 02/04/20 02/04/20 12:10 12:10 12:10 WBC RBC Hgb Hct MCV MCH MCHC RDW Std Deviation RDW Coeff of Ash[place] Plt Count MPV Immature Gran % (Auto) Neut % (Auto) Lymph % (Auto) [place] % (Auto) Eos % (Auto) Baso % (Auto) Absolute Neuts (auto) Absolute Lymphs (auto) Nucleated RBC % Differential Comment PT 15.3 H INR 1.3 APTT 29.5 Fibrinogen D-Dimer Quant (PE/DVT) Sodium 139 Potassium 3.8 Chloride 106 Carbon Dioxide 26.0 Anion Gap 7 BUN 18 Creatinine 1.00 Estim Creat Clear Calc 79.11 Est GFR (MDRD) Af Amer 118 Est GFR (MDRD) Non-Af 97 BUN/Creatinine Ratio 18.0 Glucose 150 H Lactic Acid 2.2 H* Calcium 8.4 L Magnesium Total Bilirubin 0.30 AST 17 ALT 30 Alkaline Phosphatase 99 Total Creatine Kinase Troponin I C-React Prot Ext Range B-Natriuretic Peptide Total Protein 7.5 Albumin 3.2 Globulin 4.3 H Albumin/Globulin Ratio 0.7 L Procalcitonin TSH Urine Color Urine Clarity Urine pH Ur Specific [place] Urine Protein Urine Glucose (UA) Urine Ketones Urine Occult Blood Urine Nitrite Urine Bilirubin Urine Urobilinogen Ur Leukocyte Esterase Urine RBC Urine WBC Ur Squamous Epith Cells Urine Bacteria Urine Mucus COVID-19 (CARLY) SARS Serology MRSA (PCR) POC Glucose 02/04/20 02/04/20 02/04/20 12:10 12:10 12:10 WBC RBC Hgb Hct MCV MCH MCHC RDW Std Deviation RDW Coeff of Asher Plt Count MPV Immature Gran % (Auto) Neut % (Auto) Lymph % (Auto) [place] % (Auto) Eos % (Auto) Baso % (Auto) Absolute Neuts (auto) Absolute Lymphs (auto) Nucleated RBC % Differential Comment PT INR APTT Fibrinogen D-Dimer Quant (PE/DVT) Sodium Potassium Chloride Carbon Dioxide Anion Gap BUN Creatinine Estim Creat Clear Calc Est GFR (MDRD) Af Amer Est GFR (MDRD) Non-Af BUN/Creatinine Ratio Glucose Lactic Acid Calcium Magnesium 2.3 Total Bilirubin AST ALT Alkaline Phosphatase Total Creatine Kinase 52 Troponin I < 0.015 C-React Prot Ext Range 148.00 H B-Natriuretic Peptide 24.7 Total Protein Albumin Globulin Albumin/Globulin Ratio Procalcitonin TSH Urine Color Urine Clarity Urine pH Ur Specific [place] Urine Protein Urine Glucose (UA) Urine Ketones Urine Occult Blood Urine Nitrite Urine Bilirubin Urine Urobilinogen Ur Leukocyte Esterase Urine RBC Urine WBC Ur Squamous Epith Cells Urine Bacteria Urine Mucus COVID-19 (CARLY) SARS Serology MRSA (PCR) POC Glucose 02/04/20 02/04/20 02/04/20 12:10 12:19 15:40 WBC RBC Hgb Hct MCV MCH MCHC RDW Std Deviation RDW Coeff of Asher Plt Count MPV Immature Gran % (Auto) Neut % (Auto) Lymph % (Auto) [place] % (Auto) Eos % (Auto) Baso % (Auto) Absolute Neuts (auto) Absolute Lymphs (auto) Nucleated RBC % Differential Comment PT INR APTT Fibrinogen 533 H D-Dimer Quant (PE/DVT) 0.94 H* Sodium Potassium Chloride Carbon Dioxide Anion Gap BUN Creatinine Estim Creat Clear Calc Est GFR (MDRD) Af Amer Est GFR (MDRD) Non-Af BUN/Creatinine Ratio Glucose Lactic Acid Calcium Magnesium Total Bilirubin AST ALT Alkaline Phosphatase Total Creatine Kinase Troponin I C-React Prot Ext Range B-Natriuretic Peptide Total Protein Albumin Globulin Albumin/Globulin Ratio Procalcitonin TSH Urine Color Yellow Urine Clarity Clear Urine pH 8.0 Ur Specific [place] 1.015 Urine Protein Negative Urine Glucose (UA) Normal Urine Ketones Negative Urine Occult Blood Negative Urine Nitrite Negative Urine Bilirubin Negative Urine Urobilinogen Normal Ur Leukocyte Esterase Negative Urine RBC 0 SEEN Urine WBC 0-5 SEEN Ur Squamous Epith Cells 0 SEEN Urine Bacteria 0 SEEN Urine Mucus 0 SEEN COVID-19 (CARLY) SARS Serology MRSA (PCR) Negative POC Glucose 02/04/20 02/04/20 02/04/20 16:17 16:17 16:17 WBC RBC Hgb Hct MCV MCH MCHC RDW Std Deviation RDW Coeff of Asher Plt Count MPV Immature Gran % (Auto) Neut % (Auto) Lymph % (Auto) [place] % (Auto) Eos % (Auto) Baso % (Auto) Absolute Neuts (auto) Absolute Lymphs (auto) Nucleated RBC % Differential Comment PT INR APTT Fibrinogen D-Dimer Quant (PE/DVT) Sodium Potassium Chloride Carbon Dioxide Anion Gap BUN Creatinine Estim Creat Clear Calc Est GFR (MDRD) Af Amer Est GFR (MDRD) Non-Af BUN/Creatinine Ratio Glucose Lactic Acid Calcium Magnesium Total Bilirubin AST ALT Alkaline Phosphatase Total Creatine Kinase Troponin I C-React Prot Ext Range B-Natriuretic Peptide Total Protein Albumin Globulin Albumin/Globulin Ratio Procalcitonin Cancelled 1.19 H TSH Urine Color Urine Clarity Urine pH Ur Specific [place] Urine Protein Urine Glucose (UA) Urine Ketones Urine Occult Blood Urine Nitrite Urine Bilirubin Urine Urobilinogen Ur Leukocyte Esterase Urine RBC Urine WBC Ur Squamous Epith Cells Urine Bacteria Urine Mucus COVID-19 (CARLY) SARS Serology Cancelled Pending MRSA (PCR) POC Glucose 02/04/20 02/04/20 02/05/20 17:30 18:02 00:04 WBC RBC Hgb Hct MCV MCH MCHC RDW Std Deviation RDW Coeff of Asher Plt Count MPV Immature Gran % (Auto) Neut % (Auto) Lymph % (Auto) [place] % (Auto) Eos % (Auto) Baso % (Auto) Absolute Neuts (auto) Absolute Lymphs (auto) Nucleated RBC % Differential Comment PT INR APTT Fibrinogen D-Dimer Quant (PE/DVT) Sodium Potassium Chloride Carbon Dioxide Anion Gap BUN Creatinine Estim Creat Clear Calc Est GFR (MDRD) Af Amer Est GFR (MDRD) Non-Af BUN/Creatinine Ratio Glucose Lactic Acid 3.0 H* Calcium Magnesium Total Bilirubin AST ALT Alkaline Phosphatase Total Creatine Kinase Troponin I C-React Prot Ext Range B-Natriuretic Peptide Total Protein Albumin Globulin Albumin/Globulin Ratio Procalcitonin TSH Urine Color Urine Clarity Urine pH Ur Specific [place] Urine Protein Urine Glucose (UA) Urine Ketones Urine Occult Blood Urine Nitrite Urine Bilirubin Urine Urobilinogen Ur Leukocyte Esterase Urine RBC Urine WBC Ur Squamous Epith Cells Urine Bacteria Urine Mucus COVID-19 (CARLY) SARS Serology MRSA (PCR) POC Glucose 97 100 02/05/20 02/05/20 02/05/20 05:25 06:35 06:35 WBC 14.5 H RBC 4.15 L Hgb 14.1 Hct 41.8 MCV 100.7 H MCH 34.0 H MCHC 33.7 RDW Std Deviation 46.9 H RDW Coeff of Asher 12.5 Plt Count 150 MPV 10.3 Immature Gran % (Auto) 0.300 Neut % (Auto) 84.1 H Lymph % (Auto) 7.3 L [place] % (Auto) 7.3 Eos % (Auto) 0.4 Baso % (Auto) 0.6 Absolute Neuts (auto) 12.1 H Absolute Lymphs (auto) 1.06 Nucleated RBC % 0 Differential Comment PT INR APTT Fibrinogen D-Dimer Quant (PE/DVT) Sodium 140 Potassium 3.6 Chloride 108 H Carbon Dioxide 26.0 Anion Gap 6 BUN 9 Creatinine 0.73 Estim Creat Clear Calc 110.35 Est GFR (MDRD) Af Amer 168 Est GFR (MDRD) Non-Af 139 BUN/Creatinine Ratio 12.3 Glucose 97 Lactic Acid Calcium 8.5 Magnesium Total Bilirubin AST ALT Alkaline Phosphatase Total Creatine Kinase Troponin I C-React Prot Ext Range B-Natriuretic Peptide Total Protein Albumin Globulin Albumin/Globulin Ratio Procalcitonin TSH 3.50 Urine Color Urine Clarity Urine pH Ur Specific [place] Urine Protein Urine Glucose (UA) Urine Ketones Urine Occult Blood Urine Nitrite Urine Bilirubin Urine Urobilinogen Ur Leukocyte Esterase Urine RBC Urine WBC Ur Squamous Epith Cells Urine Bacteria Urine Mucus COVID-19 (CARLY) SARS Serology MRSA (PCR) POC Glucose 82 02/05/20 02/05/20 02/05/20 11:04 17:09 23:20 WBC RBC Hgb Hct MCV MCH MCHC RDW Std Deviation RDW Coeff of Asher Plt Count MPV Immature Gran % (Auto) Neut % (Auto) Lymph % (Auto) [place] % (Auto) Eos % (Auto) Baso % (Auto) Absolute Neuts (auto) Absolute Lymphs (auto) Nucleated RBC % Differential Comment PT INR APTT Fibrinogen D-Dimer Quant (PE/DVT) Sodium Potassium Chloride Carbon Dioxide Anion Gap BUN Creatinine Estim Creat Clear Calc Est GFR (MDRD) Af Amer Est GFR (MDRD) Non-Af BUN/Creatinine Ratio Glucose Lactic Acid Calcium Magnesium Total Bilirubin AST ALT Alkaline Phosphatase Total Creatine Kinase Troponin I C-React Prot Ext Range B-Natriuretic Peptide Total Protein Albumin Globulin Albumin/Globulin Ratio Procalcitonin TSH Urine Color Urine Clarity Urine pH Ur Specific [place] Urine Protein Urine Glucose (UA) Urine Ketones Urine Occult Blood Urine Nitrite Urine Bilirubin Urine Urobilinogen Ur Leukocyte Esterase Urine RBC Urine WBC Ur Squamous Epith Cells Urine Bacteria Urine Mucus COVID-19 (CARLY) SARS Serology MRSA (PCR) POC Glucose 90 74 82 Microbiology 02/04/20 12:19 Urine Catheter - Catheter Urine Culture - Preliminary Beta streptococcus 02/04/20 17:20 Mucosa - Nasopharyngeal Respiratory Panel (PCR) - Final 02/04/20 12:19 Urine Catheter - Catheter Legionella Antigen - Final 02/04/20 12:19 Urine Catheter - Catheter Streptococcus pneumoniae Antigen (M - Final Clinical Impression(s) from Imaging Studies Chest X-Ray 02/04/20 10:28 IMPRESSION: Right lower lobe infiltrate. Electronically Signed: Dante Dover DO at 11:45 EDT Tel [phone], Service support , Medical Necessity - Tobacco Use Smoking Status: Never smoker Assessment/Plan All Active Problems Severe sepsis (Acute) Cellulitis (Acute) RECOMMENDATIONS: 1. Continue antimicrobials per ID recommendations. 2. Maintain aspiration precautions. 3. Okay to start bolus tube feeds today. 4. Stop supplemental IV fluids. IMPRESSIONS: 1. Severe sepsis secondary to aspiration versus healthcare associated pneumonia The patient remains on antimicrobials and is currently hemodynamically stable. Coronavirus PCR was negative and recent serologic work-up was nonreactive. From my perspective, the patient can be removed from COVID precautions. However, infectious diseases consultation is pending. Tube feeds will be started today with plans to maintain the patient and aspiration precautions. 2. Down syndrome/MRDD/history of dysphasia/autism/moderate protein calorie malnutrition/hypertension/unspecified seizure disorder Complicates care, management, recovery and prognosis. Continue to hold baseline antihypertensive medications. Continue Keppra per home regimen. This note was generated with [employer] dictation software. It may contain incorrect words, spelling, and punctuation that were not noted in checking the note before signing. Inpatient E&M: 29584 Subs Hosp L3
[2020-02-06 06:46] LABS: Bedside Glucose 80 mg/dL (70-110)
[2020-02-06 07:16] LABS: SARS-COV-2 TOTAL ABS Nonreactive (Nonreactive)
[2020-02-06] MEDS: Lactated Ringers 1,000 ML 100 ML IV (07:48)
[2020-02-06] MEDS: Sodium Chloride 0.65% 1 SPRAY SPRAY.BTL 3 SPRAY NASAL ×2 (08:41→21:05)
[2020-02-06] MEDS: levoFLOXacin IV 500 MG/100 ML BAG 100 MG IV (08:42)
[2020-02-06] MEDS: Enoxaparin 30 MG/0.3 ML Syringe SC ×2 (08:43→21:05)
[2020-02-06] MEDS: Polyethylene Glycol 3350 17 GM PACKET 8.5 GM GT (08:43)
[2020-02-06] MEDS: levETIRAcetam Oral Solution 500 MG/5 ML GT ×2 (08:43→21:01)
[2020-02-06] MEDS: Lansoprazole 15 MG Capsule.DR 30 MG NG (08:43)
[2020-02-06] MEDS: Jevity 1.5. 1,000 ML Bottle 270 ML GT ×4 (09:40→21:02)
--- NOTE | 2020-02-06 10:34 | CASEMGMT ---
CHRISTIAN called patient's mom and left her a message verifying that the plan is to return to the senior living at discharge. CHRISTIAN left CHRISTIAN's return number. Estefania BARRON MSW
--- NOTE | 2020-02-06 11:56 | PN_ITS ---
Patient Problems: Active and Suspected Problems Severe sepsis (Acute) Aspiration pneumonia (Suspected) Reason for Visit: Acute hypoxic respiratory insufficiency secondary to pneumonia Objective: Patient did not had fever or chills. Blood pressure was low last night and midnight but it picked up after starting to feed. Most recent 150s/100. No fever or chills. Talked to the father. On physical exam General: AWAKE, Cooperative, Seems on baseline mental status/MRDD HEENT: Atraumatic, PERRLA, EOMI, Normocephalic Oral: Protruding tongue. Neck: Supple, No JVD, Negative Carotid Bruits Lungs: No rhonchi, No wheeze, No rales, Air entry diminished on bilateral lung bases. Cardiovascular: Regular Rhythm, Normal S1, Normal S2, No murmurs, heart rate in 80s. Abdomen: Bowel Sounds Present, Soft, Non Tender, Non-Distended Extremities: No edema, Capillary Refill Less than 3 Seconds Skin: No rashes, No breakdown Musculoskeletal: No Tenderness to Palpation of Joints or Extremities Neurological: Noncommunicative, nonverbal. MRDD. Features of Down syndrome with small head size, low-set ears and head circumference. Psych/Mental Status: Nonverbal. Seems mild irritable/delirium secondary to tubes and ICU setting. Vitals/I&O's: Vital Signs Temp Pulse Resp BP Pulse Ox 98.6 F 94 12 100/71 98 02/06/20 10:00 02/06/20 11:00 02/06/20 11:00 02/06/20 11:00 02/06/20 11:00 Oxygen Flow Rate (L/min) 6 Oxygen Delivery Method Room Air Weight: 108 lb 11.006 oz Body Mass Index (BMI) 22.4 Intake and Output for Last 24 Hours 02/04/20 02/05/20 02/06/20 23:59 23:59 23:59 Intake Total 3156.67 / 3156.67 2820 / 2820 1401.67 / 1401.67 Output Total 0 / 0 0 / 0 0 / 0 Balance 3156.67 / 3156.67 2820 / 2820 1401.67 / 1401.67 Microbiology Past 72 Hours 02/04/20 12:19 Urine Catheter - Catheter Urine Culture - Final Streptococcus group A 02/04/20 17:20 Mucosa - Nasopharyngeal Respiratory Panel (PCR) - Final 02/04/20 12:19 Urine Catheter - Catheter Legionella Antigen - Final 02/04/20 12:19 Urine Catheter - Catheter Streptococcus pneumoniae Antigen (M - Final Laboratory Results 02/04/20 11:15: COVID-19 (CARLY) Not Detected 02/04/20 11:15: COVID-19 (CARLY) Not Reportable 02/04/20 16:17: SARS Serology Nonreactive 02/05/20 17:09: POC Glucose 74 02/05/20 23:20: POC Glucose 82 02/06/20 05:59: POC Glucose 80 Current Medications Acetaminophen (Tylenol) 650 mg RECTAL Q4H PRN PRN PRN Reason: Pain Score 1-10/Temp > 100.7 F Albuterol Sulfate (Ventolin Aerosols) 2.5 mg INHALATION Q2H PRN PRN PRN Reason: SOB/Wheezing Albuterol/Ipratropium (Duoneb) 3 ml INHALATION Q6H.RT [facility] Last Admin: 02/06/20 07:15 Dose: 3 ml Documented by: Bisacodyl (Dulcolax) 10 mg RECTAL DAILY PRN PRN PRN Reason: Constipation Dextrose (D50w Syringe) 0 gm IV X1 PRN; Protocol PRN Reason: Hypoglycemia Enoxaparin Sodium (Lovenox) 30 mg SC BID [facility] Last Admin: 02/06/20 08:43 Dose: 30 mg Documented by: Enteral Nutritional Formula (Jevity 1.5) 270 ml GT 4X/DAY [facility] Last Admin: 02/06/20 09:40 Dose: 270 ml Documented by: Glucagon () 1 mg IM .X1 PRN PRN Reason: Hypoglycemia Sodium Chloride () 250 mls @ 15 mls/hr IV .[id number] PRN PRN Reason: Saline Flush Sodium Chloride () 250 mls @ 15 mls/hr IV .[id number] PRN PRN Reason: Additional IVPB Infusion Levofloxacin (Levaquin Iv) 500 mg in 100 mls @ 100 mls/hr IV Q24 [facility] Last Infusion: 02/06/20 09:42 Dose: Infused Documented by: Lansoprazole (Lansoprazole) 30 mg NG DAILY [facility] Last Admin: 02/06/20 08:43 Dose: 30 mg Documented by: Levetiracetam (Keppra Oral Solution) 500 mg GT BID [facility] Last Admin: 02/06/20 08:43 Dose: 500 mg Documented by: Lorazepam (Ativan) 1 mg IV Q4H PRN PRN PRN Reason: SEIZURES Polyethylene Glycol (Miralax) 8.5 gm GT DAILY [facility] Last Admin: 02/06/20 08:43 Dose: 8.5 gm Documented by: Prochlorperazine Edisylate (Compazine Iv) 5 mg IV Q4H PRN PRN PRN Reason: Breakthrough Nausea/Vomiting Simethicone (Mylicon) 80 mg GT Q8H PRN PRN PRN Reason: gas pains Sodium Chloride () 10 - 40 ml IV UD PRN PRN Reason: SALINE FLUSH Sodium Chloride ([place] Nasal Cascade) 3 spray NASAL BID [facility] Last Admin: 02/06/20 08:41 Dose: 3 applicatio Documented by: Trazodone HCl (Desyrel) 100 mg GT QHS [facility] Last Admin: 02/05/20 22:03 Dose: Not Given Documented by: STROKE Vital Signs/Narrative: Vital Signs Temp Pulse Resp BP Pulse Ox 02/06/20 11:00 94 12 100/71 98 02/06/20 10:58 97 02/06/20 10:00 98.6 F 110 H 20 H 108/67 99 02/06/20 09:00 77 17 103/64 99 02/06/20 08:00 99.3 F H 102 H 18 104/57 L 99 Medical Necessity - Tobacco Use Smoking Status: Never smoker Assessment/Plan All Active Problems Severe sepsis (Acute) Cellulitis (Acute) The patient is a 24 year old M with history of Down syndrome, nonverbal/noncommunicative, halfway resident was sent to ER from halfway for high fever 102.6 Fahrenheit with cough for couple weeks and sputum. Chest x-ray independently reviewed and it is rotated but shows right lower lobe infiltrate. Patient is on tube feed. Was tested COVID PCR negative about a week ago in halfway.. 1. Severe sepsis (tachycardia, leukocytosis, lactic acidosis 2.2) secondary to aspiration pneumonia/healthcare setting pneumonia: Patient is being admitted in ICU. IV fluid normal saline 30 mils per KG bolus and then 100 mils per hour. Started on IV vancomycin, Levaquin and Flagyl. Pneumonia work-up ordered including COVID-19 PCR. Urinary antigens, respiratory panel and blood culture and sputum culture ordered. SARS-2 serology ordered. 02/04: Preliminary urine culture shows beta Streptococcus less than 1000 colonies. Urinary antigens are negative. Respiratory panel negative. Blood culture x2 are pending. CRP elevated. BNP, total CK are normal. D-dimer 0.94. Procalcitonin elevated 1.19 but not more than 2 which is more likely due to progression to septic shock. Discussed with hearing aid consultant. Blood pressure 100/76. 02/05: COVID-19 PCR not detected. COVID antibody nonreactive. Discussed with ID and hearing aid consultant.. Discontinue IV fluid as blood pressure is more than his baseline. Positive fluid balance about 6 L. 2. Down syndrome/MRDD/oropharyngeal dysphagia/autism: Hold patient tube feed. Medications can be given through the tube. 02/05: Tube feed was restarted. Discussed with the steward/stewardess banquet. Bolus feeds along with free water. 3. Moderate protein calorie malnutrition: Patient BMI is 22.7. Body weight 52 kg. Seen by steward/stewardess banquet. 4. Hypertension, seizure disorder: Home medication reconciliation done. 5. DVT prophylaxis: Lovenox 30 mg subcu twice daily. Discontinue if platelet count drops less than 50,000 or hemoglobin less than 8 g% Total time of the visit including total time spent in counseling or coordination of care, (more than 50% of the total time, spent in obtaining medical information from nurses and other ancillary care providers), discussion with father regarding history, exam findings and plan of management, review of labs and imaging is 30 minutes Living will/advanced directive/end of life care: Discussed with the patient's father. patient does not have living will or advanced directive. After discussion of procedures involved with full code, DNR CC arrest and DNR CC, the patient's father opted for full code but he wants to avoid intubation until the last resort. He is good with artificial life support including intubation, tube feed, ventilator and/chest compression, central venous catheter, vasopressor and DC shock if needed Full code. Inpatient E&M: 45483 [facility] Hosp L3
--- NOTE | 2020-02-06 15:03 | CON.PCM_ITS ---
Problem List (1) Severe sepsis Status: Acute Reason for Consult: pneumonia Consulted by: Dr. Herrera History of Present Illness: The patient is a 24 year old M with Down Syndrom, lives in prison, history obtained from father at bedside. Reported aspiration episode recently, sent to ED with fever, dyspnea, cough and sputum. On levaquin, afebrile here, mental status back to baseline. No known covid cases at prison. Covid pcr neg her e. ROS unobtainable. - Medical History Past Medical History (Chronic Problems): Chronic Problems Seizure (Chronic) HTN (hypertension) (Chronic) Malnutrition (Chronic) Autism (Chronic) Dysphagia (Chronic) Down syndrome (Chronic) nonverbal incontinent Allergies/Adverse Reactions: Allergies ceftriaxone sodium [From Rocephin] Allergy (Verified 02/04/20 10:06) Rash sulfamethoxazole [From Bactrim] Allergy (Verified 02/04/20 10:06) Rash trimethoprim [From Bactrim] Allergy (Verified 02/04/20 10:06) Rash cinnamon [Cinnamon] Adverse Reaction (Verified 02/04/20 10:06) Diarrhea tape/bandaids Adverse Reaction (Uncoded 02/04/20 10:06) Rash Home Medications: Ambulatory Orders Medication Instructions Recorded L.acidoph,Paracasei, B.lactis 1 pack GT DAILY 07/19/15 [Probiotic] Lansoprazole [Prevacid] 30 mg GT DAILY 07/19/15 Simethicone 40MG/0.6ML [Mylicon] 80 mg GT Q8H PRN PRN 07/19/15 Polyethylene Glycol 3350 [Miralax] 8.5 gm GT DAILY 06/11/17 Sodium Chloride [Saline Nasal Mist] 3 spray NASAL BID 06/11/17 Bisacodyl 10 mg RC UD PRN 05/19/18 Metoprolol Tartrate 12.5 mg GT BID 05/19/18 traZODone [Desyrel] 150 mg GT QHS 05/19/18 Lactose-Reduced Food/Fiber [Jevity 18 oz GT 4X/DAY 08/11/18 1.2 Jamarcus Liquid] Lorazepam Intensol [Ativan 1 mg GT PRN PRN #1 bottle 08/12/18 Intensol] levETIRAcetam oral solution 500 mg GT BID 02/04/20 [Keppra Solution] - Social History Tobacco Use: non-smoker Vital Signs Temp Pulse Resp BP Pulse Ox 98.4 F 95 15 92/54 L 96 02/06/20 14:00 02/06/20 14:00 02/06/20 14:00 02/06/20 14:00 02/06/20 14:00 Oxygen Flow Rate (L/min) 6 Oxygen Delivery Method Room Air Weight: 49.3 kg Body Mass Index (BMI) 22.4 Microbiology Past 72 Hours 02/04/20 13:00 Blood Culture - Preliminary Blood Culture (Wb) - Anticubital Right No growth in 48 hours. 02/04/20 12:10 Blood Culture - Preliminary Blood Culture (Wb) - Anticubital Right No growth in 48 hours. 02/04/20 12:19 Urine Culture - Final Urine Catheter - Catheter Streptococcus group A 02/04/20 17:20 Respiratory Panel (PCR) - Final Mucosa - Nasopharyngeal 02/04/20 12:19 Legionella Antigen - Final Urine Catheter - Catheter 02/04/20 12:19 Streptococcus pneumoniae Antigen (M - Final Urine Catheter - Catheter Laboratory Tests Past 24 Hrs 02/04/20 02/04/20 02/04/20 11:15 11:15 16:17 COVID-19 (CARLY) Not Detected Not Reportable SARS Serology Nonreactive - Other Studies Radiology: [] reviewed Other Studies: [] Route of nutrition/ use of supplements: [] Nutritional Intake: [] IV Site: [] Diaz Catheter: [] - Physical Exam General: Cooperative, No apparent distress HEENT: Atraumatic, PERRLA, EOMI Neck: Supple, No Nodes Lungs: Clear to auscultation, Normal air movement Cardiovascular: Regular rate, Regular Rhythm Abdomen: Soft, Non Tender, Non-Distended Extremities: No edema Skin: No rashes IV Site: Peripheral, without redness Musculoskeletal: No Tenderness to Palpation of Joints or Extremities - Assessment/Plan Antibiotics: [] Assessment/Plan: [] Active and Suspected Problems Severe sepsis (Acute) Aspiration pneumonia (Suspected) Low suspicion for covid given neg PCR, improvement in symptoms, labs, and imaging. Ok to d/c isolation. Cont levaquin. Ok for d/c back to [facility] to complete 7 days total of abx (day 3 today). Will follow, thank you, d/w nursing and Dr. Herrera
[2020-02-06] MEDS: traZODone 100 MG Tablet GT (21:01)
[2020-02-06] MEDS: Simethicone 40MG/0.6ML Bottle 80 MG GT (21:24)
[2020-02-07] VITALS (11 sets, daily range): BP systolic 88–128; BP diastolic 44–72; PULSE 71–98; RESP 12–23; TEMP 36.7–36.9; O2SAT 90–100
[2020-02-07] MEDS: Ipratropium/Albuterol Sulfate 3 ML AMPUL.NEB INHALATION ×2 (01:06→07:33)
--- NOTE | 2020-02-07 06:15 | PCM.PN.INT ---
Subjective: The patient was seen and examined at the bedside this morning. Events from the last 24 hours have been reviewed. The patient is currently afebrile, hemodynamically stable and maintaining appropriate oxygen saturations on room air. Objective: The patient's most recent lab work, culture data and imaging studies have all been personally reviewed. Respiratory viral panel was negative. Strep and urine Legionella antigens were negative. Blood and urine cultures are pending. Coronavirus PCR was negative. Coronavirus serology was nonreactive. General: Alert, No apparent distress HEENT: Atraumatic, Normocephalic Oral: Moist Mucosa Neck: Supple, No Nodes, Trachea Midline Lungs: Diminished Cardiovascular: Regular rate, Regular Rhythm Abdomen: Bowel Sounds Present, Soft, Non Tender, - - + G tube Extremities: No clubbing, No cyanosis Skin: No breakdown Musculoskeletal: No Tenderness to Palpation of Joints or Extremities Lymphatic: No Cervical, Supraclavicular, or Inguinal Adenopathy Neurological: - - Neurological status is baseline. Psych/Mental Status: Flat Affect Vital Signs Temp Pulse Resp BP Pulse Ox 98.2 F 88 23 H 93/61 100 02/07/20 02:00 02/07/20 04:00 02/07/20 04:00 02/07/20 04:00 02/07/20 04:00 Oxygen Flow Rate (L/min) 6 Oxygen Delivery Method Room Air Weight: 110 lb 10.753 oz Body Mass Index (BMI) 22.4 Intake and Output for Last 24 Hours 02/05/20 02/06/20 02/07/20 23:59 23:59 23:59 Intake Total 2820 / 2820 3190.00 / 3190.00 Output Total 0 / 0 0 / 0 0 / 0 Balance 2820 / 2820 3190.00 / 3190.00 0 / 0 Labs (Last 48 Hours) 02/04/20 02/04/20 02/04/20 11:15 11:15 16:17 WBC RBC Hgb Hct MCV MCH MCHC RDW Std Deviation RDW Coeff of Asher Plt Count MPV Immature Gran % (Auto) Neut % (Auto) Lymph % (Auto) [place] % (Auto) Eos % (Auto) Baso % (Auto) Absolute Neuts (auto) Absolute Lymphs (auto) Nucleated RBC % Sodium Potassium Chloride Carbon Dioxide Anion Gap BUN Creatinine Estim Creat Clear Calc Est GFR (MDRD) Af Amer Est GFR (MDRD) Non-Af BUN/Creatinine Ratio Glucose Calcium Procalcitonin Cancelled TSH COVID-19 (CARLY) Not Detected Not Reportable SARS Serology Cancelled POC Glucose 02/04/20 02/04/20 02/05/20 16:17 16:17 05:25 WBC RBC Hgb Hct MCV MCH MCHC RDW Std Deviation RDW Coeff of Asher Plt Count MPV Immature Gran % (Auto) Neut % (Auto) Lymph % (Auto) [place] % (Auto) Eos % (Auto) Baso % (Auto) Absolute Neuts (auto) Absolute Lymphs (auto) Nucleated RBC % Sodium Potassium Chloride Carbon Dioxide Anion Gap BUN Creatinine Estim Creat Clear Calc Est GFR (MDRD) Af Amer Est GFR (MDRD) Non-Af BUN/Creatinine Ratio Glucose Calcium Procalcitonin 1.19 H TSH COVID-19 (CARLY) SARS Serology Nonreactive POC Glucose 82 02/05/20 02/05/20 02/05/20 06:35 06:35 11:04 WBC 14.5 H RBC 4.15 L Hgb 14.1 Hct 41.8 MCV 100.7 H MCH 34.0 H MCHC 33.7 RDW Std Deviation 46.9 H RDW Coeff of Asher 12.5 Plt Count 150 MPV 10.3 Immature Gran % (Auto) 0.300 Neut % (Auto) 84.1 H Lymph % (Auto) 7.[address] % (Auto) 7.3 Eos % (Auto) 0.4 Baso % (Auto) 0.6 Absolute Neuts (auto) 12.1 H Absolute Lymphs (auto) 1.06 Nucleated RBC % 0 Sodium 140 Potassium 3.6 Chloride 108 H Carbon Dioxide 26.0 Anion Gap 6 BUN 9 Creatinine 0.73 Estim Creat Clear Calc 110.35 Est GFR (MDRD) Af Amer 168 Est GFR (MDRD) Non-Af 139 BUN/Creatinine Ratio 12.3 Glucose 97 Calcium 8.5 Procalcitonin TSH 3.50 COVID-19 (CARLY) SARS Serology POC Glucose 90 02/05/20 02/05/20 02/06/20 17:09 23:20 05:59 WBC RBC Hgb Hct MCV MCH MCHC RDW Std Deviation RDW Coeff of Asher Plt Count MPV Immature Gran % (Auto) Neut % (Auto) Lymph % (Auto) [place] % (Auto) Eos % (Auto) Baso % (Auto) Absolute Neuts (auto) Absolute Lymphs (auto) Nucleated RBC % Sodium Potassium Chloride Carbon Dioxide Anion Gap BUN Creatinine Estim Creat Clear Calc Est GFR (MDRD) Af Amer Est GFR (MDRD) Non-Af BUN/Creatinine Ratio Glucose Calcium Procalcitonin TSH COVID-19 (CARLY) SARS Serology POC Glucose 74 82 80 Microbiology 02/04/20 13:00 Blood Culture (Wb) - Anticubital Right Blood Culture - Preliminary No growth in 48 hours. 02/04/20 12:10 Blood Culture (Wb) - Anticubital Right Blood Culture - Preliminary No growth in 48 hours. 02/04/20 12:19 Urine Catheter - Catheter Urine Culture - Final Streptococcus group A 02/04/20 17:20 Mucosa - Nasopharyngeal Respiratory Panel (PCR) - Final Clinical Impression(s) from Imaging Studies Chest X-Ray 02/04/20 10:28 IMPRESSION: Right lower lobe infiltrate. Electronically Signed: Dante Dover DO at 11:45 EDT Tel [phone], Service support , Medical Necessity - Tobacco Use Smoking Status: Never smoker Assessment/Plan All Active Problems Severe sepsis (Acute) Cellulitis (Acute) RECOMMENDATIONS: 1. Continue antimicrobials per ID recommendations. 2. Maintain aspiration precautions. 3. Okay to continue bolus tube feeds. IMPRESSIONS: 1. Severe sepsis secondary to aspiration versus healthcare associated pneumonia The patient remains on antimicrobials and is currently hemodynamically stable. Coronavirus PCR was negative and recent serologic work-up was nonreactive. Plan to complete treatment course of antibiotics per ID recommendations. 2. Down syndrome/MRDD/history of dysphasia/autism/moderate protein calorie malnutrition/hypertension/unspecified seizure disorder Complicates care, management, recovery and prognosis. Continue to hold baseline antihypertensive medications. Continue Keppra per home regimen. This note was generated with [employer] dictation software. It may contain incorrect words, spelling, and punctuation that were not noted in checking the note before signing. Inpatient E&M: 24955 Subs Hosp L2
--- NOTE | 2020-02-07 07:54 | PCM.DC ---
- Discharge Diagnoses Current Active Problems: Current Active and Chronic Problems Severe sepsis (Acute) secondary to pneumonia possible healthcare associated or aspiration pneumonia Autism (Chronic) Down syndrome (Chronic) nonverbal incontinent You will use the following diet at home:: Other - on tube feed Discharge Activity: - - In [facility] Call your doctor if you observe: Fever of 101 or Higher, Numbness or Tingling, Change in Color, Shortness of breath, Fainting spells, Swelling in the ankles, Chest pain, Prolonged hiccoughing, Increased palpitations (irregular heartbeat), Calf discomfort, Uncontrolled pain Allergies/Adverse Reactions: Allergies ceftriaxone sodium [From Rocephin] Allergy (Verified 02/04/20 10:06) Rash sulfamethoxazole [From Bactrim] Allergy (Verified 02/04/20 10:06) Rash trimethoprim [From Bactrim] Allergy (Verified 02/04/20 10:06) Rash cinnamon [Cinnamon] Adverse Reaction (Verified 02/04/20 10:06) Diarrhea tape/bandaids Adverse Reaction (Uncoded 02/04/20 10:06) Rash Medications to take at Discharge L.acidoph,Paracasei, B.lactis [Probiotic] 1 pack GT DAILY 07/19/15 Lansoprazole [Prevacid] 30 mg GT DAILY 07/19/15 Simethicone 40MG/0.6ML [Mylicon] 80 mg GT Q8H PRN PRN 07/19/15 Polyethylene Glycol 3350 [Miralax] 8.5 gm GT DAILY 06/11/17 Sodium Chloride [Saline Nasal Mist] 3 spray NASAL BID 06/11/17 Bisacodyl 10 mg RC UD PRN 05/19/18 Metoprolol Tartrate 12.5 mg GT BID 05/19/18 traZODone [Desyrel] 150 mg GT QHS 05/19/18 Lactose-Reduced Food/Fiber [Jevity 1.2 Jamarcus Liquid] 18 oz GT 4X/DAY 08/11/18 Lorazepam Intensol [Ativan Intensol] 1 mg GT PRN PRN #1 bottle 08/12/18 levETIRAcetam oral solution [Keppra Solution] 500 mg GT BID 02/04/20 Bacitracin Ointment 1 applic TOPICAL BID #1 tube 02/07/20 Levofloxacin [Levaquin] 500 mg GT DAILY #3 tab 02/07/20 The following prescriptions were given: Bacitracin Ointment 1 applic TOPICAL BID #1 tube [facility]: [id number] Levofloxacin [Levaquin] 500 mg GT DAILY #3 tab Transmission Status: [facility] Primary Care Physician: Adriel Wallis DO [Primary Care Provider] - Please follow up with your Primary Care Physician in: in 1-2 week Test Results: Test results from this visit will be discussed in further detail at your follow-up appointment, if applicable. Please Follow Up With: Saeid Cabrera MD When: in 2-4 weeks as needed for fever or pneumonia issues
[2020-02-07 08:25] LABS: Absolute Lymphocyte Count 2.13 X10^3/uL (0.83-4.51); Absolute Neutrophil Count 3.5 X10^3/uL (2.0-7.7); Basophil# 0.08 X10^3/uL; Basophil% 1.2 % (0-1); Eosinophil# 0.14 X10^3/uL; Eosinophils% 2.1 % (0-5); Hematocrit 43.5 % (40-54); Hemoglobin 14.7 g/dL (13.0-16.5); Lymphocyte # 2.13 X10^3/ul (4.0); Lymphocyte % 32.5 % (19-41); Mean Corp Hgb Conc 33.8 g/dL (32-36); Mean Corpuscular Hgb 34.2 pg (27.0-32.0); Mean Corpuscular Volume 101.2 fL (80-94); Mean Platelet Vol. 10.2 fl (6.2-12.0); Monocyte# 0.73 X10^3/uL; Monocyte% 11.1 % (0-10); NRBC Flagged by Analyzer 0 % (0-5); Neutrophil # 3.45 X10^3/uL (2.7-7.7); Neutrophil % 52.8 % (47-70); Platelet Count 202 K/mm3 (150-450); RBC Distribution Width CV 13.2 % (11.6-14.6); RBC Distribution Width SD 48.9 fl (35.1-43.9); White Blood Count 6.6 K/mm3 (4.4-11.0)
[2020-02-07 08:47] LABS: Anion Gap 8 (5-15); BUN 16 mg/dL (7-18); BUN/Creat Ratio 19.6 RATIO (10-20); Calcium,Total 8.4 mg/dL (8.5-10.1); Chloride 109 mmol/L (98-107); Creatinine, Serum 0.82 mg/dL (0.70-1.30); EST Glomerular Filtration Rate 122 mL/min (>60); Est Glom Filt Rate - Afr Amer 148 mL/min (>60); Estimated Creatinine Clearance 98.24 ml/min; Glucose 101 mg/dL (74-106); Sodium Level 145 mmol/L (136-145)
--- NOTE | 2020-02-07 09:22 | CASEMGMT ---
CHRISTIAN spoke with patient's mom this am. She will be transporting patient back to the detention. She just spoke with the nurse at the detention so she is aware he is being discharged today. She did not need SW to fax any d/c instructions. CHRISTIAN updated RN that patient's mom will be transporting him back to the detention. Estefania BARRON MSW
[2020-02-07] MEDS: levoFLOXacin IV 500 MG/100 ML BAG 100 MG IV (09:24)
[2020-02-07] MEDS: Jevity 1.5. 1,000 ML Bottle 270 ML GT (09:24)
[2020-02-07] MEDS: 0.9% Saline Lock 10 ML Syringe IV (09:24)
[2020-02-07] MEDS: Polyethylene Glycol 3350 17 GM PACKET 8.5 GM GT (09:26)
[2020-02-07] MEDS: Sodium Chloride 0.65% 1 SPRAY SPRAY.BTL 3 SPRAY NASAL (09:27)
--- NOTE | 2020-02-07 10:05 | PCM.PN.ID ---
Patient Problems: Active and Suspected Problems Severe sepsis (Acute) Aspiration pneumonia (Suspected) Subjective: At baseline, mother at bedside, no fever - Physical Exam Vitals/I&O's: Vital Signs Temp Pulse Resp BP Pulse Ox 98.5 F 77 13 88/50 L 97 02/07/20 08:00 02/07/20 08:00 02/07/20 08:00 02/07/20 08:00 02/07/20 08:00 Oxygen Flow Rate (L/min) 6 Oxygen Delivery Method Room Air Weight: 50.2 kg Body Mass Index (BMI) 22.4 Intake and Output for Last 24 Hours 02/05/20 02/06/20 02/07/20 23:59 23:59 23:59 Intake Total 2820 / 2820 3190.00 / 3190.00 Output Total 0 / 0 0 / 0 0 / 0 Balance 2820 / 2820 3190.00 / 3190.00 0 / 0 General: Alert, No apparent distress Lungs: Clear to auscultation, Normal air movement Cardiovascular: Regular rate, Regular Rhythm Abdomen: Soft, Non Tender, Non-Distended Skin: No rashes Microbiology Past 72 Hours 02/04/20 13:00 Blood Culture (Wb) - Anticubital Right Blood Culture - Preliminary No growth in 48 hours. 02/04/20 12:10 Blood Culture (Wb) - Anticubital Right Blood Culture - Preliminary No growth in 48 hours. 02/04/20 12:19 Urine Catheter - Catheter Urine Culture - Final Streptococcus group A 02/04/20 17:20 Mucosa - Nasopharyngeal Respiratory Panel (PCR) - Final 02/04/20 12:19 Urine Catheter - Catheter Legionella Antigen - Final 02/04/20 12:19 Urine Catheter - Catheter Streptococcus pneumoniae Antigen (M - Final Laboratory Results 02/07/20 08:14: WBC 6.6, RBC 4.30 L, Hgb 14.7, Hct 43.5, MCV 101.2 H, MCH 34.2 H, MCHC 33.8, RDW Std Deviation 48.9 H, RDW Coeff of Asher 13.2, Plt Count 202, MPV 10.2, Immature Gran % (Auto) 0.300, Neut % (Auto) 52.8, Lymph % (Auto) 32.5, [place] % (Auto) 11.1 H, Eos % (Auto) 2.1, Baso % (Auto) 1.2 H, Absolute Neuts (auto) 3.5, Absolute Lymphs (auto) 2.13, Nucleated RBC % 0 02/07/20 08:14: Sodium 145, Potassium 4.0, Chloride 109 H, Carbon Dioxide 28.0, Anion Gap 8, BUN 16, Creatinine 0.82, Estim Creat Clear Calc 98.24, Est GFR (MDRD) Af Amer 148, Est GFR (MDRD) Non-Af 122, BUN/Creatinine Ratio 19.6, Glucose 101, Calcium 8.4 L Current Medications Acetaminophen (Tylenol) 650 mg RECTAL Q4H PRN PRN PRN Reason: Pain Score 1-10/Temp > 100.7 F Albuterol Sulfate (Ventolin Aerosols) 2.5 mg INHALATION Q2H PRN PRN PRN Reason: SOB/Wheezing Albuterol/Ipratropium (Duoneb) 3 ml INHALATION Q6H.RT [facility] Last Admin: 02/07/20 07:33 Dose: 3 ml Documented by: Bisacodyl (Dulcolax) 10 mg RECTAL DAILY PRN PRN PRN Reason: Constipation Dextrose (D50w Syringe) 0 gm IV X1 PRN; Protocol PRN Reason: Hypoglycemia Enoxaparin Sodium (Lovenox) 40 mg SC DAILY [facility] Last Admin: 02/07/20 09:37 Dose: Not Given Documented by: Enteral Nutritional Formula (Jevity 1.5) 270 ml GT 4X/DAY [facility] Last Admin: 02/07/20 09:24 Dose: 200 ml Documented by: Glucagon () 1 mg IM .X1 PRN PRN Reason: Hypoglycemia Sodium Chloride () 250 mls @ 15 mls/hr IV .[id number] PRN PRN Reason: Saline Flush Sodium Chloride () 250 mls @ 15 mls/hr IV .[id number] PRN PRN Reason: Additional IVPB Infusion Levofloxacin (Levaquin Iv) 500 mg in 100 mls @ 100 mls/hr IV Q24 [facility] Last Admin: 02/07/20 09:24 Dose: 100 mls/hr Documented by: Lansoprazole (Lansoprazole) 30 mg NG DAILY [facility] Last Admin: 02/06/20 08:43 Dose: 30 mg Documented by: Levetiracetam (Keppra Oral Solution) 500 mg GT BID [facility] Last Admin: 02/06/20 21:01 Dose: 500 mg Documented by: Lorazepam (Ativan) 1 mg IV Q4H PRN PRN PRN Reason: SEIZURES Polyethylene Glycol (Miralax) 8.5 gm GT DAILY [facility] Last Admin: 02/07/20 09:26 Dose: 8.5 gm Documented by: Prochlorperazine Edisylate (Compazine Iv) 5 mg IV Q4H PRN PRN PRN Reason: Breakthrough Nausea/Vomiting Simethicone (Mylicon) 80 mg GT Q8H PRN PRN PRN Reason: gas pains Last Admin: 02/06/20 21:24 Dose: 0.6 ml Documented by: Sodium Chloride () 10 - 40 ml IV UD PRN PRN Reason: SALINE FLUSH Last Admin: 02/07/20 09:24 Dose: 20 ml Documented by: Sodium Chloride ([place] Nasal [place]) 3 spray NASAL BID [facility] Last Admin: 02/07/20 09:27 Dose: 3 spray Documented by: Trazodone HCl (Desyrel) 100 mg GT QHS [facility] Last Admin: 02/06/20 21:01 Dose: 100 mg Documented by: Medical Necessity - Tobacco Use Smoking Status: Never smoker Route of nutrition/ use of supplements: [] Nutritional Intake: [] IV Site: [] Diaz Catheter: [] - Assessment/Plan Antibiotics: [] Assessment/Plan: [] Active and Suspected Problems Severe sepsis (Acute) Aspiration pneumonia (Suspected) Low suspicion for covid given neg PCR, improvement in symptoms, labs, and imaging. Out of isolation. Cont levaquin. Ok for d/c back to alf to complete 7 days total of abx (day 4 today). Will follow as needed
[2020-02-07] MEDS: Lansoprazole 15 MG Capsule.DR 30 MG NG (10:27)
[2020-02-07] MEDS: levETIRAcetam Oral Solution 500 MG/5 ML GT (10:27)
[2020-02-07] MEDS: Simethicone 40MG/0.6ML Bottle 80 MG GT (10:32)
--- NOTE | 2020-02-07 13:23 | PCM.DC.SUM ---
Discharge Date and Diagnosis Date of Admission: 02/04/20 Date of Discharge: 02/07/20 - Primary Discharge Diagnosis Acute Problems: Active Problems Severe sepsis (Acute) Severe sepsis secondary to right lower lobe healthcare associated pneumonia or aspiration pneumonia Suspected Problems: Suspected Problems Aspiration pneumonia (Suspected) - Secondary Discharge Diagnosis Chronic Problems: Chronic Problems Seizure (Chronic) HTN (hypertension) (Chronic) Malnutrition (Chronic) Autism (Chronic) Dysphagia (Chronic) Down syndrome (Chronic) nonverbal incontinent Hospital Course and Treatment Operations: None Summary of Care Provided: [] The patient is a 24 year old M with history of Down syndrome, nonverbal/noncommunicative, long term resident was admitted through ER from long term for high fever 102.6 Fahrenheit with cough for couple weeks and sputum in ICU Chest x-ray independently reviewed and it is rotated but shows right lower lobe infiltrate. Patient is on tube feed. Was tested COVID PCR negative about a week ago in long term.. 1. Severe sepsis (tachycardia, leukocytosis, lactic acidosis 2.2) secondary to aspiration pneumonia/healthcare setting pneumonia: Patient is being admitted in ICU. IV fluid normal saline 30 mils per KG bolus and then 100 mils per hour. Started on IV vancomycin, Levaquin and Flagyl. Pneumonia work-up ordered including COVID-19 PCR. Urinary antigens, respiratory panel and blood culture and sputum culture ordered. SARS-2 serology ordered. COVID-19 PCR negative. Gradual improvement in symptoms with no fever more than 48 hours. Urine culture shows Streptococcus group with less than 1000 colonies most likely contamination or asymptomatic bacteria. UTI ruled out. Respiratory panel negative. Blood cultures x2- for more than 48 hours. CRP elevated. BNP, total CK are normal. D-dimer 0.94. Procalcitonin elevated 1.19. COVID antibody nonreactive. Patient was co-managed with ID and veneer cutter. Discharged on Levaquin for total of 7 days of antibiotic. 2. Down syndrome/MRDD/oropharyngeal dysphagia/autism: Hold patient tube feed. Medications can be given through the tube. Patient tolerated tube feed. Seen by asbestos cement sheet supervisor. 3. Moderate protein calorie malnutrition: Patient BMI is 22.7. Body weight 52 kg. Seen by asbestos cement sheet supervisor. 4. Hypertension, seizure disorder: Home medication reconciliation done. 5. DVT prophylaxis: Lovenox 30 mg subcu twice daily. Discontinue if platelet count drops less than 50,000 or hemoglobin less than 8 g% Discharge medication reconciliation done. Discharge follow-up instructions completed. Discharge process discussed with the patient and all questions were answered to patient's satisfaction. Discharged to long term Total time spent, exact 35 minutes on discharge meds reconciliation, examination, coordination of care with nurses and ancillary staff, review of imaging and blood test and discussion with the patient on follow-up instructions Living will/advanced directive/end of life care: Discussed with the patient's father. patient does not have living will or advanced directive. After discussion of procedures involved with full code, DNR CC arrest and DNR CC, the patient's father opted for full code but he wants to avoid intubation until the last resort. He is good with artificial life support including intubation, tube feed, ventilator and/chest compression, central venous catheter, vasopressor and DC shock if needed Full code. Objective: Seen and examined. Talked to the patient's mother near the bedside. Patient downgraded to MedSurg status Blood pressure in the morning was 88/50. The nursing staff talked to the long term nurse and found out his baseline blood pressure usually systolic 100. Last blood pressure 128/72. Pulse ox 97% on room air. No fever for more than 48 hours On physical exam General: AWAKE, Cooperative, Seems on baseline mental status/MRDD HEENT: Atraumatic, PERRLA, EOMI, Normocephalic Oral: Protruding tongue. Neck: Supple, No JVD, Negative Carotid Bruits Lungs: No rhonchi, No wheeze, No rales, Air entry diminished on bilateral lung bases. Cardiovascular: Regular Rhythm, Normal S1, Normal S2, No murmurs, heart rate in 80s. Abdomen: Bowel Sounds Present, Soft, Non Tender, Non-Distended Extremities: No edema, Capillary Refill Less than 3 Seconds Skin: No rashes, No breakdown Musculoskeletal: No Tenderness to Palpation of Joints or Extremities Neurological: Noncommunicative, nonverbal. MRDD. Features of Down syndrome with small head size, low-set ears and head circumference. Psych/Mental Status: Nonverbal. - Physical Exam Vitals/I&O's: Vital Signs Temp Pulse Resp BP Pulse Ox 98.1 F 98 18 88/54 L 96 02/07/20 05:00 02/07/20 06:00 02/07/20 06:00 02/07/20 06:00 02/07/20 06:00 Oxygen Flow Rate (L/min) 6 Oxygen Delivery Method Room Air Weight: 110 lb 10.753 oz Body Mass Index (BMI) 22.4 Intake and Output for Last 24 Hours 02/05/20 02/06/20 02/07/20 23:59 23:59 23:59 Intake Total 2820 / 2820 3190.00 / 3190.00 Output Total 0 / 0 0 / 0 0 / 0 Balance 2820 / 2820 3190.00 / 3190.00 0 / 0 Microbiology Past 72 Hours 02/04/20 13:00 Blood Culture (Wb) - Anticubital Right Blood Culture - Preliminary No growth in 48 hours. 02/04/20 12:10 Blood Culture (Wb) - Anticubital Right Blood Culture - Preliminary No growth in 48 hours. 02/04/20 12:19 Urine Catheter - Catheter Urine Culture - Final Streptococcus group A 02/04/20 17:20 Mucosa - Nasopharyngeal Respiratory Panel (PCR) - Final 02/04/20 12:19 Urine Catheter - Catheter Legionella Antigen - Final 02/04/20 12:19 Urine Catheter - Catheter Streptococcus pneumoniae Antigen (M - Final Current Medications Acetaminophen (Tylenol) 650 mg RECTAL Q4H PRN PRN PRN Reason: Pain Score 1-10/Temp > 100.7 F Albuterol Sulfate (Ventolin Aerosols) 2.5 mg INHALATION Q2H PRN PRN PRN Reason: SOB/Wheezing Albuterol/Ipratropium (Duoneb) 3 ml INHALATION Q6H.RT [facility] Last Admin: 02/07/20 07:33 Dose: 3 ml Documented by: Bisacodyl (Dulcolax) 10 mg RECTAL DAILY PRN PRN PRN Reason: Constipation Dextrose (D50w Syringe) 0 gm IV X1 PRN; Protocol PRN Reason: Hypoglycemia Enoxaparin Sodium (Lovenox) 30 mg SC BID [facility] Last Admin: 02/06/20 21:05 Dose: 30 mg Documented by: Enteral Nutritional Formula (Jevity 1.5) 270 ml GT 4X/DAY [facility] Last Admin: 02/06/20 21:02 Dose: 270 ml Documented by: Glucagon () 1 mg IM .X1 PRN PRN Reason: Hypoglycemia Sodium Chloride () 250 mls @ 15 mls/hr IV .[id number] PRN PRN Reason: Saline Flush Sodium Chloride () 250 mls @ 15 mls/hr IV .[id number] PRN PRN Reason: Additional IVPB Infusion Levofloxacin (Levaquin Iv) 500 mg in 100 mls @ 100 mls/hr IV Q24 [facility] Last Infusion: 02/06/20 09:42 Dose: Infused Documented by: Lansoprazole (Lansoprazole) 30 mg NG DAILY [facility] Last Admin: 02/06/20 08:43 Dose: 30 mg Documented by: Levetiracetam (Keppra Oral Solution) 500 mg GT BID [facility] Last Admin: 02/06/20 21:01 Dose: 500 mg Documented by: Lorazepam (Ativan) 1 mg IV Q4H PRN PRN PRN Reason: SEIZURES Polyethylene Glycol (Miralax) 8.5 gm GT DAILY [facility] Last Admin: 02/06/20 08:43 Dose: 8.5 gm Documented by: Prochlorperazine Edisylate (Compazine Iv) 5 mg IV Q4H PRN PRN PRN Reason: Breakthrough Nausea/Vomiting Simethicone (Mylicon) 80 mg GT Q8H PRN PRN PRN Reason: gas pains Last Admin: 02/06/20 21:24 Dose: 0.6 ml Documented by: Sodium Chloride () 10 - 40 ml IV UD PRN PRN Reason: SALINE FLUSH Sodium Chloride ([place] Nasal [place]) 3 spray NASAL BID [facility] Last Admin: 02/06/20 21:05 Dose: 1 applicatio Documented by: Trazodone HCl (Desyrel) 100 mg GT QHS [facility] Last Admin: 02/06/20 21:01 Dose: 100 mg Documented by: Home Medications: Medications to take at Discharge L.acidoph,Paracasei, B.lactis [Probiotic] 1 pack GT DAILY 07/19/15 Lansoprazole [Prevacid] 30 mg GT DAILY 07/19/15 Simethicone 40MG/0.6ML [Mylicon] 80 mg GT Q8H PRN PRN 07/19/15 Polyethylene Glycol 3350 [Miralax] 8.5 gm GT DAILY 06/11/17 Sodium Chloride [Saline Nasal Mist] 3 spray NASAL BID 06/11/17 Bisacodyl 10 mg RC UD PRN 10/10/18 Metoprolol Tartrate 12.5 mg GT BID 05/19/18 traZODone [Desyrel] 150 mg GT QHS 05/19/18 Lactose-Reduced Food/Fiber [Jevity 1.2 [place] Liquid] 18 oz GT 4X/DAY 08/11/18 Lorazepam Intensol [Ativan Intensol] 1 mg GT PRN PRN #1 bottle 08/12/18 levETIRAcetam oral solution [Keppra Solution] 500 mg GT BID 02/04/20 Bacitracin Ointment 1 applic TOPICAL BID #1 tube 02/07/20 Levofloxacin [Levaquin] 500 mg GT DAILY #3 tab 02/07/20 Following Prescrptions Were Given to Patient: Bacitracin Ointment 1 applic TOPICAL BID #1 tube [facility]: [id number] Levofloxacin [Levaquin] 500 mg GT DAILY #3 tab Transmission Status: [id number] Primary Care Physician: Adriel Wallis DO [Primary Care Provider] - Please follow up with your Primary Care Physician in: in 1-2 week Please Follow Up With: Saeid Cabrera MD When: in 2-4 weeks as needed for fever or pneumonia issues Medical Necessity - Tobacco Use Smoking Status: Never smoker Meaningful Use Info Meaningful Use Diagnoses (Choose all that apply): None applicable Inpatient E&M: 60059 Disch Hosp
== END 2020-02-07 11:25 | disposition home or self-care (01) | DRG 871 ==
LOC: ED 13:31 → ICU 15:01
PROVIDERS: Admitting Provider Internal Medicine; Emergency Provider Physician Assistant Medical; PCP Family Medicine; Visit Provider Internal Medicine
DX: A41.9 Sepsis, unspecified organism (principal); J69.0 Pneumonitis due to inhalation of food and vomit; F84.0 Autistic disorder; E44.0 Moderate protein-calorie malnutrition; E87.2 Acidosis; R65.20 Severe sepsis without septic shock; Q90.9 Down syndrome, unspecified; I10 Essential (primary) hypertension; G40.909 Epilepsy, unspecified, not intractable, without status epilepticus; R32 Unspecified urinary incontinence; R13.12 Dysphagia, oropharyngeal phase; Z68.22 Body mass index [BMI] 22.0-22.9, adult; Z51.5 Encounter for palliative care; Z20.828 Contact with and (suspected) exposure to other viral communicable diseases; Z66 Do not resuscitate; Z93.1 Gastrostomy status; R79.82 Elevated C-reactive protein (CRP)
CPT/HCPCS: 36415; 71045; 80048; 80053; 81001; 82550; 82962; 83605; 83735; 83880; 84145; 84443; 84484; 85025; 85379; 85384; 85610; 85730; 86140; 86769; 87040; 87077; 87086; 87088; 87449; 87633; 87635; 87641; 93005; 94640; 97802; 99284; G2023; J7030; J7050; J7120; A4216; U0003

== ENCOUNTER 2020-06-12 15:22 | Outpatient (RCR) | payer OTHER, MEDICAID, SELFPAY ==
[2020-02-05 10:24] VITALS: BMI 22.4
== END 2020-07-09 23:59 ==
LOC: NS 15:22
PROVIDERS: PCP Family Medicine; Visit Provider Family Medicine
DX: Z71.3 Dietary counseling and surveillance (principal); R63.4 Abnormal weight loss
CPT/HCPCS: 97803

== ENCOUNTER 2020-07-24 15:00 | Outpatient (RCR) | payer OTHER, MEDICAID, SELFPAY ==
[2020-02-05 10:24] VITALS: BMI 22.4
== END 2020-08-09 23:59 ==
LOC: NS 15:00
PROVIDERS: PCP Family Medicine; Visit Provider Family Medicine
DX: Z71.3 Dietary counseling and surveillance (principal); R63.4 Abnormal weight loss
CPT/HCPCS: 97803

== ENCOUNTER 2020-09-04 15:00 | Outpatient (RCR) | payer OTHER, MEDICAID, SELFPAY ==
[2020-02-05 10:24] VITALS: BMI 22.4
--- NOTE | 2020-08-15 10:34 | NS ---
Addendum entered and electronically signed by Ryanne Solis 08/15/20 10:58: Received update call from Kelley from Dr. Wallis office. Kelley states Dr. Wallis has sent order to increase miralax to full dose and added a daily stool softener to Carmen's bowel regimen. Called and spoke w/ Jo w/ update in medication changes. Questions if pt were to go the other way and experience diarrhea, informed her that Imodium is ordered for Carmen as needed. Jo requesting GROVER Shannon from [facility], be updated, discussed prescription sent over so she should receive. Attempted to call Mirtha received voicemail, did not leave message, will attempt call at later time as able. DAMARIS Soler RDN. Original Note: 08/15/20 JED spoke w/ Kelley from Dr. Wallis office. Kelley states she sent message to MD regarding increase of Miralax to full dose and question if daily stool softener may be beneficial. Kelley states compliance representative from office will call JED w/ update once receives response from . DAMARIS Soler RDN
== END 2020-09-04 23:59 | disposition home or self-care (01) ==
LOC: NS 15:00
PROVIDERS: PCP Family Medicine; Visit Provider Family Medicine
DX: Z71.3 Dietary counseling and surveillance (principal); R63.4 Abnormal weight loss
CPT/HCPCS: 97803

== ENCOUNTER 2021-10-23 11:16 | Emergency (ER) | payer MEDICAID, SELFPAY ==
[2021-10-23 11:18] VITALS: PULSE 106; RESP 16; TEMP 36.4; O2SAT 97; BMI 24.4
--- NOTE | 2021-10-23 11:48 | EX.ED.DYSGE1 ---
HPI History of Present Illness Chief Complaint: Abscess Narrative Narrative: Patient presents with reevaluation of abscess. He had an abscess lanced 2 days ago and mom wanted to make sure it is not worse especially the he pulled the packing out. This a patient with Down syndrome, he is nonverbal. No reported fever or chills. No other symptoms PFSH PFSH Home Medications L.acidoph, paracasei,B. lactis 1 pack G-TUBE DAILY 07/19/15 [History Last Taken Unknown] lansoprazole [Prevacid] 30 mg G-TUBE DAILY 07/19/15 [History Last Taken Unknown] simethicone [Infants Gas Relief] 80 mg G-TUBE Q8H PRN PRN 07/19/15 [History Last Taken Unknown] polyethylene glycol 3350 8.5 g G-TUBE DAILY 06/11/17 [History Last Taken Unknown] sodium chloride [Saline Nasal Mist] 3 spray NASAL BID 06/11/17 [History Last Taken Unknown] Bisacodyl 10 mg GA UD PRN 05/19/18 [History Last Taken Unknown] metoprolol tartrate 12.5 mg G-TUBE BID 05/19/18 [History Last Taken Unknown] trazodone 150 mg G-TUBE QHS 05/19/18 [History Last Taken Unknown] lactose-reduced food with fibr [Jevity 1.2 Jamarcus] 18 oz G-TUBE 4X/DAY 08/11/18 [History Last Taken Unknown] lorazepam [Lorazepam Intensol] 1 mg G-TUBE PRN PRN #1 bottle 08/12/18 [Rx Last Taken Unknown] levetiracetam 500 mg GT BID 02/04/20 [History Last Taken Unknown] bacitracin zinc 1 applic TOPICAL BID #1 tube 02/07/20 [Rx Last Taken Unknown] levofloxacin 500 mg GT DAILY #3 tab 02/07/20 [Rx Last Taken Unknown] Allergy/AdvReac Type Severity Reaction Status Date / Time ceftriaxone sodium Allergy Rash Verified 10/23/21 11:20 [From Rocephin] sulfamethoxazole Allergy Rash Verified 10/23/21 11:20 [From Bactrim] trimethoprim [From Bactrim] Allergy Rash Verified 10/23/21 11:20 cinnamon [Cinnamon] AdvReac Diarrhea Verified 10/23/21 11:20 tape/bandaids AdvReac Rash Uncoded 10/23/21 11:20 Social History Smoking Status: Never smoker ROS ROS ED Review of Systems ROS Unobtainable: other Details: Due to being nonverbal secondary to severe Down syndrome EXAM Physical Exam Narrative Exam Narrative: Physical exam General: Patient appears comfortable watching cartoons on the iPad. Down syndrome features are present Head: Normocephalic, Atraumatic Eyes: Conjunctiva not pale ENT: Moist mucous membranes Neck: Supple, Nontender, No lymphadenopathy Cardiovascular: Regular rate, Regular rhythm it is loud in the room and I cannot hear a murmur. Respiratory: No distress, CTA bilaterally Abdomen: Soft, Nontender, Nondistended Back: Nontender, Normal Inspection. Negative for: CVA tenderness Extremities: Left inner thigh shows a healing wound, there is some redness but there is no fluctuance present as I expressed that there is some opening but I cannot express any pus. Skin: There is slight irritation of the skin surrounding the abscess Const Vital Signs: 10/23/21 11:18 Temperature 97.6 F L Temperature Source Temporal Pulse Rate 106 H Respiratory Rate 16 Pulse Ox 97 Oxygen Delivery Method Room Air MDM MDM MDM Narrative Medical decision making narrative: Mom is in the room who has pictures of the wound, based on the pictures on today's exam it seems that the wound is improving, patient continues to take the antibiotics. At this time there is no reason for drainage, I do not appreciate any drainage or fluctuance on my exam. Patient does have a appointment with PCP tomorrow for reevaluation, there is no systemic symptoms and I believe otherwise patient can be safely discharged home with reassurance Discharge Plan Triage Chief Complaint: Abscess ED Provider: Will Shukla Dx/Rx/DC Orders Clinical Impression: Abscess Instructions: Abscess Drainage Prescriptions: No Action lansoprazole [Prevacid] 30 MG capsule 30 mg G-tube DAILY RF: 0 simethicone [Infants Gas Relief] 40 MG/0.6 ML bottle 80 mg G-tube Q8H PRN PRN (Reason: gas pains) RF: 0 L.acidoph, paracasei,B. lactis 1 EACH capsule 1 pack G-tube DAILY RF: 0 sodium chloride [Saline Nasal Mist] 126 ML Mist 3 spray NASAL BID RF: 0 polyethylene glycol 3350 17 GM Packet 8.5 g G-tube DAILY RF: 0 metoprolol tartrate 25 MG tablet 12.5 mg G-tube BID RF: 0 trazodone 100 MG tablet 150 mg G-tube QHS RF: 0 Bisacodyl 10 MG Supp.Rect 10 mg GA UD PRN (Reason: constipation) RF: 0 lactose-reduced food with fibr [Jevity 1.2 Jamarcus] 237 ML Liquid 18 oz G-tube 4X/DAY RF: 0 lorazepam [Lorazepam Intensol] 2 MG/ML bottle 1 mg G-tube PRN PRN (Reason: Seizure) Qty: 1 RF: 0 levetiracetam 500 MG/5 ML solution 500 mg GT BID RF: 0 bacitracin zinc 1 APPLIC ointment 1 applic topical BID Qty: 1 RF: 0 levofloxacin 500 MG tablet 500 mg GT DAILY Qty: 3 RF: 0 Primary Care Provider: Adriel Wallis Referrals: Adriel Wallis DO [Primary Care Provider] - Disposition Disposition: Home, Self Care
[2021-10-23 12:20] VITALS: PULSE 110; RESP 20
== END 2021-10-23 12:21 | disposition home or self-care (01) ==
LOC: ED 12:02
PROVIDERS: Emergency Provider Emergency Medicine; PCP Family Medicine; Visit Provider Emergency Medicine
DX: L02.416 Cutaneous abscess of left lower limb (principal); Q90.9 Down syndrome, unspecified
CPT/HCPCS: 99282